=== PATIENT | female | born 1930 | race Hispanic/Latino ===

== ENCOUNTER 2016-11-16 17:04 | Inpatient (IN) | payer MEDICARE, OTHER ==
[2016-11-16] MEDS ORDERED: Vancomycin 1gm in NS 250ml 1 GM/250 ML BAG IVPB STA (17:35)
[2016-11-16] MEDS ORDERED: Piperacillin/Tazobact 3.375 gm 100 ML IVPB STA (17:35)
--- NOTE | 2016-11-16 17:41 | ED PDOC ---
Arrival/HPI - General Historian: Patient - General Chief Complaint: Shortness Of Breath Time Seen by Provider: 11/16/16 17:11 - History of Present Illness Narrative History of Present Illness (Text): 11/16/16 17:38 This is an 86 yo F with PMH of DM and asthma/COPD that presents to the ED with complaint of sob and b/l LE skin infection. She states that about 10 days ago she noticed that her legs were very erythematous and was painful to touch. She went to see podiatry (Macey) who prescribed Kelfex and instructed pt to go to ED if infection does not resolve at resolution of abx regimen. She finished the abx 3 days ago and still is symptomatic. Pt also complains of some sob that began 3 days ago. Denies fevers, chills, chest pain, nausea or vomiting. PMD: Brett (Nakul Alberto) Past Medical History - Provider Review Nursing Documentation Reviewed: Yes - Cardiac Hx Cardiac Disorders: No - Pulmonary Hx Respiratory Disorders: Yes Hx Asthma: Yes Hx Chronic Obstructive Pulmonary Disease (COPD): Yes - Neurological Hx Neurological Disorder: No - HEENT Hx HEENT Disorder: No - Renal Hx Renal Disorder: No - Endocrine/Metabolic Hx Endocrine Disorders: Yes Hx Diabetes Mellitus Type 2: Yes - Hematological/Oncological Hx Blood Disorders: No - Integumentary Hx Dermatological Disorder: No - Musculoskeletal/Rheumatological Hx Musculoskeletal Disorders: No - Gastrointestinal Hx Gastrointestinal Disorders: No - Genitourinary/Gynecological Hx Genitourinary Disorders: No - Psychiatric Hx Psychophysiologic Disorder: No Hx Substance Use: No Family/Social History - Physician Review Nursing Documentation Reviewed: Yes Family/Social History: No Known Family HX Smoking Status: Former Smoker Hx Alcohol Use: No Hx Substance Use: No Allergies/Home Meds Allergies/Adverse Reactions: Allergies No Known Allergies Allergy (Verified 11/17/16 18:15) Home Medications: Home Meds Medication Instructions Recorded Confirmed Fluticasone/Salmeterol [Advair 1 puff PO BID 04/26/15 11/17/16 Diskus 500/50] Omeprazole Magnesium [Prilosec Otc] 1 tab PO DAILY 04/26/15 11/17/16 Meclizine [Meclizine*] 12.5 mg PO Q6 PRN 10/02/15 11/17/16 Metoprolol Succinate [Toprol XL] 25 mg PO BID 10/02/15 11/17/16 Metformin HCl [Glucophage] 1,000 mg PO BID 11/17/16 11/17/16 Review of Systems - Review of Systems Constitutional: Normal Eyes: Normal ENT: Normal Respiratory: SOB, Cough. absent: Sputum, Wheezing Cardiovascular: Normal. absent: Chest Pain, Palpitations Gastrointestinal: Normal. absent: Abdominal Pain, Nausea, Vomiting Genitourinary Female: Normal. absent: Dysuria, Frequency Musculoskeletal: Normal. absent: Arthralgias, Back Pain Skin: Rash, Other (redness over lower extremities) Neurological: Normal. absent: Headache, Dizziness Endocrine: Normal Hemo/Lymphatic: Normal Psychiatric: Normal Physical Exam Appearance: Positive for: Non-Toxic, Comfortable Pain Distress: None Mental Status: Positive for: Alert and Oriented X 3 - Systems Exam Head: Present: Atraumatic, Normocephalic Pupils: Present: PERRL Mouth: Present: Moist Mucous Membranes Respiratory/Chest: Present: Decreased Breath Sounds. No: Respiratory Distress Cardiovascular: Present: Normal S1, S2 Abdomen: Present: Normal Bowel Sounds. No: Tenderness, Distention Upper Extremity: Present: NORMAL PULSES Lower Extremity: Present: NORMAL PULSES, Swelling, Erythema Skin: Present: Warm, Dry, Erythematous (over LE) Psychiatric: Present: Alert, Oriented x 3 Medical Decision Making ED Course and Treatment: 11/16/16 17:43 86 yo F with DM and asthma here with b/l LE cellulitis and sob Plan: - Labs, cultures - EKG, CXR - CTA pending Cr - Zosyn and Vanco - Reassess and disposition 11/16/16 17:45 NSR at 92 with premature SVT complexes, right axis, no ST elevations (Nakul Alberto) EXAM: CT Angiography Chest With Intravenous Contrast FINDINGS: Limitations: Motion artifact - mild to moderate. Suboptimal timing of bolus. Pulmonary arteries: Few apparent filling defects within subsegmental branches. No saddle embolus. Aorta: Mild atherosclerotic disease. No aortic aneurysm. Lungs: Mild centrilobular emphysematous changes. Mild peripheral atelectasis/ scarring. Mild interlobular septal thickening. Pleural space: No significant effusion. No pneumothorax. Heart: Mild cardiomegaly. No significant pericardial effusion. Mediastinum: Probable small hiatal hernia. Bones/joints: No acute fracture. No dislocation. Soft tissues: Unremarkable. Lymph nodes: Several subcentimeter short axis mediastinal lymph nodes. Gallbladder and bile ducts: Calcified gallstones. Kidneys and ureters: Probable LEFT renal cyst. IMPRESSION: 1. Apparent distal pulmonary emboli. 2. Possible early interstitial edema. Clinical correlation is needed. 3. Emphysema. 4. Incidental/non-acute findings are described above. Dictated and Authenticated by: Demarcus Chadwick MD 11/16/2016 9:57 PM Eastern Time ([place] & [place]) 11/20/16 19:36 pt seen tiwt resident. pt with shortness of breadn leg swelling . ct shows pe. heparin starts. labs remarkable for nstemi, nad chf. lasix asa given. acepted by dr mckinney to tele. ([employer]) - Lab Interpretations Microbiology Results: Microbiology Results 11/16/16 19:16 Blood Blood Culture - Preliminary NO GROWTH AFTER 4 DAYS 11/16/16 19:35 Blood Blood Culture - Preliminary NO GROWTH AFTER 3 DAYS Lab Results: 11/16/16 19:16 11/16/16 19:16 Lab Results 11/16/16 19:16: Procalcitonin 0.06 L 11/16/16 19:16: C-React Prot High Sens > 15.00 H 11/16/16 19:16: Sodium 141, Potassium 4.0, Chloride 103, Carbon Dioxide 28, Anion Gap 14, BUN 33 H, Creatinine 1.0, Est GFR ( Amer) > 60, Est GFR ( Non-Af Amer) 52, Random Glucose 100, Calcium 9.8, Total Bilirubin 0.9, AST 32, ALT 30, Alkaline Phosphatase 71, Lactate Dehydrogenase 548, Total Creatine Kinase 61, Troponin I 0.31 H* D, NT-Pro-B Natriuret Pep 6570 H, Total Protein 7.2, Albumin 3.6, Globulin 3.7, Albumin/Globulin Ratio 1.0 L 11/16/16 19:16: WBC 7.9 D, RBC 4.36, Hgb 9.2 L, Hct 32.8 L, MCV 75.2 L, MCH 21.1 L, MCHC 28.0 L, RDW 18.1 H, Plt Count 204, MPV 9.4, Gran % 73.7 H, Lymph % (Auto) 17.2 L, Cooke % (Auto) 7.3 H, Eos % (Auto) 1.5, Baso % (Auto) 0.3, Gran # 5.84, Lymph # 1.4, Cooke # 0.6, Eos # 0.1, Baso # 0.02, ESR 7 - RAD Interpretation Radiology Orders: 11/16/16 17:34 CHEST PORTABLE [RAD] Stat 11/16/16 19:40 ANGIO CHEST PE PROTOCOL [CT] Stat - Medication Orders Current Medication Orders: Arformoterol Tartrate (Brovana) 15 mcg IH [id number] [facility] Last Admin: 11/20/16 08:09 Dose: 15 mcg Aspirin (Ecotrin) 81 mg PO DAILY [facility] Last Admin: 11/20/16 11:09 Dose: 81 mg Atorvastatin Calcium (Lipitor) 40 mg PO DIN [facility] Last Admin: 11/20/16 17:04 Dose: 40 mg Budesonide (Pulmicort Respules) 1 mg IH [id number] [facility] Last Admin: 11/20/16 08:11 Dose: 1 mg Furosemide (Lasix) 40 mg IVP DAILY [facility] Last Admin: 11/20/16 11:10 Dose: 40 mg Heparin Sodium/Sodium Chloride (Heparin 67397 Units/250ml 1/2 Normal Saline) 25 ,000 units in 250 mls @ 14.288 mls/hr IV .[id number] DEQUAN; 18 UNITS/KG/HR PRN Reason: Protocol Last Admin: 11/19/16 20:00 Dose: 9.19 units/kg/hr, 7.295 mls/hr Linezolid (Zyvox 600mg/300ml D5w) 600 mg in 300 mls @ 200 mls/hr IVPB Q12 DEQUAN PRN Reason: Protocol Stop: 11/24/16 10:01 Last Admin: 11/20/16 11:08 Dose: 200 mls/hr Iron Sucrose 200 mg/ Sodium (Chloride) 110 mls @ 110 mls/hr IVPB DAILY [facility] Stop: 11/21/16 10:01 Last Admin: 11/20/16 13:07 Dose: 110 mls/hr Insulin Human Lispro (Humalog) 0 units SC ACHS DEQUAN PRN Reason: Protocol Last Admin: 11/20/16 17:04 Dose: 1 units Meclizine HCl (Antivert) 12.5 mg PO Q6 PRN PRN Reason: Dizziness Metoprolol Tartrate (Lopressor) 25 mg PO BRKDIN [facility] Last Admin: 11/20/16 17:05 Dose: 25 mg Pantoprazole Sodium (Protonix Ec Tab) 40 mg PO ACB [facility] Last Admin: 11/20/16 08:39 Dose: 40 mg Warfarin Sodium (Coumadin) 10 mg PO 1800 [facility] Last Admin: 11/20/16 17:03 Dose: 10 mg Discontinued Medications Albuterol/Ipratropium (Duoneb 3 Mg/0.5 Mg (3 Ml) Ud) 3 ml IH Q15M DEQUAN Stop: 11/16/16 18:16 Last Admin: 11/16/16 20:21 Dose: 3 ml Albuterol/Ipratropium (Duoneb 3 Mg/0.5 Mg (3 Ml) Ud) 3 ml IH Q6H PRN PRN Reason: SOB Stop: 11/17/16 11:01 Arformoterol Tartrate (Brovana) 15 mcg IH [id number] Aspirin (Aspirin) 325 mg PO STAT STA Stop: 11/16/16 19:52 Last Admin: 11/16/16 21:10 Dose: 325 mg Atorvastatin Calcium (Lipitor) 40 mg PO STAT STA Stop: 11/16/16 22:48 Last Admin: 11/16/16 23:03 Dose: 40 mg Barium Sulfate (Readi-Cat 2) Confirm Administered Dose 900 ml PO .STK-MED ONE Stop: 11/18/16 06:41 Furosemide (Lasix) 40 mg IVP STAT STA Stop: 11/16/16 19:52 Last Admin: 11/16/16 21:09 Dose: 40 mg Heparin Sodium (Porcine) (Heparin) 4,000 units IV ONCE ONE PRN Reason: Protocol Stop: 11/16/16 19:52 Last Admin: 11/16/16 21:07 Dose: 4,000 units Vancomycin HCl (Vancomycin 1gm) 1 gm in 250 mls @ 167 mls/hr IVPB STAT STA PRN Reason: Protocol Stop: 11/16/16 19:04 Last Admin: 11/16/16 20:21 Dose: 167 mls/hr Piperacillin Sod/Tazobactam Sod (Zosyn 3.375 In Ns 100ml) 100 mls @ 200 mls/hr IVPB STAT STA PRN Reason: Protocol Stop: 11/16/16 18:04 Last Admin: 11/16/16 19:34 Dose: 200 mls/hr Heparin Sodium/Sodium Chloride (Heparin 43026 Units/250ml 1/2 Normal Saline) 25 ,000 units in 250 mls @ 9.525 mls/hr IV .Q24H DEQUAN; 12 UNITS/KG/HR PRN Reason: Protocol Last Admin: 11/16/16 21:11 Dose: 9.525 mls/hr Piperacillin Sod/Tazobactam Sod (Zosyn 3.375 In Ns 100ml) 100 mls @ 200 mls/hr IVPB Q6 DEQUAN PRN Reason: Protocol Stop: 11/24/16 00:01 Last Admin: 11/18/16 05:03 Dose: 200 mls/hr Magnesium Sulfate 2 gm/ Sodium (Chloride) 104 mls @ 102 mls/hr IVPB ONCE ONE Stop: 11/18/16 10:07 Last Admin: 11/18/16 09:49 Dose: 102 mls/hr Magnesium Sulfate 2 gm/ Sodium (Chloride) 104 mls @ 102 mls/hr IVPB ONCE ONE Stop: 11/18/16 17:28 Last Admin: 11/18/16 18:02 Dose: 102 mls/hr Iodixanol (Visipaque 320 Mg/Ml 100 Ml) Confirm Administered Dose 100 ml IV .STK- MED ONE Stop: 11/16/16 20:27 Methylprednisolone (Solu-Medrol) 125 mg IVP STAT STA Stop: 11/16/16 17:38 Last Admin: 11/16/16 19:33 Dose: 125 mg Metoprolol Succinate (Toprol Xl) 25 mg PO BID [facility] Last Admin: 11/18/16 09:48 Dose: Not Given Non-Admin Reason: BP Parameters Not Met Pneumococcal Polyvalent Vaccine (Pneumovax 23 Vaccine) 0.5 ml IM .ONCE ONE Stop: 11/17/16 22:02 Potassium Chloride (K-Dur 20 Meq Er Tab) 20 meq PO ONCE ONE Stop: 11/20/16 17:22 Warfarin Sodium (Coumadin) 5 mg PO 1800 DEQUAN PRN Reason: Protocol Last Admin: 11/18/16 17:54 Dose: 5 mg Warfarin Sodium (Coumadin) 7.5 mg PO 1800 DEQUAN PRN Reason: Protocol Last Admin: 11/19/16 17:32 Dose: 7.5 mg Warfarin Sodium (Coumadin) 10 mg PO 1800 DEQUAN PRN Reason: Protocol Disposition/Present on Arrival - Present on Arrival Any Indicators Present on Arrival: No History of DVT/PE: No History of Uncontrolled Diabetes: No Urinary Catheter: No History Surgical Site Infection Following: None - Disposition Have Diagnosis and Disposition been Completed?: Yes Disposition Time: 22:05 Patient Plan: Admission - Disposition Diagnosis: Pulmonary embolism, NSTEMI (non-ST elevated myocardial infarction), CHF ( congestive heart failure) Disposition: HOSPITALIZED Patient Problems: Current Active Problems Problem Status Onset CHF (congestive heart failure) Acute NSTEMI (non-ST elevated myocardial infarction) Acute Pulmonary embolism Acute Condition: STABLE
[2016-11-16 19:19] LABS: ADD MANUAL DIFF? NO
[2016-11-16 19:23] LABS: BASO # 0.02 K/mm3 (0.0-2.0); BASO % 0.3 % (0.0-3.0); EOS # 0.1 (0.0-0.7); EOS % 1.5 % (1.5-5.0); GRAN # 5.84 (1.4-6.5); GRAN % 73.7 % (50.0-68.0); HEMATOCRIT 32.8 % (36.0-48.0); LYMPH # 1.4 (1.2-3.4); LYMPH % 17.2 % (22.0-35.0); MEAN CELL VOLUME 75.2 fL (80.0-105.0); MEAN CORPUSCULAR HEMOGLOBIN 21.1 pg (25.0-35.0); MEAN PLATELET VOLUME 9.4 fl (7.0-11.0); MONO # 0.6 (0.1-0.6); MONO % 7.3 % (1.0-6.0); PLATELET COUNT 204 10^3/uL (120.0-450.0); RED CELL DISTRIBUTION WIDTH 18.1 % (11.5-14.5); WHITE BLOOD COUNT 7.9 10^3/ul (4.5-11.0)
[2016-11-16] MEDS: Albuterol-Ipratrop 3 mg / 0.5 (3 ml) UD IH SCH ×3 (19:33→20:21)
[2016-11-16 19:35] LABS: ALKALINE PHOSPHATASE 71 U/L (38-133); ALT/SGPT 30 U/L (7-56); AST/SGOT 32 U/L (15-39); BILIRUBIN,TOTAL 0.9 mg/dL (0.2-1.3); BLOOD UREA NITROGEN 33 mg/dL (7-21); CALCIUM 9.8 mg/dL (8.4-10.5); CARBON DIOXIDE 28 mmol/L (21-33); CHLORIDE 103 mmol/L (98-107); GFR AFRICAN-AMERICAN > 60; GLUCOSE,RANDOM 100 mg/dL (70-110); SODIUM 141 mmol/L (132-148); TOTAL PROTEIN 7.2 g/dL (5.8-8.3)
[2016-11-16 19:49] LABS: TROPONIN I 0.31 ng/mL
[2016-11-16] MEDS ORDERED: Heparin25000 units/250ml 1/2NS 25,000 UNITS/250 ML BAG IV SCH (20:00)
[2016-11-16] MEDS ORDERED: Iodixanol 320 MG/ML 100 ML BOTTLE IV ONE (20:26)
[2016-11-16 20:45] LABS: ERYTHROCYTE SEDIMENTATION RATE 7 mm/hr (0.0-20.0)
--- NOTE | 2016-11-16 21:57 | CT ---
EXAM: CT Angiography Chest With Intravenous Contrast CLINICAL HISTORY: 86 years old, female; Signs and symptoms; Shortness of breath; Additional info: SOB TECHNIQUE: Axial computed tomographic angiography images of the chest with intravenous contrast using pulmonary embolism protocol. This CT exam was performed using one or more of the following dose reduction techniques: automated exposure control, adjustment of the mA and/or kV according to patient size, and/or use of iterative reconstruction technique. MIP reconstructed images were created and reviewed. Coronal and sagittal reformatted images were created and reviewed. CONTRAST: 100 mL of VISI 320 administered intravenously. COMPARISON: CT - CHEST W/O CONTRAST 04/26/2015 7:09:59 PM FINDINGS: Limitations: Motion artifact - mild to moderate. Suboptimal timing of bolus. Pulmonary arteries: Few apparent filling defects within subsegmental branches. No saddle embolus. Aorta: Mild atherosclerotic disease. No aortic aneurysm. Lungs: Mild centrilobular emphysematous changes. Mild peripheral atelectasis/scarring. Mild interlobular septal thickening. Pleural space: No significant effusion. No pneumothorax. Heart: Mild cardiomegaly. No significant pericardial effusion. Mediastinum: Probable small hiatal hernia. Bones/joints: No acute fracture. No dislocation. Soft tissues: Unremarkable. Lymph nodes: Several subcentimeter short axis mediastinal lymph nodes. Gallbladder and bile ducts: Calcified gallstones. Kidneys and ureters: Probable LEFT renal cyst. IMPRESSION: 1. Apparent distal pulmonary emboli. 2. Possible early interstitial edema. Clinical correlation is needed. 3. Emphysema. 4. Incidental/non-acute findings are described above.
[2016-11-16] MEDS: Heparin25000 units/250ml 1/2NS 25,000 UNITS/250 ML BAG IV SCH (22:11)
--- NOTE | 2016-11-16 22:27 | CP.PCM.HP ---
<AleksandrFranklynnakitaMaxime rome - Last Filed: 11/16/16 22:21> History of Present Illness - History of Present Illness History of Present Illness: This patient is an 86yo F w/ a PMHx of COPD, DM, CAD, HTN who is coming to the hospital because she simply felt "off" today. She was being treated for a cellulitis of her LLE by her primary care doctor w/ Juan David, and states that for the past 10 days it has not gotten any better. She is still able to ambulate , but has not felt like being as active as she normally is because she "is too old". She also admits that her memory is starting to go and that she is starting to lose interest in the things that used to bring her candelario in life "missing her youth". She denies any ERWIN, CP, SOB, abdominal pain, N/V/D, dysuria/ freq/urg. She admits to LLE pain/swelling for the past 10 days, which her PMD Dr. West knows about. PMHx: DM, HTN, COPD, Cellulitis of LLE Allergies: None Surgeries: None Social: Lives alone, independent in ADL and IADL normally. Smoked 2 packs a day for 40 years, quit smoking 10 years ago In the ED they performed a CTA which showed distal pulmonary emboli. She had a troponin of .31; other VSS. Stress test in 2016 was normal. She was given Vanc and Zosyn in the ED for the cellulitis. Cardiology (Tila) and ID (Gay) were consulted. Present on Admission - Present on Admission Any Indicators Present on Admission: No History of DVT/PE: No History of Uncontrolled Diabetes: Yes Urinary Catheter: No Decubitus Ulcer Present: No Review of Systems - Review of Systems All systems: reviewed and no additional remarkable complaints except Past Patient History - Past Social History Smoking Status: Former Smoker - CARDIAC Hx Cardiac Disorders: No - PULMONARY Hx Respiratory Disorders: Yes Hx Asthma: Yes Hx Chronic Obstructive Pulmonary Disease (COPD): Yes - NEUROLOGICAL Hx Neurological Disorder: No - HEENT Hx HEENT Problems: No - RENAL Hx Chronic Kidney Disease: No - ENDOCRINE/METABOLIC Hx Endocrine Disorders: Yes Hx Diabetes Mellitus Type 2: Yes - HEMATOLOGICAL/ONCOLOGICAL Hx Blood Disorders: No - INTEGUMENTARY Hx Dermatological Problems: No - MUSCULOSKELETAL/RHEUMATOLOGICAL Hx Musculoskeletal Disorders: No - GASTROINTESTINAL Hx Gastrointestinal Disorders: No - GENITOURINARY/GYNECOLOGICAL Hx Genitourinary Disorders: No - PSYCHIATRIC Hx Psychophysiologic Disorder: No Hx Substance Use: No - SURGICAL HISTORY Hx Surgeries: Yes (rhinoplasty) - ANESTHESIA Hx Anesthesia: No Meds Allergies/Adverse Reactions: Allergies Allergy/AdvReac Type Severity Reaction Status Date / Time No Known Allergies Allergy Verified 05/10/15 15:01 Physical Exam - Constitutional Appears: Non-toxic - Head Exam Head Exam: ATRAUMATIC - Eye Exam Eye Exam: EOMI - ENT Exam ENT Exam: Mucous Membranes Moist - Neck Exam Neck exam: Positive for: Full Rom. Negative for: Lymphadenopathy - Respiratory Exam Respiratory Exam: NORMAL BREATHING PATTERN. absent: Accessory Muscle Use, Clear to Auscultation Bilateral, Respiratory Distress Additional comments: bi basilar crackles present - Cardiovascular Exam Cardiovascular Exam: Tachycardia, REGULAR RHYTHM, +S1, +S2 - GI/Abdominal Exam GI & Abdominal Exam: Normal Bowel Sounds, Soft. absent: Tenderness - Extremities Exam Extremities exam: Positive for: calf tenderness, pedal edema, tenderness. Negative for: normal inspection (LLE swelling and erythema, redness demarcated with pen for day team to assess if antibiotics are working ) - Back Exam Back exam: NORMAL INSPECTION. absent: CVA tenderness (L), CVA tenderness (R) - Neurological Exam Neurological exam: Alert, Oriented x3 - Psychiatric Exam Psychiatric exam: Depressed - Skin Skin Exam: Dry Results - Vital Signs Recent Vital Signs: Last Vital Signs Temp 98.2 F 11/16/16 18:10 Pulse 75 11/16/16 18:10 Resp 18 11/16/16 18:10 BP 124/64 11/16/16 21:09 Pulse Ox 98 11/16/16 19:17 - Labs Result Diagrams: 11/16/16 19:16 11/16/16 19:16 Labs: Laboratory Results - last 24 hr 11/16/16 11/16/16 11/16/16 19:16 19:16 19:16 WBC 7.9 D RBC 4.36 Hgb 9.2 L Hct 32.8 L MCV 75.2 L MCH 21.1 L MCHC 28.0 L RDW 18.1 H Plt Count 204 MPV 9.4 Gran % 73.7 H Lymph % (Auto) 17.2 L Prentiss % (Auto) 7.3 H Eos % (Auto) 1.5 Baso % (Auto) 0.3 Gran # 5.84 Lymph # 1.4 Prentiss # 0.6 Eos # 0.1 Baso # 0.02 ESR 7 Sodium 141 Potassium 4.0 Chloride 103 Carbon Dioxide 28 Anion Gap 14 BUN 33 H Creatinine 1.0 Est GFR ( Amer) > 60 Est GFR (Non-Af Amer) 52 Random Glucose 100 Calcium 9.8 Total Bilirubin 0.9 AST 32 ALT 30 Alkaline Phosphatase 71 Lactate Dehydrogenase 548 Total Creatine Kinase 61 Troponin I 0.31 H* D C-React Prot High Sens > 15.00 H NT-Pro-B Natriuret Pep 6570 H Total Protein 7.2 Albumin 3.6 Globulin 3.7 Albumin/Globulin Ratio 1.0 L Assessment & Plan - Assessment and Plan (Free Text) Assessment: Pt is an 86yo F admitted for NSTEMI and Sub-Segmental Distal PE Sub-Segmental Distal PE; most likely unprovoked -Heparin Drip as per protocol -patients VSS are stable; only tachycardia saturating well -will continue with NS at 2L -Lower extremity ultrasound pending NSTEMI -Cardiology Consult; Adorno -On Heparin Drip; follow protocol -Telemetry monitoring; trend trops -Aspirin, B-Mikki, Statin given; can assess need for ED after echo -echo ordered and pending -BNP 6570; baseline last year 350; most likely new onset CHF; will assess after echo Lower Extrem Swelling/Cellulitis -ID Consult; Dr Rashid -Vanco 1g Q12H, Zosyn 3.75gm Q6H (Diabetes) DM -Insulin Sliding Scale COPD -Nebs PRN -c/w home meds Proph -on Hep Drip -Omeprazole -Heart Healthy Diet -Strict Jhon, Daily Weight Case Discussed and seen with Dr. Betsy Jacobson PGY1 Night Float [phone] Decision To Admit - Pt Status Changed To: Hospital Disposition Of: Inpatient Admission - Admit Certification Admit to Inpatient:: After my assessment, the patient will require hospitalization for at least two midnights. This is because of the severity of symptoms shown, intensity of services needed, and/or the medical risk in this patient being treated as an outpatient. - . Bed Request Type: Telemetry Admitting Physician: Amador Meyer <Amador Meyer - Last Filed: 11/17/16 00:28> Physical Exam - Cardiovascular Exam Additional comments: bibasilar mild crackles Results - Vital Signs Recent Vital Signs: Last Vital Signs Temp 98.2 F 11/16/16 18:10 Pulse 75 11/16/16 18:10 Resp 18 11/16/16 18:10 BP 124/64 11/16/16 21:09 Pulse Ox 98 11/16/16 19:17 - Labs Result Diagrams: 11/16/16 19:16 11/16/16 19:16 Attending/Attestation - Attestation I have personally seen and examined this patient.: Yes I have fully participated in the care of the patient.: Yes I have reviewed all pertinent clinical information: Yes Notes (Text): 11/17/16 00:25 I agree with the above mentioned note by Resident Posadas with the following exceptions: Family history: reviewed and noncontributory Home Meds: Prilosec OTC Toprol 25mg po bid Metformin 1000mg po bid Meclizine prn Advair 500/50 1 puff IH bid 86 y/o female with a PMHx as above presented to the ED with a feeling of general malaise and worsening lower extremity erythema and discomfort which had not improved on po antibiotics. She was found to have a distal PE, mild shortness of breath with an elevated bnp suggestive of acute heart failure as well as elevated troponin levels which are unclear for NSTEMI vs myocardial strain secondary to pulmonary embolism.
[2016-11-16] MEDS ORDERED: Albuterol-Ipratrop 3 mg / 0.5 (3 ml) UD IH PRN (22:50)
[2016-11-16] MEDS ORDERED: Vancomycin 1 g Inj IVPB SCH (23:00)
[2016-11-16] MEDS ORDERED: Piperacillin/Tazobact 3.375 gm Inj IVPB SCH (23:00)
[2016-11-16] MEDS ORDERED: Piperacillin/Tazobact 2.25gm 2.25 GM/100 ML BAG IVPB SCH (23:00)
[2016-11-17] MEDS: Piperacillin/Tazobact 3.375 gm 100 ML IVPB SCH ×5 (00:33→23:05)
[2016-11-17 03:48] LABS: ALKALINE PHOSPHATASE 72 U/L (38-133); ALT/SGPT 35 U/L (7-56); AST/SGOT 31 U/L (15-39); BILIRUBIN,TOTAL 0.7 mg/dL (0.2-1.3); BLOOD UREA NITROGEN 28 mg/dL (7-21); CALCIUM 9.1 mg/dL (8.4-10.5); CARBON DIOXIDE 28 mmol/L (21-33); CHLORIDE 102 mmol/L (95-110); CHOLESTEROL 129 mg/dL (130-200); GFR AFRICAN-AMERICAN > 60; GLUCOSE,RANDOM 181 mg/dL (70-110); POTASSIUM 4.2 mmol/L (3.6-5.0); SODIUM 140 mmol/L (132-148)
[2016-11-17 04:23] LABS: TROPONIN I 0.19 ng/mL
[2016-11-17 04:44] LABS: INR 1.19 (0.93-1.08)
[2016-11-17 04:51] LABS: PARTIAL THROMBOPLASTIN TIME 74.4 Seconds (23.7-30.8)
[2016-11-17] MEDS ORDERED: Vancomycin 1gm in NS 250ml 1 GM/250 ML BAG IVPB SCH (06:00)
[2016-11-17] MEDS ORDERED: Arformoterol 15 mcg/2 ml Inh Sol IH SCH (08:00)
--- NOTE | 2016-11-17 08:52 | RAD ---
HISTORY: sob COMPARISON: 04/26/2015 FINDINGS: LUNGS: No active pulmonary disease. PLEURA: No significant pleural effusion identified, no pneumothorax apparent. CARDIOVASCULAR: Moderate cardiomegaly. Mild vascular congestion OSSEOUS STRUCTURES: No significant abnormalities. VISUALIZED UPPER ABDOMEN: Normal. OTHER FINDINGS: None. IMPRESSION: Moderate cardiomegaly. Mild vascular congestion
[2016-11-17] MEDS: Pantoprazole 40 mg EC Tab PO SCH (09:39)
[2016-11-17] MEDS: Insulin Lispro 1 UNITS/0.01 ML SC SCH ×4 (09:42→22:16)
[2016-11-17] MEDS: Metoprolol Succinate 25 mg XL Tab PO SCH ×2 (09:47→17:21)
--- NOTE | 2016-11-17 09:51 | CARD ---
APPROVED REPORT EKG Measurement Heart [id number] <Conclusion> Sinus rhythm with premature supraventricular complexes Rightward axis Low voltage Nonspecific T wave abnormality, new
--- NOTE | 2016-11-17 10:14 | CARD ---
APPROVED REPORT EKG Measurement Heart [id number] <Conclusion> Sinus rhythm with premature supraventricular complexes RAD PRWP NSSTW changes No change except increased voltage lateral precordial leads
[2016-11-17] MEDS: Linezolid 600 mg in D5W 300 ml 600 MG/300 ML BAG IVPB SCH ×2 (10:32→21:28)
--- NOTE | 2016-11-17 11:01 | CP.PCM.CON ---
History of Present Illness - History of Present Illness History of Present Illness: 86 year old female with PMH of COPD, HTN, CAD, DM, obesity with BMI 33, was brought in to [facility] because the patient was having malaise. She was being treated for lower left leg cellulitis by his PMD with keflex but she feels there is not much improvement. She denies headache or dizziness, no fever or chills, no nausea or vomiting, no chest pain, no SOB, no cough or colds , no abdominal pain, no diarrhea, no dysuria. In the ED, she was started on antibiotics and CT chest was done which showed distal pulmonary emboli. Infectious diseases consult is requested to further evaluate and manage. Review of Systems - Review of Systems All systems: reviewed and no additional remarkable complaints except (as per HPI ) Past Patient History - Past Social History Smoking Status: Former Smoker - CARDIAC Hx Cardiac Disorders: No - PULMONARY Hx Respiratory Disorders: Yes Hx Asthma: Yes Hx Chronic Obstructive Pulmonary Disease (COPD): Yes - NEUROLOGICAL Hx Neurological Disorder: No - HEENT Hx HEENT Problems: No - RENAL Hx Chronic Kidney Disease: No - ENDOCRINE/METABOLIC Hx Endocrine Disorders: Yes Hx Diabetes Mellitus Type 2: Yes - HEMATOLOGICAL/ONCOLOGICAL Hx Blood Disorders: No - INTEGUMENTARY Hx Dermatological Problems: No - MUSCULOSKELETAL/RHEUMATOLOGICAL Hx Musculoskeletal Disorders: No - GASTROINTESTINAL Hx Gastrointestinal Disorders: No - GENITOURINARY/GYNECOLOGICAL Hx Genitourinary Disorders: No - PSYCHIATRIC Hx Psychophysiologic Disorder: No Hx Substance Use: No - SURGICAL HISTORY Hx Surgeries: Yes (rhinoplasty) - ANESTHESIA Hx Anesthesia: No Meds Allergies/Adverse Reactions: Allergies Allergy/AdvReac Type Severity Reaction Status Date / Time No Known Allergies Allergy Verified 05/10/15 15:01 - Medications Medications: Current Medications Albuterol/Ipratropium (Duoneb 3 Mg/0.5 Mg (3 Ml) Ud) 3 ml IH Q6H PRN PRN Reason: SOB Stop: 11/17/16 11:01 Arformoterol Tartrate (Brovana) 15 mcg IH [id number] DEQUAN Aspirin (Ecotrin) 81 mg PO DAILY DEQUAN Atorvastatin Calcium (Lipitor) 40 mg PO DIN DEQUAN Budesonide (Pulmicort Respules) 1 mg IH [id number] DEQUAN Furosemide (Lasix) 40 mg IVP DAILY DEQUAN Heparin Sodium/Sodium Chloride (Heparin 46720 Units/250ml 1/2 Normal Saline) 25 ,000 units in 250 mls @ 14.288 mls/hr IV .[id number] EDQUAN; 18 UNITS/KG/HR PRN Reason: Protocol Last Admin: 11/16/16 22:11 Dose: 14.288 mls/hr Piperacillin Sod/Tazobactam Sod (Zosyn 3.375 In Ns 100ml) 100 mls @ 200 mls/hr IVPB Q6 DEQUAN PRN Reason: Protocol Stop: 11/24/16 00:01 Linezolid (Zyvox 600mg/300ml D5w) 600 mg in 300 mls @ 200 mls/hr IVPB Q12 DEQU[facility] PRN Reason: Protocol Stop: 11/24/16 10:01 Insulin Human Lispro (Humalog) 0 units SC ACHS DEQUAN PRN Reason: Protocol Meclizine HCl (Antivert) 12.5 mg PO Q6 PRN PRN Reason: Dizziness Metoprolol Succinate (Toprol Xl) 25 mg PO BID DEQUAN Pantoprazole Sodium (Protonix Ec Tab) 40 mg PO ACB DEQUAN Physical Exam - Constitutional Appears: Non-toxic, No Acute Distress - Head Exam Head Exam: NORMAL INSPECTION - ENT Exam ENT Exam: Mucous Membranes Moist - Neck Exam Neck exam: Negative for: Lymphadenopathy, Meningismus - Respiratory Exam Respiratory Exam: Decreased Breath Sounds - Cardiovascular Exam Cardiovascular Exam: +S1, +S2 - GI/Abdominal Exam GI & Abdominal Exam: Soft. absent: Tenderness - Extremities Exam Additional comments: left leg with erythema, tenderness and swelling Results - Vital Signs Recent Vital Signs: Last Vital Signs Temp 98.2 F 11/16/16 18:10 Pulse 75 11/16/16 18:10 Resp 18 11/16/16 18:10 BP 124/64 11/16/16 21:09 Pulse Ox 98 11/16/16 19:17 - Labs Result Diagrams: 11/16/16 19:16 11/17/16 03:10 Assessment & Plan - Assessment and Plan (Free Text) Plan: Assessment Consider left lower extremity skin and skin structure infection, R/O acute DVt of the left leg in a patient with acute pulmonary embolism COPD HTN CAD DM obesity with BMI 33 Plan Started the patient on Zosyn and Zyvox pending blood cx; will monitor clinical response; will follow up ultrasound of the legs to rule out DVT Will monitor clinically
--- NOTE | 2016-11-17 12:40 | CP.PCM.PN ---
<Rene Mcgowan - Last Filed: 11/17/16 12:37> Subjective - Date & Time of Evaluation Date of Evaluation: 11/17/16 Time of Evaluation: 09:00 - Subjective Subjective: Hospitalist Progress Note: Pt seen and examined at bedside. No acute events overnight. Pt c/o of pain of her L lower extremity. Denies any chest pain or shortness of breath. Pt denies any avery, dizziness, f/c, abd pain, n/v/d, urinary or bm changes. Objective - Vital Signs/Intake and Output Vital Signs (last 24 hours): Temp Pulse Resp BP Pulse Ox 98.2 F 84 18 128/75 97 11/16/16 18:10 11/17/16 12:32 11/17/16 12:32 11/17/16 12:32 11/17/16 12:32 Intake and Output: 11/17/16 11/17/16 06:59 18:59 Output Total 750 Balance -750 - Medications Medications: Current Medications Arformoterol Tartrate (Brovana) 15 mcg IH [id number] DEQUAN Aspirin (Ecotrin) 81 mg PO DAILY [facility] Last Admin: 11/17/16 09:39 Dose: 81 mg Atorvastatin Calcium (Lipitor) 40 mg PO DIN DEQUAN Budesonide (Pulmicort Respules) 1 mg IH [id number] DEQUAN Furosemide (Lasix) 40 mg IVP DAILY [facility] Last Admin: 11/17/16 09:44 Dose: 40 mg Heparin Sodium/Sodium Chloride (Heparin 16727 Units/250ml 1/2 Normal Saline) 25 ,000 units in 250 mls @ 14.288 mls/hr IV .[id number] DEQUAN; 18 UNITS/KG/HR PRN Reason: Protocol Last Admin: 11/16/16 22:11 Dose: 14.288 mls/hr Piperacillin Sod/Tazobactam Sod (Zosyn 3.375 In Ns 100ml) 100 mls @ 200 mls/hr IVPB Q6 DEQUAN PRN Reason: Protocol Stop: 11/24/16 00:01 Last Admin: 11/17/16 06:08 Dose: 200 mls/hr Linezolid (Zyvox 600mg/300ml D5w) 600 mg in 300 mls @ 200 mls/hr IVPB Q12 DEQUAN PRN Reason: Protocol Stop: 11/24/16 10:01 Last Admin: 11/17/16 10:32 Dose: 200 mls/hr Insulin Human Lispro (Humalog) 0 units SC ACHS [facility] PRN Reason: Protocol Last Admin: 11/17/16 09:42 Dose: 1 units Meclizine HCl (Antivert) 12.5 mg PO Q6 PRN PRN Reason: Dizziness Metoprolol Succinate (Toprol Xl) 25 mg PO BID [facility] Last Admin: 11/17/16 09:47 Dose: 25 mg Pantoprazole Sodium (Protonix Ec Tab) 40 mg PO ACB [facility] Last Admin: 11/17/16 09:39 Dose: 40 mg - Labs Labs: 11/17/16 03:10 PT 12.9 Seconds (9.9-11.8) H 11/17/16 03:10 INR 1.19 (0.93-1.08) H 11/17/16 03:10 APTT 74.4 Seconds (23.7-30.8) H* 11/17/16 03:10 - Head Exam Head Exam: ATRAUMATIC, NORMAL INSPECTION, NORMOCEPHALIC - Eye Exam Eye Exam: EOMI, Normal appearance, PERRL Pupil Exam: NORMAL ACCOMODATION, PERRL - ENT Exam ENT Exam: Mucous Membranes Moist, Normal Exam - Neck Exam Neck Exam: Full ROM, Normal Inspection. absent: Lymphadenopathy - Respiratory Exam Respiratory Exam: Clear to Ausculation Bilateral, NORMAL BREATHING PATTERN. absent: Rales, Wheezes - Cardiovascular Exam Cardiovascular Exam: REGULAR RHYTHM, RRR, +S1, +S2. absent: Murmur - GI/Abdominal Exam GI & Abdominal Exam: Soft, Normal Bowel Sounds. absent: Distended, Tenderness - Extremities Exam Extremities Exam: Tenderness (LLE: area of cellulites on anterior cardona, warm to touch, erythema, non edematous). absent: Calf Tenderness - Back Exam Back Exam: NORMAL INSPECTION - Neurological Exam Neurological Exam: Alert, Awake, CN II-XII Intact, Normal Gait, Oriented x3 - Psychiatric Exam Psychiatric exam: Normal Affect, Normal Mood - Skin Skin Exam: Dry, Intact, Normal Color, Warm Assessment and Plan - Assessment and Plan (Free Text) Assessment: 86yo F with pmh of COPD, DM, presents with lower ext pain found to have Sub- Segmental Distal PE and NSTEMI. 1. Sub-Segmental Distal PE; most likely unprovoked -Hemodynamically stable -Heparin Drip as per protocol -NS at 2L as needed -F/u LLE US 2. NSTEMI -Cardiology Consult - Dr Adorno -On Heparin Drip as protocol -.39 --> .19 -Aspirin, B-Mikki, Statin given; can assess need for ED after echo -F/U echo -BNP 6570; baseline last year 350 f/u echo 3. Lower Extrem Swelling/Cellulitis - ID Consult; Dr Rashid - Linezolid & Zosyn - Cont to monitor 4. DM -ISS ACHS as protocol 5. COPD -Nebs PRN -c/w home meds 6. GI/DVT ppx -On Hep Drip & Omeprazole -Heart Healthy Diet Case and plan was seen, reviewed, and discussed in detail with DR Moore. <Haylie Moore - Last Filed: 11/17/16 15:05> Objective - Vital Signs/Intake and Output Vital Signs (last 24 hours): Temp Pulse Resp BP Pulse Ox 98.2 F 79 18 126/71 97 11/16/16 18:10 11/17/16 14:01 11/17/16 14:01 11/17/16 14:01 11/17/16 14:01 Intake and Output: 11/17/16 11/17/16 06:59 18:59 Output Total 750 Balance -750 - Medications Medications: Current Medications Arformoterol Tartrate (Brovana) 15 mcg IH [id number] [facility] Aspirin (Ecotrin) 81 mg PO DAILY [facility] Last Admin: 11/17/16 09:39 Dose: 81 mg Atorvastatin Calcium (Lipitor) 40 mg PO DIN DEQUAN Budesonide (Pulmicort Respules) 1 mg IH [id number] DEQUAN Furosemide (Lasix) 40 mg IVP DAILY [facility] Last Admin: 11/17/16 09:44 Dose: 40 mg Heparin Sodium/Sodium Chloride (Heparin 02565 Units/250ml 1/2 Normal Saline) 25 ,000 units in 250 mls @ 14.288 mls/hr IV .[id number] DEQUAN; 18 UNITS/KG/HR PRN Reason: Protocol Last Admin: 11/16/16 22:11 Dose: 14.288 mls/hr Piperacillin Sod/Tazobactam Sod (Zosyn 3.375 In Ns 100ml) 100 mls @ 200 mls/hr IVPB Q6 DEQUAN PRN Reason: Protocol Stop: 11/24/16 00:01 Last Admin: 11/17/16 12:37 Dose: 200 mls/hr Linezolid (Zyvox 600mg/300ml D5w) 600 mg in 300 mls @ 200 mls/hr IVPB Q12 DEQUAN PRN Reason: Protocol Stop: 11/24/16 10:01 Last Admin: 11/17/16 10:32 Dose: 200 mls/hr Insulin Human Lispro (Humalog) 0 units SC ACHS DEQUAN PRN Reason: Protocol Last Admin: 11/17/16 12:40 Dose: 5 units Meclizine HCl (Antivert) 12.5 mg PO Q6 PRN PRN Reason: Dizziness Metoprolol Succinate (Toprol Xl) 25 mg PO BID [facility] Last Admin: 11/17/16 09:47 Dose: 25 mg Pantoprazole Sodium (Protonix Ec Tab) 40 mg PO ACB [facility] Last Admin: 11/17/16 09:39 Dose: 40 mg - Labs Labs: 11/17/16 13:00 11/17/16 03:10 PT 12.9 Seconds (9.9-11.8) H 11/17/16 03:10 INR 1.19 (0.93-1.08) H 11/17/16 03:10 APTT 89.1 Seconds (23.7-30.8) H* 11/17/16 13:00 Attending/Attestation - Attestation I have personally seen and examined this patient.: Yes I have fully participated in the care of the patient.: Yes I have reviewed all pertinent clinical information, including history, physical exam and plan: Yes Notes (Text): 11/17/16 14:59 86 year old female with past medical history of COPD and diabetes who presented for evaluation of lower extremity erythema. She was found to have subsmental distal PE and started on heparin drip. Hematology evaluation is requested. She was also found to have mildly elevated troponin possibly due to PE vs NSTEMI. Elevated probnp and congestion noted on cxr consistent with CHF. She is on iv lasix. Cardiology is following and echocardiogram is pending. She is on aspirin, metoprolol and statin. ID evaluation was appreciated for cellulitis. Continue with iv antibiotics. She was also found to have incidental mild acute or subacute T12 compression fracture. She denies any back pain or recent falls. Recommended outpatient DEXA scan. Haylie Moore MD Hospitalist.
[2016-11-17 13:36] LABS: ADD MANUAL DIFF? NO
[2016-11-17 13:41] LABS: GRAN % 82.8 % (50.0-68.0); HEMATOCRIT 33.6 % (36.0-48.0); LYMPH # 0.5 (1.2-3.4); LYMPH % 10.5 % (22.0-35.0); MEAN CELL VOLUME 77.1 fL (80.0-105.0); MEAN CORPUSCULAR HEMOGLOBIN 21.1 pg (25.0-35.0); MEAN CORPUSCULAR HGB CONC 27.4 g/dl (31.0-37.0); MEAN PLATELET VOLUME 10.8 fl (7.0-11.0); MONO # 0.3 (0.1-0.6); MONO % 6.7 % (1.0-6.0); PLATELET COUNT 247 10^3/uL (120.0-450.0); RED CELL DISTRIBUTION WIDTH 17.9 % (11.5-14.5); WHITE BLOOD COUNT 4.5 10^3/ul (4.5-11.0)
--- NOTE | 2016-11-17 14:36 | CON ---
DATE: 11/17/2016 REASON FOR CONSULTATION: Positive troponin, acute PE, admitted with cellulitis. BRIEF CLINICAL HISTORY: This is an 86-year-old female with past medical history of COPD, diabetes. Came in with a complaint of left lower extremity swelling and cellulitis. According to patient, donald ent was seen Dr. Choudhury recently and was told that it is because of shoe ____ the infection is going u p, so patient came to the Emergency Room. There was short of breath, positive troponin, underwent CT angio, showed distal pulmonary emboli. The patient is currently on heparin as well as antibiotic fo r cellulitis of lower extremity. PAST MEDICAL HISTORY: History of hypertension, COPD, cellulitis of lower extremity, diabetes. PAST SURGICAL HISTORY: History of removal of a bunion from the left foot, left big toe. PREVIOUS CARDIAC WORKUP: The patient had a stress test on 10/02/2015, essentially negative, essential ly fixed defect, ejection fraction 76%, normal myocardial perfusion study, no reversible ischemia not ed. EKG today showed normal sinus, right axis deviation, poor R-wave progression, no acute ST-T rosado ges noted. The patient denies any chest pain. REVIEW OF SYSTEMS: A 14-point as per HPI, negative except as per HPI. PHYSICAL EXAMINATION: VITAL SIGNS: Height of the patient 5 feet 1 inch, weight of the patient 175 pounds, body mass index 33.1 kg/meter squared. Temperature afebrile, heart rate 84, blood pressure 128/75. HEENT: PERRLA. Extraocular muscles intact. NECK: Supple. No carotid bruit, no thyromegaly. CHEST: Clear to auscultation. HEART: S1, S2 regular. ABDOMEN: Soft. EXTREMITIES: Clubbing, cyanosis negative. BLOOD WORKUP: WBC 7.9, hemoglobin 9. , hematocrit 32.8, platelet count 204. Chemistry shows sod ium 140, potassium 4.2, chloride 102, carbon dioxide 28, anion gap of 14, BUN 28, creatinine 1.0. Tr oponin 0.31. IMPRESSION: Borderline troponin, secondary to acute pulmonary embolism, diabetes, hypertension , hyperlipidemia, obesity, cellulitis of lower extremity, secondary infection of the toes. RECOMMENDATION: Continue heparin. Start antibiotic. We will do echo to assess left ventricular fun ction. Follow up CPK, troponin, lipid profile, TSH, hemoglobin A1c. We will follow with you. Thank you, Dr. Moore, for providing us the opportunity in taking care of the patient. Alvina Aquino MD cc: [id number] TT: 11/17/2016 14:35:33 Confirmation # [id number] Dictation # [id number] en
[2016-11-17] MEDS: Heparin25000 units/250ml 1/2NS 25,000 UNITS/250 ML BAG IV SCH (15:50)
--- NOTE | 2016-11-17 18:27 | US ---
HISTORY: Leg pain and swelling. Evaluate for DVT PHYSICIAN(S): Farhat Macias MD. TECHNIQUE: Duplex sonography and color-flow Doppler with graded compression were used to evaluate the deep venous systems of both lower extremities. FINDINGS: Occlusive thrombus is noted in the right peroneal vein and the left posterior tibial vein. The popliteal veins are patent and compressible. The femoral veins and common femoral veins are patent and compressible. IMPRESSION: Bilateral tibial DVT, age indeterminate
[2016-11-17 19:17] LABS: ADD MANUAL DIFF? NO
[2016-11-17 19:20] LABS: GRAN # 5.58 (1.4-6.5); GRAN % 78.4 % (50.0-68.0); HEMATOCRIT 30.5 % (36.0-48.0); LYMPH # 0.6 (1.2-3.4); MEAN CELL VOLUME 76.4 fL (80.0-105.0); MEAN CORPUSCULAR HEMOGLOBIN 20.8 pg (25.0-35.0); MEAN CORPUSCULAR HGB CONC 27.2 g/dl (31.0-37.0); MEAN PLATELET VOLUME 9.8 fl (7.0-11.0); MONO # 0.9 (0.1-0.6); MONO % 12.6 % (1.0-6.0); PLATELET COUNT 223 10^3/uL (120.0-450.0); RED CELL DISTRIBUTION WIDTH 17.9 % (11.5-14.5); WHITE BLOOD COUNT 7.1 10^3/ul (4.5-11.0)
[2016-11-17] MEDS: Budesonide 0.5 mg/2 ml Inhal Susp UD IH SCH (20:21)
--- NOTE | 2016-11-17 20:39 | CP.PCM.CON ---
History of Present Illness - History of Present Illness History of Present Illness: Hematology Consult Referred by Dr. Moore for new diagnosis of PE HPI- Ms Berg is 86 y/o F with h/o DM, HTN, CAD, COPD who was admitted with generalized malaise and mild SOB. She was recently found to have LLE cellulitis and was being treated with antibiotics. On admission, CT Chest showed pulmonary emboli in subsegmental branches. She was started on IV heparin. She lives by herself and is independent with her ADL's. Her ambulation is restricted though and she uses cane/ walker. She denies recent hospitalization or being bed bound. She used to smoke 1-2 packs/ day before for around 40 yrs but quit 10 yrs ago. She was otherwise in good health other than recent "leg infection". Her appetite is normal and denies weight loss. She complains of intermittent constipation, denies abdominal pain. Denies leg pain or chest pain now. Family and Social history reviewed. Review of Systems - Review of Systems All systems: reviewed and no additional remarkable complaints except Review of Systems: as in HPI - Constitutional Constitutional: Fatigue. absent: Chills, Fever, Weight Loss - EENT Eyes: absent: Blind Spots, Blurred Vision, Change in Vision Past Patient History - Past Social History Smoking Status: Former Smoker - CARDIAC Hx Cardiac Disorders: No - PULMONARY Hx Respiratory Disorders: Yes Hx Asthma: Yes Hx Chronic Obstructive Pulmonary Disease (COPD): Yes - NEUROLOGICAL Hx Neurological Disorder: No - HEENT Hx HEENT Problems: No - RENAL Hx Chronic Kidney Disease: No - ENDOCRINE/METABOLIC Hx Endocrine Disorders: Yes Hx Diabetes Mellitus Type 2: Yes - HEMATOLOGICAL/ONCOLOGICAL Hx Blood Disorders: No - INTEGUMENTARY Hx Dermatological Problems: No - MUSCULOSKELETAL/RHEUMATOLOGICAL Hx Musculoskeletal Disorders: No - GASTROINTESTINAL Hx Gastrointestinal Disorders: No - GENITOURINARY/GYNECOLOGICAL Hx Genitourinary Disorders: No - PSYCHIATRIC Hx Psychophysiologic Disorder: No Hx Substance Use: No - SURGICAL HISTORY Hx Surgeries: Yes (rhinoplasty) - ANESTHESIA Hx Anesthesia: No Meds Allergies/Adverse Reactions: Allergies Allergy/AdvReac Type Severity Reaction Status Date / Time No Known Allergies Allergy Verified 11/17/16 18:15 - Medications Medications: Current Medications Arformoterol Tartrate (Brovana) 15 mcg IH [id number] [facility] Aspirin (Ecotrin) 81 mg PO DAILY DEQUAN Last Admin: 11/17/16 09:39 Dose: 81 mg Atorvastatin Calcium (Lipitor) 40 mg PO DIN [facility] Last Admin: 11/17/16 17:25 Dose: 40 mg Budesonide (Pulmicort Respules) 1 mg IH [id number] [facility] Last Admin: 11/17/16 20:21 Dose: 1 mg Furosemide (Lasix) 40 mg IVP DAILY [facility] Last Admin: 11/17/16 09:44 Dose: 40 mg Heparin Sodium/Sodium Chloride (Heparin 82910 Units/250ml 1/2 Normal Saline) 25 ,000 units in 250 mls @ 14.288 mls/hr IV .[id number] DEQUAN; 18 UNITS/KG/HR PRN Reason: Protocol Last Admin: 11/17/16 15:50 Dose: 15.49 units/kg/hr, 12.3 mls/hr Piperacillin Sod/Tazobactam Sod (Zosyn 3.375 In Ns 100ml) 100 mls @ 200 mls/hr IVPB Q6 [facility] PRN Reason: Protocol Stop: 11/24/16 00:01 Last Admin: 11/17/16 17:26 Dose: 200 mls/hr Linezolid (Zyvox 600mg/300ml D5w) 600 mg in 300 mls @ 200 mls/hr IVPB Q12 DEQUAN PRN Reason: Protocol Stop: 11/24/16 10:01 Last Admin: 11/17/16 10:32 Dose: 200 mls/hr Insulin Human Lispro (Humalog) 0 units SC ACHS [facility] PRN Reason: Protocol Last Admin: 11/17/16 17:25 Dose: 2 units Meclizine HCl (Antivert) 12.5 mg PO Q6 PRN PRN Reason: Dizziness Metoprolol Succinate (Toprol Xl) 25 mg PO BID [facility] Last Admin: 11/17/16 17:21 Dose: 25 mg Pantoprazole Sodium (Protonix Ec Tab) 40 mg PO ACB [facility] Last Admin: 11/17/16 09:39 Dose: 40 mg Physical Exam - Head Exam Head Exam: ATRAUMATIC, NORMAL INSPECTION - Eye Exam Eye Exam: EOMI, PERRL - ENT Exam ENT Exam: Mucous Membranes Moist - Neck Exam Neck exam: Negative for: Lymphadenopathy - Respiratory Exam Respiratory Exam: Clear to Auscultation Bilateral - Cardiovascular Exam Cardiovascular Exam: REGULAR RHYTHM - GI/Abdominal Exam GI & Abdominal Exam: Normal Bowel Sounds, Soft. absent: Organomegaly, Tenderness - Extremities Exam Extremities exam: Positive for: pedal edema Additional comments: LLE- erythema, non-tender - Neurological Exam Neurological exam: Alert, Oriented x3 Results - Vital Signs Recent Vital Signs: Last Vital Signs Temp 97.9 F 11/17/16 18:55 Pulse 72 11/17/16 18:55 Resp 20 11/17/16 18:55 BP 96/48 L 11/17/16 18:55 Pulse Ox 97 11/17/16 14:01 - Labs Result Diagrams: 11/17/16 19:10 11/17/16 03:10 Labs: Laboratory Results - last 24 hr 11/17/16 11/17/16 11/17/16 03:10 03:10 03:10 WBC RBC Hgb Hct MCV MCH MCHC RDW Plt Count MPV Gran % Lymph % (Auto) [place] % (Auto) Eos % (Auto) Baso % (Auto) Gran # Lymph # [place] # Eos # Baso # PT 12.9 H INR 1.19 H APTT 74.4 H* Sodium 140 Potassium 4.2 Chloride 102 Carbon Dioxide 28 Anion Gap 14 BUN 28 H Creatinine 1.0 Est GFR ( Amer) > 60 Est GFR (Non-Af Amer) 52 POC Glucose (mg/dL) Random Glucose 181 H Calcium 9.1 Total Bilirubin 0.7 AST 31 ALT 35 Alkaline Phosphatase 72 Troponin I 0.19 H* D Total Protein 7.0 Albumin 3.4 Globulin 3.6 Albumin/Globulin Ratio 1.0 L Triglycerides 67 Cholesterol 129 L LDL Cholesterol Direct 82 HDL Cholesterol 33 TSH 3rd Generation 0.7 11/17/16 11/17/16 11/17/16 13:00 13:00 13:00 WBC 4.5 D RBC 4.36 Hgb 9.2 L Hct 33.6 L MCV 77.1 L MCH 21.1 L MCHC 27.4 L RDW 17.9 H Plt Count 247 MPV 10.8 Gran % 82.8 H Lymph % (Auto) 10.5 L [place] % (Auto) 6.7 H Eos % (Auto) 0.0 L Baso % (Auto) 0.0 Gran # 3.70 Lymph # 0.5 L [place] # 0.3 Eos # 0.0 Baso # 0.00 PT INR APTT 89.1 H* Sodium Potassium Chloride Carbon Dioxide Anion Gap BUN Creatinine Est GFR ( Amer) Est GFR (Non-Af Amer) POC Glucose (mg/dL) Random Glucose Calcium Total Bilirubin AST ALT Alkaline Phosphatase Troponin I 0.16 H* Total Protein Albumin Globulin Albumin/Globulin Ratio Triglycerides Cholesterol LDL Cholesterol Direct HDL Cholesterol TSH 3rd Generation 11/17/16 11/17/16 11/17/16 16:04 19:10 19:10 WBC 7.1 D RBC 3.99 Hgb 8.3 L Hct 30.5 L MCV 76.4 L MCH 20.8 L MCHC 27.2 L RDW 17.9 H Plt Count 223 MPV 9.8 Gran % 78.4 H Lymph % (Auto) 9.0 L [place] % (Auto) 12.6 H Eos % (Auto) 0.0 L Baso % (Auto) 0.0 Gran # 5.58 Lymph # 0.6 L [place] # 0.9 H Eos # 0.0 Baso # 0.00 PT INR APTT 72.3 H* Sodium Potassium Chloride Carbon Dioxide Anion Gap BUN Creatinine Est GFR ( Amer) Est GFR (Non-Af Amer) POC Glucose (mg/dL) 202 H Random Glucose Calcium Total Bilirubin AST ALT Alkaline Phosphatase Troponin I Total Protein Albumin Globulin Albumin/Globulin Ratio Triglycerides Cholesterol LDL Cholesterol Direct HDL Cholesterol TSH 3rd Generation Assessment & Plan - Assessment and Plan (Free Text) Assessment: Acute PE, likely unprovoked, though she had not been ambulating much recently. Microcytic anemia Plan On IV heparin for now. Can start coumadin when stable with a target therapeutic INR between 2-3. We discussed the risks of anticoagulation including bleeding and interaction of coumadin with food and other medications. Follow up results of US doppler LE. In future, if her bleeding risk increases, we could consider IVC filter placement. Check iron levels. Start IV Venofer [address] A/P to rule out malignancy (in setting of VTE) Monitor for bleeding. All her questions were answered. Thank you for the consult Gurinder Hughes - Date & Time Date: 11/17/16 Time: 18:39
[2016-11-17 22:01] VITALS: BMI 33.0
[2016-11-17] MEDS ORDERED: Pneumococcal 23-Valent Vaccine IM ONE (22:01)
[2016-11-18] MEDS: Piperacillin/Tazobact 3.375 gm 100 ML IVPB SCH (05:03)
[2016-11-18] MEDS ORDERED: Barium Sulfate Susp 2.1% w/v, 2.0% w/w 450 mL Bottle PO ONE (06:40)
[2016-11-18] MEDS: Insulin Lispro 1 UNITS/0.01 ML SC SCH ×4 (08:15→21:12)
[2016-11-18] MEDS: Arformoterol 15 mcg/2 ml Inh Sol IH SCH ×2 (08:26→20:19)
[2016-11-18] MEDS: Budesonide 0.5 mg/2 ml Inhal Susp UD IH SCH ×2 (08:26→20:20)
[2016-11-18 08:36] LABS: IRON 13 ug/dL (45-180)
[2016-11-18] MEDS: Pantoprazole 40 mg EC Tab PO SCH (08:39)
[2016-11-18 08:47] LABS: CHOLESTEROL 108 mg/dL (130-200); MAGNESIUM 1.1 mg/dL (1.7-2.2); PHOSPHOROUS 3.1 mg/dL (2.5-4.5)
[2016-11-18 08:58] LABS: ADD MANUAL DIFF? NO
[2016-11-18 09:01] LABS: BASO # 0.01 K/mm3 (0.0-2.0); BASO % 0.1 % (0.0-3.0); EOS # 0.1 (0.0-0.7); EOS % 0.5 % (1.5-5.0); GRAN # 7.95 (1.4-6.5); GRAN % 72.7 % (50.0-68.0); HEMATOCRIT 30.6 % (36.0-48.0); LYMPH # 2.1 (1.2-3.4); LYMPH % 19.4 % (22.0-35.0); MEAN CELL VOLUME 75.9 fL (80.0-105.0); MEAN CORPUSCULAR HEMOGLOBIN 20.6 pg (25.0-35.0); MEAN CORPUSCULAR HGB CONC 27.1 g/dl (31.0-37.0); MEAN PLATELET VOLUME 10.4 fl (7.0-11.0); MONO # 0.8 (0.1-0.6); MONO % 7.3 % (1.0-6.0); PLATELET COUNT 228 10^3/uL (120.0-450.0); WHITE BLOOD COUNT 10.9 10^3/ul (4.5-11.0)
[2016-11-18] MEDS ORDERED: Magnesium Sulfate 2 GM in Sodium Chloride 0.9% 100 ML IVPB ONE ×2 (09:06→16:27)
[2016-11-18 09:45] LABS: INR 1.16 (0.93-1.08)
[2016-11-18] MEDS: Metoprolol Succinate 25 mg XL Tab PO SCH (09:48)
[2016-11-18 09:56] LABS: TROPONIN I 0.25 ng/mL
--- NOTE | 2016-11-18 11:16 | CP.PCM.PN ---
Subjective - Date & Time of Evaluation Date of Evaluation: 11/18/16 Time of Evaluation: 09:15 - Subjective Subjective: Feeling better, breathing better, no fevers overnight, no nausea, less pain in the left leg. Objective - Vital Signs/Intake and Output Vital Signs (last 24 hours): Temp Pulse Resp BP Pulse Ox 97.7 F 63 20 101/66 92 L 11/18/16 05:38 11/18/16 05:38 11/18/16 05:38 11/18/16 05:38 11/18/16 05:38 Intake and Output: 11/18/16 11/18/16 06:59 18:59 Intake Total 1240 Output Total 0 Balance 1240 - Medications Medications: Current Medications Arformoterol Tartrate (Brovana) 15 mcg IH [id number] [facility] Last Admin: 11/18/16 08:26 Dose: 15 mcg Aspirin (Ecotrin) 81 mg PO DAILY [facility] Last Admin: 11/17/16 09:39 Dose: 81 mg Atorvastatin Calcium (Lipitor) 40 mg PO DIN [facility] Last Admin: 11/17/16 17:25 Dose: 40 mg Budesonide (Pulmicort Respules) 1 mg IH [id number] [facility] Last Admin: 11/18/16 08:26 Dose: 1 mg Furosemide (Lasix) 40 mg IVP DAILY [facility] Last Admin: 11/17/16 09:44 Dose: 40 mg Heparin Sodium/Sodium Chloride (Heparin 57036 Units/250ml 1/2 Normal Saline) 25 ,000 units in 250 mls @ 14.288 mls/hr IV .[id number] DEQUAN; 18 UNITS/KG/HR PRN Reason: Protocol Last Admin: 11/17/16 15:50 Dose: 15.49 units/kg/hr, 12.3 mls/hr Piperacillin Sod/Tazobactam Sod (Zosyn 3.375 In Ns 100ml) 100 mls @ 200 mls/hr IVPB Q6 DEQUAN PRN Reason: Protocol Stop: 11/24/16 00:01 Last Admin: 11/18/16 05:03 Dose: 200 mls/hr Linezolid (Zyvox 600mg/300ml D5w) 600 mg in 300 mls @ 200 mls/hr IVPB Q12 DEQUAN PRN Reason: Protocol Stop: 11/24/16 10:01 Last Admin: 11/17/16 21:28 Dose: 200 mls/hr Iron Sucrose 200 mg/ Sodium (Chloride) 110 mls @ 110 mls/hr IVPB DAILY [facility] Stop: 11/21/16 10:01 Insulin Human Lispro (Humalog) 0 units SC ACHS [facility] PRN Reason: Protocol Last Admin: 11/18/16 08:15 Dose: Not Given Meclizine HCl (Antivert) 12.5 mg PO Q6 PRN PRN Reason: Dizziness Metoprolol Succinate (Toprol Xl) 25 mg PO BID [facility] Last Admin: 11/17/16 17:21 Dose: 25 mg Pantoprazole Sodium (Protonix Ec Tab) 40 mg PO ACB [facility] Last Admin: 11/18/16 08:39 Dose: 40 mg - Labs Labs: 11/17/16 19:10 11/17/16 03:10 PT 12.9 Seconds (9.9-11.8) H 11/17/16 03:10 INR 1.19 (0.93-1.08) H 11/17/16 03:10 APTT 75.2 Seconds (23.7-30.8) H* 11/18/16 01:50 - Constitutional Appears: Non-toxic, No Acute Distress - Head Exam Head Exam: NORMAL INSPECTION - ENT Exam ENT Exam: Mucous Membranes Moist - Neck Exam Neck Exam: absent: Lymphadenopathy, Meningismus - Respiratory Exam Respiratory Exam: Decreased Breath Sounds - Cardiovascular Exam Cardiovascular Exam: +S1, +S2 - GI/Abdominal Exam GI & Abdominal Exam: Soft. absent: Tenderness Assessment and Plan - Assessment and Plan (Free Text) Plan: Assessment Consider left lower extremity skin and skin structure infection with DVT of the left leg (indeterminate age) in a patient with acute pulmonary embolism COPD HTN CAD DM obesity with BMI 33 Plan continue Zyvox day 2 and d/c Zosyn;blood cx are negative; will continue to monitor clinical response
[2016-11-18 11:33] LABS: ALB/GLOB RATIO 0.9 (1.1-1.8); BILIRUBIN,TOTAL 0.6 mg/dL (0.2-1.3); TOTAL PROTEIN 6.2 g/dL (5.8-8.3)
--- NOTE | 2016-11-18 13:22 | CP.PCM.PN ---
<Ancelmo Martinze - Last Filed: 11/18/16 13:22> Subjective - Date & Time of Evaluation Date of Evaluation: 11/18/16 Time of Evaluation: 13:20 - Subjective Subjective: Medicine progress note. Attending: Dr. Moore. Pt seen and examined at bedside. No acute distress. No events overnight. Pt resting comfortably. will f/u ct abdomen and warfarin tonight. Pt feeling better , no fevers, chills, vomiting, diarrhea. Objective - Vital Signs/Intake and Output Vital Signs (last 24 hours): Temp Pulse Resp BP Pulse Ox 98.1 F 66 18 128/66 92 L 11/18/16 11:52 11/18/16 11:52 11/18/16 11:52 11/18/16 11:52 11/18/16 05:38 Intake and Output: 11/18/16 11/18/16 06:59 18:59 Intake Total 1240 Output Total 0 Balance 1240 - Medications Medications: Current Medications Arformoterol Tartrate (Brovana) 15 mcg IH [id number] [facility] Last Admin: 11/18/16 08:26 Dose: 15 mcg Aspirin (Ecotrin) 81 mg PO DAILY [facility] Last Admin: 11/18/16 09:48 Dose: 81 mg Atorvastatin Calcium (Lipitor) 40 mg PO DIN [facility] Last Admin: 11/17/16 17:25 Dose: 40 mg Budesonide (Pulmicort Respules) 1 mg IH [id number] [facility] Last Admin: 11/18/16 08:26 Dose: 1 mg Furosemide (Lasix) 40 mg IVP DAILY [facility] Last Admin: 11/18/16 09:47 Dose: 40 mg Heparin Sodium/Sodium Chloride (Heparin 24028 Units/250ml 1/2 Normal Saline) 25 ,000 units in 250 mls @ 14.288 mls/hr IV .[id number] DEQUAN; 18 UNITS/KG/HR PRN Reason: Protocol Last Admin: 11/17/16 15:50 Dose: 15.49 units/kg/hr, 12.3 mls/hr Linezolid (Zyvox 600mg/300ml D5w) 600 mg in 300 mls @ 200 mls/hr IVPB Q12 DEQUAN PRN Reason: Protocol Stop: 11/24/16 10:01 Last Admin: 11/17/16 21:28 Dose: 200 mls/hr Iron Sucrose 200 mg/ Sodium (Chloride) 110 mls @ 110 mls/hr IVPB DAILY [facility] Stop: 11/21/16 10:01 Insulin Human Lispro (Humalog) 0 units SC ACHS [facility] PRN Reason: Protocol Last Admin: 11/18/16 08:15 Dose: Not Given Meclizine HCl (Antivert) 12.5 mg PO Q6 PRN PRN Reason: Dizziness Metoprolol Succinate (Toprol Xl) 25 mg PO BID [facility] Last Admin: 11/18/16 09:48 Dose: Not Given Pantoprazole Sodium (Protonix Ec Tab) 40 mg PO ACB [facility] Last Admin: 11/18/16 08:39 Dose: 40 mg Warfarin Sodium (Coumadin) 5 mg PO 1800 [facility] PRN Reason: Protocol - Labs Labs: 11/18/16 07:30 11/18/16 07:00 PT 12.5 Seconds (9.9-11.8) H 11/18/16 09:25 INR 1.16 (0.93-1.08) H 11/18/16 09:25 APTT 75.2 Seconds (23.7-30.8) H* 11/18/16 01:50 - Constitutional Appears: Non-toxic, No Acute Distress - Head Exam Head Exam: ATRAUMATIC, NORMAL INSPECTION, NORMOCEPHALIC - Eye Exam Eye Exam: EOMI - ENT Exam ENT Exam: Mucous Membranes Moist - Neck Exam Neck Exam: Full ROM, Normal Inspection - Respiratory Exam Respiratory Exam: NORMAL BREATHING PATTERN. absent: Respiratory Distress - Cardiovascular Exam Cardiovascular Exam: +S1, +S2 - GI/Abdominal Exam GI & Abdominal Exam: Soft, Normal Bowel Sounds. absent: Tenderness - Extremities Exam Extremities Exam: absent: Full ROM, Normal Inspection Additional comments: Cellulitis left lower ext - Neurological Exam Neurological Exam: Alert, Awake, Oriented x3 - Psychiatric Exam Psychiatric exam: Normal Affect, Normal Mood - Skin Skin Exam: Dry, Intact, Normal Color, Warm Assessment and Plan - Assessment and Plan (Free Text) Assessment: This is an 86 yo female with past medical hx of COPD, DM, presents with lower ext pain found to have Sub-Segmental Distal PE and NSTEMI. 1. Sub-Segmental Distal PE; most likely unprovoked -Hemodynamically stable -Heparin Drip as per protocol -dopplers show b/l tibial dvt -will add warfarin tonight -monitor coags -ct abdomen pending 2. NSTEMI -Cardiology Consult - Dr Adorno -On Heparin Drip as protocol -Aspirin, B-Mikki, Statin given; can assess need for ED after echo -F/U echo -BNP 6570 on admission; baseline last year 350 -f/u echo 3. Lower Extrem Swelling/Cellulitis - ID Consult; Dr Rashid - Linezolid & Zosyn - Cont to monitor 4. DM -ISS ACHS as protocol 5. COPD -Nebs PRN -c/w home meds brovana and pulmicort 6. GI/DVT ppx -On Hep Drip & Omeprazole -Heart Healthy Diet discussed with Dr. Moore <Haylie Moore - Last Filed: 11/19/16 07:53> Objective - Vital Signs/Intake and Output Vital Signs (last 24 hours): Temp Pulse Resp BP Pulse Ox 97.6 F 90 18 134/66 95 11/19/16 05:15 11/19/16 05:15 11/19/16 05:15 11/19/16 05:15 11/19/16 05:15 Intake and Output: 11/19/16 11/19/16 06:59 18:59 Intake Total 1500 Balance 1500 - Medications Medications: Current Medications Arformoterol Tartrate (Brovana) 15 mcg IH [id number] [facility] Last Admin: 11/18/16 20:19 Dose: 15 mcg Aspirin (Ecotrin) 81 mg PO DAILY [facility] Last Admin: 11/18/16 09:48 Dose: 81 mg Atorvastatin Calcium (Lipitor) 40 mg PO DIN [facility] Last Admin: 11/18/16 17:53 Dose: 40 mg Budesonide (Pulmicort Respules) 1 mg IH [id number] [facility] Last Admin: 11/18/16 20:20 Dose: 1 mg Furosemide (Lasix) 40 mg IVP DAILY [facility] Last Admin: 11/18/16 09:47 Dose: 40 mg Heparin Sodium/Sodium Chloride (Heparin 16396 Units/250ml 1/2 Normal Saline) 25 ,000 units in 250 mls @ 14.288 mls/hr IV .[id number] DEQUAN; 18 UNITS/KG/HR PRN Reason: Protocol Last Admin: 11/18/16 15:48 Dose: 15.49 units/kg/hr, 12.296 mls/hr Linezolid (Zyvox 600mg/300ml D5w) 600 mg in 300 mls @ 200 mls/hr IVPB Q12 DEQUAN PRN Reason: Protocol Stop: 11/24/16 10:01 Last Admin: 11/18/16 21:17 Dose: 200 mls/hr Iron Sucrose 200 mg/ Sodium (Chloride) 110 mls @ 110 mls/hr IVPB DAILY [facility] Stop: 11/21/16 10:01 Last Admin: 11/18/16 14:06 Dose: 110 mls/hr Insulin Human Lispro (Humalog) 0 units SC ACHS [facility] PRN Reason: Protocol Last Admin: 11/18/16 21:12 Dose: Not Given Meclizine HCl (Antivert) 12.5 mg PO Q6 PRN PRN Reason: Dizziness Metoprolol Tartrate (Lopressor) 25 mg PO BRKDIN [facility] Last Admin: 11/18/16 17:47 Dose: 25 mg Pantoprazole Sodium (Protonix Ec Tab) 40 mg PO ACB [facility] Last Admin: 11/18/16 08:39 Dose: 40 mg Warfarin Sodium (Coumadin) 5 mg PO 1800 [facility] PRN Reason: Protocol Last Admin: 11/18/16 17:54 Dose: 5 mg - Labs Labs: 11/18/16 07:30 11/18/16 07:00 PT 12.5 Seconds (9.9-11.8) H 11/18/16 09:25 INR 1.16 (0.93-1.08) H 11/18/16 09:25 APTT 75.2 Seconds (23.7-30.8) H* 11/18/16 01:50 Attending/Attestation - Attestation I have personally seen and examined this patient.: Yes I have fully participated in the care of the patient.: Yes I have reviewed all pertinent clinical information, including history, physical exam and plan: Yes Notes (Text): 11/20/16 86 year old female with past medical history of COPD and diabetes who presented for evaluation of lower extremity erythema. She was found to have subsmental distal PE and started on heparin drip. Hematology evaluation was appreciated. Will start on coumadin tonight. She was also started on iv iron for anemia. She was also found to have mildly elevated troponin possibly due to heart strain from PE vs NSTEMI. Elevated probnp and congestion were noted on cxr consistent with CHF. She is on iv lasix along with aspirin, metoprolol and statin. Cardiology is following. Echocardiogram was done this morning and report is pending. She is on iv antibiotics as per ID for LE cellulitis. She was also found to have incidental mild acute or subacute T12 compression fracture. She denies any back pain or recent falls. Recommended outpatient DEXA scan. Today she has mild renal insufficiency with creatinine of 1.5. Nephrology evaluation was requested. Will continue to monitor her kidney function closely and follow up with nephrology recommendations. Haylie Moore MD Hospitalist.
[2016-11-18] MEDS: Linezolid 600 mg in D5W 300 ml 600 MG/300 ML BAG IVPB SCH ×2 (15:05→21:17)
--- NOTE | 2016-11-18 15:15 | CT ---
PROCEDURE: CT Abdomen and Pelvis without intravenous contrast HISTORY: eval for mass COMPARISON: None. TECHNIQUE: Without contrast.. Contrast Dose: Radiation dose: Total exam DLP = 1072 mGy-cm. This CT exam was performed using one or more of the following dose reduction techniques: Automated exposure control, adjustment of the mA and/or kV according to patient size, and/or use of iterative reconstruction technique. FINDINGS: LOWER THORAX: Bibasilar consolidation LIVER: Unremarkable. No gross lesion or ductal dilatation. GALLBLADDER AND BILE DUCTS: There is a large 18 mm gallstone. PANCREAS: Unremarkable. No gross lesion or ductal dilatation. SPLEEN: Unremarkable. ADRENALS: Unremarkable. No mass. KIDNEYS AND URETERS: Unremarkable. No hydronephrosis. No solid mass. VASCULATURE: Unremarkable. No aortic aneurysm. BOWEL: Unremarkable. No obstruction. No gross mural thickening. APPENDIX: Unremarkable. Normal appendix. PERITONEUM: Unremarkable. No free fluid. No free air. LYMPH NODES: Unremarkable. No enlarged lymph nodes. BLADDER: Is increased density of the urine in the bladder most likely due to recent contrast injection REPRODUCTIVE: Unremarkable. BONES: No acute fracture. OTHER FINDINGS: None. IMPRESSION: Large gallstone. No acute intra-abdominal findings
--- NOTE | 2016-11-18 15:37 | PN ---
DATE: 11/18/2016 REASON FOR CONSULTATION: Positive troponin, rule out non-STEMI, possible acute PE. The patient denies any chest pain, shortness of breath, any palpitation. PHYSICAL EXAMINATION: VITAL SIGNS: Temperature afebrile, heart rate 60, blood pressure 128/66. HEENT: PERRLA. Extraocular muscles intact. NECK: Supple. No carotid bruit. No thyromegaly. CHEST: Clear to auscultation. HEART: S1, S2 regular. ABDOMEN: Soft. EXTREMITIES: Clubbing, cyanosis negative. BLOOD WORKUP: As follows: WBC 10.9, hemoglobin ____, hematocrit 30.6, platelet count 228. Chemistr y shows sodium 130, potassium 4, chloride 103, carbon dioxide 28, anion gap of 11, BUN 35, creatinine 1.5. Troponin 0.9, 0.19, 0.16, 0.25. Total CPK 282. MB fraction 1.9. IMPRESSION: Acute pulmonary embolism, doubt was myocardial infarction, the positive troponin is most likely secondary to RV strain pattern, diabetes, hypertension, hyperlipidemia, cellulitis of lower e xtremity, history of chronic obstructive pulmonary disease. RECOMMENDATION: Continue broad spectrum antibiotic. Continue heparin. Follow up echo when it is do ne. CAT scan of the chest was consistent with distal pulmonary embolism, bilateral duplex scan, bila teral tibial DVT age undetermined. The patient has cellulitis and according to patient, has a histor y of ____ and caused cellulitis, possible that might have provoked a DVT and then PE. Recommend to c ontinue heparin. Continue beta clau. Continue aspirin. Follow up CPK, trend of troponin, ____ s tart anticoagulation. Continue statin. We will get a hemoglobin A1c, TSH 0.7. We will get CPK, tro ponin in the morning as well. I doubt it is myocardial infarction because troponin is borderline analy vated and MB fraction was less than 1.4. Most likely it is secondary to RV strain, but will follow t he ____ trend. We will follow with you. Thank you, Dr. Moore, for providing the opportunity in taking care of the patient. Alvina Aquino MD cc: [id number] TT: 11/18/2016 15:37:18 Confirmation # [id number] Dictation # [id number] rn
[2016-11-18] MEDS: Heparin25000 units/250ml 1/2NS 25,000 UNITS/250 ML BAG IV SCH ×2 (15:48)
[2016-11-18 18:06] LABS: FOLATE > 20.0 ng/mL
[2016-11-19] MEDS: Insulin Lispro 1 UNITS/0.01 ML SC SCH ×4 (07:54→21:43)
[2016-11-19] MEDS: Pantoprazole 40 mg EC Tab PO SCH (08:11)
[2016-11-19] MEDS: Arformoterol 15 mcg/2 ml Inh Sol IH SCH ×2 (08:40→19:34)
[2016-11-19] MEDS: Budesonide 0.5 mg/2 ml Inhal Susp UD IH SCH ×2 (08:41→19:35)
[2016-11-19 08:48] LABS: ADD MANUAL DIFF? NO
[2016-11-19 08:52] LABS: BASO # 0.01 K/mm3 (0.0-2.0); BASO % 0.1 % (0.0-3.0); EOS # 0.2 (0.0-0.7); EOS % 2.1 % (1.5-5.0); GRAN # 5.38 (1.4-6.5); GRAN % 71.6 % (50.0-68.0); HEMATOCRIT 31.4 % (36.0-48.0); LYMPH # 1.5 (1.2-3.4); LYMPH % 19.4 % (22.0-35.0); MEAN CORPUSCULAR HEMOGLOBIN 20.3 pg (25.0-35.0); MEAN CORPUSCULAR HGB CONC 26.4 g/dl (31.0-37.0); MEAN PLATELET VOLUME 9.5 fl (7.0-11.0); MONO # 0.5 (0.1-0.6); MONO % 6.8 % (1.0-6.0); PLATELET COUNT 199 10^3/uL (120.0-450.0); RED CELL DISTRIBUTION WIDTH 18.1 % (11.5-14.5); WHITE BLOOD COUNT 7.5 10^3/ul (4.5-11.0)
[2016-11-19 09:21] LABS: BILIRUBIN,TOTAL 0.4 mg/dL (0.2-1.3); CALCIUM 9.2 mg/dL (8.4-10.5); MAGNESIUM 1.8 mg/dL (1.7-2.2); PHOSPHOROUS 3.1 mg/dL (2.5-4.5); POTASSIUM 3.8 mmol/L (3.6-5.0); TOTAL PROTEIN 6.1 g/dL (5.8-8.3)
[2016-11-19 09:25] LABS: INR 1.12 (0.93-1.08)
[2016-11-19 09:37] LABS: PARTIAL THROMBOPLASTIN TIME 87.9 Seconds (23.7-30.8)
[2016-11-19] MEDS: Linezolid 600 mg in D5W 300 ml 600 MG/300 ML BAG IVPB SCH ×2 (09:45→21:47)
[2016-11-19] MEDS: Heparin25000 units/250ml 1/2NS 25,000 UNITS/250 ML BAG IV SCH ×3 (09:55→20:00)
[2016-11-19 10:30] LABS: TROPONIN I 0.12 ng/mL
--- NOTE | 2016-11-19 10:55 | PN ---
DATE: 11/19/2016 SUBJECTIVE: The patient is seen earlier today. No fevers, no chills. PHYSICAL EXAMINATION: VITAL SIGNS: Temperature is 98, blood pressure is 130/60, respiratory rate of . HEENT: Unremarkable. NECK: Supple. LUNGS: Have decreased breath sounds. HEART: Normal S1, S2. ABDOMEN: Soft, nontender. LABORATORY DATA: Reveals the patient's white count is 7.5, hemoglobin of 8, platelets of 199 and BUN of 21, creatinine of 1.1. Procalcitonin 0.06. Microbiology reveals the blood cultures are negative . The patient had a CAT scan of the abdomen and pelvis which revealed the patient to have bilateral bibasilar consolidation on the lower thorax, but large gallstone, no acute intra-abdominal findings. Review of the orders reveals the patient to be on Zyvox. ASSESSMENT AND PLAN: An 86-year-old female with left lower extremity skin and skin structure infecti on with a left deep venous thrombosis in a patient with acute pulmonary emboli, chronic obstructive l montserrat disease, hypertension, coronary artery disease, day #3 of Zyvox. The patient's leg is greatly im proved. Would treat with a short course of Zyvox. May be able to switch to p.o. Zyvox. Would compl ete 5 days. Today is day #3 of 5 days of Zyvox. The patient's leg is greatly improved. Maxime Jimenez MD cc: [phone] TT: 11/19/2016 10:54:50 Confirmation # [id number] Dictation # [id number] urmila
--- NOTE | 2016-11-19 12:19 | CON ---
DATE: 11/19/2016 REASON FOR CONSULTATION: Acute kidney injury, shortness of breath, anemia. HISTORY OF PRESENTING ILLNESS: An 86-year-old lady, previously unknown to me, admitted 11/16 with comp laints of increased swelling of her legs, increased erythema, pain in the lower extremities. She rec eived Keflex as outpatient. She also reported shortness of breath that began 3 days prior to admissi on. Subsequently, she was found to have bilateral DVT. She was also found to have distal pulmonary emboli, T12 compression fracture. She had the study done on 11/16. The patient has been receiving IV heparin since then. Her hemoglobin at the time of admission was 9. 2. Her hemoglobin dropped to 8.3 the next day. Also, her kidney function, her creatinine was 1.0 at the time of admission. Creatinine paul to 1.5 yesterday. Hence, consultation is requested. PAST MEDICAL AND SURGICAL HISTORY: COPD, diabetes, CAD, hypertension, lower extremity cellulitis. FAMILY HISTORY: Noncontributory. SOCIAL HISTORY: No smoking, no alcohol use, no IV drug abuse. She is an ex-smoker. She smoked 2 pa cks per day for 40 years, quit about 10 years ago. ALLERGIES: No known drug allergies. MEDICATIONS: Antivert, Brovana, Coumadin, Ecotrin, heparin, Humalog insulin, iron 200 mg IV piggybac k started on 11/18, Lasix 40 IV daily, Lipitor 40, Lopressor 25 b.i.d., Protonix, Pulmicort, Zyvox, Zos yn 1 dose. REVIEW OF SYSTEMS: All systems are reviewed, pertinent positives as mentioned in the history of pres enting illness. She complains of pain in her lower extremities. She also complains of some shortnes s of breath. She denies any chest tightness. She denies any abdominal pain. She denies any melena or hematemesis. PHYSICAL EXAMINATION: GENERAL: Obese elderly lady lying in bed. VITAL SIGNS: Blood pressure 128/63, heart rate 67, respiratory rate 18, temperature 97.6. HEENT: Normocephalic, atraumatic, positive pallor. NECK: Supple, no JVD. LUNGS: Bilateral rhonchi, bilateral basal rales, equal expansion. CARDIAC: S1, S2, regular rate and rhythm, no murmur, no rub. ABDOMEN: Obese, distended, soft, nontender, bowel sounds present. EXTREMITIES: Erythema of the lower extremities, trace edema. INTAKE AND OUTPUT: 2565/not charted. LABORATORY DATA: WBC 7.5, hemoglobin 8.3, hematocrit 31, MCV 77, platelets 199. Sodium 140, potassi um 3.8, chloride 102, CO2 35, BUN 21, creatinine 1.1, glucose 101, calcium 9.2, phosphorus 3.1, magne sium 1.8, AST 33, ALT 29. Troponin 0.12, albumin 3.0. ASSESSMENT: An 86-year-old lady with history of diabetes, hypertension, coronary artery disease, adm itted with lower extremity swelling, pain, found to have bilateral deep venous thrombosis, found to h ave pulmonary embolism. The patient received contrast for her CT angiogram on 11/16/2016. She was fou nd to have acute kidney injury. Her creatinine paul from 1.0-1.5 on 11/18. Also, her hemoglobin dropp ed from 9.3-8.3. 1. Acute kidney injury superimposed on chronic kidney disease stage II suspect. Etiology of her acu te kidney injury is likely to be contrast acute tubular necrosis, although it could also be secondary to gastrointestinal bleed since patient is on heparin and her hemoglobin dropped from 9.3-8.3. 2. Volume overload at present. 3. Hypertension. 4. Congestive heart failure. 5. Non-insulin dependent diabetes mellitus. PLAN: 1. Check stool occults x 3. 2. Check urinalysis to check her urine specific gravity, high specific gravity is consistent with co ntrast ATN. 3. Continue IV Lasix. 4. Monitor urine output closely. 5. Monitor daily weights. 6. Avoid nephrotoxins. Agree with home iron supplementation. Iron stores are very low. Thank you for the courtesy of this consultation. We will follow this patient closely with you. Sanam Prajapati MD cc: [id number] TT: 11/19/2016 12:18:56 Confirmation # [id number] Dictation # [id number] tn
--- NOTE | 2016-11-19 14:00 | CP.PCM.PN ---
<Rene Mcgowan - Last Filed: 11/19/16 14:06> Subjective - Date & Time of Evaluation Date of Evaluation: 11/19/16 Time of Evaluation: 07:00 - Subjective Subjective: Hospitalist Progress Note: Pt seen and examined at bedside. No acute events overnight. Pt states that the pain and swelling in her L leg is better. Pt denies any avery, dizziness, f/c, sob , cp, abd pain, n/v/d, urinary or bm changes. Objective - Vital Signs/Intake and Output Vital Signs (last 24 hours): Temp Pulse Resp BP Pulse Ox 98.3 F 76 18 130/57 L 95 11/19/16 12:00 11/19/16 12:00 11/19/16 12:00 11/19/16 12:00 11/19/16 05:15 Intake and Output: 11/19/16 11/19/16 06:59 18:59 Intake Total 1500 250 Balance 1500 250 - Medications Medications: Current Medications Arformoterol Tartrate (Brovana) 15 mcg IH [id number] [facility] Last Admin: 11/19/16 08:40 Dose: 15 mcg Aspirin (Ecotrin) 81 mg PO DAILY [facility] Last Admin: 11/19/16 09:46 Dose: 81 mg Atorvastatin Calcium (Lipitor) 40 mg PO DIN [facility] Last Admin: 11/18/16 17:53 Dose: 40 mg Budesonide (Pulmicort Respules) 1 mg IH [id number] [facility] Last Admin: 11/19/16 08:41 Dose: 1 mg Furosemide (Lasix) 40 mg IVP DAILY [facility] Last Admin: 11/19/16 09:45 Dose: 40 mg Heparin Sodium/Sodium Chloride (Heparin 02440 Units/250ml 1/2 Normal Saline) 25 ,000 units in 250 mls @ 14.288 mls/hr IV .[id number] [facility]; 18 UNITS/KG/HR PRN Reason: Protocol Last Admin: 11/19/16 09:55 Dose: 12.84 units/kg/hr, 10.2 mls/hr Linezolid (Zyvox 600mg/300ml D5w) 600 mg in 300 mls @ 200 mls/hr IVPB Q12 [facility] PRN Reason: Protocol Stop: 11/24/16 10:01 Last Admin: 11/19/16 09:45 Dose: 200 mls/hr Iron Sucrose 200 mg/ Sodium (Chloride) 110 mls @ 110 mls/hr IVPB DAILY [facility] Stop: 11/21/16 10:01 Last Admin: 11/19/16 10:42 Dose: 110 mls/hr Insulin Human Lispro (Humalog) 0 units SC ACHS [facility] PRN Reason: Protocol Last Admin: 11/19/16 12:30 Dose: 2 units Meclizine HCl (Antivert) 12.5 mg PO Q6 PRN PRN Reason: Dizziness Metoprolol Tartrate (Lopressor) 25 mg PO BRKDIN [facility] Last Admin: 11/19/16 08:10 Dose: 25 mg Pantoprazole Sodium (Protonix Ec Tab) 40 mg PO ACB [facility] Last Admin: 11/19/16 08:11 Dose: 40 mg Warfarin Sodium (Coumadin) 7.5 mg PO 1800 [facility] PRN Reason: Protocol - Labs Labs: 11/19/16 08:10 11/19/16 08:10 PT 12.1 Seconds (9.9-11.8) H 11/19/16 08:10 INR 1.12 (0.93-1.08) H 11/19/16 08:10 APTT 87.9 Seconds (23.7-30.8) H* 11/19/16 08:10 - Constitutional Appears: No Acute Distress - Head Exam Head Exam: ATRAUMATIC, NORMAL INSPECTION, NORMOCEPHALIC - Eye Exam Eye Exam: EOMI, Normal appearance, PERRL Pupil Exam: NORMAL ACCOMODATION, PERRL - ENT Exam ENT Exam: Mucous Membranes Moist, Normal Exam - Neck Exam Neck Exam: Full ROM, Normal Inspection. absent: Lymphadenopathy - Respiratory Exam Respiratory Exam: Clear to Ausculation Bilateral, Rales (minor rales on b/l base ), NORMAL BREATHING PATTERN. absent: Wheezes - Cardiovascular Exam Cardiovascular Exam: REGULAR RHYTHM, RRR, +S1, +S2. absent: Murmur - GI/Abdominal Exam GI & Abdominal Exam: Soft, Normal Bowel Sounds. absent: Tenderness - Extremities Exam Extremities Exam: Full ROM, Normal Capillary Refill, Normal Inspection, Pedal Edema (1+ ), Tenderness (LLE: area of cellulites and erythema has decreased ). absent: Calf Tenderness - Back Exam Back Exam: NORMAL INSPECTION - Neurological Exam Neurological Exam: Alert, Awake, CN II-XII Intact, Normal Gait, Oriented x3 - Psychiatric Exam Psychiatric exam: Normal Affect, Normal Mood - Skin Skin Exam: Dry, Intact, Normal Color, Warm Assessment and Plan - Assessment and Plan (Free Text) Assessment: This is an 86 yo female with past medical hx of COPD, DM, presents with lower ext pain found to have Sub-Segmental Distal PE and NSTEMI. 1. Sub-Segmental Distal PE; most likely unprovoked -Hemodynamically stable -Heparin Drip as per protocol - Ext US - b/l tibial dvt identified -INR 1.12 - Increase dose warfarin 5mg --> 7.5mg -Ct abdomen - Large gallstone, No acute intraabdominal findings 2. NSTEMI -Cardiology Consult - Dr Adorno -On Heparin Drip as protocol -Aspirin, B-Mikki, Statin given; can assess need for ED after echo -F/U echo read -BNP 6570 on admission; baseline last year 350 3. Lower Extrem Swelling/Cellulitis - Improving - ID Consult - Cont Linezolid day #3 of 5 days. D/sid Zosyn - Cont to monitor 4. DM -ISS ACHS as protocol 5. COPD -Nebs PRN -c/w home meds brovana and pulmicort 6. Anemia - Likely Iron def anemia - Cont Iron sucrose 7. 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 GI/DVT ppx -On Hep Drip & Omeprazole -Heart Healthy Diet Case and plan was seen, reviewed, and discussed in detail with Dr Moore. <Haylie Moore - Last Filed: 11/19/16 14:35> Objective - Vital Signs/Intake and Output Vital Signs (last 24 hours): Temp Pulse Resp BP Pulse Ox 98.3 F 76 18 130/57 L 95 11/19/16 12:00 11/19/16 12:00 11/19/16 12:00 11/19/16 12:00 11/19/16 05:15 Intake and Output: 11/19/16 11/19/16 06:59 18:59 Intake Total 1500 250 Balance 1500 250 - Medications Medications: Current Medications Arformoterol Tartrate (Brovana) 15 mcg IH [id number] [facility] Last Admin: 11/19/16 08:40 Dose: 15 mcg Aspirin (Ecotrin) 81 mg PO DAILY [facility] Last Admin: 11/19/16 09:46 Dose: 81 mg Atorvastatin Calcium (Lipitor) 40 mg PO DIN [facility] Last Admin: 11/18/16 17:53 Dose: 40 mg Budesonide (Pulmicort Respules) 1 mg IH [id number] [facility] Last Admin: 11/19/16 08:41 Dose: 1 mg Furosemide (Lasix) 40 mg IVP DAILY [facility] Last Admin: 11/19/16 09:45 Dose: 40 mg Heparin Sodium/Sodium Chloride (Heparin 49099 Units/250ml 1/2 Normal Saline) 25 ,000 units in 250 mls @ 14.288 mls/hr IV .[id number] [facility]; 18 UNITS/KG/HR PRN Reason: Protocol Last Admin: 11/19/16 09:55 Dose: 12.84 units/kg/hr, 10.2 mls/hr Linezolid (Zyvox 600mg/300ml D5w) 600 mg in 300 mls @ 200 mls/hr IVPB Q12 [facility] PRN Reason: Protocol Stop: 11/24/16 10:01 Last Admin: 11/19/16 09:45 Dose: 200 mls/hr Iron Sucrose 200 mg/ Sodium (Chloride) 110 mls @ 110 mls/hr IVPB DAILY [facility] Stop: 11/21/16 10:01 Last Admin: 11/19/16 10:42 Dose: 110 mls/hr Insulin Human Lispro (Humalog) 0 units SC ACHS [facility] PRN Reason: Protocol Last Admin: 11/19/16 12:30 Dose: 2 units Meclizine HCl (Antivert) 12.5 mg PO Q6 PRN PRN Reason: Dizziness Metoprolol Tartrate (Lopressor) 25 mg PO BRKDIN [facility] Last Admin: 11/19/16 08:10 Dose: 25 mg Pantoprazole Sodium (Protonix Ec Tab) 40 mg PO ACB [facility] Last Admin: 11/19/16 08:11 Dose: 40 mg Warfarin Sodium (Coumadin) 7.5 mg PO 1800 [facility] PRN Reason: Protocol - Labs Labs: 11/19/16 08:10 11/19/16 08:10 PT 12.1 Seconds (9.9-11.8) H 11/19/16 08:10 INR 1.12 (0.93-1.08) H 11/19/16 08:10 APTT 117.5 Seconds (23.7-30.8) H* 11/19/16 13:55 Attending/Attestation - Attestation I have personally seen and examined this patient.: Yes I have fully participated in the care of the patient.: Yes I have reviewed all pertinent clinical information, including history, physical exam and plan: Yes Notes (Text): 11/19/16 14:30 86 year old female with past medical history of COPD and diabetes who presented for evaluation of lower extremity erythema. She was found to have subsmental distal PE and bilateral DVT and started on heparin drip and coumadin. INR is 1.12 today; will increase coumadin to 7.5 mg. She was also found to have mildly elevated troponin possibly due to heart strain from PE vs NSTEMI. Elevated probnp and congestion were noted on cxr consistent with CHF. She is on iv lasix in addition to aspirin, metoprolol and statin. Cardiology is following. Echocardiogram was done yesterday with report still pending. She is on iv antibiotics as per ID for LE cellulitis which is improving. She is on iv iron started by hematology for anemia. She had incidental mild acute or subacute T12 compression fracture noted on initial CT. However, she denies any back pain or recent falls. Recommended outpatient DEXA scan. Haylie Moore MD Hospitalist.
[2016-11-20 03:48] LABS: INR 1.32 (0.93-1.08); PARTIAL THROMBOPLASTIN TIME 54.7 Seconds (23.7-30.8)
[2016-11-20 06:32] LABS: TROPONIN I 0.08 ng/mL
--- NOTE | 2016-11-20 07:48 | PN ---
DATE: 11/19/2016 REASON FOR CONSULTATION AND FOLLOWUP: Positive troponin, rule out non SEMI. Acute PE. The patient denies any chest pain, shortness of breath, any palpitation. PHYSICAL EXAMINATION: As follows: VITAL SIGNS: Temperature afebrile, heart rate 76, blood pressure 130/57. HEENT: PERRLA, intact. NECK: Supple. No carotid bruits. No thyromegaly. CHEST: Clear to auscultation. HEART: S1, S2 regular. ABDOMEN: Soft. EXTREMITIES: Clubbing and cyanosis negative. BLOOD WORKUP: As follows: WBC ____, hemoglobin ____, hematocrit 31.4, platelet count 199. Chemistr y shows sodium 140, potassium ____, chloride 102, carbon dioxide 37, anion gap of 7, BUN 21, creatini ne 1.1. PTT ____. IMPRESSION: An 86-year-old female with history of chronic obstructive pulmonary disease, diabetes, a dmitted with cellulitis of lower extremity after ____ bite. Found to be deep venous thrombosis, pulm onary embolism. Positive troponin most likely secondary to pulmonary embolism. Repeat troponin came back ____ 0.12. Maximum was 0.19, then 0.16 and then maximum was at 0.25 so most likely it is secon lana to ____ trending down and MB fraction also was 1.9, so doubt it s coronary artery disease, doubt it is acute coronary syndrome. ____ secondary to pulmonary embolism. Obesity, diabetes, hypertensi on, hyperlipidemia, arthritis. Recommend ____ follow up the echo. Continue heparin. Continue aspir in. Continue heparin. Continue atorvastatin. Continue metoprolol. Started Coumadin. We will foll ow with you. Thank you, Dr. Moore, for providing the opportunity in taking care of the patient. When INR becomes therapeutic, we will discontinue heparin. No further cardiac workup is planned in terms of invasive workup because most likely this is secondary to pulmonary embolism. The elevated kidney function yes terday was secondary to dye load of the CT contrast-induced nephropathy, now back to normal. We will follow with you. We will discontinue telemetry. Alvina Aquino MD cc: [id number] TT: 11/19/2016 17:03:49 Confirmation # [id number] Dictation # [id number] sn
[2016-11-20] MEDS: Arformoterol 15 mcg/2 ml Inh Sol IH SCH ×2 (08:09→20:24)
[2016-11-20] MEDS: Budesonide 0.5 mg/2 ml Inhal Susp UD IH SCH ×2 (08:11→20:24)
[2016-11-20 08:16] LABS: ADD MANUAL DIFF? NO
[2016-11-20 08:21] LABS: BASO # 0.01 K/mm3 (0.0-2.0); BASO % 0.1 % (0.0-3.0); EOS # 0.2 (0.0-0.7); EOS % 2.9 % (1.5-5.0); GRAN # 4.87 (1.4-6.5); HEMATOCRIT 32.2 % (36.0-48.0); LYMPH # 1.7 (1.2-3.4); LYMPH % 22.7 % (22.0-35.0); MEAN CELL VOLUME 78.5 fL (80.0-105.0); MEAN CORPUSCULAR HEMOGLOBIN 20.5 pg (25.0-35.0); MEAN CORPUSCULAR HGB CONC 26.1 g/dl (31.0-37.0); MEAN PLATELET VOLUME 10.9 fl (7.0-11.0); MONO # 0.7 (0.1-0.6); MONO % 9.3 % (1.0-6.0); PLATELET COUNT 227 10^3/uL (120.0-450.0); RED CELL DISTRIBUTION WIDTH 18.3 % (11.5-14.5); WHITE BLOOD COUNT 7.5 10^3/ul (4.5-11.0)
[2016-11-20 08:24] LABS: ALB/GLOB RATIO 0.9 (1.1-1.8); ALKALINE PHOSPHATASE 55 U/L (38-133); ALT/SGPT 31 U/L (7-56); AST/SGOT 36 U/L (15-39); BILIRUBIN,TOTAL 0.4 mg/dL (0.2-1.3); BLOOD UREA NITROGEN 21 mg/dL (7-21); CALCIUM 9.6 mg/dL (8.4-10.5); CARBON DIOXIDE 35 mmol/L (21-33); CHLORIDE 100 mmol/L (98-107); GFR AFRICAN-AMERICAN > 60; GLUCOSE,RANDOM 106 mg/dL (70-110); POTASSIUM 3.7 mmol/L (3.6-5.0); SODIUM 138 mmol/L (132-148)
[2016-11-20] MEDS: Insulin Lispro 1 UNITS/0.01 ML SC SCH ×4 (08:37→22:00)
[2016-11-20] MEDS: Pantoprazole 40 mg EC Tab PO SCH (08:39)
--- NOTE | 2016-11-20 10:52 | CP.PCM.PN ---
Subjective - Date & Time of Evaluation Date of Evaluation: 11/20/16 Time of Evaluation: 09:20 - Subjective Subjective: Comfortable in bed, less swelling and pain in the left leg, no fevers overnight. Objective - Vital Signs/Intake and Output Vital Signs (last 24 hours): Temp Pulse Resp BP Pulse Ox 98.0 F 68 20 108/76 96 11/20/16 06:00 11/20/16 06:00 11/20/16 06:00 11/20/16 06:00 11/20/16 06:00 Intake and Output: 11/20/16 11/20/16 06:59 18:59 Intake Total 644 Balance 644 - Medications Medications: Current Medications Arformoterol Tartrate (Brovana) 15 mcg IH [id number] [facility] Last Admin: 11/20/16 08:09 Dose: 15 mcg Aspirin (Ecotrin) 81 mg PO DAILY [facility] Last Admin: 11/19/16 09:46 Dose: 81 mg Atorvastatin Calcium (Lipitor) 40 mg PO DIN [facility] Last Admin: 11/19/16 17:32 Dose: 40 mg Budesonide (Pulmicort Respules) 1 mg IH [id number] [facility] Last Admin: 11/20/16 08:11 Dose: 1 mg Furosemide (Lasix) 40 mg IVP DAILY [facility] Last Admin: 11/19/16 09:45 Dose: 40 mg Heparin Sodium/Sodium Chloride (Heparin 10123 Units/250ml 1/2 Normal Saline) 25 ,000 units in 250 mls @ 14.288 mls/hr IV .[id number] [facility]; 18 UNITS/KG/HR PRN Reason: Protocol Last Admin: 11/19/16 20:00 Dose: 9.19 units/kg/hr, 7.295 mls/hr Linezolid (Zyvox 600mg/300ml D5w) 600 mg in 300 mls @ 200 mls/hr IVPB Q12 [facility] PRN Reason: Protocol Stop: 11/24/16 10:01 Last Admin: 11/19/16 21:47 Dose: 200 mls/hr Iron Sucrose 200 mg/ Sodium (Chloride) 110 mls @ 110 mls/hr IVPB DAILY [facility] Stop: 11/21/16 10:01 Last Admin: 11/19/16 10:42 Dose: 110 mls/hr Insulin Human Lispro (Humalog) 0 units SC ACHS [facility] PRN Reason: Protocol Last Admin: 11/19/16 21:43 Dose: Not Given Meclizine HCl (Antivert) 12.5 mg PO Q6 PRN PRN Reason: Dizziness Metoprolol Tartrate (Lopressor) 25 mg PO BRKDIN [facility] Last Admin: 11/19/16 17:32 Dose: 25 mg Pantoprazole Sodium (Protonix Ec Tab) 40 mg PO ACB [facility] Last Admin: 11/19/16 08:11 Dose: 40 mg Warfarin Sodium (Coumadin) 7.5 mg PO 1800 [facility] PRN Reason: Protocol Last Admin: 11/19/16 17:32 Dose: 7.5 mg - Labs Labs: 11/19/16 08:10 11/19/16 08:10 PT 14.3 Seconds (9.9-11.8) H 11/20/16 03:15 INR 1.32 (0.93-1.08) H 11/20/16 03:15 APTT 54.7 Seconds (23.7-30.8) H 11/20/16 03:15 - Constitutional Appears: Non-toxic, No Acute Distress - Head Exam Head Exam: NORMAL INSPECTION - ENT Exam ENT Exam: Mucous Membranes Moist - Neck Exam Neck Exam: absent: Lymphadenopathy, Meningismus - Respiratory Exam Respiratory Exam: Decreased Breath Sounds - Cardiovascular Exam Cardiovascular Exam: +S1, +S2 - GI/Abdominal Exam GI & Abdominal Exam: Soft. absent: Tenderness - Extremities Exam Additional comments: left leg with decreased swelling and erythema Assessment and Plan - Assessment and Plan (Free Text) Plan: Assessment Consider left lower extremity skin and skin structure infection with DVT of the left leg (indeterminate age) in a patient with acute pulmonary embolism, clinically improving COPD HTN CAD DM obesity with BMI 33 Plan continue Zyvox day 4 to complete a 5 day course; blood cx are negative; will continue to monitor clinical response
[2016-11-20] MEDS: Linezolid 600 mg in D5W 300 ml 600 MG/300 ML BAG IVPB SCH ×2 (11:08→21:16)
--- NOTE | 2016-11-20 13:49 | CP.PCM.PN ---
<Rene Mcgowan - Last Filed: 11/20/16 13:52> Subjective - Date & Time of Evaluation Date of Evaluation: 11/20/16 Time of Evaluation: 07:10 - Subjective Subjective: Hospitalist Progress Note: Pt seen and examined at bedside. No acute events overnight. Pt states she is feeling better denies any sob, cp. States that her LLE cellulites has gotten better. Pt denies any avery, dizziness, f/c, sob, cp, abd pain, n/v/d, urinary or bm changes. Objective - Vital Signs/Intake and Output Vital Signs (last 24 hours): Temp Pulse Resp BP Pulse Ox 98.0 F 63 20 132/60 96 11/20/16 06:00 11/20/16 08:39 11/20/16 06:00 11/20/16 11:10 11/20/16 06:00 Intake and Output: 11/20/16 11/20/16 06:59 18:59 Intake Total 644 Balance 644 - Medications Medications: Current Medications Arformoterol Tartrate (Brovana) 15 mcg IH [id number] [facility] Last Admin: 11/20/16 08:09 Dose: 15 mcg Aspirin (Ecotrin) 81 mg PO DAILY [facility] Last Admin: 11/20/16 11:09 Dose: 81 mg Atorvastatin Calcium (Lipitor) 40 mg PO DIN [facility] Last Admin: 11/19/16 17:32 Dose: 40 mg Budesonide (Pulmicort Respules) 1 mg IH [id number] [facility] Last Admin: 11/20/16 08:11 Dose: 1 mg Furosemide (Lasix) 40 mg IVP DAILY [facility] Last Admin: 11/20/16 11:10 Dose: 40 mg Heparin Sodium/Sodium Chloride (Heparin 05889 Units/250ml 1/2 Normal Saline) 25 ,000 units in 250 mls @ 14.288 mls/hr IV .[id number] [facility]; 18 UNITS/KG/HR PRN Reason: Protocol Last Admin: 11/19/16 20:00 Dose: 9.19 units/kg/hr, 7.295 mls/hr Linezolid (Zyvox 600mg/300ml D5w) 600 mg in 300 mls @ 200 mls/hr IVPB Q12 [facility] PRN Reason: Protocol Stop: 11/24/16 10:01 Last Admin: 11/20/16 11:08 Dose: 200 mls/hr Iron Sucrose 200 mg/ Sodium (Chloride) 110 mls @ 110 mls/hr IVPB DAILY [facility] Stop: 11/21/16 10:01 Last Admin: 11/20/16 13:07 Dose: 110 mls/hr Insulin Human Lispro (Humalog) 0 units SC ACHS [facility] PRN Reason: Protocol Last Admin: 11/20/16 13:08 Dose: 2 units Meclizine HCl (Antivert) 12.5 mg PO Q6 PRN PRN Reason: Dizziness Metoprolol Tartrate (Lopressor) 25 mg PO BRKDIN [facility] Last Admin: 11/20/16 08:39 Dose: 25 mg Pantoprazole Sodium (Protonix Ec Tab) 40 mg PO ACB [facility] Last Admin: 11/20/16 08:39 Dose: 40 mg Warfarin Sodium (Coumadin) 10 mg PO 1800 [facility] - Labs Labs: 11/20/16 05:30 11/20/16 05:30 PT 14.3 Seconds (9.9-11.8) H 11/20/16 03:15 INR 1.32 (0.93-1.08) H 11/20/16 03:15 APTT 54.7 Seconds (23.7-30.8) H 11/20/16 03:15 - Constitutional Appears: No Acute Distress - Head Exam Head Exam: ATRAUMATIC, NORMAL INSPECTION, NORMOCEPHALIC - Eye Exam Eye Exam: EOMI, Normal appearance, PERRL Pupil Exam: NORMAL ACCOMODATION, PERRL - ENT Exam ENT Exam: Mucous Membranes Moist, Normal Exam - Neck Exam Neck Exam: Full ROM, Normal Inspection. absent: Lymphadenopathy - Respiratory Exam Respiratory Exam: Clear to Ausculation Bilateral, NORMAL BREATHING PATTERN. absent: Rales, Rhonchi, Wheezes - Cardiovascular Exam Cardiovascular Exam: REGULAR RHYTHM, +S1, +S2. absent: RRR, Murmur - GI/Abdominal Exam GI & Abdominal Exam: Soft, Normal Bowel Sounds. absent: Tenderness - Extremities Exam Extremities Exam: Full ROM, Normal Capillary Refill, Normal Inspection. absent : Joint Swelling, Pedal Edema Additional comments: LLE cellulites resolving - Back Exam Back Exam: NORMAL INSPECTION - Neurological Exam Neurological Exam: Alert, Awake, CN II-XII Intact, Oriented x3 - Psychiatric Exam Psychiatric exam: Normal Affect, Normal Mood - Skin Skin Exam: Dry, Intact, Normal Color, Warm Assessment and Plan - Assessment and Plan (Free Text) Assessment: This is an 86 yo female with past medical hx of COPD, DM, presents with lower ext pain / cellulites found to have Sub-Segmental Distal PE and NSTEMI. 1. Sub-Segmental Distal PE; most likely unprovoked -Hemodynamically stable -Heparin Drip as per protocol - Ext US - b/l tibial dvt identified -INR 1.32 - Increase dose warfarin 7.5mg --> 10mg -Ct abdomen - Large gallstone, No acute intraabdominal findings 2. NSTEMI - trop this am .08 -Cardiology Consult - Dr Adorno -On Heparin Drip as protocol -Aspirin, B-Mikki, Statin given; can assess need for ED after echo -F/U echo read -BNP 6570 on admission; baseline last year 350 3. Lower Extrem Swelling/Cellulitis - Improving - ID Consult - Cont Linezolid day #4 of 5 days. D/sid Zosyn - Cont to monitor 4. DM -ISS ACHS as protocol 5. COPD -Nebs PRN -c/w home meds brovana and pulmicort 6. Anemia - Likely Iron def anemia - stable - Cont Iron sucrose 7. Acute on Chronic KD stage - Nephrology Consulted - rec stool occult and urinalysis ( to check for specific gravity) - stool occult (+) - recommend colonoscopy and endoscopy as outpatient 7. GI/DVT ppx -On Hep Drip & Omeprazole -Heart Healthy Diet Case and plan was seen, reviewed, and discussed in detail with Dr Moore. <Haylie Moore - Last Filed: 11/20/16 15:21> Objective - Vital Signs/Intake and Output Vital Signs (last 24 hours): Temp Pulse Resp BP Pulse Ox 98.0 F 63 20 132/60 96 11/20/16 06:00 11/20/16 08:39 11/20/16 06:00 11/20/16 11:10 11/20/16 06:00 Intake and Output: 11/20/16 11/20/16 06:59 18:59 Intake Total 644 Balance 644 - Medications Medications: Current Medications Arformoterol Tartrate (Brovana) 15 mcg IH [id number] [facility] Last Admin: 11/20/16 08:09 Dose: 15 mcg Aspirin (Ecotrin) 81 mg PO DAILY [facility] Last Admin: 11/20/16 11:09 Dose: 81 mg Atorvastatin Calcium (Lipitor) 40 mg PO DIN [facility] Last Admin: 11/19/16 17:32 Dose: 40 mg Budesonide (Pulmicort Respules) 1 mg IH [id number] [facility] Last Admin: 11/20/16 08:11 Dose: 1 mg Furosemide (Lasix) 40 mg IVP DAILY [facility] Last Admin: 11/20/16 11:10 Dose: 40 mg Heparin Sodium/Sodium Chloride (Heparin 17187 Units/250ml 1/2 Normal Saline) 25 ,000 units in 250 mls @ 14.288 mls/hr IV .[id number] [facility]; 18 UNITS/KG/HR PRN Reason: Protocol Last Admin: 11/19/16 20:00 Dose: 9.19 units/kg/hr, 7.295 mls/hr Linezolid (Zyvox 600mg/300ml D5w) 600 mg in 300 mls @ 200 mls/hr IVPB Q12 [facility] PRN Reason: Protocol Stop: 11/24/16 10:01 Last Admin: 11/20/16 11:08 Dose: 200 mls/hr Iron Sucrose 200 mg/ Sodium (Chloride) 110 mls @ 110 mls/hr IVPB DAILY [facility] Stop: 11/21/16 10:01 Last Admin: 11/20/16 13:07 Dose: 110 mls/hr Insulin Human Lispro (Humalog) 0 units SC ACHS [facility] PRN Reason: Protocol Last Admin: 11/20/16 13:08 Dose: 2 units Meclizine HCl (Antivert) 12.5 mg PO Q6 PRN PRN Reason: Dizziness Metoprolol Tartrate (Lopressor) 25 mg PO BRKDIN [facility] Last Admin: 11/20/16 08:39 Dose: 25 mg Pantoprazole Sodium (Protonix Ec Tab) 40 mg PO ACB [facility] Last Admin: 11/20/16 08:39 Dose: 40 mg Warfarin Sodium (Coumadin) 10 mg PO 1800 [facility] - Labs Labs: 11/20/16 05:30 11/20/16 05:30 PT 14.3 Seconds (9.9-11.8) H 11/20/16 03:15 INR 1.32 (0.93-1.08) H 11/20/16 03:15 APTT 54.7 Seconds (23.7-30.8) H 11/20/16 03:15 Attending/Attestation - Attestation I have personally seen and examined this patient.: Yes I have fully participated in the care of the patient.: Yes I have reviewed all pertinent clinical information, including history, physical exam and plan: Yes Notes (Text): 11/20/16 15:13 86 year old female with past medical history of COPD and diabetes who presented for evaluation of lower extremity erythema. She was found to have subsmental distal PE and bilateral DVT and started on heparin drip and coumadin. INR is 1.32 today; will increase coumadin to 10 mg. She was also found to have mildly elevated troponin possibly due to heart strain from PE vs NSTEMI. Elevated probnp and congestion were noted on cxr consistent with CHF. She is on iv lasix in addition to aspirin, metoprolol and statin. Cardiology is following. Echocardiogram was done but report is still pending to assess EF. She is on iv antibiotics as per ID for LE cellulitis which is improving. She has microcytic iron deficiency anemia. She is on iv iron by hematology. Stool for occult blood was positive. Will request for GI evaluation. She had incidental mild acute or subacute T12 compression fracture noted on initial CT. However, she denies any back pain or recent falls. Recommended outpatient DEXA scan. PT evaluation was requested. Haylie Moore MD Hospitalist.
--- NOTE | 2016-11-20 14:52 | PN ---
DATE: 11/20/2016 SUBJECTIVE: The patient is seen sitting in bed. She is awake. She is alert. She is comfortable. She reports intermittent shortness of breath. She denies any chest pain. She reports her lower extr emities are better. PHYSICAL EXAMINATION: GENERAL: Obese elderly lady sitting in chair. VITAL SIGNS: Blood pressure 132/60, heart rate 63, respiratory rate 20, temperature 98. HEENT: Normocephalic, atraumatic. NECK: Supple, no JVD. LUNGS: Bilateral equal air entry, bilateral rhonchi, occasional wheeze. CARDIAC: S1, S2, regular rate and rhythm, no murmur, no rub. ABDOMEN: Obese, distended, soft, nontender, bowel sounds present. EXTREMITIES: Edema of the left lower extremity, right lower extremity with minimal erythema. INTAKE AND OUTPUT: 1444/not charted. LABORATORY DATA: WBC 7.5, hemoglobin 8.4, hematocrit 32, platelets 227. Sodium 138, potassium 3.7, chloride 100, CO2 35, BUN 21, creatinine 1.0, glucose 105, calcium 9.6. Stool occult positive. Blood culture no growth. CURRENT MEDICATIONS: Antivert, Brovana, Coumadin, Ecotrin, heparin at 9 units per kilogram, insulin, Venofer, Lasix 40 IV daily, Lipitor, Lopressor, Protonix, Zyvox. ASSESSMENT: 1. Bilateral tibial deep venous thrombosis, pulmonary embolism. 2. Acute kidney injury, acute tubular necrosis secondary to contrast exposure plus gastrointestinal bleed. 3. Severe anemia, gastrointestinal bleed. 4. Non-insulin dependent diabetes mellitus. 5. Hypertension. 6. Chronic obstructive pulmonary disease. PLAN: 1. Resolved acute kidney injury, continue to monitor creatinine closely. 2. No choice but to continue heparin in the setting of deep venous thrombosis and pulmonary embolism . 3. Monitor H and H closely. 4. Agree with Venofer infusion. 5. Avoid nephrotoxins. 6. Monitor urine output closely. Sanam Prajapati MD cc: [phone] TT: 11/20/2016 14:51:42 Confirmation # [id number] Dictation # [id number] urmila
[2016-11-20] MEDS ORDERED: Insulin Reg-LOW-Coverage SC SCH (16:30)
[2016-11-20] MEDS ORDERED: Potassium Chloride 20 mEq ER Tab PO ONE (17:21)
--- NOTE | 2016-11-20 18:57 | PN ---
DATE: 11/20/2016 REASON FOR CONSULTATION AND FOLLOWUP: Positive troponin, rule out non-STEMI, acute PE. Denies any ch est pain, shortness of breath, any palpitation. EXAMINATION: VITAL SIGNS: Temperature afebrile, blood pressure 120/63. HEENT: PERRLA. Extraocular muscles intact. NECK: Supple. No carotid bruits. No thyromegaly. CHEST: Clear to auscultation. HEART: S1, S2 regular. ABDOMEN: Soft. EXTREMITIES: Clubbing and cyanosis negative. LABORATORY DATA: Blood workup as follows: WBC 7.5, hemoglobin 8.4, hematocrit 32.2, platelet count 227. Chemistry shows sodium 130, potassium ____, chloride ____, carbon dioxide 35, anion gap of 7, B UN ____, creatinine 1.0. Troponin 0.08. IMPRESSION: Positive troponin secondary to acute pulmonary embolism. No evidence of acute myocardia l infarction. No evidence of chest pain or ischemia. History of deep venous thrombosis. Most likel y this troponin is secondary to pulmonary embolism, right ventricular strain pattern. MB fraction was negative 1.9 that rules out any acute coronary syndrome. Hypertension, hyperlipidemia, obesity. RECOMMENDATION: Continue heparin. Continue metoprolol. Continue Coumadin with INR. Discontinue he jordi when INR is therapeutic. Will follow with you. Thank you, Dr. Moore, for providing the opportunity in taking care of this patient. Will discontinue telemetry. Will supplement potassium. Alvina Aquino MD cc: [phone] TT: 11/20/2016 18:57:20 Confirmation # [id number] Dictation # [id number] urmila
[2016-11-21] MEDS: Heparin25000 units/250ml 1/2NS 25,000 UNITS/250 ML BAG IV SCH (04:19)
[2016-11-21] MEDS: Arformoterol 15 mcg/2 ml Inh Sol IH SCH (07:53)
[2016-11-21] MEDS: Budesonide 0.5 mg/2 ml Inhal Susp UD IH SCH (07:53)
[2016-11-21] MEDS: Insulin Lispro 1 UNITS/0.01 ML SC SCH ×2 (08:01→12:20)
[2016-11-21 08:16] LABS: PARTIAL THROMBOPLASTIN TIME 62.2 Seconds (23.7-30.8)
[2016-11-21 08:27] LABS: TROPONIN I 0.08 ng/mL
[2016-11-21 08:33] LABS: ADD MANUAL DIFF? NO
[2016-11-21 08:35] LABS: BASO # 0.01 K/mm3 (0.0-2.0); BASO % 0.1 % (0.0-3.0); EOS # 0.1 (0.0-0.7); EOS % 1.1 % (1.5-5.0); GRAN # 7.56 (1.4-6.5); GRAN % 81.7 % (50.0-68.0); HEMATOCRIT 31.5 % (36.0-48.0); LYMPH # 1.1 (1.2-3.4); LYMPH % 11.5 % (22.0-35.0); MEAN CELL VOLUME 78.2 fL (80.0-105.0); MEAN CORPUSCULAR HEMOGLOBIN 20.8 pg (25.0-35.0); MEAN CORPUSCULAR HGB CONC 26.7 g/dl (31.0-37.0); MEAN PLATELET VOLUME 10.6 fl (7.0-11.0); MONO # 0.5 (0.1-0.6); MONO % 5.6 % (1.0-6.0); PLATELET COUNT 206 10^3/uL (120.0-450.0); RED CELL DISTRIBUTION WIDTH 18.3 % (11.5-14.5); WHITE BLOOD COUNT 9.3 10^3/ul (4.5-11.0)
[2016-11-21 08:47] LABS: ALB/GLOB RATIO 0.9 (1.1-1.8); ALKALINE PHOSPHATASE 48 U/L (38-133); ALT/SGPT 28 U/L (7-56); AST/SGOT 34 U/L (15-39); BILIRUBIN,TOTAL 0.5 mg/dL (0.2-1.3); BLOOD UREA NITROGEN 20 mg/dL (7-21); CALCIUM 9.4 mg/dL (8.4-10.5); CARBON DIOXIDE 37 mmol/L (21-33); CHLORIDE 97 mmol/L (98-107); GFR AFRICAN-AMERICAN > 60; GLUCOSE,RANDOM 116 mg/dL (70-110); MAGNESIUM 1.3 mg/dL (1.7-2.2); PHOSPHOROUS 2.4 mg/dL (2.5-4.5); POTASSIUM 3.7 mmol/L (3.6-5.0); SODIUM 136 mmol/L (132-148)
[2016-11-21] MEDS: Pantoprazole 40 mg EC Tab PO SCH (08:52)
[2016-11-21 08:54] VITALS: BP 139/73; PULSE 84
[2016-11-21 09:12] VITALS: RESP 18; TEMP 97.9; O2SAT 86
[2016-11-21] MEDS ORDERED: Magnesium Sulfate 2 GM in Sodium Chloride 0.9% 100 ML IV ONE (09:13)
[2016-11-21] MEDS: Linezolid 600 mg in D5W 300 ml 600 MG/300 ML BAG IVPB SCH (09:44)
--- NOTE | 2016-11-21 09:51 | PN ---
DATE: 11/21/2016 SUBJECTIVE: The patient is currently seen sitting up in bed, eating breakfast. She remains on IV he jordi. She appears to be in no acute distress. She is receiving IV iron infusions. She is noted to have a low magnesium and a low phosphorus level. Her BUN and creatinine have returned to normal. MEDICATIONS: Medication list reviewed. The patient is currently on Antivert, Brovana, Coumadin, Eco beatriz, heparin, insulin, IV iron, IV Lasix, Lipitor, Lopressor, Protonix, Pulmicort, and Zyvox. OBJECTIVE: INTAKE AND OUTPUT: Intake 490, output 200. VITAL SIGNS: Blood pressure 139/73, pulse 84, temperature 98.3, respiratory rate 20, pulse ox is 93% . The patient is on nasal cannula oxygen 2 L per minute. HEENT: Normocephalic, atraumatic. Conjunctivae are pale. Sclerae are nonicteric. NECK: Supple, no neck vein distention. CHEST: Clear to auscultation and percussion. No rales, no rhonchi, no wheezing. CARDIOVASCULAR: S1, S2 normal. No audible murmurs, rubs, or gallops. ABDOMEN: Soft. Mild obesity. Bowel sounds normal. Nontender. EXTREMITIES: Show minimal edema of her left lower extremity and right lower extremity has minimal er ythema. LABORATORY DATA AND IMAGING: Labs today, CBC: White blood cell count 9.3, hemoglobin 9.4 with a mindi telet count of 206,000. Coags show a PT of 32 with an INR of 3.0 and a PTT of 62.2. Chemistries: N ormal electrolytes with an elevated CO2 of 37, BUN is down to 20, creatinine of 1.0. This is improve d from 35 and 1.5. She is back to baseline levels. Glucose is 116. Calcium 9.4, phosphorus 2.4 wit h a magnesium of 1.3. Albumin is 2.9. ASSESSMENT: 1. Acute renal failure, resolved. This is possibly secondary to exposure to IV contrast and perhaps secondary to stools being positive for blood, perhaps an occult gastrointestinal bleed. 2. 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 The patient is transitionin g over from heparin to Coumadin. 3. Significant anemia with iron deficiency. Iron saturations were 3%. Agree with IV Venofer. Foll ow CBC closely. Transfuse on a p.r.n. basis. Monitor for any further gastrointestinal bleeding now that the patient is being anticoagulated. 4. History of non-insulin dependent diabetes mellitus. Continue sliding scale insulin. 5. Possible cellulitis of her lower extremity. The patient will complete a course of antibiotic the rapy. 6. History of hypertension. Blood pressure control is acceptable. 7. History of chronic obstructive pulmonary disease, stable. PLAN: 1. Continue to monitor patient's CBC and lab work closely. 2. In light of her mild hypophosphatemia and hypomagnesemia, the patient will receive supplements to day. 3. Transition over from Coumadin and heparin. 4. GI evaluation for guaiac positive stools. 5. Followup echocardiogram report is pending. Albert Shahid MD cc: [phone] TT: 11/21/2016 09:51:04 Confirmation # [id number] Dictation # [id number] tn
[2016-11-21] MEDS ORDERED: Potassium & Sodium Phosphate PO SCH (10:00)
--- NOTE | 2016-11-21 15:27 | CP.PCM.DIS ---
Provider - Provider Date of Admission: 11/16/16 22:05 Attending physician: Haylie Moore MD Primary care physician: Anibal West MD Time Spent in preparation of Discharge (in minutes): 25 Hospital Course - Lab Results Lab Results: Most Recent Lab Values WBC 9.3 10^3/ul (4.5-11.0) D 11/21/16 07:45 RBC 4.03 10^6/uL (3.5-6.1) 11/21/16 07:45 Hgb 8.4 gm/dL (12.0-16.0) L 11/21/16 07:45 Hct 31.5 % (36.0-48.0) L 11/21/16 07:45 MCV 78.2 fL (80.0-105.0) L 11/21/16 07:45 MCH 20.8 pg (25.0-35.0) L 11/21/16 07:45 MCHC 26.7 g/dl (31.0-37.0) L 11/21/16 07:45 RDW 18.3 % (11.5-14.5) H 11/21/16 07:45 Plt Count 206 10^3/uL (120.0-450.0) 11/21/16 07:45 MPV 10.6 fl (7.0-11.0) 11/21/16 07:45 Gran % 81.7 % (50.0-68.0) H 11/21/16 07:45 Lymph % (Auto) 11.5 % (22.0-35.0) L 11/21/16 07:45 [place] % (Auto) 5.6 % (1.0-6.0) 11/21/16 07:45 Eos % (Auto) 1.1 % (1.5-5.0) L 11/21/16 07:45 Baso % (Auto) 0.1 % (0.0-3.0) 11/21/16 07:45 Gran # 7.56 (1.4-6.5) H 11/21/16 07:45 Lymph # 1.1 (1.2-3.4) L 11/21/16 07:45 [place] # 0.5 (0.1-0.6) 11/21/16 07:45 Eos # 0.1 (0.0-0.7) 11/21/16 07:45 Baso # 0.01 K/mm3 (0.0-2.0) 11/21/16 07:45 ESR 7 mm/hr (0.0-20.0) 11/16/16 19:16 PT 32.4 Seconds (9.9-11.8) H* 11/21/16 07:45 INR 3.00 (0.93-1.08) H 11/21/16 07:45 APTT 62.2 Seconds (23.7-30.8) H 11/21/16 07:45 Sodium 136 mmol/L (132-148) 11/21/16 07:45 Potassium 3.7 mmol/L (3.6-5.0) 11/21/16 07:45 Chloride 97 mmol/L (98-107) L 11/21/16 07:45 Carbon Dioxide 37 mmol/L (21-33) H 11/21/16 07:45 Anion Gap 6 (10-20) L 11/21/16 07:45 BUN 20 mg/dL (7-21) 11/21/16 07:45 Creatinine 1.0 mg/dL (0.5-1.4) 11/21/16 07:45 Est GFR ( Amer) > 60 11/21/16 07:45 Est GFR (Non-Af Amer) 52 11/21/16 07:45 POC Glucose (mg/dL) 220 mg/dL (65-110) H 11/20/16 12:02 Random Glucose 116 mg/dL (70-110) H 11/21/16 07:45 Hemoglobin A1c 7.1 % (4.2-6.5) H 11/19/16 08:10 Calcium 9.4 mg/dL (8.4-10.5) 11/21/16 07:45 Phosphorus 2.4 mg/dL (2.5-4.5) L 11/21/16 07:45 Magnesium 1.3 mg/dL (1.7-2.2) L 11/21/16 07:45 Iron 13 ug/dL (45-180) L 11/18/16 08:00 TIBC 413 ug/dL (265-497) 11/18/16 08:00 % Saturation 3 % (20-55) L 11/18/16 08:00 Ferritin 8.2 ng/mL 11/18/16 06:00 Total Bilirubin 0.5 mg/dL (0.2-1.3) 11/21/16 07:45 AST 34 U/L (15-39) 11/21/16 07:45 ALT 28 U/L (7-56) 11/21/16 07:45 Alkaline Phosphatase 48 U/L (38-133) 11/21/16 07:45 Lactate Dehydrogenase 512 U/L (333-699) 11/21/16 07:45 Total Creatine Kinase 21 U/L (35-230) L 11/21/16 07:45 CK-MB (CK-2) 5.3 ng/mL (0.0-3.6) H 11/18/16 06:00 CK-MB (CK-2) % 1.9 % (2.5-3.0) L 11/18/16 06:00 Troponin I 0.08 ng/mL 11/21/16 07:45 C-React Prot High Sens > 15.00 mg/L (1.00-3.00) H 11/16/16 19:16 NT-Pro-B Natriuret Pep 6570 pg/mL (0-450) H 11/16/16 19:16 Total Protein 6.0 g/dL (5.8-8.3) 11/21/16 07:45 Albumin 2.9 g/dL (3.0-4.8) L 11/21/16 07:45 Globulin 3.1 gm/dL 11/21/16 07:45 Albumin/Globulin Ratio 0.9 (1.1-1.8) L 11/21/16 07:45 Triglycerides 81 mg/dL (35-160) 11/18/16 06:00 Cholesterol 108 mg/dL (130-200) L 11/18/16 06:00 LDL Cholesterol Direct 59 mg/dL (0-129) 11/18/16 06:00 HDL Cholesterol 36 mg/dL (29-60) 11/18/16 06:00 Vitamin B12 968 pg/mL (239-931) H 11/18/16 06:00 Folate > 20.0 ng/mL 11/18/16 06:00 Procalcitonin 0.06 NG/ML (0.19-0.49) L 11/16/16 19:16 TSH 3rd Generation 1.37 mIU/mL (0.46-4.68) 11/18/16 07:00 Stool Occult Blood Positive (NEGATIVE) H 11/19/16 15:15 - Hospital Course Hospital Course: patient is an 86yo F w/ a PMHx of COPD, DM, CAD, HTN who came to the hospital because she simply felt "off" today. She was being treated for a cellulitis of her LLE by her primary care doctor w/ Cephalexin, and stated that for the past 10 days it had not gotten any better. She was able to ambulate, but had not felt like being as active as she normally is because she "is too old". She also admitted that her memory is starting to go and that she was losing interest in the things that used to bring her candelario in life "missing her youth". She denied any other systemic complaints except LLE pain/swelling for the past 10 days. On further diagnostics, she was noted to have DVT/PE and she was started on heparing drip with bridging on coumadin and her INR has been therapeutic now and drip discontinued.Mild troponemia was noted which was considered to be secondary to RV strain with her PE, cardiology was consulted and Echo was obtained as well. Mild Heart failure was noted on CXR and iron deficiency anemia was noted for which IV venofer was transfused. FOBT was +ve and GI service was consulted as well. Patient was transferred to for further rehabilitation therapy. Discharge Exam - Head Exam Head Exam: ATRAUMATIC, NORMAL INSPECTION, NORMOCEPHALIC - Eye Exam Eye Exam: EOMI, Normal appearance, PERRL - ENT Exam ENT Exam: Mucous Membranes Moist, Normal Exam - Neck Exam Neck exam: Full Rom, Normal Inspection - Respiratory Exam Respiratory Exam: Clear to PA & Lateral, NORMAL BREATHING PATTERN - Cardiovascular Exam Cardiovascular Exam: RRR, +S1, +S2 - GI/Abdominal Exam GI & Abdominal Exam: Normal Bowel Sounds, Soft - Rectal Exam Rectal Exam: Deferred - Extremities Exam Extremities exam: full ROM, normal capillary refill, pedal pulses present - Back Exam Back exam: FULL ROM, NORMAL INSPECTION - Neurological Exam Neurological exam: Alert, Oriented x3 - Psychiatric Exam Psychiatric exam: Normal Affect, Normal Mood - Skin Skin Exam: Warm Additional comments: left leg cellulitis noted Discharge Plan - Follow Up Plan Condition: STABLE Disposition: HOME/ ROUTINE Instructions: Warfarin (By mouth), Myocardial Infarction (DC), Myocardial Infarction (GEN), Pulmonary Embolism (DC), Pulmonary Embolism (GEN), Safe Use of Anticoagulants (DC), Blood Thinners (DC) Additional Instructions: 1. Cellulitis: Continue PO Antibiotics per ID recommendations. 2. DVT/PE: continue Warfarin, monitor INR. Hold today 3. Renal: Monitor electrolytes, renal follow up appreciated 4. FOBT+: Continue PPI, GI consult 5.Supportive: IV Venofer therapy completed DVT and GI ppx. If you experience any worsening of pain, fever, chills, nausea/vomiting contact your doctor or go to the nearest emergency room.
--- NOTE | 2016-11-21 18:17 | PN ---
DATE: 11/21/2016 The patient is in bed in no acute distress, nontoxic. PHYSICAL EXAMINATION: VITAL SIGNS: Temperature is 98, blood pressure is 139/70, respiratory rate of 18. HEENT: Unremarkable. NECK: Supple. LUNGS: Have decreased breath sounds. HEART: Normal S1, S2. ABDOMEN: Soft, nontender. LABORATORY DATA: Reveals a white count of 9.3, hemoglobin of 8 and platelets of 206. BUN 20, creati nine of 1.0. Procalcitonin 0.06. Blood cultures are no growth. ASSESSMENT AND PLAN: This is an 86-year-old female with left lower extremity skin and skin structure infection and left leg is much improved now, may discontinue the Zyvox. Maxime Jimenez MD cc: [phone] TT: 11/21/2016 18:16:58 Confirmation # [id number] Dictation # [id number]
--- NOTE | 2016-11-23 08:49 | CON ---
DATE: 11/21/2016 HISTORY OF PRESENT ILLNESS: This patient was seen and evaluated earlier. This is an 86-year-old pat ient with a past medical history of chronic obstructive pulmonary disease, diabetes mellitus, coronar y artery disease, hypertension, was admitted to the hospital for not feeling well and has bilateral l ower extremity erythema and swelling, suspect cellulitis. The patient did finish the antibiotics, bu t still complains of some discomfort. She also complains of some shortness of breath. The patient w as also found to have subsegmental PE and non-ST segment myocardial infarction. The patient has been on anticoagulation now. Was found to be anemic with a hemoglobin of 8.4. The patient's stool for o ccult blood was positive. GI consult was requested to evaluate this. The patient denies any abdomin al pain. No bleeding per rectum. No vomiting. The patient denies having had any endoscopy or colon oscopy in the past. OTHER PAST MEDICAL HISTORY: As above. SOCIAL HISTORY: Smoker, about 2 packs per day for about 40 years, quit about 10 years ago. Denies a ny surgical history. REVIEW OF SYSTEMS: Positive as above. PHYSICAL EXAMINATION: GENERAL: The patient is lying on the bed, not in acute distress. VITAL SIGNS: Temperature 97.9, blood pressure 139/73, pulse 84, respirations 18. HEENT: Atraumatic, anicteric. NECK: Supple. HEART: S1, S2 heard. LUNGS: Bilateral air entry present, slightly reduced in the base. ABDOMEN: Soft. There is no tenderness. EXTREMITIES: Mild edema present. Left extremity has mild edema and erythema present. LABORATORY DATA: Hemoglobin is 8.4, hematocrit 31.5, WBC is 9.3, platelets 206. Chemistries: BUN 2 0, creatinine 1.0, magnesium 1.3, being supplemented. The patient is being followed by renal. CAT scan of the abdomen and pelvis done showed large gallsto nitish. IMPRESSION: This is an 86-year-old patient with a past medical history of diabetes mellitus, chronic obstructive pulmonary disease, admitted with cellulitis. The patient was found to be also having rajput bsegmental pulmonary embolism. The patient is on anticoagulation on heparin. INR was 3.0, with a PT T of 62.2. Heparin has been discontinued. The patient was found to be anemic with hemoglobin of 8.4 . Stool for occult blood positive. Request for a gastrointestinal evaluation. No obvious bleeding. The differential diagnosis should include peptic ulcer disease, angiodysplasia, diverticulosis, and neoplasia has to be considered. Would recommend close followup of the hemoglobin and hematocrit since the patient needs to be on anti coagulation in view of the PE. Will continue to follow up the hemoglobin and hematocrit. We will em pirically place the patient on Protonix. If the hemoglobin shows a downward trend or active bleeding , we need to stop heparin and do an endoscopy and colonoscopy to further evaluate. back on Coumadin. We will continue to closely follow up her care and suggest further care. Her other com orbidities include diabetes mellitus and dyslipidemia. Thank you very much for allowing us to participate in the care of the patient. Devendra Membreno MD cc: [id number] TT: 11/21/2016 19:35:03 Confirmation # [id number] Dictation # [id number] urmila
--- NOTE | 2016-11-24 11:23 | CARD ---
APPROVED REPORT EXAM: Two-dimensional and M-mode echocardiogram with Doppler and color Doppler. INDICATION Congestive Heart Failure ACUTE PE 2D DIMENSIONS Left Atrium (2D)3.6 (1.6-4.0cm)IVSd1.0 (0.7-1.1cm) LVDd3.7 (3.9-5.9cm)PWd1.1 (0.7-1.1cm) LVDs2.5 (2.5-4.0cm)FS (%) 33.6 % LVEF (%)63.2 (>50%) M-Mode DIMENSIONS Aortic Root2.90 (2.2-3.7cm)Aortic Cusp Exc.1.30 (1.5-2.0cm) Aortic Valve AoV Peak Hrzyzbgn566.0cm/Marci Peak GR.10mmHg Mitral Valve MV E Mwwgvbvt706.0cm/sMV A Pyicxdns480.0cm/sE/A ratio1.1 TDI E/Lateral E'0.0E/Medial E'0.0 Tricuspid Valve TR Peak [id number]/sRAP [id number] Peak Gr.43mmHg [id number] LEFT VENTRICLE The left ventricle is normal size. There is normal left ventricular wall thickness. The left ventricular function is normal.EF-65% There is normal LV segmental wall motion. Transmitral Doppler flow pattern is Grade III-reversible restrictive diastolic dysfunction. No left ventricle thrombus noted on this study. There is no ventricular septal defect visualized. There is no left ventricular aneurysm. There is no mass noted in the left ventricle. RIGHT VENTRICLE The right ventricle is moderately dilated. There is normal right ventricular wall thickness. Systolic function is mildly to moderately reduced. ATRIA The left atrium size is normal. The right atrium size is normal. The interatrial septum is intact with no evidence for an atrial septal defect. AORTIC VALVE The aortic valve is calcified but opens well. There is trace aortic regurgitation. Aotic Sclerosis Vs Mild As There is no aortic valvular vegetation. MITRAL VALVE The mitral valve is thickened but opens well. Mitral regurgitation is trace. There is no mitral valve stenosis. There is no evidence of mitral valve prolapse. TRICUSPID VALVE The tricuspid valve leaflets are thickened , but open well. There is mild to moderate tricuspid regurgitation.RVSP-53 mmof Hg. There is no tricuspid valve stenosis. There is no tricuspid valve prolapse or vegetation. PULMONIC VALVE The pulmonary valve is normal in structure. There is trace to mild pulmonic valvular regurgitation. There is no pulmonic valvular stenosis. GREAT VESSELS The aortic root is normal in size. The ascending aorta is normal in size. The pulmonary artery is normal. The IVC is dilated. PERICARDIAL EFFUSION There is no pleural effusion. There is no pericardial effusion. <Conclusion> The left ventricle is normal size. There is normal left ventricular wall thickness. The left ventricular function is normal.EF-65% There is trace aortic regurgitation. Mitral regurgitation is trace. There is mild to moderate tricuspid regurgitation.RVSP-53 mmof Hg. There is no pericardial effusion. Hx of recent Pulmonary Embolism.
== END 2016-11-21 16:55 | DRG 175 ==
LOC: ED 17:04 → ERH 22:05 → 2RSO 11-17 12:13 → ERH 11-17 12:14 → 2RSO 11-17 14:43 → 3RNO 11-20 12:46
PROVIDERS: ADMIT Hospitalist; ATTEND Internal Medicine
PROC: 3E033GC Introduction of Other Therapeutic Substance into Peripheral Vein, Percutaneous Approach (ICD-10-PCS; principal; 2016-11-16)
DX: I26.99 Other pulmonary embolism without acute cor pulmonale (principal); N17.0 Acute kidney failure with tubular necrosis; N14.1 Nephropathy induced by other drugs, medicaments and biological substances; T50.8X5A Adverse effect of diagnostic agents, initial encounter; I82.443 Acute embolism and thrombosis of tibial vein, bilateral; L03.116 Cellulitis of left lower limb; I13.0 Hypertensive heart and chronic kidney disease with heart failure and stage 1 through stage 4 chronic kidney disease, or unspecified chronic kidney disease; K92.2 Gastrointestinal hemorrhage, unspecified; M48.54XA Collapsed vertebra, not elsewhere classified, thoracic region, initial encounter for fracture; E11.22 Type 2 diabetes mellitus with diabetic chronic kidney disease; I50.9 Heart failure, unspecified; J44.9 Chronic obstructive pulmonary disease, unspecified; N18.2 Chronic kidney disease, stage 2 (mild); D50.9 Iron deficiency anemia, unspecified; I25.10 Atherosclerotic heart disease of native coronary artery without angina pectoris; K80.20 Calculus of gallbladder without cholecystitis without obstruction; M19.90 Unspecified osteoarthritis, unspecified site; E78.5 Hyperlipidemia, unspecified; E66.9 Obesity, unspecified; E83.42 Hypomagnesemia; E83.39 Other disorders of phosphorus metabolism; Z87.891 Personal history of nicotine dependence; Z79.84 Long term (current) use of oral hypoglycemic drugs; Z68.33 Body mass index [BMI] 33.0-33.9, adult

== ENCOUNTER 2016-11-21 16:52 | Inpatient (IN) | payer MEDICARE ==
[2016-11-21 17:21] VITALS: BMI 34.4
[2016-11-21] MEDS: Budesonide 0.5 mg/2 ml Inhal Susp UD IH SCH (21:00)
[2016-11-21] MEDS: Arformoterol 15 mcg/2 ml Inh Sol IH SCH (21:00)
[2016-11-21] MEDS ORDERED: Insulin Lispro 1 UNITS/0.01 ML SC SCH (22:00)
[2016-11-21] MEDS ORDERED: Pneumococcal 23-Valent Vaccine IM ONE (22:12)
[2016-11-21] MEDS: Insulin Lispro (humaLOG) LOW Coverage SC SCH (22:36)
[2016-11-22] MEDS: Pantoprazole 40 mg EC Tab PO SCH (05:26)
[2016-11-22] MEDS: Arformoterol 15 mcg/2 ml Inh Sol IH SCH ×2 (07:15→22:10)
[2016-11-22] MEDS: Budesonide 0.5 mg/2 ml Inhal Susp UD IH SCH ×2 (07:15→22:10)
[2016-11-22] MEDS: Insulin Lispro (humaLOG) LOW Coverage SC SCH ×4 (07:32→22:46)
[2016-11-22 07:47] LABS: ADD MANUAL DIFF? NO
[2016-11-22 07:51] LABS: BASO # 0.01 K/mm3 (0.0-2.0); BASO % 0.1 % (0.0-3.0); EOS # 0.2 (0.0-0.7); EOS % 2.1 % (1.5-5.0); GRAN % 78.3 % (50.0-68.0); LYMPH # 1.4 (1.2-3.4); LYMPH % 13.2 % (22.0-35.0); MEAN CELL VOLUME 78.1 fL (80.0-105.0); MEAN CORPUSCULAR HEMOGLOBIN 21.2 pg (25.0-35.0); MEAN CORPUSCULAR HGB CONC 27.1 g/dl (31.0-37.0); MEAN PLATELET VOLUME 10.5 fl (7.0-11.0); MONO # 0.7 (0.1-0.6); MONO % 6.3 % (1.0-6.0); PLATELET COUNT 198 10^3/uL (120.0-450.0); RED CELL DISTRIBUTION WIDTH 18.7 % (11.5-14.5); WHITE BLOOD COUNT 10.6 10^3/ul (4.5-11.0)
[2016-11-22 08:07] LABS: PARTIAL THROMBOPLASTIN TIME 40.6 Seconds (23.7-30.8)
[2016-11-22 08:18] LABS: CALCIUM 9.5 mg/dL (8.4-10.5); INR 4.8 (0.93-1.08); MAGNESIUM 1.5 mg/dL (1.7-2.2); PHOSPHOROUS 2.7 mg/dL (2.5-4.5); POTASSIUM 3.5 mmol/L (3.6-5.0)
[2016-11-22] MEDS: Potassium & Sodium Phosphate PO SCH (09:31)
--- NOTE | 2016-11-22 09:31 | PN ---
DATE: 11/22/2016 SUBJECTIVE: The patient has been transferred over to the TCU. She appears to be in no acute distres s. Her BUN and creatinine have returned to normal. MEDICATIONS: List reviewed. The patient is on Antivert, Brovana, Coumadin, Ecotrin, insulin, p.o. L asix, Lipitor, Lopressor, Neutra-Phos, Protonix, Pulmicort, and Zyvox. OBJECTIVE: VITAL SIGNS: Blood pressure 106/59, temperature 98.2, respiratory rate is 20 with a pulse of 87. HEENT: Normocephalic, atraumatic. Conjunctivae are pale. Sclerae are nonicteric. NECK: Supple, no neck vein distention. CHEST: Clear to auscultation and percussion. No rales, no rhonchi, no wheezing. CARDIOVASCULAR: S1, S2 were normal. No audible murmurs, rubs, or gallops. ABDOMEN: Soft. Mild obesity. Bowel sounds normal. Nontender. EXTREMITIES: Show no significant lower extremity edema. No cyanosis, no clubbing. LABORATORY DATA AND IMAGING: CBC today, white blood cell count 10.6, hemoglobin 8.4 with a platelet count of 198,000. Chemistries from today are pending. ASSESSMENT: 1. Acute renal failure, resolved. Elevated BUN and creatinine on admission were likely secondary to possible exposure to IV contrast and perhaps secondary to gastrointestinal bleeding. Perhaps elvis burks has an occult gastrointestinal bleed. Stools are positive for blood and iron saturations were low. 2. History of deep venous thrombosis with pulmonary embolism. The patient is transitioned over from heparin to Coumadin. 3. History of significant anemia, secondary to iron deficiency. Iron saturations were 3%. The donald casillas is continuing on IV Venofer. We need to follow her CBC closely. Transfuse p.r.n. The patient n eeds further GI evaluation with her low hemoglobin on anticoagulation. 4. History of uco-xygrsph-iswslpjci diabetes mellitus. Continue sliding scale insulin. 5. Resolving cellulitis of her lower extremity. The patient will complete a course of Zyvox p.o. 6. History of hypertension. Blood pressure control is acceptable. 7. History of chronic obstructive pulmonary disease. PLAN: 1. Continue to monitor patient in the TCU. From a renal standpoint, the patient is stable. BUN and creatinine have returned to normal. 2. Low phosphorus level from yesterday's labs at 2.4. The patient will continue Neutra-Phos. 3. Mild hypomagnesemia. Magnesium level was 1.3. The patient has received a mag rider yesterday. Today's chemistry profile is pending. 4. Suggest GI evaluation in light of her iron deficiency anemia and guaiac positive stools. Albert Shahid MD cc: [phone] TT: 11/22/2016 09:30:30 Confirmation # [id number] Dictation # [id number]
--- NOTE | 2016-11-22 11:25 | CP.PCM.HP ---
<Ancelmo Martinez - Last Filed: 11/22/16 11:33> History of Present Illness - History of Present Illness History of Present Illness: This is an 86 yo female with past medical hx of DM, HTN, COPD, cellulitis presenting initially to ER with cc of "not feeling right." Pt before coming into hospital had been treated for cellulitis of left lower ext with cephalexin , but it not gotten any better, so she came in. She was found to have PE on on CTA as well as acute DVT and rise in cardiac enzymes. She has been treated with zyvox and heparin drip and warfarin. Her cellulitis is improving and she was transferred to TCU for further rehab. PMH: DM, HTN, COPD, cellulitis PSH: None Allergies: NKDA Social hx: Former smoker. Lives alone. FH: Non contributory. Present on Admission - Present on Admission Any Indicators Present on Admission: No History of DVT/PE: No History of Uncontrolled Diabetes: No Urinary Catheter: No Decubitus Ulcer Present: No Review of Systems - Review of Systems All systems: reviewed and no additional remarkable complaints except Review of Systems: Negative except as stated in HPI. Past Patient History - Tetanus Immunizations Tetanus Immunization: Unknown - Past Medical History & Family History Past Medical History?: Yes Past Family History: Reviewed and not pertinent - Past Social History Smoking Status: Former Smoker Chewing Tobacco Use: No Cigar Use: No Alcohol: None Drugs: Denies Home Situation {Lives}: Alone Domestic Violence: Negative - CARDIAC Hx Cardiac Disorders: No - PULMONARY Hx Respiratory Disorders: Yes Hx Asthma: Yes Hx Chronic Obstructive Pulmonary Disease (COPD): Yes - NEUROLOGICAL Hx Neurological Disorder: No - HEENT Hx HEENT Problems: No - RENAL Hx Chronic Kidney Disease: No - ENDOCRINE/METABOLIC Hx Endocrine Disorders: Yes Hx Diabetes Mellitus Type 2: Yes - HEMATOLOGICAL/ONCOLOGICAL Hx Blood Disorders: No - INTEGUMENTARY Hx Dermatological Problems: No - MUSCULOSKELETAL/RHEUMATOLOGICAL Hx Falls: Yes - GASTROINTESTINAL Hx Gastrointestinal Disorders: No - GENITOURINARY/GYNECOLOGICAL Hx Genitourinary Disorders: No Hx Reproductive Disorders: No - PSYCHIATRIC Hx Psychophysiologic Disorder: No Hx Substance Use: No - SURGICAL HISTORY Hx Surgeries: Yes (rhinoplasty,BUNIONECTOMY BILATERAL TOES.) - ANESTHESIA Hx Anesthesia: No Meds Allergies/Adverse Reactions: Allergies Allergy/AdvReac Type Severity Reaction Status Date / Time No Known Allergies Allergy Verified 11/21/16 19:34 Physical Exam - Constitutional Appears: Non-toxic, No Acute Distress - Head Exam Head Exam: ATRAUMATIC, NORMAL INSPECTION, NORMOCEPHALIC - Eye Exam Eye Exam: EOMI - ENT Exam ENT Exam: Mucous Membranes Moist - Neck Exam Neck exam: Positive for: Full Rom, Normal Inspection - Respiratory Exam Respiratory Exam: NORMAL BREATHING PATTERN. absent: Respiratory Distress - Cardiovascular Exam Cardiovascular Exam: +S1, +S2 - GI/Abdominal Exam GI & Abdominal Exam: Normal Bowel Sounds, Soft. absent: Tenderness - Extremities Exam Additional comments: left lower ext cellulitis improving, minimal erythema, no drainage, non tender - Back Exam Back exam: NORMAL INSPECTION - Neurological Exam Neurological exam: Alert, CN II-XII Intact, Oriented x3 - Psychiatric Exam Psychiatric exam: Normal Affect, Normal Mood - Skin Skin Exam: Dry, Intact, Normal Color, Warm Results - Vital Signs Recent Vital Signs: Last Vital Signs Temp 98.4 F 11/22/16 10:00 Pulse 78 11/22/16 10:00 Resp 20 11/22/16 10:00 BP 100/56 L 11/22/16 10:00 Pulse Ox 92 L 11/22/16 10:00 - Labs Result Diagrams: 11/22/16 06:25 11/22/16 06:25 Labs: Laboratory Results - last 24 hr 11/22/16 11/22/16 11/22/16 06:25 06:25 06:25 WBC 10.6 RBC 3.97 Hgb 8.4 L Hct 31.0 L MCV 78.1 L MCH 21.2 L MCHC 27.1 L RDW 18.7 H Plt Count 198 MPV 10.5 Gran % 78.3 H Lymph % (Auto) 13.2 L [place] % (Auto) 6.3 H Eos % (Auto) 2.1 Baso % (Auto) 0.1 Gran # 8.30 H Lymph # 1.4 [place] # 0.7 H Eos # 0.2 Baso # 0.01 PT 51.8 H* INR 4.80 H* APTT 40.6 H Sodium 136 Potassium 3.5 L Chloride 96 Carbon Dioxide 36 H Anion Gap 8 L BUN 20 Creatinine 1.1 Est GFR ( Amer) 57 Est GFR (Non-Af Amer) 47 Random Glucose 104 Calcium 9.5 Phosphorus 2.7 Magnesium 1.5 L Assessment & Plan - Assessment and Plan (Free Text) Assessment: This is an 86 yo female with past medical hx of COPD, DM, presents with lower ext pain / cellulites found to have Sub-Segmental Distal PE and NSTEMI. 1. Sub-Segmental Distal PE; most likely unprovoked -Hemodynamically stable -Heparin Drip discontinued - Ext US - b/l tibial dvt identified -INR supratherapeutic today, will hold warfarin -Ct abdomen - Large gallstone, No acute intraabdominal findings 2. NSTEMI -Cardiology Consult - Dr Adorno. recs appreciated. -Aspirin, B-Mikki, Statin given; can assess need for ED after echo -F/U echo read -BNP 6570 on admission; baseline last year 350 3. Lower Extrem Swelling/Cellulitis - Improving - ID Consult. Dr. Jimenez. recs appreciated. -will dc abx. - Cont to monitor 4. DM -ISS ACHS as protocol 5. COPD -Nebs PRN -c/w home meds brovana and pulmicort 6. Anemia - Likely Iron def anemia - stable - Cont Iron sucrose 7. Acute on Chronic KD stage - Nephrology Consulted - stool occult (+) - recommend colonoscopy and endoscopy as outpatient 7. GI/DVT ppx -On protonix daily -SCDs -Heart Healthy Diet discussed with Dr. Waters <Jerod Waters - Last Filed: 11/22/16 13:45> Results - Vital Signs Recent Vital Signs: Last Vital Signs Temp 98.4 F 11/22/16 10:00 Pulse 78 11/22/16 10:00 Resp 20 11/22/16 10:00 BP 100/56 L 11/22/16 10:00 Pulse Ox 92 L 11/22/16 10:00 - Labs Result Diagrams: 11/22/16 06:25 11/22/16 06:25 Labs: Laboratory Results - last 24 hr 11/22/16 11/22/16 11/22/16 06:25 06:25 06:25 WBC 10.6 RBC 3.97 Hgb 8.4 L Hct 31.0 L MCV 78.1 L MCH 21.2 L MCHC 27.1 L RDW 18.7 H Plt Count 198 MPV 10.5 Gran % 78.3 H Lymph % (Auto) 13.2 L [place] % (Auto) 6.3 H Eos % (Auto) 2.1 Baso % (Auto) 0.1 Gran # 8.30 H Lymph # 1.4 [place] # 0.7 H Eos # 0.2 Baso # 0.01 PT 51.8 H* INR 4.80 H* APTT 40.6 H Sodium 136 Potassium 3.5 L Chloride 96 Carbon Dioxide 36 H Anion Gap 8 L BUN 20 Creatinine 1.1 Est GFR ( Amer) 57 Est GFR (Non-Af Amer) 47 Random Glucose 104 Calcium 9.5 Phosphorus 2.7 Magnesium 1.5 L Attending/Attestation - Attestation I have personally seen and examined this patient.: Yes I have fully participated in the care of the patient.: Yes I have reviewed all pertinent clinical information: Yes Notes (Text): 11/22/16 13:42 Patient seen and examined at bedside. Sitting in bed and verbal, alert/awake. denies any new complaints. Vitals noted. Labs consistent with elevated INR and stable H/H. Renal and ID consult reviewed. GI consult for FOBT+ with AC. Plan to give low dose vitamin K today. Agree with the remainder of plan outlined by the resident
[2016-11-22] MEDS ORDERED: Potassium Chloride 20 mEq ER Tab PO ONE (11:36)
--- NOTE | 2016-11-22 12:49 | CON ---
DATE: 11/22/2016 The patient seen in room 314. ALLERGIES: The patient has no known allergies. The patient was just transferred from acute care. CHIEF COMPLAINT: Weakness times several days. HISTORY OF PRESENT ILLNESS: This is an 86-year-old female with past medical history significant for chronic obstructive lung disease, hypertension, diabetes mellitus, coronary artery disease, obesity w ith a BMI of 33 was admitted with having left lower leg cellulitis and was given antibiotics in the [facility]. It has resolved. The patient is complaining generalized weakness. No fevers, no chills, no nausea, no vomiting. PAST MEDICAL HISTORY: Significant for hypertension, diabetes, chronic obstructive lung disease, nguyễn nary artery disease. PAST SURGICAL HISTORY: Significant for rhinoplasty and bunionectomy and surgery on her toes also. ALLERGIES: The patient has no known allergies. MEDICATIONS: Include omeprazole and metformin and meclizine on outpatient. PHYSICAL EXAMINATION: VITAL SIGNS: Temperature is 98, blood pressure is 106/50, respiratory rate of 18, heart rate of 72. HEENT: Unremarkable. NECK: Supple. LUNGS: Have decreased breath sounds. HEART: Normal S1, S2. ABDOMEN: Soft, nontender, no organomegaly, no rebound, no guarding. EXTREMITIES: Examination of leg shows erythema is all completely resolved. No evidence of celluliti s. LABORATORY EXAMINATION: Reveals a white count of 10,000, platelets of 198, hemoglobin of 8, BUN of 8 , creatinine of 1.1. Procalcitonin is noted at 0.06. The urinalysis is noted. The patient had a po sitive stool occult blood. Microbiology reveals all the blood cultures, urine cultures from acute ca re are negative. ASSESSMENT AND PLAN: An 86-year-old female with left lower extremity skin and skin soft tissue struc ture infection with a left deep venous thrombosis in a patient with acute pulmonary emboli, chronic o bstructive lung disease, hypertension, coronary artery disease. We will discontinue the Zyvox. No f urther antibiotics necessary from infectious disease point of view. Maxime Jimenez MD cc: [id number] TT: 11/22/2016 12:48:06 Confirmation # [id number] Dictation # [id number] august
[2016-11-22] MEDS ORDERED: Magnesium Sulfate 2 GM in Sodium Chloride 0.9% 100 ML IVPB ONE (13:40)
[2016-11-22] MEDS ORDERED: Phytonadione 10 mg/ml Inj (Adult) SC ONE (13:42)
--- NOTE | 2016-11-22 17:06 | PN ---
DATE: 11/22/2016 This is an addendum. SUBJECTIVE: This patient was seen and evaluated earlier today. The patient's family was at bedside. PHYSICAL EXAMINATION: VITAL SIGNS: Temperature is 98.4, pulse is 78, blood pressure, 100/56. HEENT: Atraumatic, anicteric. NECK: Supple. HEART: S1, S2 heard. LUNGS: Bilateral air entry present, slightly reduced at the base. ABDOMEN: Soft. There is no mass palpable. No tenderness. EXTREMITIES: Mild erythema present, erythema improved. LABORATORY DATA: Hemoglobin 8.4, hematocrit 31, WBC is 10.6, platelets 198. Chemistry showed BUN 20 , creatinine 1.1. IMPRESSION: This is a 86-year-old patient admitted with cellulitis, swelling of the legs and erythem a, found to have also non-ST segment myocardial infarction with subsegmental distal pulmonary embolus . The patient was started on anticoagulation and the hemoglobin has dropped with a hemoglobin of 8.4 . Stool for occult blood positive. I did discuss with the patient yesterday at length regarding end oscopy and a colonoscopy, he was refusing at that time. The patient never had an EGD and a colonosco py done before. The patient's INR is supratherapeutic. Today the patient's INR is 4.80. PLAN: The patient is still reluctant. needs to follow up the hemoglobin closely. Any signifi cant drop in blood count or obvious bleeding, the patient would definitely benefit from endoscopy and a colonoscopy. The concern is since the patient has a PE, would prefer not to therapy of anti coagulation. It is reasonable to do a diagnostic evaluation to assess the underlying problem of this occult bleeding source. Then we can tailor the duration of the treatment and intervention based on t he findings. I have discussed with Dr. Waters also regarding this. Will continue to closely follow u p her care. Devendra Membreno MD cc: [id number] TT: 11/22/2016 17:05:59 Confirmation # [id number] Dictation # [id number] dn
[2016-11-23] MEDS: Pantoprazole 40 mg EC Tab PO SCH (06:02)
[2016-11-23 06:46] LABS: ADD MANUAL DIFF? NO
[2016-11-23 07:03] LABS: BASO # 0.01 K/mm3 (0.0-2.0); BASO % 0.1 % (0.0-3.0); EOS # 0.3 (0.0-0.7); EOS % 2.2 % (1.5-5.0); GRAN # 9.54 (1.4-6.5); GRAN % 82.4 % (50.0-68.0); HEMATOCRIT 31.9 % (36.0-48.0); LYMPH % 8.7 % (22.0-35.0); MEAN CELL VOLUME 78.8 fL (80.0-105.0); MEAN CORPUSCULAR HEMOGLOBIN 21.5 pg (25.0-35.0); MEAN CORPUSCULAR HGB CONC 27.3 g/dl (31.0-37.0); MEAN PLATELET VOLUME 9.6 fl (7.0-11.0); MONO # 0.8 (0.1-0.6); MONO % 6.6 % (1.0-6.0); PLATELET COUNT 176 10^3/uL (120.0-450.0); RED CELL DISTRIBUTION WIDTH 19.5 % (11.5-14.5); WHITE BLOOD COUNT 11.6 10^3/ul (4.5-11.0)
[2016-11-23 07:05] LABS: INR 2.08 (0.93-1.08); PARTIAL THROMBOPLASTIN TIME 38.2 Seconds (23.7-30.8)
[2016-11-23] MEDS: Arformoterol 15 mcg/2 ml Inh Sol IH SCH ×2 (07:26→21:06)
[2016-11-23] MEDS: Budesonide 0.5 mg/2 ml Inhal Susp UD IH SCH ×2 (07:26→21:06)
[2016-11-23 07:28] LABS: ALKALINE PHOSPHATASE 53 U/L (38-133); ALT/SGPT 35 U/L (7-56); AST/SGOT 39 U/L (15-39); BILIRUBIN,TOTAL 0.8 mg/dL (0.2-1.3); BLOOD UREA NITROGEN 23 mg/dL (7-21); CALCIUM 9.7 mg/dL (8.4-10.5); CARBON DIOXIDE 35 mmol/L (21-33); CHLORIDE 97 mmol/L (98-107); GFR AFRICAN-AMERICAN > 60; GLUCOSE,RANDOM 119 mg/dL (70-110); MAGNESIUM 1.8 mg/dL (1.7-2.2); PHOSPHOROUS 2.6 mg/dL (2.5-4.5); POTASSIUM 4.1 mmol/L (3.6-5.0); SODIUM 136 mmol/L (132-148); TOTAL PROTEIN 6.2 g/dL (5.8-8.3)
[2016-11-23] MEDS: Insulin Lispro (humaLOG) LOW Coverage SC SCH ×4 (08:33→22:18)
[2016-11-23] MEDS: Potassium & Sodium Phosphate PO SCH (09:08)
--- NOTE | 2016-11-23 14:03 | PN ---
DATE: 11/23/2016 SUBJECTIVE: The patient is seen lying in bed. She is awake, she is alert. She is complaining of so me cough. She is also complaining of some shortness of breath, which is improved though. PHYSICAL EXAMINATION: GENERAL: Obese, elderly lady, sitting in bed. VITAL SIGNS: Blood pressure 110/52, heart rate 67, respiratory rate 18, temperature 99.3. HEENT: Normocephalic, atraumatic. NECK: Supple, no JVD. LUNGS: Bilateral rhonchi, equal expansion. CARDIAC: S1, S2, regular rate and rhythm, no murmur, no rub. ABDOMEN: Obese, distended, soft, nontender, bowel sounds present. EXTREMITIES: Trace lower extremity edema. LABORATORY DATA: WBC 11.6, hemoglobin 8.7, hematocrit 32, platelets 176. Sodium 136, potassium 4.1, chloride 97, CO2 35, BUN 23, creatinine 1.0, glucose 119, calcium 9.7, leida sphorus 2.6, magnesium 1.8, albumin 3.2. CURRENT MEDICATIONS: Antivert, Brovana, Coumadin, Ecotrin, Lasix 40 p.o. daily, Lipitor, Lopressor 25 b.i.d., Neutra-Phos 1 packet daily, Protonix. ASSESSMENT: 1. Resolved acute kidney injury. 2. Deep venous thrombosis and pulmonary embolism. 3. Severe anemia. 4. Non-insulin dependent diabetes mellitus. 5. Hypertension. 6. Chronic obstructive pulmonary disease. PLAN: 1. Continue IV Venofer. 2. Continue to monitor hemoglobin and hematocrit closely. 3. Avoid nephrotoxins. 4. Follow the PT/INR closely. Sanam Prajapati MD cc: [id number] TT: 11/23/2016 14:02:50 Confirmation # [id number] Dictation # [id number] en
--- NOTE | 2016-11-23 14:46 | PN ---
DATE: 11/23/2016 GI FOLLOWUP NOTE Seen and examined at the bedside this morning. The patient was out of bed in chair with no acute ove rnight events reported. The patient denies any nausea, vomiting, or abdominal pain. No reports of a ny overt GI bleed. VITAL SIGNS: Temperature is 99.3, blood pressure 110/52, pulse 67, respirations 18, 97 nasal cannula . LABORATORY DATA: WBC is 11.6. H and H are 8.7 and 31.9. Platelets are 176. PT is 22.5. INR is 2. 08. PTT is 38.2. Sodium 136, K 4.1. BUN 23. Creatinine is 1.0. LFTs are within normal limits. PHYSICAL EXAMINATION: HEENT: Sclerae are anicteric. NECK: Supple. CARDIAC: S1, S2. LUNGS: Clear. ABDOMEN: With bowel sounds, soft, nontender on palpation. No rebound or guarding. EXTREMITIES: The patient with mild lower extremity erythema. ASSESSMENT: This is an 86-year-old female who came in with swelling of the legs and erythema. The p atient has cellulitis. She was also found to have non-ST segment myocardial infarction and distal pu lmonary embolism. The patient was on anticoagulants and been noticing a dropping hemoglobin. The pa tient did have stool for guaiac, which was positive. The patient's INR is supratherapeutic. It is a little bit better today at 2.0. PLAN: Discuss with the patient today. Yesterday, she was reluctant about having EGD and colon. Thi s morning, we talked to her again, and she agrees to have EGD and colonoscopy tomorrow in view of dec reasing blood count. The patient now agrees for endoscopy and colonoscopy. This will be done diagno stically to assess if any underlying problem of occult bleeding source. The patient will start on cl ear liquid diet at lunch, and will be given GoLYTELY prep this afternoon and n.p.o. after midnight. We will have repeat labs in the a.m., and CMP and CBC. The patient was seen and case discussed with Dr. Membreno. Also the patient will have PT and PTT. Anna BREWSTER cc: [id number] TT: 11/23/2016 14:45:54 Confirmation # [id number] Dictation # [id number] jn
[2016-11-23] MEDS ORDERED: Peg-Electrolyte Oral Soln 4L (Golytely) PO ONE (15:00)
[2016-11-23 17:05] VITALS: RESP 20
[2016-11-23] MEDS ORDERED: guaiFENesin DM 100 mg-10 mg/5 ml UD PO PRN (20:43)
--- NOTE | 2016-11-23 21:53 | CON ---
DATE: 11/23/2016 CHIEF COMPLAINT: The patient presented initially to the hospital with a pulmonary embolus and DVT. HISTORY OF PRESENT ILLNESS: The patient is an 86-year-old obese female with a history of COPD, hyper tension, diabetes, coronary artery disease, obesity and cellulitis that came to the hospital for shor tness of breath and noted to have a myocardial infarction as well as a left DVT and a pulmonary embol us. The patient has no complaints of severe chest pain. She does have occasional cough and phlegm a nd some episodes of shortness of breath. No active wheezing or rhonchi at this time, does have a cou gh with occasional phlegm. No fever, chills. No nausea, no vomiting, no diarrhea. PAST MEDICAL HISTORY: As above. ALLERGIES: She has no known allergies. CURRENT MEDICATIONS: Can be evaluated as per the nurse's intake form. SOCIAL HISTORY: No EtOH abuse. No drug abuse, former smoker. FAMILY HISTORY: Noncontributory. PHYSICAL EXAMINATION: VITAL SIGNS: Her temperature is 99.5, her pulse is 82, respirations are 20 and BP is 109/61. SKIN: Warm and dry. HEAD: Atraumatic, normocephalic. EYES: Reactive to light. EARS, NOSE AND THROAT: Seem to be within normal limits. NECK: Supple. No JVD, no thyroid enlargement, no lymph nodes. HEART: Has a regular rate and rhythm. Normal S1, S2. LUNGS: Reveal mild decreased breath sounds at the bases. ABDOMEN: Soft, nontender, normal bowel sounds. GENITALIA AND RECTAL: Deferred. MUSCULOSKELETAL: No joint deformities. EXTREMITIES: Reveal lower extremity edema and cellulitis. NEUROLOGIC: She seemed to be grossly intact. LABORATORY DATA: As far her laboratories are concerned, her white count is 11.6, hemoglobin is 8.7, hematocrit 31.9 with platelets of 176,000. Sodium is 136, potassium 4.1, chloride 97, CO2 of 35 with a BUN of 23, creatinine 1.0 and glucose is 119. Her PT is 22.5, INR is 2.08, and her PTT is 38.2. Her sodium is 136, potassium 4.1, chloride 97, CO2 of 35. IMPRESSION: This patient has acute pulmonary embolus with a left lower extremity deep venous thrombo sis. She has a history of cellulitis in the lower extremities and has also had a myocardial infarcti on. As far as other diagnoses, she has hypertension, chronic obstructive pulmonary disease, diabetes , coronary artery disease, obesity, anemia and cellulitis. PLAN: This patient has Brovana for appropriate bronchodilation. She is on Coumadin and aspirin and the patient is getting Lasix for appropriate diuresis. She is getting Lopressor as well as Lipitor a nd Pulmicort. She is getting aggressive pulmonary toilet, O2 via nasal cannula and I will start coug h meds and we will continue with aggressive pulmonary therapy. The patient is scheduled for an EGD t omorrow. We will follow closely. Amador Dc MD cc: [id number] TT: 11/23/2016 21:52:21 Confirmation # [id number] Dictation # [id number] mn
--- NOTE | 2016-11-23 22:27 | CP.PCM.CON ---
History of Present Illness - History of Present Illness History of Present Illness: She was seen earlier today Hematology Consultation Referred by Dr. Storm for h/o DVT/PE HPI- Ms Berg is 86 y/o F with h/o DM, HTN, CAD, COPD who was admitted with generalized malaise and mild SOB. She was recently treated for LLE cellulits. In hospital, she was found to have PE and bilateral tibial DVT. She was started on heparin drip and later transitioned to coumadin. She was also found to have microcytic anemia and started on IV Venofer. Her stool ocult came back positive and she was recommended EGD/Colonoscopy to assess risk of bleeding. CT A/P reviewed. Family and Social history reviewed. Review of Systems - Constitutional Constitutional: Fatigue. absent: Anorexia, Chills, Fever - EENT Eyes: absent: Blind Spots, Blurred Vision, Change in Vision Ears: Decreased Hearing. absent: Ear Discharge, Ear Pain Nose/Mouth/Throat: absent: Epistaxis, Nasal Congestion, Bleeding Gums - Cardiovascular Cardiovascular: Dyspnea, Edema. absent: Chest Pain, Palpitations - Respiratory Respiratory: absent: Cough, Hemoptysis - Gastrointestinal Gastrointestinal: absent: Abdominal Pain, Bloating, Change in Stool Character, Coffee Ground Emesis - Genitourinary Genitourinary: absent: Change in Urinary Stream, Difficulty Urinating, Freq UTI Past Patient History - Tetanus Immunizations Tetanus Immunization: Unknown - Past Medical History & Family History Past Medical History?: Yes Past Family History: Reviewed and not pertinent - Past Social History Smoking Status: Former Smoker Chewing Tobacco Use: No Cigar Use: No Alcohol: None Drugs: Denies Home Situation {Lives}: Alone Domestic Violence: Negative - CARDIAC Hx Cardiac Disorders: No - PULMONARY Hx Chronic Obstructive Pulmonary Disease (COPD): Yes - NEUROLOGICAL Hx Neurological Disorder: No - HEENT Hx HEENT Problems: No - RENAL Hx Chronic Kidney Disease: No - ENDOCRINE/METABOLIC Hx Diabetes Mellitus Type 1: Yes - HEMATOLOGICAL/ONCOLOGICAL Hx Blood Disorders: No - INTEGUMENTARY Hx Dermatological Problems: No - MUSCULOSKELETAL/RHEUMATOLOGICAL Hx Falls: Yes - GASTROINTESTINAL Hx Gastrointestinal Disorders: No - GENITOURINARY/GYNECOLOGICAL Hx Genitourinary Disorders: No Hx Reproductive Disorders: No - PSYCHIATRIC Hx Psychophysiologic Disorder: No Hx Substance Use: No - SURGICAL HISTORY Hx Surgeries: Yes (rhinoplasty,BUNIONECTOMY BILATERAL TOES.) - ANESTHESIA Hx Anesthesia: No Meds Allergies/Adverse Reactions: Allergies Allergy/AdvReac Type Severity Reaction Status Date / Time No Known Allergies Allergy Verified 11/21/16 19:34 - Medications Medications: Current Medications Arformoterol Tartrate (Brovana) 15 mcg IH [id number] DEQUAN PRN Reason: Protocol Last Admin: 11/23/16 21:06 Dose: 15 mcg Aspirin (Ecotrin) 81 mg PO 0800 DEQUAN PRN Reason: Protocol Last Admin: 11/23/16 08:32 Dose: 81 mg Atorvastatin Calcium (Lipitor) 40 mg PO DIN DEQUAN PRN Reason: Protocol Last Admin: 11/23/16 17:26 Dose: 40 mg Budesonide (Pulmicort Respules) 1 mg IH [id number] DEQUAN PRN Reason: Protocol Last Admin: 11/23/16 21:06 Dose: 1 mg Furosemide (Lasix) 40 mg PO DAILY DEQUAN PRN Reason: Protocol Last Admin: 11/23/16 09:08 Dose: 40 mg Guaifenesin/Dextromethorphan (Robitussin Dm) 5 ml PO Q6H PRN PRN Reason: Cough Last Admin: 11/23/16 21:35 Dose: 5 ml Iron Sucrose 200 mg/ Sodium (Chloride) 110 mls @ 110 mls/hr IVPB DAILY DEQUAN Stop: 11/25/16 10:59 Last Admin: 11/23/16 14:42 Dose: 110 mls/hr Insulin Human Lispro (Humalog Low) 0 units SC ACHS DEQUAN PRN Reason: Protocol Last Admin: 11/23/16 17:26 Dose: Not Given Meclizine HCl (Antivert) 12.5 mg PO Q6 PRN; Protocol PRN Reason: DIZZINESS Metoprolol Tartrate (Lopressor) 25 mg PO 0800,1800 DEQUAN PRN Reason: Protocol Last Admin: 11/23/16 17:27 Dose: 25 mg Pantoprazole Sodium (Protonix Ec Tab) 40 mg PO 0600 DEQUAN PRN Reason: Protocol Last Admin: 11/23/16 06:02 Dose: 40 mg Potassium Phos/Sodium Phos (Neutra-Phos) 1 pkt PO DAILY DEQUAN PRN Reason: Protocol Last Admin: 11/23/16 09:08 Dose: 1 pkt Warfarin Sodium (Coumadin) 5 mg PO 1800 DEQUAN PRN Reason: Protocol Last Admin: 11/21/16 18:59 Dose: 5 mg Warfarin Sodium (Coumadin) 3 mg PO 1800 DEQUAN PRN Reason: Protocol Physical Exam - Head Exam Head Exam: ATRAUMATIC, NORMAL INSPECTION - Eye Exam Eye Exam: EOMI, PERRL - ENT Exam ENT Exam: Mucous Membranes Moist - Neck Exam Neck exam: Negative for: Lymphadenopathy - Respiratory Exam Respiratory Exam: Clear to Auscultation Bilateral - Cardiovascular Exam Cardiovascular Exam: REGULAR RHYTHM - GI/Abdominal Exam GI & Abdominal Exam: Normal Bowel Sounds, Soft. absent: Distended, Organomegaly , Tenderness - Extremities Exam Extremities exam: Positive for: pedal edema - Neurological Exam Neurological exam: Alert, Oriented x3 - Psychiatric Exam Psychiatric exam: Normal Affect Results - Vital Signs Recent Vital Signs: Last Vital Signs Temp 99.5 F 11/23/16 16:00 Pulse 82 11/23/16 16:00 Resp 20 11/23/16 16:00 BP 109/61 11/23/16 16:00 Pulse Ox 97 11/23/16 10:00 - Labs Result Diagrams: 11/23/16 06:30 11/23/16 06:30 Labs: Laboratory Results - last 24 hr 11/23/16 11/23/16 11/23/16 06:30 06:30 06:30 WBC 11.6 H RBC 4.05 Hgb 8.7 L Hct 31.9 L MCV 78.8 L MCH 21.5 L MCHC 27.3 L RDW 19.5 H Plt Count 176 MPV 9.6 Gran % 82.4 H Lymph % (Auto) 8.7 L Comal % (Auto) 6.6 H Eos % (Auto) 2.2 Baso % (Auto) 0.1 Gran # 9.54 H Lymph # 1.0 L Comal # 0.8 H Eos # 0.3 Baso # 0.01 PT 22.5 H INR 2.08 H APTT 38.2 H Sodium 136 Potassium 4.1 Chloride 97 L Carbon Dioxide 35 H Anion Gap 8 L BUN 23 H Creatinine 1.0 Est GFR ( Amer) > 60 Est GFR (Non-Af Amer) 52 Random Glucose 119 H Calcium 9.7 Phosphorus 2.6 Magnesium 1.8 Total Bilirubin 0.8 AST 39 ALT 35 Alkaline Phosphatase 53 Total Protein 6.2 Albumin 3.2 Globulin 3.1 Albumin/Globulin Ratio 1.0 L Assessment & Plan - Assessment and Plan (Free Text) Assessment: Recent DVT/PE- in the setting of decreased ambulation Started on warfarin with heparin bridge. Warfarin has been held after INR became supra-therapeutic. Will hold off on coumadin for now as she is planned for endoscopic procedure tomorrow. Can restart coumadin if her bleeding risk is considered low. Will restart at 3 mg daily with continued INR monitoring. If her bleeding risk is found to be elevated, consider IVC filter placement. Continue IV venofer for now. Monitor Hb and monitor for bleeding. Thank you for the consult Gurinder Hughes - Date & Time Date: 11/23/16 Time: 16:27
[2016-11-24] MEDS: Pantoprazole 40 mg EC Tab PO SCH (05:44)
[2016-11-24] MEDS: Insulin Lispro (humaLOG) LOW Coverage SC SCH ×4 (06:32→22:14)
[2016-11-24 06:57] LABS: ADD MANUAL DIFF? NO
[2016-11-24 07:02] LABS: BASO # 0.01 K/mm3 (0.0-2.0); BASO % 0.1 % (0.0-3.0); EOS # 0.2 (0.0-0.7); EOS % 2.4 % (1.5-5.0); GRAN % 73.7 % (50.0-68.0); HEMATOCRIT 32.7 % (36.0-48.0); LYMPH # 1.5 (1.2-3.4); LYMPH % 16.6 % (22.0-35.0); MEAN CORPUSCULAR HEMOGLOBIN 21.3 pg (25.0-35.0); MEAN CORPUSCULAR HGB CONC 26.9 g/dl (31.0-37.0); MEAN PLATELET VOLUME 9.6 fl (7.0-11.0); MONO # 0.7 (0.1-0.6); MONO % 7.2 % (1.0-6.0); PLATELET COUNT 178 10^3/uL (120.0-450.0); RED CELL DISTRIBUTION WIDTH 20.1 % (11.5-14.5); WHITE BLOOD COUNT 9.1 10^3/ul (4.5-11.0)
[2016-11-24] MEDS: Arformoterol 15 mcg/2 ml Inh Sol IH SCH ×2 (07:11→20:22)
[2016-11-24] MEDS: Budesonide 0.5 mg/2 ml Inhal Susp UD IH SCH ×2 (07:11→20:24)
[2016-11-24 07:14] LABS: INR 1.92 (0.93-1.08); PARTIAL THROMBOPLASTIN TIME 38.3 Seconds (23.7-30.8)
[2016-11-24 07:29] LABS: BILIRUBIN,TOTAL 0.9 mg/dL (0.2-1.3); CALCIUM 9.7 mg/dL (8.4-10.5); MAGNESIUM 1.7 mg/dL (1.7-2.2); PHOSPHOROUS 3.1 mg/dL (2.5-4.5); POTASSIUM 3.7 mmol/L (3.6-5.0); TOTAL PROTEIN 6.3 g/dL (5.8-8.3)
--- NOTE | 2016-11-24 08:13 | CON ---
DATE: 11/23/2016 REASON FOR CONSULTATION: Continuity of care in the transitional care unit where the patient was init calin admitted with acute deep venous thrombosis, positive troponin secondary to deep venous thrombos is. BRIEF CLINICAL HISTORY: This is an 86-year-old female with chronic obstructive pulmonary disea se and diabetes, who came in with complaint of lower extremity swelling . According to the donald ent she went to Dr. Choudhury because she was getting tight and was thought to be ____. The patient's wo rkup shows troponin positive, CT angio was positive for pulmonary embolism, possibly this troponin is secondary to acute PE. The patient denies any chest pain, shortness of breath or any palpitation. PAST MEDICAL HISTORY: Is significant for acute recently, cellulitis of lower extremity, hypert ension, COPD. PAST SURGICAL HISTORY: Is significant for bunion removal of the left foot. PREVIOUS CARDIAC WORKUP FOLLOWS: The patient had a stress test on 10/02/2015, essentially negativ e, fixed defect, ejection fraction of 76%. The patient had an echocardiography done recently, preser camilla LV function. REVIEW OF SYSTEMS: As per HPI. PHYSICAL EXAMINATION: VITAL SIGNS: Temperature afebrile, heart rate 82, blood pressure . HEENT: PERRLA. Extraocular muscles intact. NECK: Supple. No carotid bruit. No thyromegaly. CHEST: Clear to auscultation. HEART: S1, S2 regular. ABDOMEN: Soft. EXTREMITIES: Clubbing and cyanosis negative. LABORATORY DATA: Blood workup as follows: WBC , hemoglobin , hematocrit 31.9, platelet co unt was 176. Chemistry shows sodium , potassium 4.0, chloride 97, carbon dioxide 35, anion gap of 8, BUN 20, creatinine 1.0. The INR was 2.08. IMPRESSION: pulmonary embolus, with a supratherapeutic INR, now is therapeutic, obesity, diabe araceli, hypertension, hyperlipidemia, negative stress test, positive troponin and admitted secondary to pulmonary embolus. RECOMMENDATION: Continue aspirin, continue Lasix, , continue beta clau. Will start a low do se of Coumadin today, 3 mg. Thank you, Dr. López, for providing me the opportunity in taking care of the patient. Alvina Aquino MD cc: [id number] TT: 11/23/2016 21:24:06 Confirmation # [id number] Dictation # [id number]
[2016-11-24] MEDS: Potassium & Sodium Phosphate PO SCH (10:28)
--- NOTE | 2016-11-24 11:28 | CP.PCM.PN ---
<Rene Mcgowan - Last Filed: 11/24/16 11:25> Subjective - Date & Time of Evaluation Date of Evaluation: 11/24/16 Time of Evaluation: 07:50 - Subjective Subjective: Hospitalist progress note: Pt seen and examined at bedside. No acute events overnight. Pt is NPO for endoscopy today. States she is very tired since she did not sleep wel last night. Pt denies any avery, dizziness, f/c, sob, cp, a Objective - Vital Signs/Intake and Output Vital Signs (last 24 hours): Temp Pulse Resp BP Pulse Ox 99.5 F 82 20 109/61 97 11/23/16 16:00 11/23/16 16:00 11/23/16 16:00 11/23/16 16:00 11/23/16 10:00 - Medications Medications: Current Medications Arformoterol Tartrate (Brovana) 15 mcg IH [id number] DEQUAN PRN Reason: Protocol Last Admin: 11/24/16 07:11 Dose: 15 mcg Aspirin (Ecotrin) 81 mg PO 0800 DEQUAN PRN Reason: Protocol Last Admin: 11/24/16 08:32 Dose: Not Given Atorvastatin Calcium (Lipitor) 40 mg PO DIN DEQUAN PRN Reason: Protocol Last Admin: 11/23/16 17:26 Dose: 40 mg Budesonide (Pulmicort Respules) 1 mg IH [id number] DEQUAN PRN Reason: Protocol Last Admin: 11/24/16 07:11 Dose: 1 mg Furosemide (Lasix) 40 mg PO DAILY DEQUAN PRN Reason: Protocol Last Admin: 11/24/16 10:28 Dose: Not Given Guaifenesin/Dextromethorphan (Robitussin Dm) 5 ml PO Q6H PRN PRN Reason: Cough Last Admin: 11/23/16 21:35 Dose: 5 ml Iron Sucrose 200 mg/ Sodium (Chloride) 110 mls @ 110 mls/hr IVPB DAILY DEQUAN Stop: 11/25/16 10:59 Last Admin: 11/24/16 10:28 Dose: 110 mls/hr Insulin Human Lispro (Humalog Low) 0 units SC ACHS DEQUNA PRN Reason: Protocol Last Admin: 11/24/16 06:32 Dose: Not Given Meclizine HCl (Antivert) 12.5 mg PO Q6 PRN; Protocol PRN Reason: DIZZINESS Metoprolol Tartrate (Lopressor) 25 mg PO 0800,1800 DEQUAN PRN Reason: Protocol Last Admin: 11/24/16 08:33 Dose: 25 mg Pantoprazole Sodium (Protonix Ec Tab) 40 mg PO 0600 DEQUAN PRN Reason: Protocol Last Admin: 11/24/16 05:44 Dose: 40 mg Potassium Phos/Sodium Phos (Neutra-Phos) 1 pkt PO DAILY DEQUAN PRN Reason: Protocol Last Admin: 11/24/16 10:28 Dose: Not Given Warfarin Sodium (Coumadin) 5 mg PO 1800 DEQUAN PRN Reason: Protocol Last Admin: 11/21/16 18:59 Dose: 5 mg Warfarin Sodium (Coumadin) 3 mg PO 1800 DEQUAN PRN Reason: Protocol - Labs Labs: 11/24/16 06:30 11/24/16 06:30 PT 20.7 Seconds (9.9-11.8) H 11/24/16 06:30 INR 1.92 (0.93-1.08) H 11/24/16 06:30 APTT 38.3 Seconds (23.7-30.8) H 11/24/16 06:30 - Constitutional Appears: No Acute Distress - Head Exam Head Exam: ATRAUMATIC, NORMAL INSPECTION, NORMOCEPHALIC - Eye Exam Eye Exam: EOMI, Normal appearance, PERRL Pupil Exam: NORMAL ACCOMODATION, PERRL - ENT Exam ENT Exam: Mucous Membranes Moist - Neck Exam Neck Exam: Full ROM, Normal Inspection. absent: Lymphadenopathy - Respiratory Exam Respiratory Exam: Clear to Ausculation Bilateral, NORMAL BREATHING PATTERN. absent: Rales, Wheezes - Cardiovascular Exam Cardiovascular Exam: REGULAR RHYTHM, RRR, +S1, +S2. absent: Murmur - GI/Abdominal Exam GI & Abdominal Exam: Soft, Normal Bowel Sounds. absent: Distended, Tenderness - Extremities Exam Extremities Exam: Full ROM, Normal Capillary Refill, Normal Inspection ( resolving cellulites on L lower ext ), Pedal Edema. absent: Calf Tenderness, Joint Swelling Additional comments: 2+ - Back Exam Back Exam: NORMAL INSPECTION - Neurological Exam Neurological Exam: Alert, Awake, Oriented x3 - Psychiatric Exam Psychiatric exam: Normal Affect, Normal Mood - Skin Skin Exam: Dry, Intact, Normal Color, Warm Assessment and Plan - Assessment and Plan (Free Text) Assessment: This is an 86 yo female with past medical hx of COPD, DM, presents with lower ext pain / cellulites found to have Sub-Segmental Distal PE and NSTEMI. 1. Sub-Segmental Distal PE; most likely unprovoked - Coumadin on hold for endoscopy today - Hemodynamically stable - Ext US - b/l tibial dvt identified - Heme consult - hold coumadin for endoscopy restart with 3mg. Cont IV Venofer - Ct abdomen - Large gallstone, No acute intraabdominal findings 2. NSTEMI - Cardiology Consult - Dr Adorno. recs appreciated. - Aspirin, B-Mikki, Statin given; can assess need for ED after echo - F/U echo read - BNP 6570 on admission; baseline last year 350 3. Lower Extrem Swelling/Cellulitis - Improving - ID Consult. Dr. Jimenez. will d/c abx folowing 5 days of zyvox - Cont to monitor 4. DM - ISS ACHS as protocol 5. COPD - Pulm consult - Dr Dc - cont current meds started cough meds - Nebs PRN - c/w home meds brovana and pulmicort 6. Anemia - As Per GI - Dr Membreno plan for endoscopy this am - Hold Coumadin - Likely Iron def anemia - stable - Cont Iron sucrose 7. Acute on Chronic KD stage - Nephrology Consulted - resolved CHITO - cont IV Venofer - stool occult (+) 8. GI/DVT ppx -On protonix daily & coumadin -Heart Healthy Diet Case and plan was seen reviewed and discussed in detail with Dr López. <Lina Lóepz - Last Filed: 11/24/16 15:04> Objective - Vital Signs/Intake and Output Vital Signs (last 24 hours): Temp Pulse Resp BP Pulse Ox 99.5 F 82 20 109/61 97 11/23/16 16:00 11/23/16 16:00 11/23/16 16:00 11/23/16 16:00 11/23/16 10:00 - Medications Medications: Current Medications Arformoterol Tartrate (Brovana) 15 mcg IH [id number] DEQUAN PRN Reason: Protocol Last Admin: 11/24/16 07:11 Dose: 15 mcg Aspirin (Ecotrin) 81 mg PO 0800 DEQUAN PRN Reason: Protocol Last Admin: 11/24/16 08:32 Dose: Not Given Atorvastatin Calcium (Lipitor) 40 mg PO DIN DEQUAN PRN Reason: Protocol Last Admin: 11/23/16 17:26 Dose: 40 mg Budesonide (Pulmicort Respules) 1 mg IH [id number] DEQUAN PRN Reason: Protocol Last Admin: 11/24/16 07:11 Dose: 1 mg Furosemide (Lasix) 40 mg PO DAILY DEQUAN PRN Reason: Protocol Last Admin: 11/24/16 10:28 Dose: Not Given Guaifenesin/Dextromethorphan (Robitussin Dm) 5 ml PO Q6H PRN PRN Reason: Cough Last Admin: 11/23/16 21:35 Dose: 5 ml Iron Sucrose 200 mg/ Sodium (Chloride) 110 mls @ 110 mls/hr IVPB DAILY DEQUAN Stop: 11/25/16 10:59 Last Admin: 11/24/16 10:28 Dose: 110 mls/hr Insulin Human Lispro (Humalog Low) 0 units SC ACHS DEQUAN PRN Reason: Protocol Last Admin: 11/24/16 12:29 Dose: Not Given Meclizine HCl (Antivert) 12.5 mg PO Q6 PRN; Protocol PRN Reason: DIZZINESS Metoprolol Tartrate (Lopressor) 25 mg PO 0800,1800 DEQUAN PRN Reason: Protocol Last Admin: 11/24/16 08:33 Dose: 25 mg Pantoprazole Sodium (Protonix Ec Tab) 40 mg PO 0600 DEQUAN PRN Reason: Protocol Last Admin: 11/24/16 05:44 Dose: 40 mg Potassium Phos/Sodium Phos (Neutra-Phos) 1 pkt PO DAILY DEQUAN PRN Reason: Protocol Last Admin: 11/24/16 10:28 Dose: Not Given Warfarin Sodium (Coumadin) 5 mg PO 1800 DEQUAN PRN Reason: Protocol Last Admin: 11/21/16 18:59 Dose: 5 mg Warfarin Sodium (Coumadin) 3 mg PO 1800 DEQUAN PRN Reason: Protocol - Labs Labs: 11/24/16 06:30 11/24/16 06:30 PT 20.7 Seconds (9.9-11.8) H 11/24/16 06:30 INR 1.92 (0.93-1.08) H 11/24/16 06:30 APTT 38.3 Seconds (23.7-30.8) H 11/24/16 06:30 Attending/Attestation - Attestation I have personally seen and examined this patient.: Yes I have fully participated in the care of the patient.: Yes I have reviewed all pertinent clinical information, including history, physical exam and plan: Yes Notes (Text): 11/24/16 15:00 Attending note; Patient seen and examined with resident in TCU. Patient is sleepy. But alert and awake and oriented to place. Patient is a 86 year old female with past medical history of COPD and diabetes who presented for evaluation of lower extremity erythema. She was found to have subsmental distal PE and bilateral DVT and started on heparin drip and coumadin. Currently Coumadin on hold. INR is 1.92. Patient is nothing by mouth for EGD and colonoscopy by Dr. Proctor. GI prophylaxis with Protonix. Restart Coumadin. Cardiology evaluation with Dr. Aquino appreciated. Continue aspirin, metoprolol and statin. Cellulitis LLE; Off antibiotics. Left lower extremity redness is improving. She has microcytic iron deficiency anemia. She is on iv iron. Continue physical therapy in TCU. Upon discharge the patient will follow-up with .
--- NOTE | 2016-11-24 12:29 | PN ---
DATE: 11/24/2016 SUBJECTIVE: The patient is currently seen in the TCU. She is being prepped for colonoscopy and endo scopy which will take place later today. MEDICATIONS: Medication list reviewed. The patient is currently on Antivert, Brovana, Coumadin is o n hold, Ecotrin, insulin, IV iron, Lasix, Lipitor, Lopressor, Neutra-Phos, Protonix, Pulmicort Respul es, and Robitussin p.r.n. OBJECTIVE: VITAL SIGNS: Blood pressure 109/61, temperature 99.5, respiratory rate is 20 with a pulse of 82. Th e patient is afebrile. HEENT: Normocephalic, atraumatic. Conjunctivae are pale. Sclerae are nonicteric. NECK: Supple, no neck vein distention. CHEST: Clear to auscultation and percussion. No rales, no rhonchi, no wheezing. CARDIOVASCULAR: S1, S2 are normal. No audible murmurs, rubs, or gallops. ABDOMEN: Soft. Bowel sounds normal. No rebound, no guarding, no masses. EXTREMITIES: No lower extremity edema, cyanosis or clubbing. LABORATORY DATA AND IMAGING: CBC today: White blood cell count 9.1, hemoglobin 8.8, platelet count is 178,000. Chemistries: Sodium 138, potassium 3.7, chloride 95 with a CO2 of 37. BUN is 25 with a creatinine of 1.1. Glucose is 101. Albumin is 3.1. BUN has dropped from a high of 35 to 25, withi n baseline range. Creatinine has dropped from 1.5 to 1.1, within baseline range. ASSESSMENT: 1. Acute renal failure, resolved. Elevated BUN and creatinine on admission to the hospital likely s econdary to possible exposure to IV contrast and perhaps secondary to gastrointestinal bleeding. The patient appears to have an occult gastrointestinal blood loss. Stools are positive for blood and ir on saturations were low at 3%. 2. History of deep venous thrombosis with pulmonary embolism. The patient transitional over from he jordi to Coumadin which is on hold for today's endoscopy and colonoscopy. 3. History of significant anemia secondary to iron deficiency. Iron saturations are low at 3%. The patient is continuing on IV Venofer. We will need to monitor her CBC closely. It appears to be sta ble. She may be transfused on a p.r.n. basis. Endoscopy and colonoscopy today to try and identify a source of her gastrointestinal blood loss. 4. History of non-insulin dependent diabetes mellitus. The patient is on sliding scale insulin. 5. Status post cellulitis of her lower extremity. The patient has completed a course of antibiotic therapy. 6. History of hypertension. Blood pressure control is acceptable. 7. History of chronic obstructive pulmonary disease, stable on inhalation therapy. PLAN: 1. Continue protocol in TCU. 2. Endoscopy, colonoscopy today. 3. Continue Neutra-Phos. Her phosphorus level today is improved at 3.1. 4. Status post mild hypomagnesemia. Today's magnesium level is 1.7. She had received [employer] ov er the weekend. Albert Shahid MD cc: [id number] TT: 11/24/2016 12:29:41 Confirmation # [id number] Dictation # [id number] tn
[2016-11-24] MEDS ORDERED: Enoxaparin 80 mg Syringe SC SCH (15:30)
--- NOTE | 2016-11-24 17:07 | CP.PCM.PN ---
Subjective - Date & Time of Evaluation Date of Evaluation: 11/24/16 Time of Evaluation: 17:01 - Subjective Subjective: 86 y/o F with multiple medical problems presenting for EGD/Colonoscopy. Upon arrival to endoscopy suite, patient appeared mildly tachypneic and sp02 84-88% on 4L NC. Lungs were clear but diminished. No SOB. After discussion with Dr. Membreno, primary MD was notified and decision was made to delay procedure till patient's pulmonary status can be optimized. Objective - Vital Signs/Intake and Output Vital Signs (last 24 hours): Temp Pulse Resp BP Pulse Ox 99.5 F 82 20 109/61 97 11/23/16 16:00 11/23/16 16:00 11/23/16 16:00 11/23/16 16:00 11/23/16 10:00 - Medications Medications: Current Medications Arformoterol Tartrate (Brovana) 15 mcg IH [id number] DEQUAN PRN Reason: Protocol Last Admin: 11/24/16 07:11 Dose: 15 mcg Aspirin (Ecotrin) 81 mg PO 0800 DEQUAN PRN Reason: Protocol Last Admin: 11/24/16 08:32 Dose: Not Given Atorvastatin Calcium (Lipitor) 40 mg PO DIN DEQUNA PRN Reason: Protocol Last Admin: 11/23/16 17:26 Dose: 40 mg Budesonide (Pulmicort Respules) 1 mg IH [id number] DEQUAN PRN Reason: Protocol Last Admin: 11/24/16 07:11 Dose: 1 mg Enoxaparin Sodium (Lovenox) 80 mg SC Q24H DEQUAN PRN Reason: Protocol Furosemide (Lasix) 40 mg PO DAILY DEQUAN PRN Reason: Protocol Last Admin: 11/24/16 10:28 Dose: Not Given Guaifenesin/Dextromethorphan (Robitussin Dm) 5 ml PO Q6H PRN PRN Reason: Cough Last Admin: 11/23/16 21:35 Dose: 5 ml Iron Sucrose 200 mg/ Sodium (Chloride) 110 mls @ 110 mls/hr IVPB DAILY DEQUAN Stop: 11/25/16 10:59 Last Admin: 11/24/16 10:28 Dose: 110 mls/hr Insulin Human Lispro (Humalog Low) 0 units SC ACHS DEQUAN PRN Reason: Protocol Last Admin: 11/24/16 12:29 Dose: Not Given Meclizine HCl (Antivert) 12.5 mg PO Q6 PRN; Protocol PRN Reason: DIZZINESS Metoprolol Tartrate (Lopressor) 25 mg PO 0800,1800 DEQUAN PRN Reason: Protocol Last Admin: 11/24/16 08:33 Dose: 25 mg Pantoprazole Sodium (Protonix Ec Tab) 40 mg PO 0600 [facility] PRN Reason: Protocol Last Admin: 11/24/16 05:44 Dose: 40 mg Potassium Phos/Sodium Phos (Neutra-Phos) 1 pkt PO DAILY [facility] PRN Reason: Protocol Last Admin: 11/24/16 10:28 Dose: Not Given - Labs Labs: 11/24/16 06:30 11/24/16 06:30 PT 20.7 Seconds (9.9-11.8) H 11/24/16 06:30 INR 1.92 (0.93-1.08) H 11/24/16 06:30 APTT 38.3 Seconds (23.7-30.8) H 11/24/16 06:30
--- NOTE | 2016-11-24 19:23 | PN ---
DATE: 11/24/2016 SUBJECTIVE: This patient was seen and evaluated earlier in the endoscopy unit. She came for upper G I endoscopy and a colonoscopy. She was scheduled for upper GI endoscopy and colonoscopy today. HISTORY OF PRESENT ILLNESS: This 86-year-old patient initially presented with cellulitis. Also, has shortness of breath. Found to be having a pulmonary embolism. The patient was found to be anemic, guaiac positive. The patient was on anticoagulation. The patient was evaluated. The concern is carolin g-term anticoagulation at least for 6 months in view of the PE in the setting of upper GI bleeding. It was felt reasonable to do the diagnostic endoscopy, then decide about the risk stratification, to evaluate for the risk stratification and plan about the anticoagulation in a long-term basis. OBJECTIVE: VITAL SIGNS: The patient in the endoscopy unit was found to have O2 saturation of 84-86 on 4 L of na estephania cannula. There was concern about it, also, on blood pressure of 109/61. Heart rate was 92. HEENT: Anicteric. NECK: Supple. HEART: S1, S2 heard. Tachycardic. LUNGS: Bilateral air entry present, slightly reduced in the base. ABDOMEN: Soft. There is no tenderness. EXTREMITIES: No cyanosis, no clubbing. LABORATORY DATA: Hemoglobin is 8.8, hematocrit 32.7, WBC is 9.1, platelets 178. BUN is 25, creatini ne 1.1. IMPRESSION AND PLAN: This 86-year-old patient admitted with a pulmonary embolism. The patient with a pulmonary embolism, guaiac positive stools, upper gastrointestinal bleeding, anemia, scheduled for an esophagogastroduodenoscopy and a colonoscopy for diagnostic workup. INR was 1.9. The patient was found to be having, she was very hypoxic, with O2 saturation was 84-86 on 4 L of nasal cannula. Ana Rosa luated by the anesthesiologist. Slater higher risk for the procedure. I did speak with Dr. López. The procedure was canceled. Will reschedule the patient after optimization of the pulmonary status . The patient was . Will leave the patient on a liquid diet and if patient is optimal will eliezer edule for an endoscopy. At the present time, will leave the patient on liquid diet and anticoagulati on can be resumed if possible on Lovenox or IV heparin with close monitoring of the hemoglobin and he matocrit. Thank you very much for allowing us to participate in the care of the patient. Devendra Membreno MD cc: [id number] TT: 11/24/2016 19:22:28 Confirmation # [id number] Dictation # [id number] dn
[2016-11-25] MEDS: Pantoprazole 40 mg EC Tab PO SCH (05:38)
[2016-11-25] MEDS: Insulin Lispro (humaLOG) LOW Coverage SC SCH ×4 (06:36→22:04)
[2016-11-25] MEDS: Arformoterol 15 mcg/2 ml Inh Sol IH SCH ×2 (07:10→20:16)
[2016-11-25] MEDS: Budesonide 0.5 mg/2 ml Inhal Susp UD IH SCH ×2 (07:10→20:17)
[2016-11-25 07:19] LABS: HEMATOCRIT 30.8 % (36.0-48.0); MEAN CORPUSCULAR HEMOGLOBIN 21.5 pg (25.0-35.0); MEAN CORPUSCULAR HGB CONC 27.3 g/dl (31.0-37.0); MEAN PLATELET VOLUME 9.4 fl (7.0-11.0); RED CELL DISTRIBUTION WIDTH 20.2 % (11.5-14.5); WHITE BLOOD COUNT 8.2 10^3/ul (4.5-11.0)
[2016-11-25 07:21] LABS: INR 2.17 (0.93-1.08)
[2016-11-25 07:24] LABS: ALKALINE PHOSPHATASE 53 U/L (38-133); ALT/SGPT 35 U/L (7-56); AST/SGOT 30 U/L (15-39); BILIRUBIN,TOTAL 0.9 mg/dL (0.2-1.3); BLOOD UREA NITROGEN 21 mg/dL (7-21); CALCIUM 9.6 mg/dL (8.4-10.5); CARBON DIOXIDE 35 mmol/L (21-33); CHLORIDE 96 mmol/L (95-110); GFR AFRICAN-AMERICAN > 60; GLUCOSE,RANDOM 98 mg/dL (70-110); MAGNESIUM 1.6 mg/dL (1.7-2.2); PHOSPHOROUS 2.7 mg/dL (2.5-4.5); SODIUM 137 mmol/L (132-148)
[2016-11-25 07:41] LABS: ARTERIAL BLOOD GAS HCO3 36.8 mmol/L (21-28); ARTERIAL BLOOD GAS O2 CONTENT 10.3 ML/dl (15-23); ARTERIAL BLOOD GAS PH 7.41 (7.35-7.45); ARTERIAL BLOOD HGB O2 SAT 90.2 % (95.0-98.0); CARBOXYHEMOGLOBIN 2.7 % (0.5-1.5); HHB 6.4 % (0-5); METHEMOGLOBIN 0.8 % (0.0-3.0)
[2016-11-25] MEDS ORDERED: Magnesium Sulfate 2 GM in Sodium Chloride 0.9% 100 ML IVPB ONE (08:04)
--- NOTE | 2016-11-25 10:03 | CP.PCM.PN ---
<Rene Mcgowan - Last Filed: 11/25/16 13:32> Subjective - Date & Time of Evaluation Date of Evaluation: 11/25/16 Time of Evaluation: 07:50 - Subjective Subjective: Hospitalist progress note: Pt seen and examined at bedside. No acute events overnight. Endoscopy yesterday was cancelled due to pt being tachypnic and dropping sats. NPO this am for possible endoscopy. Pt denies any avery, f/c, dizziness, sob, cp, abd pain, n/v/ d. Objective - Vital Signs/Intake and Output Vital Signs (last 24 hours): Temp Pulse Resp BP Pulse Ox 99.5 F 82 20 109/61 97 11/23/16 16:00 11/23/16 16:00 11/23/16 16:00 11/23/16 16:00 11/23/16 10:00 - Medications Medications: Current Medications Arformoterol Tartrate (Brovana) 15 mcg IH [id number] DEQUAN PRN Reason: Protocol Last Admin: 11/25/16 07:10 Dose: 15 mcg Aspirin (Ecotrin) 81 mg PO 0800 DEQUAN PRN Reason: Protocol Last Admin: 11/25/16 08:45 Dose: 81 mg Atorvastatin Calcium (Lipitor) 40 mg PO DIN DEQUAN PRN Reason: Protocol Last Admin: 11/24/16 18:06 Dose: 40 mg Budesonide (Pulmicort Respules) 1 mg IH [id number] DEQUAN PRN Reason: Protocol Last Admin: 11/25/16 07:10 Dose: 1 mg Enoxaparin Sodium (Lovenox) 80 mg SC Q24H DEQUAN PRN Reason: Protocol Last Admin: 11/24/16 18:07 Dose: 80 mg Furosemide (Lasix) 40 mg PO DAILY DEQUAN PRN Reason: Protocol Last Admin: 11/24/16 10:28 Dose: Not Given Guaifenesin/Dextromethorphan (Robitussin Dm) 5 ml PO Q6H PRN PRN Reason: Cough Last Admin: 11/23/16 21:35 Dose: 5 ml Insulin Human Lispro (Humalog Low) 0 units SC ACHS DEQUAN PRN Reason: Protocol Last Admin: 11/25/16 06:36 Dose: Not Given Meclizine HCl (Antivert) 12.5 mg PO Q6 PRN; Protocol PRN Reason: DIZZINESS Metoprolol Tartrate (Lopressor) 25 mg PO 0800,1800 DEQUAN PRN Reason: Protocol Last Admin: 11/25/16 08:45 Dose: 25 mg Pantoprazole Sodium (Protonix Ec Tab) 40 mg PO 0600 DEQUAN PRN Reason: Protocol Last Admin: 11/25/16 05:38 Dose: 40 mg Potassium Phos/Sodium Phos (Neutra-Phos) 1 pkt PO DAILY DEQUAN PRN Reason: Protocol Last Admin: 11/24/16 10:28 Dose: Not Given - Labs Labs: 11/25/16 05:30 11/25/16 05:30 PT 23.4 Seconds (9.9-11.8) H 11/25/16 05:30 INR 2.17 (0.93-1.08) H 11/25/16 05:30 APTT 38.3 Seconds (23.7-30.8) H 11/24/16 06:30 - Constitutional Appears: No Acute Distress - Head Exam Head Exam: ATRAUMATIC, NORMAL INSPECTION, NORMOCEPHALIC - Eye Exam Eye Exam: EOMI, Normal appearance, PERRL - ENT Exam ENT Exam: Mucous Membranes Moist, Normal Exam - Neck Exam Neck Exam: Full ROM, Normal Inspection. absent: Lymphadenopathy - Respiratory Exam Respiratory Exam: Clear to Ausculation Bilateral, NORMAL BREATHING PATTERN. absent: Wheezes - Cardiovascular Exam Cardiovascular Exam: REGULAR RHYTHM, RRR, +S1, +S2. absent: Murmur - Extremities Exam Extremities Exam: Full ROM, Normal Capillary Refill, Normal Inspection. absent : Joint Swelling, Pedal Edema - Back Exam Back Exam: NORMAL INSPECTION - Neurological Exam Neurological Exam: Alert, Awake, CN II-XII Intact, Normal Gait, Oriented x3 - Psychiatric Exam Psychiatric exam: Normal Affect, Normal Mood - Skin Skin Exam: Dry, Intact, Normal Color, Warm Assessment and Plan - Assessment and Plan (Free Text) Assessment: This is an 86 yo female with past medical hx of COPD, DM, presents with lower ext pain / cellulites found to have Sub-Segmental Distal PE and NSTEMI. 1. Sub-Segmental Distal PE; most likely unprovoked - Therapeutic Lovenox started - Hemodynamically stable - Ext US - b/l tibial dvt identified - Heme consult - Dr Hughes for recs - Ct abdomen - Large gallstone, No acute intraabdominal findings 2. NSTEMI - Cardiology Consult - Dr Adorno. recs appreciated. - Aspirin, B-Mikki, Statin given; can assess need for ED after echo - BNP 6570 on admission; baseline last year 350 3. Lower Extrm Swelling/Cellulitis - Improved - ID Consult. Dr. Jimenez. will d/c abx folowing 5 days of zyvox - Cont to monitor 4. DM - ISS ACHS as protocol 5. COPD - Pulm consult - Dr Dc - cont current meds started cough meds - Nebs PRN - c/w home meds brovana and pulmicort 6. Anemia - NPO - positive stool occult - endoscopy cancelled yesterday due to pt being tachypnic and hypoxic - As Per GI - Dr Membreno - possible endoscopy today - Cont Iron sucrose 7. Acute on Chronic KD stage - Nephrology Consulted - resolved CHITO - cont IV Venofer - stool occult (+) 8. GI/DVT ppx -On protonix daily & Lovenox -Heart Healthy Diet Case and plan was seen reviewed and discussed in detail with Dr López. <Lina López - Last Filed: 11/25/16 16:44> Objective - Vital Signs/Intake and Output Vital Signs (last 24 hours): Temp Pulse Resp BP Pulse Ox 98.7 F 62 20 153/65 H 94 L 11/25/16 10:00 11/25/16 10:00 11/25/16 10:00 11/25/16 10:21 11/25/16 10:00 - Medications Medications: Current Medications Arformoterol Tartrate (Brovana) 15 mcg IH [id number] DEQUAN PRN Reason: Protocol Last Admin: 11/25/16 07:10 Dose: 15 mcg Aspirin (Ecotrin) 81 mg PO 0800 DEQUAN PRN Reason: Protocol Last Admin: 11/25/16 08:45 Dose: 81 mg Atorvastatin Calcium (Lipitor) 40 mg PO DIN DEQUAN PRN Reason: Protocol Last Admin: 11/24/16 18:06 Dose: 40 mg Budesonide (Pulmicort Respules) 1 mg IH [id number] DEQUAN PRN Reason: Protocol Last Admin: 11/25/16 07:10 Dose: 1 mg Furosemide (Lasix) 40 mg PO DAILY DEQUAN PRN Reason: Protocol Last Admin: 11/25/16 10:21 Dose: 40 mg Guaifenesin/Dextromethorphan (Robitussin Dm) 5 ml PO Q6H PRN PRN Reason: Cough Last Admin: 11/23/16 21:35 Dose: 5 ml Insulin Human Lispro (Humalog Low) 0 units SC ACHS DEQUAN PRN Reason: Protocol Last Admin: 11/25/16 11:12 Dose: Not Given Meclizine HCl (Antivert) 12.5 mg PO Q6 PRN; Protocol PRN Reason: DIZZINESS Metoprolol Tartrate (Lopressor) 25 mg PO 0800,1800 DEQUAN PRN Reason: Protocol Last Admin: 11/25/16 08:45 Dose: 25 mg Pantoprazole Sodium (Protonix Ec Tab) 40 mg PO 0600 DEQUAN PRN Reason: Protocol Last Admin: 11/25/16 05:38 Dose: 40 mg Potassium Phos/Sodium Phos (Neutra-Phos) 1 pkt PO DAILY DEQUAN PRN Reason: Protocol Last Admin: 11/25/16 10:22 Dose: 1 pkt Warfarin Sodium (Coumadin) 1 mg PO 1800 DEQUAN PRN Reason: Protocol - Labs Labs: 11/25/16 05:30 11/25/16 05:30 PT 23.4 Seconds (9.9-11.8) H 11/25/16 05:30 INR 2.17 (0.93-1.08) H 11/25/16 05:30 APTT 38.3 Seconds (23.7-30.8) H 11/24/16 06:30 Attending/Attestation - Attestation I have personally seen and examined this patient.: Yes I have fully participated in the care of the patient.: Yes I have reviewed all pertinent clinical information, including history, physical exam and plan: Yes Notes (Text): 11/25/16 16:38 Attending note; Patient seen and examined with resident in TCU. Patient is alert, awake and oriented. Sumi paramonte nurse by bedside. EGD/colonoscopy was cancelled yestreday due to hypoxia. samienlty npo for EGD. Patient is a 86 year old female with past medical history of COPD and diabetes who presented for evaluation of lower extremity erythema. She was found to have subsmental distal PE and bilateral DVT. Currently Coumadin on hold. INR is 2.1. GI prophylaxis with Protonix. Restart Coumadin. Cardiology evaluation with Dr. Aquino appreciated. Continue aspirin, metoprolol and statin. Cellulitis LLE; Off antibiotics. Left lower extremity redness is improving. She has microcytic iron deficiency anemia. She is on iv iron. Continue physical therapy in TCU. Addendum; EGD and colonoscopy was postponed due to hypoxia. Case discussed with Dr. Farhat Macias in detail. Plan for IVC filter tomorrow. Patient is full code. Next of kin is nephew fatou. Upon discharge the patient will follow-up with . 11/25/16 16:43
[2016-11-25] MEDS: Potassium & Sodium Phosphate PO SCH (10:22)
--- NOTE | 2016-11-25 12:20 | CP.PCM.CON ---
History of Present Illness - History of Present Illness History of Present Illness: Palliative consult requested by Dr Abby López Reason: Advance care planning 86 year old female who presented to hospital with malaise, shortness of breath, left lower extremity cellulitis. She was found to have CO, bilateral tibial DVT' s and PE. She was anticoagulated with Heparin and then switched to Coumadin.She has since been transferred to TCU where she was also found to be anemic, stool is guaiac positive. Anticoagulation therapy on hold. Awaiting colonoscopy/EGD. PMHx: COPD, DM,HTN, CAD. Social History: Former smoker,no alcohol or drug use.Lives independently. Family History: Non contributory Advance Care Planning: The patient does not have an Advance Directive. She has designated her nephew, Jovanni Villeda as her health care proxy. Review of Systems: Dyspnea, fatigue, occasional cough,LLE swelling, all other systems reviewed and are negative. Past Patient History - Tetanus Immunizations Tetanus Immunization: Unknown - Past Medical History & Family History Past Medical History?: Yes Past Family History: Reviewed and not pertinent - Past Social History Smoking Status: Former Smoker Chewing Tobacco Use: No Cigar Use: No Alcohol: None Drugs: Denies Home Situation {Lives}: Alone Domestic Violence: Negative - CARDIAC Hx Cardiac Disorders: No - PULMONARY Hx Chronic Obstructive Pulmonary Disease (COPD): Yes - NEUROLOGICAL Hx Neurological Disorder: No - HEENT Hx HEENT Problems: No - RENAL Hx Chronic Kidney Disease: No - ENDOCRINE/METABOLIC Hx Diabetes Mellitus Type 1: Yes - HEMATOLOGICAL/ONCOLOGICAL Hx Blood Disorders: No - INTEGUMENTARY Hx Dermatological Problems: No - MUSCULOSKELETAL/RHEUMATOLOGICAL Hx Falls: Yes - GASTROINTESTINAL Hx Gastrointestinal Disorders: No - GENITOURINARY/GYNECOLOGICAL Hx Genitourinary Disorders: No Hx Reproductive Disorders: No - PSYCHIATRIC Hx Psychophysiologic Disorder: No Hx Substance Use: No - SURGICAL HISTORY Hx Surgeries: Yes (rhinoplasty,BUNIONECTOMY BILATERAL TOES.) - ANESTHESIA Hx Anesthesia: No Meds Allergies/Adverse Reactions: Allergies Allergy/AdvReac Type Severity Reaction Status Date / Time No Known Allergies Allergy Verified 11/21/16 19:34 - Medications Medications: Current Medications Arformoterol Tartrate (Brovana) 15 mcg IH [id number] DEQUAN PRN Reason: Protocol Last Admin: 11/25/16 07:10 Dose: 15 mcg Aspirin (Ecotrin) 81 mg PO 0800 DEQUAN PRN Reason: Protocol Last Admin: 11/25/16 08:45 Dose: 81 mg Atorvastatin Calcium (Lipitor) 40 mg PO DIN DEQUAN PRN Reason: Protocol Last Admin: 11/24/16 18:06 Dose: 40 mg Budesonide (Pulmicort Respules) 1 mg IH [id number] DEQUAN PRN Reason: Protocol Last Admin: 11/25/16 07:10 Dose: 1 mg Enoxaparin Sodium (Lovenox) 80 mg SC Q24H DEQUAN PRN Reason: Protocol Last Admin: 11/24/16 18:07 Dose: 80 mg Furosemide (Lasix) 40 mg PO DAILY DEQUAN PRN Reason: Protocol Last Admin: 11/25/16 10:21 Dose: 40 mg Guaifenesin/Dextromethorphan (Robitussin Dm) 5 ml PO Q6H PRN PRN Reason: Cough Last Admin: 11/23/16 21:35 Dose: 5 ml Insulin Human Lispro (Humalog Low) 0 units SC ACHS DEQUAN PRN Reason: Protocol Last Admin: 11/25/16 11:12 Dose: Not Given Meclizine HCl (Antivert) 12.5 mg PO Q6 PRN; Protocol PRN Reason: DIZZINESS Metoprolol Tartrate (Lopressor) 25 mg PO 0800,1800 DEQUAN PRN Reason: Protocol Last Admin: 11/25/16 08:45 Dose: 25 mg Pantoprazole Sodium (Protonix Ec Tab) 40 mg PO 0600 DEQUAN PRN Reason: Protocol Last Admin: 11/25/16 05:38 Dose: 40 mg Potassium Phos/Sodium Phos (Neutra-Phos) 1 pkt PO DAILY DEQUAN PRN Reason: Protocol Last Admin: 11/25/16 10:22 Dose: 1 pkt Physical Exam - Constitutional Appears: No Acute Distress - Head Exam Head Exam: NORMOCEPHALIC - Eye Exam Eye Exam: Normal appearance, PERRL - ENT Exam ENT Exam: Mucous Membranes Moist, Normal Oropharynx - Neck Exam Neck exam: Positive for: Normal Inspection - Respiratory Exam Respiratory Exam: Decreased Breath Sounds, NORMAL BREATHING PATTERN - Cardiovascular Exam Cardiovascular Exam: REGULAR RHYTHM, +S1, +S2 - GI/Abdominal Exam GI & Abdominal Exam: Normal Bowel Sounds, Soft Additional comments: no tenderness - Extremities Exam Extremities exam: Positive for: pedal edema, pedal pulses present - Back Exam Back exam: NORMAL INSPECTION - Neurological Exam Neurological exam: Alert, Oriented x3 - Skin Skin Exam: Dry, Pallor - Additional Findings Additional findings: Palliative performance scale raring 50 % Results - Vital Signs Recent Vital Signs: Last Vital Signs Temp 98.7 F 11/25/16 10:00 Pulse 62 11/25/16 10:00 Resp 20 11/25/16 10:00 BP 153/65 H 11/25/16 10:21 Pulse Ox 94 L 11/25/16 10:00 - Labs Result Diagrams: 11/25/16 05:30 11/25/16 05:30 Labs: Laboratory Results - last 24 hr 11/23/16 11/23/16 11/23/16 05:05 11:20 16:44 WBC RBC Hgb Hct MCV MCH MCHC RDW Plt Count MPV PT INR pCO2 pO2 HCO3 ABG pH ABG Total CO2 ABG O2 Saturation ABG O2 Content ABG Base Excess ABG Hemoglobin ABG Carboxyhemoglobin POC ABG HHb (Measured) ABG Methemoglobin ABG O2 Capacity Hgb O2 Saturation FiO2 Sodium Potassium Chloride Carbon Dioxide Anion Gap BUN Creatinine Est GFR ( Amer) Est GFR (Non-Af Amer) POC Glucose (mg/dL) 120 H 189 H 140 H Random Glucose Calcium Phosphorus Magnesium Total Bilirubin AST ALT Alkaline Phosphatase Total Protein Albumin Globulin Albumin/Globulin Ratio 11/24/16 11/24/16 11/24/16 05:44 11:35 17:09 WBC RBC Hgb Hct MCV MCH MCHC RDW Plt Count MPV PT INR pCO2 pO2 HCO3 ABG pH ABG Total CO2 ABG O2 Saturation ABG O2 Content ABG Base Excess ABG Hemoglobin ABG Carboxyhemoglobin POC ABG HHb (Measured) ABG Methemoglobin ABG O2 Capacity Hgb O2 Saturation FiO2 Sodium Potassium Chloride Carbon Dioxide Anion Gap BUN Creatinine Est GFR ( Amer) Est GFR (Non-Af Amer) POC Glucose (mg/dL) 115 H 123 H 167 H Random Glucose Calcium Phosphorus Magnesium Total Bilirubin AST ALT Alkaline Phosphatase Total Protein Albumin Globulin Albumin/Globulin Ratio 11/24/16 11/25/16 11/25/16 21:38 05:30 05:30 WBC 8.2 RBC 3.90 Hgb 8.4 L Hct 30.8 L MCV 79.0 L MCH 21.5 L MCHC 27.3 L RDW 20.2 H Plt Count 162 MPV 9.4 PT INR pCO2 pO2 HCO3 ABG pH ABG Total CO2 ABG O2 Saturation ABG O2 Content ABG Base Excess ABG Hemoglobin ABG Carboxyhemoglobin POC ABG HHb (Measured) ABG Methemoglobin ABG O2 Capacity Hgb O2 Saturation FiO2 Sodium 137 Potassium 4.0 Chloride 96 Carbon Dioxide 35 H Anion Gap 10 BUN 21 Creatinine 0.9 Est GFR ( Amer) > 60 Est GFR (Non-Af Amer) 59 POC Glucose (mg/dL) 134 H Random Glucose 98 Calcium 9.6 Phosphorus 2.7 Magnesium 1.6 L Total Bilirubin 0.9 AST 30 ALT 35 Alkaline Phosphatase 53 Total Protein 6.0 Albumin 3.0 Globulin 3.0 Albumin/Globulin Ratio 1.0 L 11/25/16 11/25/16 11/25/16 05:30 06:04 07:36 WBC RBC Hgb Hct MCV MCH MCHC RDW Plt Count MPV PT 23.4 H INR 2.17 H pCO2 58 H pO2 57.0 L HCO3 36.8 H ABG pH 7.41 ABG Total CO2 38.6 H ABG O2 Saturation 93.4 L ABG O2 Content 10.3 L ABG Base Excess 10.8 H ABG Hemoglobin 8.1 L ABG Carboxyhemoglobin 2.7 H POC ABG HHb (Measured) 6.4 H ABG Methemoglobin 0.8 ABG O2 Capacity 11.0 L Hgb O2 Saturation 90.2 L FiO2 32.0 Sodium Potassium Chloride Carbon Dioxide Anion Gap BUN Creatinine Est GFR ( Amer) Est GFR (Non-Af Amer) POC Glucose (mg/dL) 97 Random Glucose Calcium Phosphorus Magnesium Total Bilirubin AST ALT Alkaline Phosphatase Total Protein Albumin Globulin Albumin/Globulin Ratio Assessment & Plan - Assessment and Plan (Free Text) Assessment: 86 year old female admitted with anemia, GI bleed, PE,DVT's, CO, LLE cellulitis. The patient is alert, oriented and of pleasant demeanor. She is complaining of hunger as she has been fasting in preparation for EGD/colonoscopy. She was originally scheduled for this test yesterday but O2 levels desaturated prior to procedure and it was canceled. The patient does not have advance directive. She has not thought about resuscitation wishes. She is not sure as to what she would want to do if her medical condition worsened. Benefits and burdens of resuscitation explained. She states that she wants to talk to her nephew about this plan. She states he is her next of kin and that she would designate him as her health care proxy. I encouraged her to speak with nephew and I offered to meet with him as well. The patient has also been visited by Dr. López and resident team. EGD/ Colonoscopy risks explained She is agreeable to going for testing today. Psychosocial support given. Time spent in advance care planning discussion,30 minutes. Plan: All reports reviewed, continue current medical regimen. Will assist with establishing future goals of care and advance care palnning
--- NOTE | 2016-11-25 14:39 | PN ---
DATE: 11/25/2016 SUBJECTIVE: The patient is seen sitting in chair. She is awake. She is alert. She is comfortable. She denies any pain. She does have shortness of breath. PHYSICAL EXAMINATION: GENERAL: Obese elderly lady sitting in chair. VITAL SIGNS: Blood pressure 153/65, heart rate 62, respiratory rate 20, temperature 98.7. HEENT: Normocephalic, atraumatic, positive pallor. NECK: Supple, no JVD. LUNGS: Bilateral equal air entry, bilateral rhonchi. CARDIAC: S1, S2, regular rate and rhythm, no murmur, no rub. ABDOMEN: Obese, distended, soft, nontender, bowel sounds present. EXTREMITIES: Chronic stasis changes, trace erythema. INTAKE AND OUTPUT: Not charted. LABORATORY DATA: WBC 8.2, hemoglobin 8.4, hematocrit 30.8, platelets 162. Sodium 137, potassium 4.0 , chloride 96, CO2 35, BUN 21, creatinine 0.9, glucose 98, calcium 9.6, phosphorus 2.7, magnesium 1.6 , albumin 3.0. CURRENT MEDICATIONS: Antivert, Brovana, Ecotrin, Lasix 40 p.o. daily, Lipitor, Lopressor, Lovenox, Neutra-Phos, Protonix, Pulmicort, Robitussin. ASSESSMENT: 1. Bilateral deep venous thrombosis, pulmonary embolism, continue anticoagulation. 2. Acute kidney injury, resolved. 3. Anemia, gastrointestinal bleed, low iron stores. 4. Non-insulin dependent diabetes mellitus. 5. Cellulitis of the lower extremities. 6. Hypertension. 7. Chronic obstructive pulmonary disease. PLAN: 1. Continue anticoagulation. 2. Continue IV iron. 3. Monitor H and H. 4. Endoscopy, colonoscopy canceled yesterday. Sanam Prajapati MD cc: [phone] TT: 11/25/2016 14:39:20 Confirmation # [id number] Dictation # [id number] tn
--- NOTE | 2016-11-25 15:12 | RAD ---
HISTORY: r/o chf COMPARISON: CT chest 11/16/2016 angio chest PE protocol. Please note that report FINDINGS: LUNGS: Pulmonary vascular bilateral vascular congestion suggested. Cardiomegaly suggested. Left lung base pleural effusion and/or consolidation purposes infiltrate and/or atelectasis (are considerations. The obscuration of left hemidiaphragm is an interval change since a 11/16/2016 CT study PLEURA: Left pleural effusion probable. Possible small right pleural effusion. Interval obscuration left hemidiaphragm consistent with left pleural effusion with or without consolidation is in interval change as noted above CARDIOVASCULAR: Cardiomegaly as before OSSEOUS STRUCTURES: Scoliosis and thoracic spondylosis VISUALIZED UPPER ABDOMEN: Normal. OTHER FINDINGS: None. IMPRESSION: Findings consistent with mild CHF. Interval obscuration of left hemidiaphragm consistent with left pleural effusion and/or contiguous left hemidiaphragmatic infiltrate and/or atelectasis here. Follow-up recommended
--- NOTE | 2016-11-25 19:43 | PN ---
DATE: 11/25/2016 ADDENDUM This is an addendum to the GI progress report dictated by Anna Bird APN. I did discuss with Dr. Latrell jaquez earlier. The patient has also been evaluated by pulmonary. PLAN: The patient is scheduled for IVC filter. The plan is to continue the anticoagulation and with close followup of the hemoglobin and hematocrit, continue the empiric therapy with PPI. If the hemo globin is stable will continue the anticoagulation even as an outpatient. If there is any significan t drop in blood count and if the patient's condition is optimized, will consider re-evaluating for th e endoscopy. Thank you very much for allowing us to participate in the care of the patient. Devendra Membreno MD cc: [phone] TT: 11/25/2016 19:42:23 Confirmation # [id number] Dictation # [id number] mn
--- NOTE | 2016-11-25 21:25 | CP.PCM.PN ---
Subjective - Date & Time of Evaluation Date of Evaluation: 11/25/16 Time of Evaluation: 11:10 - Subjective Subjective: Comfortable, not in distress, afebrile. Was supposed to have EGD yesterday but it was canceled because the patient had oxygen desaturation during sedation initiation. Objective - Vital Signs/Intake and Output Vital Signs (last 24 hours): Temp Pulse Resp BP Pulse Ox 98.4 F 69 20 107/69 91 L 11/22/16 16:00 11/22/16 17:30 11/22/16 16:00 11/22/16 17:30 11/22/16 16:00 - Medications Medications: Current Medications Arformoterol Tartrate (Brovana) 15 mcg IH [id number] DEQUAN PRN Reason: Protocol Last Admin: 11/23/16 07:26 Dose: 15 mcg Aspirin (Ecotrin) 81 mg PO 0800 DEQUAN PRN Reason: Protocol Last Admin: 11/23/16 08:32 Dose: 81 mg Atorvastatin Calcium (Lipitor) 40 mg PO DIN DEQUAN PRN Reason: Protocol Last Admin: 11/22/16 17:29 Dose: 40 mg Budesonide (Pulmicort Respules) 1 mg IH [id number] DEQUAN PRN Reason: Protocol Last Admin: 11/23/16 07:26 Dose: 1 mg Furosemide (Lasix) 40 mg PO DAILY DEQUAN PRN Reason: Protocol Last Admin: 11/22/16 09:31 Dose: 40 mg Insulin Human Lispro (Humalog Low) 0 units SC ACHS DEQUAN PRN Reason: Protocol Last Admin: 11/23/16 08:33 Dose: Not Given Meclizine HCl (Antivert) 12.5 mg PO Q6 PRN; Protocol PRN Reason: DIZZINESS Metoprolol Tartrate (Lopressor) 25 mg PO 0800,1800 DEQUAN PRN Reason: Protocol Last Admin: 11/23/16 08:32 Dose: 25 mg Pantoprazole Sodium (Protonix Ec Tab) 40 mg PO 0600 DEQUAN PRN Reason: Protocol Last Admin: 11/23/16 06:02 Dose: 40 mg Potassium Phos/Sodium Phos (Neutra-Phos) 1 pkt PO DAILY DEQUAN PRN Reason: Protocol Last Admin: 11/22/16 09:31 Dose: 1 pkt Warfarin Sodium (Coumadin) 5 mg PO 1800 DEQUAN PRN Reason: Protocol Last Admin: 11/21/16 18:59 Dose: 5 mg - Labs Labs: 11/23/16 06:30 11/23/16 06:30 PT 22.5 Seconds (9.9-11.8) H 11/23/16 06:30 INR 2.08 (0.93-1.08) H 11/23/16 06:30 APTT 38.2 Seconds (23.7-30.8) H 11/23/16 06:30 - Constitutional Appears: Non-toxic, No Acute Distress - Head Exam Head Exam: NORMAL INSPECTION - Respiratory Exam Respiratory Exam: Decreased Breath Sounds - Cardiovascular Exam Cardiovascular Exam: +S1, +S2 - GI/Abdominal Exam GI & Abdominal Exam: Soft. absent: Tenderness Assessment and Plan - Assessment and Plan (Free Text) Plan: Assessment S/P left lower extremity skin and skin structure infection win a patient with DVT of the left leg (indeterminate age) in a patient with acute pulmonary embolism, clinically improved and S/P treatment COPD HTN CAD DM obesity with BMI 33 Plan continue to monitor off antibiotics since she is at risk for nosocomial infections
--- NOTE | 2016-11-25 21:52 | CP.PCM.PN ---
Subjective - Date & Time of Evaluation Date of Evaluation: 11/25/16 Time of Evaluation: 12:00 - Subjective Subjective: Seen and examined earlier today. Patient EGD/colon cancelled yesterday, pt was found to tachypenic and not optimal for anesthesia. This am pt in no distress, denies SOB, CP, N/V, abdominal pain. Had 2 BM noted spot of blood. NPO for possible endo for today. Objective - Vital Signs/Intake and Output Vital Signs (last 24 hours): Temp Pulse Resp BP Pulse Ox 99.4 F 70 20 134/75 99 11/25/16 16:00 11/25/16 16:00 11/25/16 16:00 11/25/16 16:00 11/25/16 16:00 - Medications Medications: Current Medications Arformoterol Tartrate (Brovana) 15 mcg IH [id number] DEQUAN PRN Reason: Protocol Last Admin: 11/25/16 20:16 Dose: 15 mcg Aspirin (Ecotrin) 81 mg PO 0800 DEQUAN PRN Reason: Protocol Last Admin: 11/25/16 08:45 Dose: 81 mg Atorvastatin Calcium (Lipitor) 40 mg PO DIN DEQUAN PRN Reason: Protocol Last Admin: 11/25/16 17:43 Dose: 40 mg Budesonide (Pulmicort Respules) 1 mg IH [id number] DEUQAN PRN Reason: Protocol Last Admin: 11/25/16 20:17 Dose: 1 mg Furosemide (Lasix) 40 mg PO DAILY DEQUAN PRN Reason: Protocol Last Admin: 11/25/16 10:21 Dose: 40 mg Guaifenesin/Dextromethorphan (Robitussin Dm) 5 ml PO Q6H PRN PRN Reason: Cough Last Admin: 11/23/16 21:35 Dose: 5 ml Insulin Human Lispro (Humalog Low) 0 units SC ACHS DEQUAN PRN Reason: Protocol Last Admin: 11/25/16 17:43 Dose: Not Given Meclizine HCl (Antivert) 12.5 mg PO Q6 PRN; Protocol PRN Reason: DIZZINESS Metoprolol Tartrate (Lopressor) 25 mg PO 0800,1800 DEQUAN PRN Reason: Protocol Last Admin: 11/25/16 17:44 Dose: 25 mg Pantoprazole Sodium (Protonix Ec Tab) 40 mg PO 0600 DEQUAN PRN Reason: Protocol Last Admin: 11/25/16 05:38 Dose: 40 mg Potassium Phos/Sodium Phos (Neutra-Phos) 1 pkt PO DAILY DEQUAN PRN Reason: Protocol Last Admin: 11/25/16 10:22 Dose: 1 pkt Warfarin Sodium (Coumadin) 1 mg PO 1800 DEQUAN PRN Reason: Protocol Last Admin: 11/25/16 17:43 Dose: 1 mg - Labs Labs: 11/25/16 05:30 11/25/16 05:30 PT 23.4 Seconds (9.9-11.8) H 11/25/16 05:30 INR 2.17 (0.93-1.08) H 11/25/16 05:30 APTT 38.3 Seconds (23.7-30.8) H 11/24/16 06:30 - Constitutional Appears: No Acute Distress - Head Exam Head Exam: NORMAL INSPECTION - Eye Exam Eye Exam: Normal appearance - ENT Exam ENT Exam: Mucous Membranes Moist - Neck Exam Neck Exam: Normal Inspection - Respiratory Exam Respiratory Exam: NORMAL BREATHING PATTERN Additional comments: no respiratory distress, lung sounds decreased with some rhonci, no wheezing - Cardiovascular Exam Cardiovascular Exam: +S1, +S2 - GI/Abdominal Exam GI & Abdominal Exam: Soft, Normal Bowel Sounds Additional comments: nondistend, nontender, no rebound or tenderness - Extremities Exam Extremities Exam: Normal Capillary Refill - Neurological Exam Neurological Exam: Alert, Awake, Oriented x3 - Skin Skin Exam: Dry, Warm Assessment and Plan - Assessment and Plan (Free Text) Assessment: ASSESSMENT: Anemia, decreasing H/H, positive guiac PE, was on Coumadin NSTEMI COPD PLAN: Request anesthesia evaluation. Patient seen by Dr. Donis who spoke to Dr. Dc, form coverer, patient high riskl for procedure, risk vs benefit, would monitor patient H/H, overt GI bleed, unless active bleed or significant drop would reevaluate the patient for endoscopy. Considering IVC filter May resume Coumadin Conitnue PPI monitor H/H closely and for overt GI bleed continue medical regimine Resume diet Discuss above with Dr. López. Discussed with Dr. Membreno who is covering rounds.and case discussed with Dr. Membreno.
[2016-11-26] MEDS: Pantoprazole 40 mg EC Tab PO SCH (06:20)
[2016-11-26] MEDS: Insulin Lispro (humaLOG) LOW Coverage SC SCH ×4 (06:50→22:00)
[2016-11-26 07:15] LABS: HEMATOCRIT 31.3 % (36.0-48.0); MEAN CELL VOLUME 79.6 fL (80.0-105.0); MEAN CORPUSCULAR HEMOGLOBIN 21.1 pg (25.0-35.0); MEAN CORPUSCULAR HGB CONC 26.5 g/dl (31.0-37.0); MEAN PLATELET VOLUME 9.7 fl (7.0-11.0); RED CELL DISTRIBUTION WIDTH 20.1 % (11.5-14.5); WHITE BLOOD COUNT 8.7 10^3/ul (4.5-11.0)
[2016-11-26 07:22] LABS: INR 2.3 (0.93-1.08)
[2016-11-26] MEDS: Arformoterol 15 mcg/2 ml Inh Sol IH SCH ×2 (07:35→20:07)
[2016-11-26] MEDS: Budesonide 0.5 mg/2 ml Inhal Susp UD IH SCH ×2 (07:35→20:07)
--- NOTE | 2016-11-26 09:21 | CP.PCM.PN ---
<Rene Mcgowan - Last Filed: 11/26/16 14:54> Subjective - Date & Time of Evaluation Date of Evaluation: 11/26/16 Time of Evaluation: 07:30 - Subjective Subjective: Hospitalist Progress note: Pt seen and examined at bedside. No acute events overnight. Pt is NPO for IVC filter today. Endoscopy was cancelled due to pt being tachypnic and at high risk. No complaints at this time. Denies any avery, dizziness, sob, cp, abd pain, n /v/d. Objective - Vital Signs/Intake and Output Vital Signs (last 24 hours): Temp Pulse Resp BP Pulse Ox 99.4 F 64 20 110/51 L 99 11/25/16 16:00 11/26/16 08:28 11/25/16 16:00 11/26/16 08:28 11/25/16 16:00 - Medications Medications: Current Medications Arformoterol Tartrate (Brovana) 15 mcg IH [id number] DEQUAN PRN Reason: Protocol Last Admin: 11/26/16 07:35 Dose: 15 mcg Aspirin (Ecotrin) 81 mg PO 0800 DEQUAN PRN Reason: Protocol Last Admin: 11/26/16 08:25 Dose: Not Given Atorvastatin Calcium (Lipitor) 40 mg PO DIN DEQUAN PRN Reason: Protocol Last Admin: 11/25/16 17:43 Dose: 40 mg Budesonide (Pulmicort Respules) 1 mg IH [id number] DEQUAN PRN Reason: Protocol Last Admin: 11/26/16 07:35 Dose: 1 mg Furosemide (Lasix) 40 mg PO DAILY DEQUAN PRN Reason: Protocol Last Admin: 11/25/16 10:21 Dose: 40 mg Guaifenesin/Dextromethorphan (Robitussin Dm) 5 ml PO Q6H PRN PRN Reason: Cough Last Admin: 11/23/16 21:35 Dose: 5 ml Insulin Human Lispro (Humalog Low) 0 units SC ACHS DEQUAN PRN Reason: Protocol Last Admin: 11/26/16 06:50 Dose: Not Given Meclizine HCl (Antivert) 12.5 mg PO Q6 PRN; Protocol PRN Reason: DIZZINESS Metoprolol Tartrate (Lopressor) 25 mg PO 0800,1800 DEQUAN PRN Reason: Protocol Last Admin: 11/26/16 08:28 Dose: Not Given Pantoprazole Sodium (Protonix Ec Tab) 40 mg PO 0600 DEQUAN PRN Reason: Protocol Last Admin: 11/26/16 06:20 Dose: Not Given Potassium Phos/Sodium Phos (Neutra-Phos) 1 pkt PO DAILY DEQUAN PRN Reason: Protocol Last Admin: 11/25/16 10:22 Dose: 1 pkt Warfarin Sodium (Coumadin) 1 mg PO 1800 DEQUAN PRN Reason: Protocol Last Admin: 11/25/16 17:43 Dose: 1 mg - Labs Labs: 11/26/16 06:15 11/25/16 05:30 PT 24.8 Seconds (9.9-11.8) H 11/26/16 06:15 INR 2.30 (0.93-1.08) H 11/26/16 06:15 APTT 38.3 Seconds (23.7-30.8) H 11/24/16 06:30 - Constitutional Appears: No Acute Distress - Head Exam Head Exam: ATRAUMATIC, NORMAL INSPECTION, NORMOCEPHALIC - Eye Exam Eye Exam: EOMI, Normal appearance, PERRL Pupil Exam: NORMAL ACCOMODATION, PERRL - ENT Exam ENT Exam: Mucous Membranes Moist, Normal Exam - Neck Exam Neck Exam: Full ROM, Normal Inspection. absent: Lymphadenopathy - Respiratory Exam Respiratory Exam: Clear to Ausculation Bilateral, NORMAL BREATHING PATTERN. absent: Wheezes - Cardiovascular Exam Cardiovascular Exam: REGULAR RHYTHM, RRR, +S1, +S2. absent: Murmur - GI/Abdominal Exam GI & Abdominal Exam: Soft, Normal Bowel Sounds. absent: Distended, Tenderness - Extremities Exam Extremities Exam: Full ROM, Normal Capillary Refill, Normal Inspection. absent : Joint Swelling, Pedal Edema - Back Exam Back Exam: NORMAL INSPECTION - Neurological Exam Neurological Exam: Alert, Awake, CN II-XII Intact, Normal Gait, Oriented x3 - Psychiatric Exam Psychiatric exam: Normal Affect, Normal Mood - Skin Skin Exam: Dry, Intact, Normal Color, Warm Assessment and Plan - Assessment and Plan (Free Text) Assessment: This is an 86 yo female with past medical hx of COPD, DM, presents with lower ext pain / cellulites found to have Sub-Segmental Distal PE and NSTEMI. 1. Sub-Segmental Distal PE; most likely unprovoked - NPO - Scheduled for IVC filter this am - Coumadin 1mg started - INR this am 2.3 therapeutic - Ext US - b/l tibial dvt identified - Heme consult - Dr Hughes for recs - Ct abdomen - Large gallstone, No acute intraabdominal findings 2. NSTEMI - Cardiology Consult - Dr Adorno. recs appreciated. - Aspirin, B-Mikki, Statin given - BNP 6570 on admission; baseline last year 350 3. Lower Extrm Swelling/Cellulitis - Improved - ID Consult. Dr. Jimenez. will d/c abx folowing 5 days of zyvox - monitor off abx 4. DM - ISS ACHS as protocol 5. COPD - Pulm consult - Dr Dc - cont current meds started cough meds - Nebs PRN - c/w home meds brovana and pulmicort 6. Anemia - Endoscopy was again canceled due to pt being tachypnic and at high risk. - positive stool occult - As Per GI - Dr Membreno - no plan for endoscopy a this time due pt being at high risk for procedure, pt not actively bleeing will cont to monitor H/H - Iron sucrose administered 7. Acute on Chronic KD stage - Nephrology Consulted - resolved CHITO - - Cont Neutraphos 8. GI/DVT ppx -On protonix daily & Coumadin -Heart Healthy Diet Case and plan was seen reviewed and discussed in detail with Dr López. <Lina López - Last Filed: 11/26/16 17:37> Objective - Vital Signs/Intake and Output Vital Signs (last 24 hours): Temp Pulse Resp BP Pulse Ox 98.1 F 82 20 100/62 95 11/26/16 16:00 11/26/16 16:00 11/26/16 16:00 11/26/16 16:00 11/26/16 16:00 - Medications Medications: Current Medications Arformoterol Tartrate (Brovana) 15 mcg IH [id number] DEQUAN PRN Reason: Protocol Last Admin: 11/26/16 07:35 Dose: 15 mcg Aspirin (Ecotrin) 81 mg PO 0800 DEQUAN PRN Reason: Protocol Last Admin: 11/26/16 08:25 Dose: Not Given Atorvastatin Calcium (Lipitor) 40 mg PO DIN DEQUAN PRN Reason: Protocol Last Admin: 11/25/16 17:43 Dose: 40 mg Budesonide (Pulmicort Respules) 1 mg IH [id number] DEQUAN PRN Reason: Protocol Last Admin: 11/26/16 07:35 Dose: 1 mg Furosemide (Lasix) 40 mg PO BID DEQUAN PRN Reason: Protocol Guaifenesin/Dextromethorphan (Robitussin Dm) 5 ml PO Q6H PRN PRN Reason: Cough Last Admin: 11/23/16 21:35 Dose: 5 ml Insulin Human Lispro (Humalog Low) 0 units SC ACHS EDQUAN PRN Reason: Protocol Last Admin: 11/26/16 11:23 Dose: Not Given Meclizine HCl (Antivert) 12.5 mg PO Q6 PRN; Protocol PRN Reason: DIZZINESS Metoprolol Tartrate (Lopressor) 25 mg PO 0800,1800 DEQUAN PRN Reason: Protocol Last Admin: 11/26/16 08:28 Dose: Not Given Nystatin (Nystop Topical Powder) 1 gm TOP DAILY DEQUAN Pantoprazole Sodium (Protonix Ec Tab) 40 mg PO 0600 DEQUAN PRN Reason: Protocol Last Admin: 11/26/16 06:20 Dose: Not Given Potassium Phos/Sodium Phos (Neutra-Phos) 1 pkt PO DAILY DEQUAN PRN Reason: Protocol Last Admin: 11/26/16 11:23 Dose: Not Given Warfarin Sodium (Coumadin) 1 mg PO 1800 DEQUAN PRN Reason: Protocol Last Admin: 11/25/16 17:43 Dose: 1 mg - Labs Labs: 11/26/16 06:15 11/25/16 05:30 PT 24.8 Seconds (9.9-11.8) H 11/26/16 06:15 INR 2.30 (0.93-1.08) H 11/26/16 06:15 APTT 38.3 Seconds (23.7-30.8) H 11/24/16 06:30 Attending/Attestation - Attestation I have personally seen and examined this patient.: Yes I have fully participated in the care of the patient.: Yes I have reviewed all pertinent clinical information, including history, physical exam and plan: Yes Notes (Text): 11/26/16 17:34 Attending note; Patient seen and examined in TCU. Patient is alert, awake and oriented. s/p IVC filter. Patient is a 86 year old female with past medical history of COPD and diabetes who presented for evaluation of lower extremity erythema. She was found to have subsmental distal PE and bilateral DVT. on low dose Coumadin. INR is 2.3. Monitor CBC closely. GI prophylaxis with Protonix. Cardiology evaluation with Dr. Aquino appreciated. Continue aspirin, metoprolol and statin. Cellulitis LLE; Off antibiotics. Left lower extremity redness is improving. iron deficiency anemia. Got IV iron. Continue physical therapy in TCU. PT is recommending [facility] vs home with services. Upon discharge the patient will follow-up with . 11/26/16 17:36
--- NOTE | 2016-11-26 09:24 | PN ---
DATE: 11/26/2016 The patient is in bed in no acute distress, nontoxic. PHYSICAL EXAMINATION: VITAL SIGNS: Temperature is 99. Blood pressure is 130/70, respiratory rate of 20, heart rate of 62. HEENT: Unremarkable. NECK: Supple. LUNGS: Have decreased breath sounds. HEART: Normal S1, S2. ABDOMEN: Soft, nontender. LABORATORY EXAMINATION: Reveals a white count of 8.7, hemoglobin of 8, platelets of 175. Chemistrie s are noted. Microbiology is noted. ASSESSMENT AND PLAN: This is an 86-year-old female with status post left lower extremity skin and sk in structure infection with a history of deep venous thrombosis in left leg and acute pulmonary embol i, and chronic obstructive lung disease, hypertension, coronary artery disease, diabetes, obesity - B OR of 33. Currently, the patient is off of antibiotics. We will follow closely with you. This donald ent is at risk for developing nosocomial infections. Maxime Jimenez MD cc: [phone] TT: 11/26/2016 09:23:35 Confirmation # [id number] Dictation # [id number] jn
--- NOTE | 2016-11-26 10:52 | PN ---
DATE: 11/26/2016 Seen and examined at the bedside earlier this morning. No acute overnight events are reported. The patient denies any nausea, vomiting, abdominal pain or any overt GI bleed. She is n.p.o. for IVC enrico ter today. No reports of any BM last night or this morning. VITAL SIGNS: Blood pressure is 110/51, pulse 64. LABORATORY DATA: Today, WBCs 8.7, H and H is 8.3 and 31.3, platelets are 175. PT is 24.8, INR is 2. 30. PHYSICAL EXAMINATION: HEENT: Sclerae are anicteric. NECK: Supple. CARDIAC: S1, S2. LUNGS: With decreased breath sounds, but good aeration. No wheezing. ABDOMEN: With bowel sounds, soft, nontender. No rebound or guarding. ASSESSMENT: An 86-year-old female with a history of chronic obstructive pulmonary disease. The donald ent with anemia and decreasing hemoglobin, found to be guaiac positive, on Coumadin for pulmonary emb olism and also the patient had non-ST myocardial infarction. The patient currently not optimal to un dergo endoscopy. PLAN: For her to have an IVC filter placed. We will continue close followup of her H and H and cont inue empiric therapy of PPI. If patient's hemoglobin is stable, we will continue with anticoagulants even as outpatient, but if any significant drop in blood count and patient's condition is more optim al, we will consider reevaluating for endoscopy. The patient is on Coumadin 1 mg. The patient was s een and case discussed with Dr. Membreno. Anna BREWSTER cc: [phone] TT: 11/26/2016 10:51:31 Confirmation # [id number] Dictation # [id number] tn
[2016-11-26] MEDS: Potassium & Sodium Phosphate PO SCH (11:23)
--- NOTE | 2016-11-26 12:21 | PN ---
DATE: 11/26/2016 SUBJECTIVE: The patient is in the transitional care unit. She is scheduled for endoscopy today. PHYSICAL EXAMINATION: GENERAL: Elderly obese lady sitting in chair. VITAL SIGNS: Blood pressure 110/51, heart rate 64, respiratory rate 18-20, temperature 99.4. HEENT: Normocephalic, atraumatic. LUNGS: Bilateral rhonchi, prolonged expiration. CARDIAC: S1, S2, regular rate and rhythm, no murmur, no rub. ABDOMEN: Obese, distended, soft, nontender, bowel sounds present. EXTREMITIES: No lower extremity edema. LABORATORY DATA: No new labs except for hemoglobin of 8.3, hematocrit 31, platelets 175, WBC 8.7. MEDICATIONS: List reviewed. ASSESSMENT: 1. Resolved acute kidney injury, largely prerenal azotemia and contrast acute tubular necrosis. 2. Pulmonary embolism, bilateral deep venous thrombosis. 3. History of chronic obstructive pulmonary disease. 4. Congestive heart failure. 5. Cellulitis. 6. Severe anemia, gastrointestinal bleed. PLAN: 1. Continue anticoagulation. 2. Follow up endoscopy report. 3. Continue respiratory treatment/nebulizers. 4. Continue antibiotics. Sanam Prajapati MD cc: [phone] TT: 11/26/2016 12:21:17 Confirmation # [id number] Dictation # [id number] jn
--- NOTE | 2016-11-26 14:51 | PN ---
DATE: 11/26/2016 SUBJECTIVE: The patient is resting post-procedure for which she had an IVC filter placed. The patie nt is awake and alert, talking freely. O2 via nasal cannula. The patient has no complaints of short ness of breath. She does have an occasional cough. No chest pain, no abdominal pain, no nausea, vom iting, no diarrhea, no fever or chills at this time. PHYSICAL EXAMINATION: VITAL SIGNS: Note that her temperature is 99.4, her pulse is 64, respirations are 20, and BP is 110/ 51, O2 saturation is 99% on nasal cannula O2 support. HEENT: Head is atraumatic, normocephalic. Eyes reactive to light. Ears, nose and throat seem to be within normal limits. NECK: Supple. No JVD, no thyroid enlargement, no lymph nodes. CARDIOVASCULAR: Heart has a regular rate and rhythm. Normal S1, S2. LUNGS: Reveal rare rhonchi at the bases. ABDOMEN: Soft, nontender. Decreased bowel sounds. GENITALIA AND RECTAL: Deferred. MUSCULOSKELETAL: No joint deformities. EXTREMITIES: Reveal trace lower extremity edema. NEUROLOGIC: She seemed to be grossly intact. LABORATORY DATA: Her white count is 8.7, hemoglobin is 8.3, hematocrit 31.3 with platelets of 175,00 0. Her PT is 24.8, INR is 2.30. The patient's sodium is 137, potassium 4.0, chloride 96, CO2 of 35 with a BUN of 21, creatinine of 0.9, and a glucose of 98. IMPRESSION: This patient has pulmonary embolus with left lower extremity deep venous thrombosis. Trev reece has a history of cellulitis of the lower extremities, also a myocardial infarction. The patient's other diagnoses are hypertension, chronic obstructive pulmonary disease, diabetes, nguyễn nary artery disease, obesity, anemia and cellulitis. PLAN: The patient is post IVC filter placement. She is on Brovana as a bronchodilator. She will co ntinue with low-dose anticoagulation and Lasix for diuresis. The patient is on Lopressor, Lipitor, P ulmicort, O2 via nasal cannula, cough meds and we will continue with aggressive pulmonary therapy as well as pulmonary toilet. I will continue to treat aggressively along with the other consultants and the primary care doctor. Amador Dc MD cc: [id number] TT: 11/26/2016 14:50:32 Confirmation # [id number] Dictation # [id number] tn
[2016-11-26] MEDS: Nystatin 100,000 Units/gm Topical Pow(15 gm) TOP SCH (18:11)
[2016-11-27] MEDS: Pantoprazole 40 mg EC Tab PO SCH (05:29)
[2016-11-27] MEDS: Insulin Lispro (humaLOG) LOW Coverage SC SCH ×4 (06:54→21:50)
[2016-11-27 07:10] LABS: ADD MANUAL DIFF? NO; BASO # 0.03 K/mm3 (0.0-2.0); BASO % 0.4 % (0.0-3.0); EOS # 0.3 (0.0-0.7); GRAN # 6.19 (1.4-6.5); GRAN % 72.3 % (50.0-68.0); HEMATOCRIT 32.3 % (36.0-48.0); LYMPH # 1.2 (1.2-3.4); LYMPH % 13.9 % (22.0-35.0); MEAN CELL VOLUME 80.5 fL (80.0-105.0); MEAN CORPUSCULAR HEMOGLOBIN 21.7 pg (25.0-35.0); MEAN CORPUSCULAR HGB CONC 26.9 g/dl (31.0-37.0); MEAN PLATELET VOLUME 9.9 fl (7.0-11.0); MONO # 0.9 (0.1-0.6); MONO % 10.4 % (1.0-6.0); PLATELET COUNT 179 10^3/uL (120.0-450.0); RED CELL DISTRIBUTION WIDTH 20.4 % (11.5-14.5); WHITE BLOOD COUNT 8.6 10^3/ul (4.5-11.0)
[2016-11-27] MEDS: Arformoterol 15 mcg/2 ml Inh Sol IH SCH ×2 (07:11→20:03)
[2016-11-27] MEDS: Budesonide 0.5 mg/2 ml Inhal Susp UD IH SCH ×2 (07:11→20:03)
[2016-11-27 07:15] LABS: INR 2.11 (0.93-1.08)
[2016-11-27] MEDS: Potassium & Sodium Phosphate PO SCH (10:49)
[2016-11-27] MEDS: Nystatin 100,000 Units/gm Topical Pow(15 gm) TOP SCH (10:49)
--- NOTE | 2016-11-27 11:32 | CP.PCM.PN ---
Subjective - Date & Time of Evaluation Date of Evaluation: 11/27/16 Time of Evaluation: 11:00 - Subjective Subjective: Complains of fatigue, otherwise alert with no other concerns Objective - Vital Signs/Intake and Output Vital Signs (last 24 hours): Temp Pulse Resp BP Pulse Ox 98.8 F 74 20 115/61 95 11/27/16 10:00 11/27/16 10:00 11/27/16 10:00 11/27/16 10:00 11/27/16 10:00 - Medications Medications: Current Medications Arformoterol Tartrate (Brovana) 15 mcg IH [id number] DEQUAN PRN Reason: Protocol Last Admin: 11/27/16 07:11 Dose: 15 mcg Aspirin (Ecotrin) 81 mg PO 0800 DEQUAN PRN Reason: Protocol Last Admin: 11/27/16 08:08 Dose: 81 mg Atorvastatin Calcium (Lipitor) 40 mg PO DIN DEQUAN PRN Reason: Protocol Last Admin: 11/26/16 18:00 Dose: 40 mg Budesonide (Pulmicort Respules) 1 mg IH [id number] DEQUAN PRN Reason: Protocol Last Admin: 11/27/16 07:11 Dose: 1 mg Furosemide (Lasix) 40 mg PO BID DEQUAN PRN Reason: Protocol Last Admin: 11/27/16 10:49 Dose: Not Given Guaifenesin/Dextromethorphan (Robitussin Dm) 5 ml PO Q6H PRN PRN Reason: Cough Last Admin: 11/23/16 21:35 Dose: 5 ml Insulin Human Lispro (Humalog Low) 0 units SC ACHS DEQUAN PRN Reason: Protocol Last Admin: 11/27/16 06:54 Dose: Not Given Meclizine HCl (Antivert) 12.5 mg PO Q6 PRN; Protocol PRN Reason: DIZZINESS Metoprolol Tartrate (Lopressor) 25 mg PO 0800,1800 DEQUAN PRN Reason: Protocol Last Admin: 11/27/16 08:09 Dose: 25 mg Nystatin (Nystop Topical Powder) 1 gm TOP DAILY [facility] Last Admin: 11/27/16 10:49 Dose: 1 applic Pantoprazole Sodium (Protonix Ec Tab) 40 mg PO 0600 DEQUAN PRN Reason: Protocol Last Admin: 11/27/16 05:29 Dose: 40 mg Potassium Phos/Sodium Phos (Neutra-Phos) 1 pkt PO DAILY DEQUAN PRN Reason: Protocol Last Admin: 11/27/16 10:49 Dose: 1 pkt Warfarin Sodium (Coumadin) 1 mg PO 1800 DEQUAN PRN Reason: Protocol Last Admin: 11/26/16 18:00 Dose: 1 mg - Labs Labs: 11/27/16 05:00 11/25/16 05:30 PT 22.8 Seconds (9.9-11.8) H 11/27/16 07:00 INR 2.11 (0.93-1.08) H 11/27/16 07:00 APTT 38.3 Seconds (23.7-30.8) H 11/24/16 06:30 - Constitutional Appears: No Acute Distress, Chronically Ill - Eye Exam Eye Exam: Normal appearance Pupil Exam: NORMAL ACCOMODATION - ENT Exam ENT Exam: Mucous Membranes Moist, Normal Oropharynx - Respiratory Exam Respiratory Exam: Decreased Breath Sounds, NORMAL BREATHING PATTERN - Cardiovascular Exam Cardiovascular Exam: Irregular Rhythm, +S1, +S2 - GI/Abdominal Exam GI & Abdominal Exam: Soft, Normal Bowel Sounds - Extremities Exam Extremities Exam: Full ROM Additional comments: edematous - Neurological Exam Neurological Exam: Alert, Oriented x3 - Skin Skin Exam: Dry, Pallor Assessment and Plan - Assessment and Plan (Free Text) Assessment: 86 year old female admitted to TCU for deconditioning. Patient has history of atrial fibrillation, unable to receive anticoagulation therapy due to high risk for GI bleeding. IVC filter placed yesterday. Patient and I had been in discussion about advance care planning. We previously spoke about the benefits and burdens of aggressive resuscitation measures. Patient was going to speak to her nephew before making any decision. Today she states that she just wants to "leave well enough alone." I reinforced ramifications of intubation/CPR. She states she understands but just not ready to commit to a decision at this time. Psychosocial support given. Patient given my contact information in case she wants to initiate an advance directive before discharge Time spent in discussion with patient regarding advance care planning,20 minutes Plan: Will assist with establishing future goals of care
--- NOTE | 2016-11-27 11:50 | PN ---
DATE: 11/27/2016 SUBJECTIVE: The patient is seen sitting in chair. She is awake. She is alert. She is comfortable. PHYSICAL EXAMINATION: GENERAL: Obese elderly lady sitting in chair. VITAL SIGNS: Blood pressure 115/61, heart rate 74, respiratory rate 20, temperature 98.8. HEENT: Normocephalic, atraumatic. NECK: Supple, no JVD. LUNGS: Bilateral equal air entry, no rales. CARDIAC: S1, S2, regular rate and rhythm, no murmur, no rub. ABDOMEN: Obese, distended, soft, nontender, bowel sounds present. EXTREMITIES: 1+ pitting edema of the lower extremities, mild erythema. INTAKE AND OUTPUT: Not charted. LABORATORY DATA: WBC 8.4, hemoglobin 8.7, hematocrit 32, platelets 179. No chemistry. CURRENT MEDICATIONS: Antivert, Brovana, Coumadin, Ecotrin, Lasix 40 b.i.d., Lipitor, Lopressor, Neut ra-Phos, Protonix, Pulmicort, Robitussin. ASSESSMENT: 1. Acute kidney injury, acute tubular necrosis secondary to contrast exposure, resolved. 2. Chronic obstructive pulmonary disease. 3. Bilateral deep venous thromboses/pulmonary embolism. 4. Gastrointestinal bleed. 5. Congestive heart failure. 6. Cellulitis. PLAN: 1. Acute kidney injury has resolved, avoid nephrotoxins. 2. Hemoglobin is stable, endoscopy was canceled because of respiratory distress, hypoxia. 3. Continue respiratory treatments. 4. Continue anticoagulation. 5. We will discontinue followup at this time. Sanam Prajapati MD cc: [phone] TT: 11/27/2016 11:49:25 Confirmation # [id number] Dictation # [id number]
--- NOTE | 2016-11-27 14:11 | CP.PCM.PN ---
<Ancelmo Martinez - Last Filed: 11/27/16 14:12> Subjective - Date & Time of Evaluation Date of Evaluation: 11/27/16 Time of Evaluation: 14:10 - Subjective Subjective: Medicine progress note. Attending: Dr. López Pt seen/examined at bedside. No acute distress. No events overnight. Pt s/p IVC filter. Pt endoscopy cancelled due to hypoxia. Pt stable now. Plan for dc wednesday. Objective - Vital Signs/Intake and Output Vital Signs (last 24 hours): Temp Pulse Resp BP Pulse Ox 98.8 F 74 20 115/61 95 11/27/16 10:00 11/27/16 10:00 11/27/16 10:00 11/27/16 10:00 11/27/16 10:00 - Medications Medications: Current Medications Arformoterol Tartrate (Brovana) 15 mcg IH [id number] DEQUAN PRN Reason: Protocol Last Admin: 11/27/16 07:11 Dose: 15 mcg Aspirin (Ecotrin) 81 mg PO 0800 DEQUAN PRN Reason: Protocol Last Admin: 11/27/16 08:08 Dose: 81 mg Atorvastatin Calcium (Lipitor) 40 mg PO DIN DEQUAN PRN Reason: Protocol Last Admin: 11/26/16 18:00 Dose: 40 mg Budesonide (Pulmicort Respules) 1 mg IH [id number] DEQUAN PRN Reason: Protocol Last Admin: 11/27/16 07:11 Dose: 1 mg Furosemide (Lasix) 40 mg PO BID DEQUAN PRN Reason: Protocol Last Admin: 11/27/16 10:49 Dose: Not Given Guaifenesin/Dextromethorphan (Robitussin Dm) 5 ml PO Q6H PRN PRN Reason: Cough Last Admin: 11/23/16 21:35 Dose: 5 ml Insulin Human Lispro (Humalog Low) 0 units SC ACHS DEQUAN PRN Reason: Protocol Last Admin: 11/27/16 12:43 Dose: 1 units Meclizine HCl (Antivert) 12.5 mg PO Q6 PRN; Protocol PRN Reason: DIZZINESS Metoprolol Tartrate (Lopressor) 25 mg PO 0800,1800 DEQUAN PRN Reason: Protocol Last Admin: 11/27/16 08:09 Dose: 25 mg Nystatin (Nystop Topical Powder) 1 gm TOP DAILY DEQUAN Last Admin: 11/27/16 10:49 Dose: 1 applic Pantoprazole Sodium (Protonix Ec Tab) 40 mg PO 0600 DEQUAN PRN Reason: Protocol Last Admin: 11/27/16 05:29 Dose: 40 mg Potassium Phos/Sodium Phos (Neutra-Phos) 1 pkt PO DAILY DEQUAN PRN Reason: Protocol Last Admin: 11/27/16 10:49 Dose: 1 pkt Warfarin Sodium (Coumadin) 1 mg PO 1800 DEQUAN PRN Reason: Protocol Last Admin: 11/26/16 18:00 Dose: 1 mg - Labs Labs: 11/27/16 05:00 11/25/16 05:30 PT 22.8 Seconds (9.9-11.8) H 11/27/16 07:00 INR 2.11 (0.93-1.08) H 11/27/16 07:00 APTT 38.3 Seconds (23.7-30.8) H 11/24/16 06:30 - Constitutional Appears: Non-toxic, No Acute Distress - Head Exam Head Exam: ATRAUMATIC, NORMAL INSPECTION, NORMOCEPHALIC - Eye Exam Eye Exam: EOMI - ENT Exam ENT Exam: Mucous Membranes Moist - Neck Exam Neck Exam: Full ROM, Normal Inspection - Respiratory Exam Respiratory Exam: NORMAL BREATHING PATTERN. absent: Respiratory Distress - Cardiovascular Exam Cardiovascular Exam: +S1, +S2 - GI/Abdominal Exam GI & Abdominal Exam: Soft, Normal Bowel Sounds. absent: Tenderness - Extremities Exam Extremities Exam: Full ROM, Normal Inspection - Neurological Exam Neurological Exam: Alert, Awake, CN II-XII Intact, Oriented x3 - Psychiatric Exam Psychiatric exam: Normal Affect, Normal Mood - Skin Skin Exam: Dry, Intact, Normal Color, Warm Assessment and Plan - Assessment and Plan (Free Text) Assessment: This is an 86 yo female with past medical hx of COPD, DM, presents with lower extremity pain and cellulitis found to have Sub-Segmental Distal PE and NSTEMI. 1. Sub-Segmental Distal PE; most likely unprovoked -s/p IVC filter -INR 2.11 today -will resume warfarin 1 mg po tonight - Ext US - b/l tibial dvt identified - Heme consult - Dr Hughes for recs - Ct abdomen - Large gallstone, No acute intraabdominal findings 2. NSTEMI - Cardiology Consult - Dr Adorno. recs appreciated. - Aspirin, B-Mikki, Statin - BNP 6570 on admission; baseline last year 350 3. Lower Extrm Swelling/Cellulitis - Improved - ID Consult. Dr. Jimenez. will d/c abx folowing 5 days of zyvox - monitor off abx 4. DM - ISS ACHS as protocol 5. COPD - Pulm consult - Dr Dc - cont current meds started cough meds - Nebs PRN - c/w home meds brovana and pulmicort 6. Anemia - Endoscopy was again canceled due to pt being tachypneic and at high risk. - positive stool occult - As Per GI - Dr Membreno - no plan for endoscopy a this time due pt being at high risk for procedure, pt not actively bleeing will cont to monitor H/H - Iron sucrose administered 7. 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 GI/DVT ppx -On protonix daily & warfarin -Heart Healthy Diet Dispo: Plan for discharge on wednesday. Rx given for home care and home oxygen. Case and plan was seen reviewed and discussed in detail with Dr López. <Lina López - Last Filed: 11/27/16 15:47> Objective - Vital Signs/Intake and Output Vital Signs (last 24 hours): Temp Pulse Resp BP Pulse Ox 98.8 F 74 20 115/61 95 11/27/16 10:00 11/27/16 10:00 11/27/16 10:00 11/27/16 10:00 11/27/16 10:00 - Medications Medications: Current Medications Arformoterol Tartrate (Brovana) 15 mcg IH [id number] DEQUAN PRN Reason: Protocol Last Admin: 11/27/16 07:11 Dose: 15 mcg Aspirin (Ecotrin) 81 mg PO 0800 DEQUAN PRN Reason: Protocol Last Admin: 11/27/16 08:08 Dose: 81 mg Atorvastatin Calcium (Lipitor) 40 mg PO DIN DEQUAN PRN Reason: Protocol Last Admin: 11/26/16 18:00 Dose: 40 mg Budesonide (Pulmicort Respules) 1 mg IH [id number] DEQUAN PRN Reason: Protocol Last Admin: 11/27/16 07:11 Dose: 1 mg Furosemide (Lasix) 40 mg PO BID DEQUAN PRN Reason: Protocol Last Admin: 11/27/16 10:49 Dose: Not Given Guaifenesin/Dextromethorphan (Robitussin Dm) 5 ml PO Q6H PRN PRN Reason: Cough Last Admin: 11/23/16 21:35 Dose: 5 ml Insulin Human Lispro (Humalog Low) 0 units SC ACHS DEQUAN PRN Reason: Protocol Last Admin: 11/27/16 12:43 Dose: 1 units Meclizine HCl (Antivert) 12.5 mg PO Q6 PRN; Protocol PRN Reason: DIZZINESS Metoprolol Tartrate (Lopressor) 25 mg PO 0800,1800 DEQUAN PRN Reason: Protocol Last Admin: 11/27/16 08:09 Dose: 25 mg Nystatin (Nystop Topical Powder) 1 gm TOP DAILY DEQUAN Last Admin: 11/27/16 10:49 Dose: 1 applic Pantoprazole Sodium (Protonix Ec Tab) 40 mg PO 0600 DEQUAN PRN Reason: Protocol Last Admin: 11/27/16 05:29 Dose: 40 mg Potassium Phos/Sodium Phos (Neutra-Phos) 1 pkt PO DAILY DEQUAN PRN Reason: Protocol Last Admin: 11/27/16 10:49 Dose: 1 pkt Warfarin Sodium (Coumadin) 1 mg PO 1800 DEQUAN PRN Reason: Protocol Last Admin: 11/26/16 18:00 Dose: 1 mg - Labs Labs: 11/27/16 05:00 11/25/16 05:30 PT 22.8 Seconds (9.9-11.8) H 11/27/16 07:00 INR 2.11 (0.93-1.08) H 11/27/16 07:00 APTT 38.3 Seconds (23.7-30.8) H 11/24/16 06:30 Attending/Attestation - Attestation I have personally seen and examined this patient.: Yes I have fully participated in the care of the patient.: Yes I have reviewed all pertinent clinical information, including history, physical exam and plan: Yes Notes (Text): 11/27/16 15:44 Attending note; Patient seen and examined in TCU. Patient is alert, awake and oriented. s/p IVC filter. getting PT. Patient is a 86 year old female with past medical history of COPD and diabetes who presented for evaluation of lower extremity erythema. She was found to have subsmental distal PE and bilateral DVT. on low dose Coumadin. INR is 2.1. Hb is stable. GI prophylaxis with Protonix. Cardiology evaluation with Dr. Aquino appreciated. Continue aspirin, metoprolol and statin. Cellulitis LLE; Off antibiotics. Left lower extremity redness is improving. iron deficiency anemia. Got IV iron. Continue physical therapy in TCU. PT is recommending [facility] vs home with services. Patient is willing to go home. Prescription for oxygen/Home services given. [employer] will discuss with family regarding discharge on Wednesday. Upon discharge the patient will follow-up with .
[2016-11-27 16:35] VITALS: TEMP 97.9; O2SAT 98
--- NOTE | 2016-11-27 18:47 | PN ---
DATE: 11/27/2016 REASON FOR CONSULTATION AND FOLLOWUP: Continued care in the transitional care unit, admitted with a deep venous thrombosis, positive troponin secondary to deep venous thrombosis and pulmonary embolus. BRIEF CLINICAL HISTORY: This is an 86-year-old female with a history of COPD and diabetes, admitted with a DVT, PE, a positive borderline troponin secondary to PE. Denies any chest pain, shortness of breath or any palpitation. PHYSICAL EXAMINATION: VITAL SIGNS: Temperature afebrile, heart rate 70, blood pressure 115/66. HEENT: PERRLA. Extraocular muscles intact. NECK: Supple. No carotid bruits. No thyromegaly. CHEST: Clear to auscultation. HEART: S1, S2 regular. ABDOMEN: Soft. EXTREMITIES: Clubbing and cyanosis negative. LABORATORY DATA: Blood workup as follows: WBC 8.6, hemoglobin , hematocrit 32.3, platelet coun t 179. Chemistry shows sodium 130, potassium 4, chloride 95, carbon dioxide 37, anion gap of 10, BUN 21, creatinine 0.9. IMPRESSION: Acute deep venous thrombosis, acute pulmonary embolus, obesity, hypertension, hyperlipid emia, negative stress test, positive troponin secondary to pulmonary embolus. INR is 2.11, therapeut ic. RECOMMENDATION: Continue anticoagulation, Coumadin 1 mg, followup PT/INR, continue gentle diuretics, continue beta clau. Possible discharge planning. The goal is to keep INR around 2-2.1 Coumadin level was going down. May change to 1-2 mg alternate; will see depending upon tomorrow's INR. Will follow with you. Thank you, Dr. López, for providing me the opportunity in taking care of the patient. Alvina Aquino MD cc: [id number] TT: 11/27/2016 18:47:36 Confirmation # [id number] Dictation # [id number] dn
[2016-11-28] MEDS: DiphenhydrAMINE 1% 1 EA TUBE TOP SCH ×2 (03:13→04:20)
[2016-11-28] MEDS: Pantoprazole 40 mg EC Tab PO SCH (05:28)
[2016-11-28] MEDS ORDERED: DiphenhydrAMINE 1% 1 EA TUBE TOP PRN (05:44)
[2016-11-28] MEDS: Arformoterol 15 mcg/2 ml Inh Sol IH SCH ×2 (07:18→19:35)
[2016-11-28] MEDS: Budesonide 0.5 mg/2 ml Inhal Susp UD IH SCH ×2 (07:18→19:37)
[2016-11-28] MEDS: Insulin Lispro (humaLOG) LOW Coverage SC SCH ×4 (08:37→22:03)
[2016-11-28 08:40] LABS: ADD MANUAL DIFF? NO
[2016-11-28 08:50] LABS: BASO # 0.02 K/mm3 (0.0-2.0); BASO % 0.2 % (0.0-3.0); EOS # 0.3 (0.0-0.7); EOS % 3.5 % (1.5-5.0); GRAN # 7.06 (1.4-6.5); HEMATOCRIT 33.9 % (36.0-48.0); LYMPH # 1.2 (1.2-3.4); LYMPH % 13.1 % (22.0-35.0); MEAN CELL VOLUME 79.8 fL (80.0-105.0); MEAN CORPUSCULAR HEMOGLOBIN 21.6 pg (25.0-35.0); MEAN CORPUSCULAR HGB CONC 27.1 g/dl (31.0-37.0); MEAN PLATELET VOLUME 9.6 fl (7.0-11.0); MONO # 0.6 (0.1-0.6); MONO % 6.2 % (1.0-6.0); PLATELET COUNT 163 10^3/uL (120.0-450.0); RED CELL DISTRIBUTION WIDTH 21.1 % (11.5-14.5); WHITE BLOOD COUNT 9.2 10^3/ul (4.5-11.0)
[2016-11-28 08:53] LABS: ALB/GLOB RATIO 0.9 (1.1-1.8); ALKALINE PHOSPHATASE 61 U/L (38-133); ALT/SGPT 31 U/L (7-56); AST/SGOT 22 U/L (15-39); BILIRUBIN,TOTAL 0.7 mg/dL (0.2-1.3); BLOOD UREA NITROGEN 14 mg/dL (7-21); CALCIUM 9.6 mg/dL (8.4-10.5); CARBON DIOXIDE 32 mmol/L (21-33); CHLORIDE 98 mmol/L (98-107); GFR AFRICAN-AMERICAN > 60; GLUCOSE,RANDOM 162 mg/dL (70-110); MAGNESIUM 1.3 mg/dL (1.7-2.2); PHOSPHOROUS 1.7 mg/dL (2.5-4.5); POTASSIUM 3.9 mmol/L (3.6-5.0); SODIUM 134 mmol/L (132-148); TOTAL PROTEIN 6.2 g/dL (5.8-8.3)
[2016-11-28 08:56] LABS: INR 1.81 (0.93-1.08)
[2016-11-28] MEDS: Nystatin 100,000 Units/gm Topical Pow(15 gm) TOP SCH ×2 (10:32→10:35)
[2016-11-28] MEDS: Potassium & Sodium Phosphate PO SCH ×2 (10:32→17:33)
[2016-11-28] MEDS ORDERED: Magnesium Sulfate 2 GM in Sodium Chloride 0.9% 100 ML IVPB ONE (11:14)
--- NOTE | 2016-11-28 23:56 | PN ---
DATE: 11/28/2016 SUBJECTIVE: This patient is on Coumadin now. The patient is tolerating the diet. No bleeding. No abdominal pain. PHYSICAL EXAMINATION: VITAL SIGNS: Temperature is afebrile, blood pressure 117/76, pulse 76, respirations 18. HEENT: Atraumatic, anicteric. NECK: Supple. HEART: S1, S2 heard. LUNGS: Bilateral air entry present, slightly reduced at the base. ABDOMEN: Soft. There is no mass. No tenderness. LABORATORY DATA: Hemoglobin 9.2, hematocrit 33.9, WBC 9.2, platelets are 163. Hemoglobin remains st able. The chemistries: Total bilirubin 0.7, transaminases unremarkable. IMPRESSION: This is an 86-year-old patient status post pulmonary embolus, status post filter placemen t and on Coumadin. The patient has a history of anemia, positive. The patient was not optimiz ed and as per the anesthesiologist the procedure was canceled . This patient is a high risk pat ient for the procedure. At the moment in view of his age and multiple comorbidities, presently on Co umadin, will continue to follow up the hemoglobin and hematocrit. If there is any active ongoing ble eding, then will consider endoscopic evaluation. The patient is planned to be discharged. The patient's hemoglobin has to be closely followed. Thank you very much for allowing us to participate in the care of the patient. Devendra Membreno MD cc: [phone] TT: 11/28/2016 23:55:58 Confirmation # [id number] Dictation # [id number] dn
[2016-11-29] MEDS: Pantoprazole 40 mg EC Tab PO SCH (05:19)
[2016-11-29] MEDS: Insulin Lispro (humaLOG) LOW Coverage SC SCH (06:39)
[2016-11-29] MEDS: Arformoterol 15 mcg/2 ml Inh Sol IH SCH (07:40)
[2016-11-29] MEDS: Budesonide 0.5 mg/2 ml Inhal Susp UD IH SCH (07:41)
[2016-11-29 08:28] VITALS: PULSE 84
[2016-11-29] MEDS: Nystatin 100,000 Units/gm Topical Pow(15 gm) TOP SCH (11:03)
[2016-11-29] MEDS: Potassium & Sodium Phosphate PO SCH (11:03)
[2016-11-29 11:07] VITALS: BP 97/55
--- NOTE | 2016-11-29 15:04 | CP.PCM.DIS ---
<Ancelmo Martinez - Last Filed: 11/29/16 15:10> Provider - Provider Date of Admission: 11/21/16 16:52 Attending physician: Haylie Moore MD Primary care physician: Anibal West MD Consults: Consults Temi Rashid/Tony Buckleyontchevy Time Spent in preparation of Discharge (in minutes): 45 Hospital Course - Lab Results Lab Results: Most Recent Lab Values WBC 9.2 10^3/ul (4.5-11.0) 11/28/16 08:39 RBC 4.25 10^6/uL (3.5-6.1) 11/28/16 08:39 Hgb 9.2 gm/dL (12.0-16.0) L 11/28/16 08:39 Hct 33.9 % (36.0-48.0) L 11/28/16 08:39 MCV 79.8 fL (80.0-105.0) L 11/28/16 08:39 MCH 21.6 pg (25.0-35.0) L 11/28/16 08:39 MCHC 27.1 g/dl (31.0-37.0) L 11/28/16 08:39 RDW 21.1 % (11.5-14.5) H 11/28/16 08:39 Plt Count 163 10^3/uL (120.0-450.0) 11/28/16 08:39 MPV 9.6 fl (7.0-11.0) 11/28/16 08:39 Gran % 77.0 % (50.0-68.0) H 11/28/16 08:39 Lymph % (Auto) 13.1 % (22.0-35.0) L 11/28/16 08:39 Roosevelt % (Auto) 6.2 % (1.0-6.0) H 11/28/16 08:39 Eos % (Auto) 3.5 % (1.5-5.0) 11/28/16 08:39 Baso % (Auto) 0.2 % (0.0-3.0) 11/28/16 08:39 Gran # 7.06 (1.4-6.5) H 11/28/16 08:39 Lymph # 1.2 (1.2-3.4) 11/28/16 08:39 Roosevelt # 0.6 (0.1-0.6) 11/28/16 08:39 Eos # 0.3 (0.0-0.7) 11/28/16 08:39 Baso # 0.02 K/mm3 (0.0-2.0) 11/28/16 08:39 PT 19.5 Seconds (9.9-11.8) H 11/28/16 08:39 INR 1.81 (0.93-1.08) H 11/28/16 08:39 APTT 38.3 Seconds (23.7-30.8) H 11/24/16 06:30 pCO2 58 mm/Hg (35-45) H 11/25/16 07:36 pO2 57.0 mm/Hg (80-100) L 11/25/16 07:36 HCO3 36.8 mmol/L (21-28) H 11/25/16 07:36 ABG pH 7.41 (7.35-7.45) 11/25/16 07:36 ABG Total CO2 38.6 mmol.L (22-28) H 11/25/16 07:36 ABG O2 Saturation 93.4 % (95-98) L 11/25/16 07:36 ABG O2 Content 10.3 ML/dl (15-23) L 11/25/16 07:36 ABG Base Excess 10.8 mmol/L (-2.0-3.0) H 11/25/16 07:36 ABG Hemoglobin 8.1 g/dL (11.7-17.4) L 11/25/16 07:36 ABG Carboxyhemoglobin 2.7 % (0.5-1.5) H 11/25/16 07:36 POC ABG HHb (Measured) 6.4 % (0-5) H 11/25/16 07:36 ABG Methemoglobin 0.8 % (0.0-3.0) 11/25/16 07:36 ABG O2 Capacity 11.0 mL/dl (16-24) L 11/25/16 07:36 Hgb O2 Saturation 90.2 % (95.0-98.0) L 11/25/16 07:36 FiO2 32.0 % 11/25/16 07:36 Sodium 134 mmol/L (132-148) 11/28/16 08:39 Potassium 3.9 mmol/L (3.6-5.0) 11/28/16 08:39 Chloride 98 mmol/L (98-107) 11/28/16 08:39 Carbon Dioxide 32 mmol/L (21-33) 11/28/16 08:39 Anion Gap 8 (10-20) L 11/28/16 08:39 BUN 14 mg/dL (7-21) 11/28/16 08:39 Creatinine 1.0 mg/dL (0.5-1.4) 11/28/16 08:39 Est GFR ( Amer) > 60 11/28/16 08:39 Est GFR (Non-Af Amer) 52 11/28/16 08:39 POC Glucose (mg/dL) 118 mg/dL (65-110) H 11/29/16 05:46 Random Glucose 162 mg/dL (70-110) H 11/28/16 08:39 Calcium 9.6 mg/dL (8.4-10.5) 11/28/16 08:39 Phosphorus 1.7 mg/dL (2.5-4.5) L 11/28/16 08:39 Magnesium 1.3 mg/dL (1.7-2.2) L 11/28/16 08:39 Total Bilirubin 0.7 mg/dL (0.2-1.3) 11/28/16 08:39 AST 22 U/L (15-39) 11/28/16 08:39 ALT 31 U/L (7-56) 11/28/16 08:39 Alkaline Phosphatase 61 U/L (38-133) 11/28/16 08:39 Total Protein 6.2 g/dL (5.8-8.3) 11/28/16 08:39 Albumin 3.0 g/dL (3.0-4.8) 11/28/16 08:39 Globulin 3.2 gm/dL 11/28/16 08:39 Albumin/Globulin Ratio 0.9 (1.1-1.8) L 11/28/16 08:39 - Hospital Course Hospital Course: Admit date- 11/22 DC date- 11/29 Attending: Dr. Teresa Radford for dc Procedures- IVC filter No complications Consults Farhat Rashid/Tony Membreno Discharge dx. 1. DVT/PE 2. NSTEMI 3. COPD 4. DM 5. CHITO 6. Anemia HPI: see h/p Labs: see lab data Hospital course: This is an 86 yo female with past medical hx of DM, HTN, COPD, cellulitis presenting initially to ER with cc of "not feeling right." Pt before coming into hospital had been treated for cellulitis of left lower ext with cephalexin , but it not gotten any better, so she came in. She was found to have PE on on CTA as well as acute DVT and rise in cardiac enzymes. She has been treated with zyvox and heparin drip and warfarin. Her cellulitis is improving and she was transferred to TCU for further rehab. 1. Sub-Segmental Distal PE; most likely unprovoked -s/p IVC filter -f/u inr -warfarin based on inr - Ext US - b/l tibial dvt identified - Heme consult - Dr Hughes for recs - Ct abdomen - Large gallstone, No acute intraabdominal findings 2. NSTEMI - Cardiology Consult - Dr Adorno. recs appreciated. - Aspirin, B-Mikki, Statin - BNP 6570 on admission; baseline last year 350 3. Lower Extrm Swelling/Cellulitis - Improved - ID Consult. Dr. Jimenez. will d/c abx folowing 5 days of zyvox - monitor off abx 4. DM - ISS ACHS as protocol 5. COPD - Pulm consult - Dr Dc - cont current meds started cough meds - Nebs PRN - c/w home meds brovana and pulmicort 6. Anemia - Endoscopy was scheduled and canceled due to pt being tachypneic and at high risk. - positive stool occult - As Per GI - Dr Membreno - no plan for endoscopy a this time due pt being at high risk for procedure, pt not actively bleeing will cont to monitor H/H - Iron sucrose administered 7. 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 GI/DVT ppx -On protonix daily & warfarin DC instructions Please return if condition worsens. Please f/u with PMD within 3 days. Please take warfarin 2 mg tonight then 1 mg tomorrow and alternate btw 2 mg and 1 mg. DC meds 1. warfarin 2 mg po 2. warfarin 1 mg po 3. advair 4. asa 81 mg po daily 5. lipitor daily 6. lasix 7. meclizine 8. metformin 9. lopressor 10. prilosec - Date & Time of H&P Date of H&P: 11/22/16 Time of H&P: 11:25 Discharge Exam - Head Exam Head Exam: ATRAUMATIC, NORMAL INSPECTION, NORMOCEPHALIC - Eye Exam Eye Exam: EOMI - ENT Exam ENT Exam: Mucous Membranes Moist - Neck Exam Neck exam: Full Rom, Normal Inspection - Respiratory Exam Respiratory Exam: NORMAL BREATHING PATTERN, UNREMARKABLE - Cardiovascular Exam Cardiovascular Exam: +S1, +S2 - GI/Abdominal Exam GI & Abdominal Exam: Normal Bowel Sounds - Extremities Exam Extremities exam: full ROM, normal inspection - Neurological Exam Neurological exam: Alert, Oriented x3 - Psychiatric Exam Psychiatric exam: Normal Affect, Normal Mood - Skin Skin Exam: Dry, Intact, Normal Color, Warm Discharge Plan - Discharge Medications Prescriptions: Meclizine [Antivert] 12.5 mg PO Q6 PRN #120 tab PRN Reason: DIZZINESS Warfarin [Coumadin] 1 mg PO 1800 #10 tab Warfarin [Coumadin] 2 mg PO 1800 #10 tab - Follow Up Plan Condition: STABLE Disposition: HOME/ ROUTINE Instructions: Pulmonary Embolism (DC), COPD (Chronic Obstructive Pulmonary Disease) (DC), Inferior Vena Cava Filter Placement (DC), Fall Prevention (DC) Additional Instructions: Pt needs f/u with PMD within 3 days. Pt to take warfarin 2 mg po tonight, followed by warfarin 1 mg po tomorrow in alternating days. Referrals: Anibal West MD [Primary Care Provider] - <Haylie Moore - Last Filed: 11/30/16 08:20> Provider - Provider Date of Admission: 11/21/16 16:52 Attending physician: Haylie Moore MD Primary care physician: Anibal West MD Hospital Course - Lab Results Lab Results: Most Recent Lab Values WBC 9.2 10^3/ul (4.5-11.0) 11/28/16 08:39 RBC 4.25 10^6/uL (3.5-6.1) 11/28/16 08:39 Hgb 9.2 gm/dL (12.0-16.0) L 11/28/16 08:39 Hct 33.9 % (36.0-48.0) L 11/28/16 08:39 MCV 79.8 fL (80.0-105.0) L 11/28/16 08:39 MCH 21.6 pg (25.0-35.0) L 11/28/16 08:39 MCHC 27.1 g/dl (31.0-37.0) L 11/28/16 08:39 RDW 21.1 % (11.5-14.5) H 11/28/16 08:39 Plt Count 163 10^3/uL (120.0-450.0) 11/28/16 08:39 MPV 9.6 fl (7.0-11.0) 11/28/16 08:39 Gran % 77.0 % (50.0-68.0) H 11/28/16 08:39 Lymph % (Auto) 13.1 % (22.0-35.0) L 11/28/16 08:39 Roosevelt % (Auto) 6.2 % (1.0-6.0) H 11/28/16 08:39 Eos % (Auto) 3.5 % (1.5-5.0) 11/28/16 08:39 Baso % (Auto) 0.2 % (0.0-3.0) 11/28/16 08:39 Gran # 7.06 (1.4-6.5) H 11/28/16 08:39 Lymph # 1.2 (1.2-3.4) 11/28/16 08:39 Roosevelt # 0.6 (0.1-0.6) 11/28/16 08:39 Eos # 0.3 (0.0-0.7) 11/28/16 08:39 Baso # 0.02 K/mm3 (0.0-2.0) 11/28/16 08:39 PT 19.5 Seconds (9.9-11.8) H 11/28/16 08:39 INR 1.81 (0.93-1.08) H 11/28/16 08:39 APTT 38.3 Seconds (23.7-30.8) H 11/24/16 06:30 pCO2 58 mm/Hg (35-45) H 11/25/16 07:36 pO2 57.0 mm/Hg (80-100) L 11/25/16 07:36 HCO3 36.8 mmol/L (21-28) H 11/25/16 07:36 ABG pH 7.41 (7.35-7.45) 11/25/16 07:36 ABG Total CO2 38.6 mmol.L (22-28) H 11/25/16 07:36 ABG O2 Saturation 93.4 % (95-98) L 11/25/16 07:36 ABG O2 Content 10.3 ML/dl (15-23) L 11/25/16 07:36 ABG Base Excess 10.8 mmol/L (-2.0-3.0) H 11/25/16 07:36 ABG Hemoglobin 8.1 g/dL (11.7-17.4) L 11/25/16 07:36 ABG Carboxyhemoglobin 2.7 % (0.5-1.5) H 11/25/16 07:36 POC ABG HHb (Measured) 6.4 % (0-5) H 11/25/16 07:36 ABG Methemoglobin 0.8 % (0.0-3.0) 11/25/16 07:36 ABG O2 Capacity 11.0 mL/dl (16-24) L 11/25/16 07:36 Hgb O2 Saturation 90.2 % (95.0-98.0) L 11/25/16 07:36 FiO2 32.0 % 11/25/16 07:36 Sodium 134 mmol/L (132-148) 11/28/16 08:39 Potassium 3.9 mmol/L (3.6-5.0) 11/28/16 08:39 Chloride 98 mmol/L (98-107) 11/28/16 08:39 Carbon Dioxide 32 mmol/L (21-33) 11/28/16 08:39 Anion Gap 8 (10-20) L 11/28/16 08:39 BUN 14 mg/dL (7-21) 11/28/16 08:39 Creatinine 1.0 mg/dL (0.5-1.4) 11/28/16 08:39 Est GFR ( Amer) > 60 11/28/16 08:39 Est GFR (Non-Af Amer) 52 11/28/16 08:39 POC Glucose (mg/dL) 118 mg/dL (65-110) H 11/29/16 05:46 Random Glucose 162 mg/dL (70-110) H 11/28/16 08:39 Calcium 9.6 mg/dL (8.4-10.5) 11/28/16 08:39 Phosphorus 1.7 mg/dL (2.5-4.5) L 11/28/16 08:39 Magnesium 1.3 mg/dL (1.7-2.2) L 11/28/16 08:39 Total Bilirubin 0.7 mg/dL (0.2-1.3) 11/28/16 08:39 AST 22 U/L (15-39) 11/28/16 08:39 ALT 31 U/L (7-56) 11/28/16 08:39 Alkaline Phosphatase 61 U/L (38-133) 11/28/16 08:39 Total Protein 6.2 g/dL (5.8-8.3) 11/28/16 08:39 Albumin 3.0 g/dL (3.0-4.8) 11/28/16 08:39 Globulin 3.2 gm/dL 11/28/16 08:39 Albumin/Globulin Ratio 0.9 (1.1-1.8) L 11/28/16 08:39 Attending/Attestation - Attestation I have personally seen and examined this patient.: Yes I have fully participated in the care of the patient.: Yes I have reviewed all pertinent clinical information, including history, physical exam and plan: Yes Notes (Text): 11/29/16 86 year old female with past medical history of COPD and diabetes who presented with LLE cellulitis. This improved with antibiotics. She was also found to have bilateral DVT and subsegmental PE for which she is on coumadin. She is s/p IVC filter placement. She had elevated cardiac enzymes possibly due to PE. She was on aspirin, metoprolol and statin. She was followed by cardiology. She was seen by GI and hematology for iron deficiency anemia. She received iv iron. She was scheduled for EGD which was cancelled due to high risk. Overall her symptoms improved while in TCU. She is discharged home with home services to follow up with her pmd to monitor labs and INR checks. Follow up with GI, hematology and cardiology. Haylie Moore MD Hospitalist.
== END 2016-11-29 12:24 | disposition home or self-care (01) | DRG 175 ==
LOC: TRCU 16:52
PROVIDERS: ADMIT Internal Medicine; ATTEND Internal Medicine
PROC: 3E0F7GC Introduction of Other Therapeutic Substance into Respiratory Tract, Via Natural or Artificial Opening (ICD-10-PCS; 2016-11-21)
PROC: F07Z9FZ Gait Training/Functional Ambulation Treatment using Assistive, Adaptive, Supportive or Protective Equipment (ICD-10-PCS; principal; 2016-11-22)
PROC: F08Z4FZ Home Management Treatment using Assistive, Adaptive, Supportive or Protective Equipment (ICD-10-PCS; 2016-11-22)
DX: I26.99 Other pulmonary embolism without acute cor pulmonale (principal); I82.443 Acute embolism and thrombosis of tibial vein, bilateral; I21.4 Non-ST elevation (NSTEMI) myocardial infarction; L03.115 Cellulitis of right lower limb; I50.9 Heart failure, unspecified; I11.0 Hypertensive heart disease with heart failure; L03.116 Cellulitis of left lower limb; I48.91 Unspecified atrial fibrillation; D50.9 Iron deficiency anemia, unspecified; E11.9 Type 2 diabetes mellitus without complications; N17.0 Acute kidney failure with tubular necrosis; T50.8X5D Adverse effect of diagnostic agents, subsequent encounter; J44.9 Chronic obstructive pulmonary disease, unspecified; I25.10 Atherosclerotic heart disease of native coronary artery without angina pectoris; E66.9 Obesity, unspecified; E78.5 Hyperlipidemia, unspecified; R09.02 Hypoxemia; Z68.33 Body mass index [BMI] 33.0-33.9, adult; Z79.84 Long term (current) use of oral hypoglycemic drugs; Z87.891 Personal history of nicotine dependence

== ENCOUNTER 2016-11-26 10:05 | Day surgery (SDC) | payer MEDICARE ==
[2016-11-26] MEDS ORDERED: Midazolam 2 MG/2 ML VIAL ONE (10:28)
[2016-11-26 12:55] VITALS: RESP 20; TEMP 98.6
[2016-11-26 13:18] VITALS: BP 153/63; PULSE 82; O2SAT 96
[2016-11-26] MEDS ORDERED: Sodium Chloride 0.45% 1,000 ML IV SCH (14:15)
--- NOTE | 2016-11-26 17:34 | VASCULAR ---
PROCEDURE: IVC Filter placement HISTORY: Bilateral lower extremity DVT. Guaiac positive and gastro intestinal hemorrhage. Needs IVC filter. PHYSICIAN(S): Farhat Macias MD. TECHNIQUE: The relative risks and indications of the procedure were explained to the patient and consent obtained. The patient was placed supine on the arteriogram table the right groin prepped and draped usual sterile fashion. Conscious sedation and monitoring were provided throughout the procedure by a nurse. Via a right common femoral vein approach, a 5 Singaporean sheath was placed. The guidewire and flush catheter were advanced over the IVC bifurcation and placed in the left iliac venous system. A PA DSA IVC gram was performed with emphasis on the renal veins. Exchange was made for a support wire placed in the right atrium. The 6.5 Singaporean sheath was advanced to the level of the renal veins. Next a argon retrievable filter was deployed in the infrarenal IVC at the level of L2-3. A post deployment cavagram was performed through the introducer sheath. The sheath was removed and hemostasis obtained. Patient tolerated the procedure well. FINDINGS: The visualized iliac veins and IVC are normal. No evidence of IVC thrombus or anomaly is seen. The renal veins are easily identified. The argon retrievable filter was deployed and is in good position at the level of L2-3. IMPRESSION: 1. No evidence of IVC anomaly or thrombus. 2. Successful deployment of a argon retrievable filter in the infrarenal IVC at the level of L2-3.
== END 2016-11-26 14:20 ==
LOC: SDSVAS 10:05
PROVIDERS: ATTEND Radiology Vascular & Interventional Radiology
DX: I82.4Z3 Acute embolism and thrombosis of unspecified deep veins of distal lower extremity, bilateral (principal)
CPT/HCPCS: 37191; 99152; C1769; C1887; C1894; J2250; J2405; J3010; J7030

== ENCOUNTER 2017-10-22 10:02 | Inpatient (IN) | payer MEDICARE, OTHER ==
--- NOTE | 2017-10-22 10:26 | ED PDOC ---
Arrival/HPI - General Time Seen by Provider: 10/22/17 10:06 - History of Present Illness Narrative History of Present Illness (Text): 10/22/17 10:25 Patient is an 87 year old female with a past medical history of COPD, asthma, diabetes, hyperlipidemia, who presents to the Emergency department after a phone call from her PMD (Dr. West) this morning for "low blood count". Patient says she was at the office yesterday for routine bloodwork and did not realize anything was wrong, however, she has been feeling more fatigued than usual. Patient admits to some shortness of breath but says this is not new for her and is on home O2. Patient denies fever, chills, headache, changes in vision /hearing, chest pain, cough, abdominal pain, N&V, diarrhea, dysuria, and lower extremity pain/swelling. PMH: COPD, asthma, diabetes, hyperlipidemia, CHF (denies PE and IL although in chart) Meds: unspecified blood thinner, lopressor, metformin, lasix, lipitor, ASA, Prilosec Allergies: NKDA FH: denies SH: former smoker (2 PPD x50 years, quit 20 years ago); rare alcohol use; denies drug use Past Medical History - Infectious Disease Hx of Infectious Diseases: None - Tetanus Immunization Tetanus Immunization: Unknown - Cardiac Hx Pacemaker: No - Pulmonary Hx Asthma: Yes Hx Chronic Obstructive Pulmonary Disease (COPD): Yes - Neurological Hx Neurological Disorder: No - HEENT Hx HEENT Disorder: No - Renal Hx Renal Disorder: No - Endocrine/Metabolic Hx Diabetes Mellitus Type 2: Yes - Integumentary Hx Dermatological Disorder: No - Musculoskeletal/Rheumatological Hx Musculoskeletal Disorders: No - Gastrointestinal Hx Gastrointestinal Disorders: No - Genitourinary/Gynecological Hx Genitourinary Disorders: No - Psychiatric Hx Psychophysiologic Disorder: No Hx Substance Use: No - Anesthesia Hx Anesthesia Reactions: No Hx Malignant Hyperthermia: No Family/Social History Family/Social History: Unknown Family HX Smoking Status: Former Smoker Hx Alcohol Use: No Hx Substance Use: No Allergies/Home Meds Allergies/Adverse Reactions: Allergies No Known Allergies Allergy (Verified 10/22/17 10:15) Home Medications: Home Meds Medication Instructions Recorded Confirmed Metformin HCl [Glucophage] 1,000 mg PO BID 11/17/16 10/22/17 Apixaban [Eliquis] 2.5 mg PO BID 10/23/17 10/23/17 Review of Systems - Physician Review All systems were reviewed & negative as marked: Yes - Review of Systems Constitutional: Fatigue Eyes: Normal ENT: Normal Respiratory: SOB. absent: Cough, Wheezing Cardiovascular: GARCIAS. absent: Chest Pain, Palpitations, Calf Pain Gastrointestinal: Normal Genitourinary Female: Normal Musculoskeletal: Normal Skin: Normal Neurological: Normal Endocrine: Normal Hemo/Lymphatic: Normal Psychiatric: Normal Physical Exam Vital Signs Temp Pulse Resp BP Pulse Ox 10/22/17 16:38 98.1 F 74 22 127/78 100 10/22/17 16:09 97.5 F L 94 H 17 144/64 99 10/22/17 15:00 79 16 126/52 L 97 10/22/17 12:39 131/84 10/22/17 12:37 82 17 120/70 97 10/22/17 10:32 98.3 F 88 16 115/51 L 97 - Systems Exam Head: Present: Atraumatic, Normocephalic Pupils: Present: PERRL Extroacular Muscles: Present: EOMI Conjunctiva: Present: Normal Mouth: Present: Moist Mucous Membranes Neck: Present: Normal Range of Motion. No: JVD Respiratory/Chest: Present: Clear to Auscultation, Good Air Exchange. No: Respiratory Distress, Accessory Muscle Use, Wheezes, Rales, Rhonchi Cardiovascular: Present: Murmurs (DREAD heard best at the left 2nd intercostal space), Normal S1, S2. No: Tachycardic, Bradycardic Abdomen: Present: Normal Bowel Sounds. No: Tenderness, Distention, Peritoneal Signs Back: Present: Normal Inspection Upper Extremity: Present: Normal Inspection Lower Extremity: Present: Edema (mild 1+ pitting) Neurological: Present: GCS=15, Speech Normal Skin: Present: Warm, Dry, Normal Color. No: Rashes Psychiatric: Present: Alert, Oriented x 3, Normal Insight, Normal Concentration Medical Decision Making ED Course and Treatment: 10/22/17 11:43 Hemoglobin dropped to 4.[address] West's office yesterday. Ordered 2 units pRBCs and will admit to telemetry. - Lab Interpretations Lab Results: 10/22/17 10:52 10/22/17 10:52 Lab Results 10/22/17 10:52: Sodium 145, Potassium 4.6, Chloride 107, Carbon Dioxide 28, Anion Gap 15, BUN 31 H, Creatinine 1.3 H, Est GFR ( Amer) 47, Est GFR ( Non-Af Amer) 39, Random Glucose 137 H, Calcium 9.7, Total Bilirubin 0.3, AST 25 , ALT 23, Alkaline Phosphatase 73, Total Protein 6.8, Albumin 3.6, Globulin 3.2 , Albumin/Globulin Ratio 1.1 10/22/17 10:52: PT 13.0 H, INR 1.13 H, APTT 28.1 10/22/17 10:52: WBC 5.8 D, RBC 2.52 L, Hgb 4.9 L*, Hct 17.7 L*, MCV 70.2 L, MCH 19.4 L, MCHC 27.7 L, RDW 18.6 H, Plt Count 214, MPV 9.3, Gran % 62.7, Lymph % (Auto) 24.7, [place] % (Auto) 9.0 H, Eos % (Auto) 3.3, Baso % (Auto) 0.3, Gran # 3.64, Lymph # (Auto) 1.4, [place] # (Auto) 0.5, Eos # (Auto) 0.2, Baso # (Auto) 0.02 10/22/17 10:52: Blood Type AB POSITIVE, Antibody Screen Negative, Crossmatch See Detail, BBK History Checked No verified bt - RAD Interpretation Radiology Orders: 10/22/17 10:23 CHEST PORTABLE [RAD] Stat - Medication Orders Current Medication Orders: Albuterol Sulfate (Albuterol 0.083% Inhal Mela (2.5 Mg/3 Ml) Ud) 2.5 mg IH [id number] PRN PRN Reason: Shortness of Breath Arformoterol Tartrate (Brovana) 15 mcg IH [id number] [facility] Last Admin: 10/23/17 21:10 Dose: 15 mcg Atorvastatin Calcium (Lipitor) 40 mg PO DIN [facility] Last Admin: 10/23/17 17:21 Dose: 40 mg Budesonide (Pulmicort Respules) 1 mg IH [id number] [facility] Last Admin: 10/23/17 21:10 Dose: 1 mg Furosemide (Lasix) 40 mg IV DAILY [facility] Last Admin: 10/23/17 09:22 Dose: 40 mg eMAR Start Stop Document 10/23/17 09:22 (Rec: 10/23/17 09:22 [id number] Intravenous Solution Start Date 10/23/17 Start Time 09:22 End Date 10/23/17 End time 09:24 Total Infusion Time 2 MAR Blood Pressure Document 10/23/17 09:22 (Rec: 10/23/17 09:22 [id number]) Blood Pressure Blood Pressure (100/60-150/90) 128/66 Insulin Human Lispro (Humalog Low) 0 units SC ACHS DQEUAN PRN Reason: Protocol Last Admin: 10/23/17 21:54 Dose: Not Given Non-Admin Reason: Blood Sugar Parameter MAR Blood Glucose Document 10/23/17 21:54 AP (Rec: 10/23/17 21:59 [id number] Blood Glucose Finger Stick Blood Glucose (70-120) 78 Meclizine HCl (Antivert) 12.5 mg PO DAILY PRN PRN Reason: Dizziness Pantoprazole Sodium (Protonix Inj) 40 mg IVP DAILY [facility] Polyethylene Glycol (Miralax) 17 gm PO BID [facility] Last Admin: 10/23/17 17:22 Dose: 17 gm Potassium Chloride (Klor-Con 10) 10 meq PO BRK [facility] Last Admin: 10/23/17 08:18 Dose: 10 meq Discontinued Medications Albuterol (Ventolin Hfa 90 Mcg/Actuation (8 G)) 1 puff IH [id number] PRN PRN Reason: Wheezing Albuterol Sulfate (Albuterol 0.083% Inhal Mela (2.5 Mg/3 Ml) Ud) 2.5 mg IH [id number] [facility] Furosemide (Lasix) 20 mg IVP STAT STA Stop: 10/22/17 12:07 Last Admin: 10/22/17 12:39 Dose: 20 mg MAR Blood Pressure Document 10/22/17 12:39 LM (Rec: 10/22/17 12:42 [facility] [id number]) Blood Pressure Blood Pressure (100/60-150/90) 131/84 IVP Administration Document 10/22/17 12:39 LM (Rec: 10/22/17 12:42 [facility] [id number]) Charges for Administration # of IVP Administrations 1 Furosemide (Lasix) 40 mg IVP ONCE ONE Stop: 10/22/17 21:01 Last Admin: 10/22/17 20:07 Dose: 40 mg MAR Blood Pressure Document 10/22/17 20:07 SBO (Rec: 10/22/17 20:07 SB [id number]) Blood Pressure Blood Pressure (100/60-150/90) 137/70 IVP Administration Document 10/22/17 20:07 SBO (Rec: 10/22/17 20:07 [id number]) Charges for Administration # of IVP Administrations 1 Pantoprazole Sodium (Protonix Inj) 40 mg IVP DAILY [facility] Last Admin: 10/23/17 09:21 Dose: 40 mg IVP Administration Document 10/23/17 09:21 (Rec: 10/23/17 09:22 DH [id number]) Charges for Administration # of IVP Administrations 1 Pneumococcal Polyvalent Vaccine (Pneumovax 23 Vaccine) 0.5 ml IM .ONCE ONE Stop: 10/22/17 18:11 Last Admin: 10/22/17 18:32 Dose: Immunization Registry Document 10/22/17 18:32 JZA (Rec: 10/22/17 18:32 JZA [id number]) Immunization Registry Consent Date 10/22/17 Fluticasone/Salmeterol (Advair Diskus 500/50) 1 puff INH Q12 [facility] - PA / [employer] / Resident Statement MD/DO has reviewed & agrees with the documentation as recorded. MD/DO has examined the patient and agrees with the treatment plan. Disposition/Present on Arrival - Present on Arrival Any Indicators Present on Arrival: Yes History of DVT/PE: Yes History of Uncontrolled Diabetes: No Urinary Catheter: No History of Decub. Ulcer: No History Surgical Site Infection Following: None - Disposition Have Diagnosis and Disposition been Completed?: Yes Diagnosis: Anemia Disposition: HOSPITALIZED Disposition Time: 07:22 Patient Problems: Current Active Problems Problem Status Onset Anemia Acute Condition: FAIR
--- NOTE | 2017-10-22 10:54 | RAD ---
HISTORY: Anemia COMPARISON: 11/24/2016 FINDINGS: LUNGS: No active pulmonary disease. PLEURA: No significant pleural effusion identified, no pneumothorax apparent. CARDIOVASCULAR: Mild cardiomegaly. Moderate vascular congestion OSSEOUS STRUCTURES: No significant abnormalities. VISUALIZED UPPER ABDOMEN: Normal. OTHER FINDINGS: None. IMPRESSION: Moderate vascular congestion
[2017-10-22 10:57] LABS: BASO # 0.02 K/mm3 (0.0-2.0); BASO % 0.3 % (0.0-3.0); EOS # 0.2 (0.0-0.7); EOS % 3.3 % (1.5-5.0); GRAN # 3.64 (1.4-6.5); GRAN % 62.7 % (50.0-68.0); LYMPH # 1.4 (1.2-3.4); LYMPH % 24.7 % (22.0-35.0); MEAN CELL VOLUME 70.2 fl (80.0-105.0); MEAN CORPUSCULAR HEMOGLOBIN 19.4 pg (25.0-35.0); MEAN CORPUSCULAR HGB CONC 27.7 g/dl (31.0-37.0); MEAN PLATELET VOLUME 9.3 fl (7.0-11.0); MONO # 0.5 (0.1-0.6); RBC 2.52 10^6/uL (3.5-6.1); RED CELL DISTRIBUTION WIDTH 18.6 % (11.5-14.5); WHITE BLOOD COUNT 5.8 10^3/ul (4.5-11.0)
[2017-10-22 11:02] LABS: HEMOGLOBIN 4.9 g/dL (12.0-16.0)
[2017-10-22 11:06] LABS: ALB/GLOB RATIO 1.1 (1.1-1.8); ALBUMIN 3.6 g/dL (3.0-4.8); CALCIUM 9.7 mg/dL (8.4-10.5)
[2017-10-22 11:07] LABS: INR 1.13 (0.93-1.08)
[2017-10-22 11:08] LABS: PARTIAL THROMBOPLASTIN TIME 28.1 Seconds (25.1-36.5)
[2017-10-22] MEDS ORDERED: Iohexol 350 MG/100 ML VIAL ONE (12:15)
[2017-10-22 12:21] LABS: IRON 15 ug/dL (45-180)
[2017-10-22 12:31] LABS: % IRON SATURATION 3 % (20-55); TOTAL IRON BINDING CAPACITY 487 ug/dL (265-497)
[2017-10-22 13:07] LABS: B-TYPE NATRIURETIC PEPTIDE 1650 pg/mL (0-450); TROPONIN I < 0.01 ng/mL
[2017-10-22] MEDS ORDERED: Iohexol 240 (50 ml) ONE (13:17)
--- NOTE | 2017-10-22 13:20 | CP.PCM.HP ---
<Cyndi Ford - Last Filed: 10/22/17 14:31> History of Present Illness - History of Present Illness History of Present Illness: IM H & P for Dr. Najma Ford, PGY-1 Pt S & E at bedside. 87F w/PMH sig COPD, hx DM, HLD, hx DVT/PE (2017), CAD, CHF, NSTEMI, Chronic anemia, CKD for admitted for severe anemia (Hgb 4.9). Pt seen/evaluted by PMD yesterday with blood work taken. On day of admission, pt was called and instructed to report to ED for severe anemia. Pt admits to changes in vision when she turns too quickly, SOB, pruritis around EKG leads Denies syncope, near syncope, weakness, dizziness, hematuria, hematochezia, hematemesis, using more than 1 pillow to sleep at night, abdominal pain, headache, vision changes, changes in bowel or bladder habits. PMH: COPD on Proair and Advair & Home O2 (2L), hx DM, last A1c 6, not currently on Metformin, HLD, hx DVT/PE on Eliquis, Hx NSTEMI on Eliquis, vertigo on meclizine, chronic anemia (hgb 10 average), hypovitaminosis D (on Vitamin D, Magnesium), reflux on Omeprazole, CHITO on CKD PSH: Denies All: NKDA SH: Admits to tobacco use hx (quit in 20 yrs ago, 2ppd x 50 yrs), rare ETOH use , denies illicit drug use PMD: [place] Present on Admission - Present on Admission Any Indicators Present on Admission: No History of DVT/PE: No History of Uncontrolled Diabetes: No Urinary Catheter: No Decubitus Ulcer Present: No Review of Systems - Review of Systems All systems: reviewed and no additional remarkable complaints except - Constitutional Constitutional: absent: Chills, Fever, Headache, Weakness - EENT Eyes: absent: Change in Vision, Spots in Vision Ears: Disequilibrium (chronic). absent: Dizziness - Cardiovascular Cardiovascular: absent: Chest Pain, Leg Edema, Palpitations - Respiratory Respiratory: absent: Cough - Gastrointestinal Gastrointestinal: Constipation (chronic). absent: Abdominal Pain, Change in Bowel Habits, Change in Stool Character, Coffee Ground Emesis, Hematemesis, Hematochezia, Melena, Nausea, Vomiting - Genitourinary Genitourinary: absent: Dysuria, Hematuria - Menstruation Menstruation: absent: Abnormal Vaginal Bleeding - Neurological Neurological: absent: Syncope - Endocrine Endocrine: absent: Fatigue, Palpitations Past Patient History - Infectious Disease Hx of Infectious Diseases: None - Tetanus Immunizations Tetanus Immunization: Unknown - Past Medical History & Family History Past Medical History?: Yes - Past Social History Smoking Status: Former Smoker - CARDIAC Hx Pacemaker: No - PULMONARY Hx Asthma: Yes Hx Chronic Obstructive Pulmonary Disease (COPD): Yes - NEUROLOGICAL Hx Neurological Disorder: No - HEENT Hx HEENT Problems: No - RENAL Hx Chronic Kidney Disease: No - ENDOCRINE/METABOLIC Hx Diabetes Mellitus Type 2: Yes - INTEGUMENTARY Hx Dermatological Problems: No - MUSCULOSKELETAL/RHEUMATOLOGICAL Hx Musculoskeletal Disorders: No - GASTROINTESTINAL Hx Gastrointestinal Disorders: No - GENITOURINARY/GYNECOLOGICAL Hx Genitourinary Disorders: No - PSYCHIATRIC Hx Psychophysiologic Disorder: No Hx Substance Use: No - SURGICAL HISTORY Hx Surgeries: Yes (rhinoplasty,BUNIONECTOMY BILATERAL TOES.) - ANESTHESIA Hx Anesthesia Reactions: No Hx Malignant Hyperthermia: No Meds Allergies/Adverse Reactions: Allergies Allergy/AdvReac Type Severity Reaction Status Date / Time No Known Allergies Allergy Verified 10/22/17 10:15 Physical Exam - Constitutional Appears: Non-toxic, No Acute Distress - Head Exam Head Exam: ATRAUMATIC, NORMAL INSPECTION, NORMOCEPHALIC - Eye Exam Eye Exam: EOMI, Normal appearance - ENT Exam ENT Exam: Mucous Membranes Moist, Normal Exam - Neck Exam Neck exam: Positive for: Full Rom, Normal Inspection - Respiratory Exam Respiratory Exam: Rhonchi (at bases, mild), NORMAL BREATHING PATTERN. absent: Accessory Muscle Use, Wheezes, Respiratory Distress - Cardiovascular Exam Cardiovascular Exam: REGULAR RHYTHM, +S1, +S2. absent: Tachycardia - GI/Abdominal Exam GI & Abdominal Exam: Normal Bowel Sounds, Soft. absent: Distended, Firm, Guarding, Tenderness - Extremities Exam Extremities exam: Positive for: normal inspection. Negative for: pedal edema, tenderness - Back Exam Back exam: NORMAL INSPECTION - Neurological Exam Neurological exam: Alert, CN II-XII Intact, Oriented x3 - Psychiatric Exam Psychiatric exam: Normal Affect, Normal Mood - Skin Skin Exam: Dry, Intact, Pallor, Warm Results - Vital Signs Recent Vital Signs: Last Vital Signs Temp 98.3 F 10/22/17 10:32 Pulse 82 10/22/17 12:37 Resp 17 10/22/17 12:37 BP 131/84 10/22/17 12:39 Pulse Ox 97 10/22/17 12:37 - Labs Result Diagrams: 10/22/17 10:52 10/22/17 10:52 Labs: Laboratory Results - last 24 hr 10/22/17 10/22/17 10/22/17 11:44 12:14 12:14 Retic Count Iron 15 L TIBC 487 % Saturation 3 L Troponin I < 0.01 D NT-Pro-B Natriuret Pep 1650 H Blood Type Confirm AB POSITIVE 10/22/17 12:14 Retic Count 1.25 Iron TIBC % Saturation Troponin I NT-Pro-B Natriuret Pep Blood Type Confirm Assessment & Plan - Assessment and Plan (Free Text) Assessment: 87F w/PMH sig for COPD, Asthma, hx DM, HLD, hx DVT admitted for severe anemia Plan: Severe anemia Hgb 4.9 H/H Q6H Transfused 1 unit pRBCs FU ferritin FU folate FU Fe FU B12 FU FOB GI consulted COPD on home O2 Monitor O2 PRN Target SaO2> 94% proair Advair HLD/CAD Cont home med: lipitor FU BNP FU troponin Cardio consulted Hx DM Acchuchecks Will institute sliding scale if needed Vertigo Fall risk protocol Meclizine PRN GI/DVT ppx SCDs Contraindications to VTE pptx 2/2 severe anemia Protonix Dispo: Admit to tele VS Q6H Fall risk protocol NPO except meds Medical hx and medications verified with PMD DW attending Liliana, PGY-1 - Date & Time Date: 10/22/17 Time: 13:16 Decision To Admit - Pt Status Changed To: Hospital Disposition Of: Inpatient Admission - Admit Certification Admit to Inpatient:: After my assessment, the patient will require hospitalization for at least two midnights. This is because of the severity of symptoms shown, intensity of services needed, and/or the medical risk in this patient being treated as an outpatient. - . Bed Request Type: Telemetry Admitting Physician: Haylie Moore <Haylie Moore Last Filed: 10/22/17 17:58> Results - Vital Signs Recent Vital Signs: Last Vital Signs Temp 98.1 F 10/22/17 16:38 Pulse 74 10/22/17 16:38 Resp 22 10/22/17 16:38 BP 127/78 10/22/17 16:38 Pulse Ox 100 10/22/17 16:38 - Labs Result Diagrams: 10/22/17 10:52 10/22/17 10:52 Labs: Laboratory Results - last 24 hr 10/22/17 10/22/17 10/22/17 11:44 12:14 12:14 Retic Count Iron 15 L TIBC 487 % Saturation 3 L Ferritin 5.4 Troponin I < 0.01 D NT-Pro-B Natriuret Pep 1650 H Vitamin B12 387 Folate > 20.0 Blood Type Confirm AB POSITIVE 10/22/17 12:14 Retic Count 1.25 Iron TIBC % Saturation Ferritin Troponin I NT-Pro-B Natriuret Pep Vitamin B12 Folate Blood Type Confirm Attending/Attestation - Attestation I have personally seen and examined this patient.: Yes I have fully participated in the care of the patient.: Yes I have reviewed all pertinent clinical information: Yes Notes (Text): 10/22/17 17:50 87 year old female with past medical history of COPD, diastolic CHF, DVT, and diabetes who presents with severe anemia, hemoglobin 4.9. CT abd/pelvis ordered. GI evaluation is requested. Will transfuse prbc transfusions and recheck. Continue with iv protonix. FOBT. CXR shows moderate congestion and she was given iv lasix. Will give additional iv lasix in between 2 units. Cardiology evaluation is requested. She also has mild CHITO which we will monitor. Avoid nephrotoxic agents. Haylie Moore MD Hospitalist.
[2017-10-22] MEDS ORDERED: Albuterol HFA 90 mcg/actuation (8 g) IH PRN (14:01)
[2017-10-22] MEDS ORDERED: Albuterol 0.083% Inhal Sol (2.5 mg/3 mL) UD IH PRN (14:11)
--- NOTE | 2017-10-22 14:36 | CARD ---
APPROVED REPORT EKG Measurement Heart [id number] [id number] <Conclusion> Normal sinus rhythm Rightward axis
[2017-10-22 17:04] LABS: FERRITIN 5.4 ng/mL
[2017-10-22 17:34] LABS: FOLATE > 20.0 ng/mL
[2017-10-22 18:10] VITALS: BMI 31.2
[2017-10-22] MEDS ORDERED: Pneumococcal 23-Valent Vaccine IM ONE (18:10)
[2017-10-22] MEDS: Arformoterol 15 mcg/2 ml Inh Sol IH SCH (19:34)
[2017-10-22] MEDS: Budesonide 0.5 mg/2 ml Inhal Susp UD IH SCH (19:35)
[2017-10-22] MEDS ORDERED: Albuterol 0.083% Inhal Sol (2.5 mg/3 mL) UD IH SCH (20:00)
[2017-10-22] MEDS ORDERED: Fluticasone-Salmeterol 500-50mcg Diskus INH SCH (22:00)
[2017-10-23 00:54] LABS: HEMOGLOBIN 7.3 g/dL (12.0-16.0)
[2017-10-23 07:01] LABS: BASO # 0.02 K/mm3 (0.0-2.0); BASO % 0.3 % (0.0-3.0); EOS # 0.2 (0.0-0.7); EOS % 3.2 % (1.5-5.0); GRAN # 3.72 (1.4-6.5); LYMPH # 1.6 (1.2-3.4); LYMPH % 25.8 % (22.0-35.0); MEAN CELL VOLUME 72.9 fl (80.0-105.0); MEAN CORPUSCULAR HEMOGLOBIN 21.3 pg (25.0-35.0); MEAN CORPUSCULAR HGB CONC 29.2 g/dl (31.0-37.0); MEAN PLATELET VOLUME 10.2 fl (7.0-11.0); MONO # 0.5 (0.1-0.6); MONO % 8.7 % (1.0-6.0); RBC 3.29 10^6/uL (3.5-6.1); RED CELL DISTRIBUTION WIDTH 18.7 % (11.5-14.5)
[2017-10-23 07:17] LABS: ALB/GLOB RATIO 1.1 (1.1-1.8); ALBUMIN 3.5 g/dL (3.0-4.8); CALCIUM 9.8 mg/dL (8.4-10.5)
[2017-10-23] MEDS: Budesonide 0.5 mg/2 ml Inhal Susp UD IH SCH ×2 (07:28→21:10)
[2017-10-23] MEDS: Arformoterol 15 mcg/2 ml Inh Sol IH SCH ×2 (07:28→21:10)
[2017-10-23] MEDS: Potassium Chloride 10 mEq ER Tab PO SCH (08:18)
[2017-10-23 09:57] LABS: URINE BILIRUBIN NEGATIVE (NEGATIVE); URINE BLOOD NEGATIVE (NEGATIVE); URINE GLUCOSE (UA) NEGATIVE (NEGATIVE); URINE LEUKOCYTE ESTERASE TRACE Leu/uL (NEGATIVE); URINE PROTEIN NEGATIVE mg/dL (<30 mg/dL); URINE UROBILINOGEN 0.2 E.U./dL (<1 E.U./dL)
[2017-10-23 10:07] LABS: URINE APPEARANCE SLIGHT-CLOUDY (CLEAR); URINE COLOR LIGHT YELLOW (YELLOW)
--- NOTE | 2017-10-23 10:24 | CP.PCM.PN ---
<ClaudetteJeanette - Last Filed: 10/23/17 13:04> Subjective - Date & Time of Evaluation Date of Evaluation: 10/23/17 Time of Evaluation: 10:24 - Subjective Subjective: Patient seen and examined at bedside. No acute events overnight. Denies overt bleeding, hematochezia, emesis, nausea, abdominal pain, melena, leg swelling. Objective - Vital Signs/Intake and Output Vital Signs (last 24 hours): Temp Pulse Resp BP Pulse Ox 97.9 F 67 18 128/66 97 10/23/17 05:35 10/23/17 05:35 10/23/17 05:35 10/23/17 09:22 10/23/17 05:35 Intake and Output: 10/23/17 10/23/17 06:59 18:59 Intake Total 1075 Output Total 2950 Balance -1875 - Medications Medications: Current Medications Albuterol Sulfate (Albuterol 0.083% Inhal Mela (2.5 Mg/3 Ml) Ud) 2.5 mg IH [id number] PRN PRN Reason: Shortness of Breath Arformoterol Tartrate (Brovana) 15 mcg IH [id number] [facility] Last Admin: 10/23/17 07:28 Dose: 15 mcg Atorvastatin Calcium (Lipitor) 40 mg PO DIN [facility] Last Admin: 10/22/17 18:08 Dose: 40 mg Budesonide (Pulmicort Respules) 1 mg IH [id number] [facility] Last Admin: 10/23/17 07:28 Dose: 1 mg Furosemide (Lasix) 40 mg IV DAILY [facility] Last Admin: 10/23/17 09:22 Dose: 40 mg Meclizine HCl (Antivert) 12.5 mg PO DAILY PRN PRN Reason: Dizziness Pantoprazole Sodium (Protonix Inj) 40 mg IVP DAILY [facility] Last Admin: 10/23/17 09:21 Dose: 40 mg Potassium Chloride (Klor-Con 10) 10 meq PO BRK [facility] Last Admin: 10/23/17 08:18 Dose: 10 meq - Labs Labs: 10/23/17 06:30 10/23/17 06:30 PT 13.0 SECONDS (9.4-12.5) H 10/22/17 10:52 INR 1.13 (0.93-1.08) H 10/22/17 10:52 APTT 28.1 Seconds (25.1-36.5) 10/22/17 10:52 - Constitutional Appears: Non-toxic, No Acute Distress - Head Exam Head Exam: ATRAUMATIC, NORMOCEPHALIC - Eye Exam Eye Exam: EOMI, PERRL. absent: Conjunctival injection, Nystagmus, Scleral icterus Pupil Exam: NORMAL ACCOMODATION, PERRL. absent: Fixed, Irregular, Miosis, Mydriatic, Unequal Additional comments: + conjunctival pallor - ENT Exam ENT Exam: Mucous Membranes Moist - Neck Exam Neck Exam: Full ROM - Respiratory Exam Respiratory Exam: Clear to Ausculation Bilateral, NORMAL BREATHING PATTERN. absent: Accessory Muscle Use, Chest Wall Tenderness, Rales, Rhonchi, Wheezes, Respiratory Distress - Cardiovascular Exam Cardiovascular Exam: RRR, +S1, +S2. absent: Murmur - GI/Abdominal Exam GI & Abdominal Exam: Soft, Normal Bowel Sounds. absent: Distended, Guarding, Rigid, Tenderness, Mass, Organomegaly, Rebound - Back Exam Back Exam: NORMAL INSPECTION - Neurological Exam Neurological Exam: Alert, Awake, Oriented x3 - Psychiatric Exam Psychiatric exam: Normal Affect, Normal Mood - Skin Skin Exam: Dry, Pallor, Warm Assessment and Plan - Assessment and Plan (Free Text) Assessment: 87F w/PMH significant for COPD, Asthma, DM, HLD, DVT/PE (on home Eliquis 2.5 BID ), CHF, admitted for severe anemia: Severe anemia: 2/2 rectal mass? - CT abd pelvis shows asymmetrical rectal wall thickening, adherent stool vs invasive lesion? recommends colonoscopy. diverticulosis. - Hgb 7.0 this AM. transfuse 1 unit prbc - cardiac history - Hgb at 6 PM - daily cbc - echo 11/2016 shows normal EF. Grade III diastolic dysfunction - CHF - Lasix 1V 40 daily. and prn after transfusion. - GI on board. Follow up recs - Iron studies show iron deficiency anemia. will replete with IV iron after transfusion. then start on PO Feosol with colace. - Liquid diet - Monitor Hx of DVT/PE: - F/u with Gi whether can resume home eliquis 2.5 mg PO BID. Hx of COPD: - on home O2 - Maintain O2 sat>92% - Proair, Advair Hx of HLD/CAD: - lipitor - BNP elevated, previous visit - even more elevate in 6000s - Lasix IV daily - Cardio on board. F.u recs Hx DM: - Acchuchecks - a1c - iss LOW - BG 90s -100s Vertigo: - Fall risk protocol - Meclizine PRN GI/DVT ppx SCDs Contraindications to VTE ppx 2/2 severe anemia Protonix Diet: liquid diet Case seen and discussed with attending Dr Moore. Jeanette Wilkins, PGY1 <Haylie Moore - Last Filed: 10/23/17 14:23> Objective - Vital Signs/Intake and Output Vital Signs (last 24 hours): Temp Pulse Resp BP Pulse Ox 98.6 F 76 18 109/58 L 97 10/23/17 13:59 10/23/17 14:00 10/23/17 13:59 10/23/17 13:59 10/23/17 05:35 Intake and Output: 10/23/17 10/23/17 06:59 18:59 Intake Total 1075 0 Output Total 2950 Balance -1875 0 - Medications Medications: Current Medications Albuterol Sulfate (Albuterol 0.083% Inhal Mela (2.5 Mg/3 Ml) Ud) 2.5 mg IH [id number] PRN PRN Reason: Shortness of Breath Arformoterol Tartrate (Brovana) 15 mcg IH [id number] [facility] Last Admin: 10/23/17 07:28 Dose: 15 mcg Atorvastatin Calcium (Lipitor) 40 mg PO DIN [facility] Last Admin: 10/22/17 18:08 Dose: 40 mg Budesonide (Pulmicort Respules) 1 mg IH [id number] [facility] Last Admin: 10/23/17 07:28 Dose: 1 mg Furosemide (Lasix) 40 mg IV DAILY [facility] Last Admin: 10/23/17 09:22 Dose: 40 mg Insulin Human Lispro (Humalog Low) 0 units SC ACHS [facility] PRN Reason: Protocol Meclizine HCl (Antivert) 12.5 mg PO DAILY PRN PRN Reason: Dizziness Pantoprazole Sodium (Protonix Inj) 40 mg IVP DAILY [facility] Last Admin: 10/23/17 09:21 Dose: 40 mg Polyethylene Glycol (Miralax) 17 gm PO BID [facility] Potassium Chloride (Klor-Con 10) 10 meq PO BRK [facility] Last Admin: 10/23/17 08:18 Dose: 10 meq - Labs Labs: 10/23/17 06:30 10/23/17 06:30 PT 13.0 SECONDS (9.4-12.5) H 10/22/17 10:52 INR 1.13 (0.93-1.08) H 10/22/17 10:52 APTT 28.1 Seconds (25.1-36.5) 10/22/17 10:52 Attending/Attestation - Attestation I have personally seen and examined this patient.: Yes I have fully participated in the care of the patient.: Yes I have reviewed all pertinent clinical information, including history, physical exam and plan: Yes Notes (Text): 10/23/17 14:20 87 year old female with past medical history of COPD, diastolic CHF, DVT, and diabetes who presents with severe anemia, hemoglobin 4.9. She received two units prbc which hemoglobin of 7.0 this morning. Will transfuse one more unit and monitor. CT abd/pelvis reviewed which showed stool, rectal wall thickening and diverticulosis. Will discuss with GI regarding possible colonoscopy. She was on eliquis at home for history of DVT which is on hold secondary to above. CXR showed moderate congestion and she is on iv lasix. Cardiology evaluation was requested. She also has mild CHITO which we will monitor. Avoid nephrotoxic agents. Haylie Moore MD Hospitalist.
[2017-10-23 11:38] LABS: URINE RBC NEGATIVE /hpf (0-2)
[2017-10-23 11:39] LABS: URINE BACTERIA FEW (NEG); URINE EPITHELIAL CELLS 0 - 2 /hpf (0-5)
--- NOTE | 2017-10-23 12:12 | CT ---
PROCEDURE: CT Abdomen and Pelvis with Oral contrast. HISTORY: Anemia; r/o mass COMPARISON: None. TECHNIQUE: Contiguous axial images of the abdomen and pelvis. Oral contrast was administered. No IV contrast given. Coronal and Sagittal reformats generated. Radiation dose: Total exam DLP = mGy-cm. This CT exam was performed using one or more of the following dose reduction techniques: Automated exposure control, adjustment of the mA and/or kV according to patient size, and/or use of iterative reconstruction technique. FINDINGS: LOWER THORAX: Small left-sided effusion with mild subsegmental atelectasis and scarring. Mild scarring changes also noted right lung base. No evidence of basilar pneumothorax. Cardiomegaly. LIVER: The liver exhibits normal size measuring approximately 14.73 cm CC dimension. No gross masses or collections seen on this noncontrast study. Olegario in. GALLBLADDER AND BILE DUCTS: Multiple intraluminal gallbladder calculi. PANCREAS: Pancreas appears slightly atrophic and fatty replaced. No obvious pancreatic masses or collections. Spleen Spleen exhibits normal size and attenuation pattern without masses collections or calcifications. ADRENALS: Unremarkable. KIDNEYS AND URETERS: Kidneys demonstrate relatively symmetric size. . There are multiple tiny nonobstructing calcifications seen throughout left kidney. Small cyst lateral cortex upper pole left kidney again noted the BLADDER: Urinary bladder is physiologically distended. No evidence of intraluminal urinary bladder calculi. REPRODUCTIVE: Few small calcifications within the posterior uterine body may represent small calcified fibroids. APPENDIX: Unremarkable. BOWEL: Evaluation of the bowel is limited due to incomplete opacification. Stomach is incompletely distended which in part accounts for thick-walled appearance. Rule out gastritis. Visualized loops of small bowel exhibit normal contour and caliber. No evidence of acute mechanical small bowel obstruction with oral contrast material seen extending into the colon to the level of the distal descending colon. Moderate amount of stool seen within the distal descending mid sigmoid colon is well as rectum suggesting mild fecal retention. There are multiple colonic diverticula seen along the sigmoid colon and to a lesser degree descending colon. No radiographic evidence of acute diverticulitis. Mild rectal wall thickening which may in part be due to unopacified adherent stool however intrinsic/invasive wall lesion not excluded. . Follow-up colonoscopy recommended. PERITONEUM: Unremarkable. No fluid collection. No free air. LYMPH NODES: Unremarkable. No enlarged lymph nodes. VASCULATURE: In situ IVC filter. No evidence of abdominal aortic or iliac artery aneurysms BONES: Re- demonstrated is multilevel degenerative spondylosis of the thoracic and lumbar spine. Also again seen are mild chronic anterior wedge compression deformities of the T12 and L1 segments and slight anterior subluxation L4 over L5. OTHER FINDINGS: None. IMPRESSION: Small left-sided effusion with mild subsegmental atelectasis Multiple intraluminal gallbladder calculi. . Diverticulosis without radiographic evidence of acute diverticulitis. I asymmetric rectal wall thickening which may in part be due to the unopacified adherent stool however intrinsic/invasive wall lesion not excluded. Recommend follow-up colonoscopy. Multiple nonobstructing bilateral renal calculi. Small left renal cyst. Note this report was placed in PA review folder for followup.
--- NOTE | 2017-10-23 14:43 | PN ---
DATE: 10/23/[address] Adorno. SUBJECTIVE: I was asked by Dr. Adorno to follow Mrs. Tia Berg. Mrs. Berg has received 2 units of packed RBC transfusion. She denies any shortness of breath or chest pain. PHYSICAL EXAMINATION: VITAL SIGNS: Blood pressure 125/69, heart rate 74, temperature 97.4, respirations 18. HEENT: Pale conjunctivae. CHEST: Diminished breath sounds over the bases. HEART: S1 and S2 regular. EXTREMITIES: No edema. LABORATORY DATA: Today's hemoglobin and hematocrit are 7 and 24 compared to yesterday's 4.9 and 17.7 respectively. White count and platelet count are within normal limits. Today's SMA-7: Sodium 142, potassium 4, chloride 101, CO2 of 33, glucose 95, BUN 25, creatinine 1. EKG revealed normal sinus rhythm at rate [address] scan of the abdomen and pelvis with p.o. contrast only revealed small left-sided effusion with mild subsegmental atelectasis. Multiple gallstones. Diverticulosis without evidence of acute diverticulitis. Asymmetric rectal wall thickening. Multiple nonobstructive bilateral renal calculi. ASSESSMENT: 1. Severe anemia requiring packed RBC transfusion. 2. History of bilateral leg deep venous thrombosis last year and history of pulmonary embolism in the past. 3. Diverticulosis without radiographic evidence of diverticulitis. 4. History of chronic obstructive pulmonary disease and congestive heart failure. RECOMMENDATIONS: Continue current Lasix 40 mg intravenously daily, Lipitor 40 mg once day, Protonix at 40 mg intravenously once a day. The most recent echo was in 11/2016, which revealed normal left ventricular systolic function and grade III reversible restrictive diastolic dysfunction. Solomon Karimi MD
[2017-10-23] MEDS: Insulin Lispro (humaLOG) LOW Coverage SC SCH ×2 (17:12→21:54)
[2017-10-23] MEDS: POLYETHYLENE GLYCOL 3350 17 GM/Dose PACKET PO SCH (17:22)
[2017-10-23 18:23] LABS: HEMOGLOBIN 8.9 g/dL (12.0-16.0)
[2017-10-24 07:17] LABS: BASO # 0.02 K/mm3 (0.0-2.0); BASO % 0.3 % (0.0-3.0); EOS # 0.2 (0.0-0.7); EOS % 3.3 % (1.5-5.0); GRAN # 4.4 (1.4-6.5); GRAN % 60.7 % (50.0-68.0); LYMPH % 27.3 % (22.0-35.0); MEAN CELL VOLUME 74.6 fl (80.0-105.0); MEAN CORPUSCULAR HEMOGLOBIN 22.2 pg (25.0-35.0); MEAN CORPUSCULAR HGB CONC 29.8 g/dl (31.0-37.0); MEAN PLATELET VOLUME 10.4 fl (7.0-11.0); MONO # 0.6 (0.1-0.6); MONO % 8.4 % (1.0-6.0); RBC 4.05 10^6/uL (3.5-6.1); RED CELL DISTRIBUTION WIDTH 19.7 % (11.5-14.5); WHITE BLOOD COUNT 7.3 10^3/ul (4.5-11.0)
[2017-10-24] MEDS: Arformoterol 15 mcg/2 ml Inh Sol IH SCH ×2 (07:24→20:44)
[2017-10-24] MEDS: Budesonide 0.5 mg/2 ml Inhal Susp UD IH SCH ×2 (07:25→20:44)
[2017-10-24 07:46] LABS: ALB/GLOB RATIO 1.1 (1.1-1.8); ALBUMIN 3.7 g/dL (3.0-4.8); CALCIUM 10.1 mg/dL (8.4-10.5)
[2017-10-24] MEDS: Insulin Lispro (humaLOG) LOW Coverage SC SCH ×4 (08:28→21:59)
[2017-10-24] MEDS: Potassium Chloride 10 mEq ER Tab PO SCH (08:39)
[2017-10-24] MEDS: POLYETHYLENE GLYCOL 3350 17 GM/Dose PACKET PO SCH ×2 (10:20→18:13)
--- NOTE | 2017-10-24 12:26 | CP.PCM.PN ---
<Jeanette Wilkins - Last Filed: 10/24/17 12:19> Subjective - Date & Time of Evaluation Date of Evaluation: 10/24/17 Time of Evaluation: 12:19 - Subjective Subjective: Jeanette Wilkins, PGY1, Progress Note for Dr Moore: Patient seen and examined at bedside. No acute events overnight. Pt reports one BM last overnight, denies bright red blood or melena. Denies overt bleeding, hematemesis, nausea, abdominal pain, leg swelling. Objective - Vital Signs/Intake and Output Vital Signs (last 24 hours): Temp Pulse Resp BP Pulse Ox 98.1 F 77 20 112/53 L 96 10/24/17 06:00 10/24/17 06:00 10/24/17 06:00 10/24/17 10:20 10/24/17 06:00 Intake and Output: 10/24/17 10/24/17 06:59 18:59 Intake Total 0 Output Total 0 Balance 0 - Medications Medications: Current Medications Albuterol Sulfate (Albuterol 0.083% Inhal Mela (2.5 Mg/3 Ml) Ud) 2.5 mg IH [id number] PRN PRN Reason: Shortness of Breath Arformoterol Tartrate (Brovana) 15 mcg [facility]H [id number] Last Admin: 10/24/17 07:24 Dose: 15 mcg Atorvastatin Calcium (Lipitor) 40 mg PO DIN [facility] Last Admin: 10/23/17 17:21 Dose: 40 mg Budesonide (Pulmicort Respules) 1 mg IH [id number] [facility] Last Admin: 10/24/17 07:25 Dose: 1 mg Furosemide (Lasix) 40 mg IV DAILY [facility] Last Admin: 10/24/17 10:20 Dose: 40 mg Insulin Human Lispro (Humalog Low) 0 units SC ACHS [facility] PRN Reason: Protocol Last Admin: 10/24/17 11:33 Dose: Not Given Meclizine HCl (Antivert) 12.5 mg PO DAILY PRN PRN Reason: Dizziness Pantoprazole Sodium (Protonix Inj) 40 mg IVP DAILY [facility] Last Admin: 10/24/17 10:20 Dose: 40 mg Polyethylene Glycol (Miralax) 17 gm PO BID [facility] Last Admin: 10/24/17 10:20 Dose: 17 gm Potassium Chloride (Klor-Con 10) 10 meq PO BRK [facility] Last Admin: 10/24/17 08:39 Dose: 10 meq - Labs Labs: 10/24/17 06:00 10/24/17 06:00 PT 13.0 SECONDS (9.4-12.5) H 10/22/17 10:52 INR 1.13 (0.93-1.08) H 10/22/17 10:52 APTT 28.1 Seconds (25.1-36.5) 10/22/17 10:52 - Additional Findings Additional findings: - Constitutional Appears: Non-toxic, No Acute Distress - Head Exam Head Exam: ATRAUMATIC, NORMOCEPHALIC - Eye Exam Eye Exam: EOMI, PERRL. absent: Conjunctival injection, Nystagmus, Scleral icterus Pupil Exam: NORMAL ACCOMODATION, PERRL. absent: Fixed, Irregular, Miosis, Mydriatic, Unequal - ENT Exam ENT Exam: Mucous Membranes Moist - Neck Exam Neck Exam: Full ROM - Respiratory Exam Respiratory Exam: Clear to Ausculation Bilateral, NORMAL BREATHING PATTERN. absent: Accessory Muscle Use, Chest Wall Tenderness, Rales, Rhonchi, Wheezes, Respiratory Distress - Cardiovascular Exam Cardiovascular Exam: RRR, +S1, +S2. absent: Murmur - GI/Abdominal Exam GI & Abdominal Exam: Soft, Normal Bowel Sounds. absent: Distended, Guarding, Rigid, Tenderness, Mass, Organomegaly, Rebound - Back Exam Back Exam: NORMAL INSPECTION - Neurological Exam Neurological Exam: Alert, Awake, Oriented x3 - Psychiatric Exam Psychiatric exam: Normal Affect, Normal Mood - Skin Skin Exam: Dry, Pallor, Warm Assessment and Plan - Assessment and Plan (Free Text) Assessment: 87F w/PMH significant for COPD, Asthma, DM, HLD, DVT/PE (on home Eliquis 2.5 BID ), CHF, admitted for severe anemia. Plan is for EGD and colonoscopy on Wednesday, will start prepping on Wednesday: Severe anemia: 2/2 rectal mass? - CT abd pelvis shows asymmetrical rectal wall thickening, adherent stool vs invasive lesion? recommends colonoscopy. diverticulosis. - Hgb 9 this am, stable. - daily cbc - echo 11/2016 shows normal EF. Grade III diastolic dysfunction - CHF - Lasix 40 IV daily. - GI on board. appreciate recs. - Iron studies show iron deficiency anemia. will replete with IV iron after endoscopy. then start on PO Feosol with colace. - Liquid diet - Monitor Hx of DVT/PE: - Pt to remain off AC for 48 hours prior to EGD/Cscopy. Will discuss with Gi and Cardio after procedure for resuming home eliquis 2.5 mg PO BID. Hx of COPD: - on home O2 - Maintain O2 sat>92% - Proair, Advair Hx of HLD/CAD: - lipitor - BNP elevated, previous visit - even more elevate in 6000s - Lasix IV daily - Cardio on board. F.u recs Hx DM: - Acchuchecks - a1c 6.8 - iss LOW - BG 90s -100s Vertigo: - Fall risk protocol - Meclizine PRN GI/DVT ppx SCDs Contraindications to VTE ppx 2/2 severe anemia/scheduled egd/cscopy Protonix Diet: liquid diet Case seen and discussed with attending Dr Moore. Jeanette Wilkins, PGY1 <Haylie Moore A - Last Filed: 10/24/17 14:28> Objective - Vital Signs/Intake and Output Vital Signs (last 24 hours): Temp Pulse Resp BP Pulse Ox 98.3 F 68 20 131/66 96 10/24/17 12:00 10/24/17 12:00 10/24/17 12:00 10/24/17 12:00 10/24/17 06:00 Intake and Output: 10/24/17 10/24/17 06:59 18:59 Intake Total 0 Output Total 0 Balance 0 - Medications Medications: Current Medications Albuterol Sulfate (Albuterol 0.083% Inhal Mela (2.5 Mg/3 Ml) Ud) 2.5 mg IH [id number] PRN PRN Reason: Shortness of Breath Arformoterol Tartrate (Brovana) 15 mcg [facility] [id number] Last Admin: 10/24/17 07:24 Dose: 15 mcg Atorvastatin Calcium (Lipitor) 40 mg PO DIN [facility] Last Admin: 10/23/17 17:21 Dose: 40 mg Budesonide (Pulmicort Respules) 1 mg IH [id number] [facility] Last Admin: 10/24/17 07:25 Dose: 1 mg Furosemide (Lasix) 40 mg IV DAILY [facility] Last Admin: 10/24/17 10:20 Dose: 40 mg Insulin Human Lispro (Humalog Low) 0 units SC ACHS [facility] PRN Reason: Protocol Last Admin: 10/24/17 11:33 Dose: Not Given Meclizine HCl (Antivert) 12.5 mg PO DAILY PRN PRN Reason: Dizziness Pantoprazole Sodium (Protonix Inj) 40 mg IVP DAILY [facility] Last Admin: 10/24/17 10:20 Dose: 40 mg Polyethylene Glycol (Miralax) 17 gm PO BID [facility] Last Admin: 10/24/17 10:20 Dose: 17 gm Potassium Chloride (Klor-Con 10) 10 meq PO BRK [facility] Last Admin: 10/24/17 08:39 Dose: 10 meq - Labs Labs: 10/24/17 12:00 10/24/17 06:00 PT 13.0 SECONDS (9.4-12.5) H 10/22/17 10:52 INR 1.13 (0.93-1.08) H 10/22/17 10:52 APTT 28.1 Seconds (25.1-36.5) 10/22/17 10:52 Attending/Attestation - Attestation I have personally seen and examined this patient.: Yes I have fully participated in the care of the patient.: Yes I have reviewed all pertinent clinical information, including history, physical exam and plan: Yes Notes (Text): 10/24/17 14:25 87 year old female with past medical history of COPD, diastolic CHF, DVT, and diabetes who presented with severe anemia, hemoglobin 4.9. Her hemoglobin has improved now after 3 units of prbc transfusion. Hemoglobin is 9.[address] abd/pelvis showed stool, rectal wall thickening and diverticulosis. GI is following for possible EGD/colonoscopy. She was on eliquis at home for history of DVT which is on hold secondary to above. Anticoagulation will be discussed with GI and pmd after above procedures. Patient is on iv lasix for which cardiology is following. Patient has CKD which is stable. Haylie Moore MD Hospitalist.
--- NOTE | 2017-10-24 14:56 | PN ---
DATE: 10/24/2017 SUBJECTIVE: Patient received three units of packed RBC transfusion. She denies any melena. She denies any dizziness. PHYSICAL EXAMINATION: VITAL SIGNS: Blood pressure 131/66, heart rate 68, temperature 98.3, respirations 20. HEENT: Normocephalic. CHEST: Clear. HEART: S1 and S2, regular. EXTREMITIES: Trace leg edema. LABORATORY DATA: Today's hemoglobin and hematocrit 9 and 30.2. White count and platelet count are within normal limits. SMA-7 is within normal limits except for BUN of 22 and creatinine of 1.3. ASSESSMENT: 1. Severe anemia on admission, requiring 3 units of packed red blood cells transfusion. 2. Rule out lower gastrointestinal bleeding. 3. History of deep venous thrombosis last year and history of pulmonary embolism prior to that. 4. Diverticulosis without radiographic evidence of diverticulitis. 5. Chronic obstructive lung disease. RECOMMENDATIONS: Continue current albuterol inhaler, continue Klor-Con 10 mEq once a day, Lasix 40 mg intravenously once a day, Lipitor 40 mg once a day, Protonix 40 mg intravenously once a day. The patient will be scheduled for colonoscopy next week. Solomon Karimi MD
[2017-10-25] MEDS ORDERED: Ammonium Lactate 12% Lotion (225 g) EXT PRN (00:04)
--- NOTE | 2017-10-25 04:48 | PN ---
DATE: 10/24/2017 SUBJECTIVE: This patient was seen and evaluated earlier today. Patient is comfortable. No bleeding. No abdominal pain. PHYSICAL EXAMINATION: VITAL SIGNS: Temperature is 98.4, pulse 63, blood pressure is 146/91, respirations 20. HEENT: Atraumatic, anicteric. NECK: Supple. HEART: S1 and S2 heard. LUNGS: Bilateral air entry present. ABDOMEN: Soft. There is no mass palpable. EXTREMITIES: No cyanosis, no clubbing. LABORATORY DATA: Hemoglobin 9, hematocrit 30.2, WBC 7.3, platelets 235. Chemistry, BUN 22, creatinine 1.3. IMPRESSION: This is a 87-year-old patient with past medical history of deep vein thrombosis, pulmonary embolism chronic obstructive pulmonary disease and severe anemia, admitted with hemoglobin of 4.9, transfused 3 units of packed red blood cells, hemoglobin now remained stable at 9.8. Patient was on Eliquis and also aspirin on admission, which has been discontinued. was on 10/23/2017 patient was on aspirin just before the admission. Other comorbidities include diabetes mellitus, coronary artery disease, dyslipidemia, chronic obstructive pulmonary disease. Patient had PET scan done, which showed some irregularity of the rectal wall. The rectal examination revealed a polyp palpable. We will discuss with the patient's family, will be scheduled for an esophagogastroduodenoscopy and a coloscopy to further evaluate. Thank you very much for allowing us to participate in the care of the patient. Devendra Membreno MD
[2017-10-25] MEDS: Arformoterol 15 mcg/2 ml Inh Sol IH SCH ×2 (07:38→21:15)
[2017-10-25] MEDS: Budesonide 0.5 mg/2 ml Inhal Susp UD IH SCH ×2 (07:39→21:15)
[2017-10-25] MEDS: Insulin Lispro (humaLOG) LOW Coverage SC SCH ×4 (07:58→22:00)
[2017-10-25] MEDS: Potassium Chloride 10 mEq ER Tab PO SCH (08:11)
--- NOTE | 2017-10-25 08:17 | CON ---
DATE: 10/22/2017 LOCATION: The patient in emergency room, going to . REASON FOR CONSULTATION: Shortness of breath, severe anemia. HISTORY OF PRESENT ILLNESS: An 87-year-old female states that she is a known case of COPD, diabetes mellitus, hypertension and she is having shortness of breath since last one week on minimal exertion. Denies any chest pain. Denies any shortness of breath or chest pain at rest or lying down. Patient denies any PND. Patient found to have hemoglobin of 4.9 and of 17.7. Patient also had pulmonary embolism in 11/2016. PAST MEDICAL HISTORY: Significant for cellulitis of lower extremities, hypertension, COPD, diabetes mellitus. She also had pulmonary embolism in the past. PAST SURGICAL HISTORY: Positive for bunion removal from the foot and nose surgery. PERSONAL HISTORY: She used to smoke 2 to 3 packs a day till 20 years ago since then she stopped. She drinks only socially. ALLERGIES: PATIENT DENIES ANY ALLERGIES. MEDICATION: Patient's list of medication at home, metoprolol 25 b.i.d., metformin 1000 mg b.i.d., Lasix 40 daily, Lipitor 40 daily, aspirin 81 mg daily. REVIEW OF SYSTEMS: All the systems reviewed, positive mentioned in the history, otherwise negative. PHYSICAL EXAMINATION; VITAL SIGNS: Blood pressure 127/78, respirations 22, pulse 74, temperature 98.1. HEENT: Head is normocephalic. Eyes: Pupil normal. Conjunctivae mildly pale. NECK: JVP low. Carotids equal. THORAX: AP diameter normal. LUNGS: Bilateral rales. CARDIOVASCULAR: S1, S2. ABDOMEN: Soft, no tenderness. No organomegaly. EXTREMITIES: No clubbing. No cyanosis. LABORATORY DATA: Shows WBC 5.8, hemoglobin 4.9, hematocrit 17.7, platelet 214. Sodium 145, potassium 4.6, BUN 31, creatinine 1.3. Random glucose 137. AST, ALT normal. Troponin less than 0.01. DIAGNOSTIC DATA: EKG showed normal sinus rhythm, right axis. Chest x-ray showed moderate vascular congestion. Patient's previous cardiac workup: Patient had stress test in 10/02/2015, which showed normal with normal ejection fraction of 76%. Echo was done in 11/18/2016, LV size was normal, LV thickness was normal, LV systolic function was normal with normal EF of 65%, trace aortic regurgitation, mitral regurgitation, which are not significant. DIAGNOSES: Severe anemia, gastrointestinal bleeding, left ventricular failure due to severe anemia, diabetes mellitus, hypertension, chronic obstructive pulmonary disease. PLAN: Patient was already given Lasix. Patient need blood transfusions and she will need Lasix 40 mg IV daily till the lungs are clear. Patient is also put on Antivert 12.5 daily, atorvastatin 40 daily. We will follow hemoglobin, hematocrit, electrolytes, BUN and patient needs GI workup for GI bleeding. Clinically, patient's cardiac status is stable and if any GI procedure needed, patient can go from cardiac point of view as moderate risk and we will follow with you. Alvina Adorno MD
[2017-10-25] MEDS: POLYETHYLENE GLYCOL 3350 17 GM/Dose PACKET PO SCH ×2 (09:27→18:11)
[2017-10-25] MEDS ORDERED: Peg-Electrolyte Oral Soln 4L (Golytely) PO ONE (14:00)
--- NOTE | 2017-10-25 15:21 | CP.PCM.PN ---
<Cassidy Walters - Last Filed: 10/26/17 08:42> Subjective - Date & Time of Evaluation Date of Evaluation: 10/25/17 Time of Evaluation: 14:00 - Subjective Subjective: PGY-[address] Membreno's service Patient seen and examined at bedside. No acute distress. Patient denies any and , n/v, diarrhea or constipation. No overt bleeding reported. She is tolerating diet. Patient is anxious about endoscopy, questions were answered. Objective - Vital Signs/Intake and Output Vital Signs (last 24 hours): Temp Pulse Resp BP Pulse Ox 98.9 F 42 L 20 110/44 L 95 10/25/17 15:18 10/25/17 15:18 10/25/17 15:18 10/25/17 15:18 10/25/17 15:18 Intake and Output: 10/25/17 10/25/17 06:59 18:59 Intake Total 180 480 Balance 180 480 - Medications Medications: Current Medications Albuterol Sulfate (Albuterol 0.083% Inhal Mela (2.5 Mg/3 Ml) Ud) 2.5 mg IH [id number] PRN PRN Reason: Shortness of Breath Last Admin: 10/25/17 07:38 Dose: 2.5 mg Arformoterol Tartrate (Brovana) 15 mcg IH [id number] [facility] Last Admin: 10/25/17 07:38 Dose: 15 mcg Atorvastatin Calcium (Lipitor) 40 mg PO DIN [facility] Last Admin: 10/24/17 18:13 Dose: 40 mg Budesonide (Pulmicort Respules) 1 mg IH [id number] [facility] Last Admin: 10/25/17 07:39 Dose: 1 mg Furosemide (Lasix) 40 mg IV DAILY [facility] Stop: 10/25/17 23:59 Last Admin: 10/25/17 09:26 Dose: 40 mg Furosemide (Lasix) 40 mg PO DAILY [facility] Insulin Human Lispro (Humalog Low) 0 units SC ACHS [facility] PRN Reason: Protocol Last Admin: 10/25/17 11:38 Dose: Not Given Lactic Acid (Lac-Hydrin 12% Lotion (225 G)) 1 gm EXT BID PRN PRN Reason: Dry skin Last Admin: 10/25/17 00:18 Dose: 1 gm Meclizine HCl (Antivert) 12.5 mg PO DAILY PRN PRN Reason: Dizziness Pantoprazole Sodium (Protonix Inj) 40 mg IVP DAILY [facility] Last Admin: 10/25/17 09:28 Dose: 40 mg Polyethylene Glycol (Miralax) 17 gm PO BID [facility] Last Admin: 10/25/17 09:27 Dose: 17 gm Potassium Chloride (Klor-Con 10) 10 meq PO BRK [facility] Last Admin: 10/25/17 08:11 Dose: 10 meq Sodium Chloride ([place] Nasal [place]) 0 ml NS DAILY PRN PRN Reason: Nasal congestion Last Admin: 10/25/17 09:27 Dose: 1 spr - Labs Labs: 10/24/17 12:00 10/24/17 06:00 PT 13.0 SECONDS (9.4-12.5) H 10/22/17 10:52 INR 1.13 (0.93-1.08) H 10/22/17 10:52 APTT 28.1 Seconds (25.1-36.5) 10/22/17 10:52 - Constitutional Appears: Well, No Acute Distress - Head Exam Head Exam: ATRAUMATIC, NORMOCEPHALIC - Eye Exam Eye Exam: EOMI, Normal appearance - ENT Exam ENT Exam: Mucous Membranes Moist - Respiratory Exam Respiratory Exam: Clear to Ausculation Bilateral, NORMAL BREATHING PATTERN. absent: Decreased Breath Sounds, Rales, Rhonchi, Wheezes, Respiratory Distress - Cardiovascular Exam Cardiovascular Exam: REGULAR RHYTHM, +S1, +S2. absent: Bradycardia, Tachycardia , Diastolic murmur, Gallop - GI/Abdominal Exam GI & Abdominal Exam: Soft, Normal Bowel Sounds. absent: Distended, Firm, Guarding, Tenderness, Hernia - Extremities Exam Extremities Exam: Normal Inspection. absent: Pedal Edema, Tenderness - Neurological Exam Neurological Exam: Alert, Awake, Oriented x3 - Psychiatric Exam Psychiatric exam: Normal Affect, Normal Mood - Skin Skin Exam: Dry, Intact, Normal Color, Warm Assessment and Plan - Assessment and Plan (Free Text) Assessment: 87 yo female with PMH of DVT, PE, COPD, DM, CAD, dyslipedemia presented with severe anemia, hgb of 4.9, s/p pRBC transfusion Plan: - patient was on asa and eliquis upon admission, currently discontinued - s/p transfusion - PET scan showed irregularity of the rectal wall - EGD and colonscopy tomorrow case reviewed and discussed with Dr. Membreno <Lina López - Last Filed: 10/26/17 16:06> Objective - Vital Signs/Intake and Output Vital Signs (last 24 hours): Temp Pulse Resp BP Pulse Ox 98 F 75 24 125/60 98 10/26/17 15:02 10/26/17 15:02 10/26/17 15:02 10/26/17 15:02 10/26/17 15:36 Intake and Output: 10/26/17 10/26/17 06:59 18:59 Intake Total 660 Balance 660 - Medications Medications: Current Medications Albuterol Sulfate (Albuterol 0.083% Inhal Mela (2.5 Mg/3 Ml) Ud) 2.5 mg IH [id number] PRN PRN Reason: Shortness of Breath Last Admin: 10/25/17 07:38 Dose: 2.5 mg Arformoterol Tartrate (Brovana) 15 mcg IH [id number] [facility] Last Admin: 10/26/17 07:40 Dose: 15 mcg Atorvastatin Calcium (Lipitor) 40 mg PO DIN [facility] Last Admin: 10/25/17 18:08 Dose: 40 mg Budesonide (Pulmicort Respules) 1 mg IH [id number] [facility] Last Admin: 10/26/17 07:40 Dose: 1 mg Furosemide (Lasix) 40 mg PO DAILY [facility] Last Admin: 10/26/17 10:01 Dose: 40 mg Insulin Human Lispro (Humalog Low) 0 units SC ACHS [facility] PRN Reason: Protocol Last Admin: 10/26/17 12:26 Dose: Not Given Lactic Acid (Lac-Hydrin 12% Lotion (225 G)) 1 gm EXT BID PRN PRN Reason: Dry skin Last Admin: 10/25/17 00:18 Dose: 1 gm Meclizine HCl (Antivert) 12.5 mg PO DAILY PRN PRN Reason: Dizziness Pantoprazole Sodium (Protonix Inj) 40 mg IVP DAILY [facility] Last Admin: 10/26/17 10:01 Dose: 40 mg Polyethylene Glycol (Miralax) 17 gm PO BID [facility] Last Admin: 10/26/17 10:01 Dose: Not Given Potassium Chloride (Klor-Con 10) 10 meq PO BRK [facility] Last Admin: 10/26/17 10:01 Dose: 10 meq Sodium Chloride ([place] Nasal [place]) 0 ml NS DAILY PRN PRN Reason: Nasal congestion Last Admin: 10/25/17 09:27 Dose: 1 spr - Labs Labs: 10/26/17 06:45 10/26/17 06:45 PT 13.0 SECONDS (9.4-12.5) H 10/22/17 10:52 INR 1.13 (0.93-1.08) H 10/22/17 10:52 APTT 28.1 Seconds (25.1-36.5) 10/22/17 10:52 Attending/Attestation - Attestation I have personally seen and examined this patient.: Yes I have fully participated in the care of the patient.: Yes I have reviewed all pertinent clinical information, including history, physical exam and plan: Yes Notes (Text): 10/26/17 16:03 Attending note: Patient seen and examined with resident. Patient is a 87 year old female with past medical history of COPD, diastolic CHF , DVT, and diabetes who presented with severe anemia, hemoglobin 4.9. Her hemoglobin has improved now after 3 units of prbc transfusion. repeat Hemoglobin is 9.8. CT abd/pelvis showed stool, rectal wall thickening and diverticulosis. GI evaluation appreciated. possible EGD/colonoscopy tomorrow. She was on eliquis at home for history of DVT which is on hold secondary to above. Anticoagulation will be discussed with GI and pmd after above procedure. Patient has CKD which is stable. cr is 1.3. cardiology evaluation appreciated. Patient is clinically stable. upon discharge the patient will follow-up with PMD dr. West.
--- NOTE | 2017-10-25 15:58 | CP.PCM.PN ---
<Ancelmo Kern - Last Filed: 10/25/17 19:27> Subjective - Date & Time of Evaluation Date of Evaluation: 10/25/17 Time of Evaluation: 07:45 - Subjective Subjective: PGY1 Medicine Note for Dr. López Patient seen and examined at bedside this morning. No acute events overnight. She is currently tolerating her diet without nausea/vomiting. Patient had one BM overnight, denies any bleeding. Patient denies any complaints at this time. Denies fevers, chills, nausea, vomiting, chest pain, shortness of breath, palpitations, headaches, numbness or tingling. Objective - Vital Signs/Intake and Output Vital Signs (last 24 hours): Temp Pulse Resp BP Pulse Ox 98.9 F 42 L 20 110/44 L 95 10/25/17 15:18 10/25/17 15:18 10/25/17 15:18 10/25/17 15:18 10/25/17 15:18 Intake and Output: 10/25/17 10/25/17 06:59 18:59 Intake Total 180 480 Balance 180 480 - Medications Medications: Current Medications Albuterol Sulfate (Albuterol 0.083% Inhal Mela (2.5 Mg/3 Ml) Ud) 2.5 mg IH [id number] PRN PRN Reason: Shortness of Breath Last Admin: 10/25/17 07:38 Dose: 2.5 mg Arformoterol Tartrate (Brovana) 15 mcg IH [id number] [facility] Last Admin: 10/25/17 07:38 Dose: 15 mcg Atorvastatin Calcium (Lipitor) 40 mg PO DIN [facility] Last Admin: 10/24/17 18:13 Dose: 40 mg Budesonide (Pulmicort Respules) 1 mg IH [id number] [facility] Last Admin: 10/25/17 07:39 Dose: 1 mg Furosemide (Lasix) 40 mg IV DAILY [facility] Stop: 10/25/17 23:59 Last Admin: 10/25/17 09:26 Dose: 40 mg Furosemide (Lasix) 40 mg PO DAILY [facility] Insulin Human Lispro (Humalog Low) 0 units SC ACHS [facility] PRN Reason: Protocol Last Admin: 10/25/17 11:38 Dose: Not Given Lactic Acid (Lac-Hydrin 12% Lotion (225 G)) 1 gm EXT BID PRN PRN Reason: Dry skin Last Admin: 10/25/17 00:18 Dose: 1 gm Meclizine HCl (Antivert) 12.5 mg PO DAILY PRN PRN Reason: Dizziness Pantoprazole Sodium (Protonix Inj) 40 mg IVP DAILY [facility] Last Admin: 10/25/17 09:28 Dose: 40 mg Polyethylene Glycol (Miralax) 17 gm PO BID [facility] Last Admin: 10/25/17 09:27 Dose: 17 gm Potassium Chloride (Klor-Con 10) 10 meq PO BRK [facility] Last Admin: 10/25/17 08:11 Dose: 10 meq Sodium Chloride ([place] Nasal [place]) 0 ml NS DAILY PRN PRN Reason: Nasal congestion Last Admin: 10/25/17 09:27 Dose: 1 spr - Labs Labs: 10/24/17 12:00 10/24/17 06:00 PT 13.0 SECONDS (9.4-12.5) H 10/22/17 10:52 INR 1.13 (0.93-1.08) H 10/22/17 10:52 APTT 28.1 Seconds (25.1-36.5) 10/22/17 10:52 - Constitutional Appears: Well, Non-toxic, No Acute Distress - Head Exam Head Exam: ATRAUMATIC, NORMOCEPHALIC - Eye Exam Eye Exam: EOMI, Normal appearance. absent: Scleral icterus - ENT Exam ENT Exam: Mucous Membranes Moist - Neck Exam Neck Exam: absent: Lymphadenopathy - Respiratory Exam Respiratory Exam: Clear to Ausculation Bilateral, NORMAL BREATHING PATTERN. absent: Accessory Muscle Use, Rales, Rhonchi, Wheezes, Respiratory Distress - Cardiovascular Exam Cardiovascular Exam: REGULAR RHYTHM, +S1, +S2 - GI/Abdominal Exam GI & Abdominal Exam: Soft, Normal Bowel Sounds. absent: Firm, Guarding, Rigid - Extremities Exam Extremities Exam: absent: Calf Tenderness - Neurological Exam Neurological Exam: Alert, Awake, Oriented x3 - Psychiatric Exam Psychiatric exam: Normal Affect, Normal Mood - Skin Skin Exam: Dry, Warm Assessment and Plan - Assessment and Plan (Free Text) Assessment: 87F w/PMH significant for COPD, Asthma, DM, HLD, DVT/PE (on home Eliquis 2.5 BID ), CHF, admitted for severe anemia. Plan is for EGD and colonoscopy on Wednesday. Plan: Severe anemia: 2/2 rectal mass? GI consulted, Dr. Membreno consulted - help appreciated - Scheduled for EGD and Colonoscopy tomorrow. - Patient to do colon prep today. - CT abd pelvis shows asymmetrical rectal wall thickening, adherent stool vs invasive lesion? recommends colonoscopy. diverticulosis. - Stool Occult positive - daily cbc - echo 11/2016 shows normal EF. Grade III diastolic dysfunction - CHF - Lasix 40 IV daily. - Iron studies show iron deficiency anemia. will replete with IV iron after endoscopy. then start on PO Feosol with colace. - Liquid diet - Monitor Hx of DVT/PE: - Pt to remain off AC for 48 hours prior to EGD/Cscopy. Will discuss with Gi and Cardio after procedure for resuming home eliquis 2.5 mg PO BID. Hx of COPD: - on home O2 - Maintain O2 sat>92% - Proair, Advair Hx of HLD/CAD: - Cardio consulted, Dr. Adorno - help appreciated - lipitor - BNP elevated at 1650 - previous visit - elevated in 6000s - Lasix IV daily Hx DM: - Acchuchecks - a1c 6.8 - iss LOW - BG 90s -100s Vertigo: - Fall risk protocol - Meclizine PRN GI/DVT ppx SCDs Contraindications to VTE ppx 2/2 severe anemia/scheduled egd/cscopy Protonix Diet: liquid diet Case discussed with Dr. Rene Ag Concha PGY1 <Lina López - Last Filed: 10/26/17 16:08> Objective - Vital Signs/Intake and Output Vital Signs (last 24 hours): Temp Pulse Resp BP Pulse Ox 98 F 75 24 125/60 98 10/26/17 15:02 10/26/17 15:02 10/26/17 15:02 10/26/17 15:02 10/26/17 15:36 Intake and Output: 10/26/17 10/26/17 06:59 18:59 Intake Total 660 Balance 660 - Medications Medications: Current Medications Albuterol Sulfate (Albuterol 0.083% Inhal Mela (2.5 Mg/3 Ml) Ud) 2.5 mg IH [id number] PRN PRN Reason: Shortness of Breath Last Admin: 10/25/17 07:38 Dose: 2.5 mg Arformoterol Tartrate (Brovana) 15 mcg IH [id number] [facility] Last Admin: 10/26/17 07:40 Dose: 15 mcg Atorvastatin Calcium (Lipitor) 40 mg PO DIN [facility] Last Admin: 10/25/17 18:08 Dose: 40 mg Budesonide (Pulmicort Respules) 1 mg IH [id number] [facility] Last Admin: 10/26/17 07:40 Dose: 1 mg Furosemide (Lasix) 40 mg PO DAILY [facility] Last Admin: 10/26/17 10:01 Dose: 40 mg Insulin Human Lispro (Humalog Low) 0 units SC ACHS [facility] PRN Reason: Protocol Last Admin: 10/26/17 12:26 Dose: Not Given Lactic Acid (Lac-Hydrin 12% Lotion (225 G)) 1 gm EXT BID PRN PRN Reason: Dry skin Last Admin: 10/25/17 00:18 Dose: 1 gm Meclizine HCl (Antivert) 12.5 mg PO DAILY PRN PRN Reason: Dizziness Pantoprazole Sodium (Protonix Inj) 40 mg IVP DAILY [facility] Last Admin: 10/26/17 10:01 Dose: 40 mg Polyethylene Glycol (Miralax) 17 gm PO BID [facility] Last Admin: 10/26/17 10:01 Dose: Not Given Potassium Chloride (Klor-Con 10) 10 meq PO BRK [facility] Last Admin: 10/26/17 10:01 Dose: 10 meq Sodium Chloride ([place] Nasal [place]) 0 ml NS DAILY PRN PRN Reason: Nasal congestion Last Admin: 10/25/17 09:27 Dose: 1 spr - Labs Labs: 10/26/17 06:45 10/26/17 06:45 PT 13.0 SECONDS (9.4-12.5) H 10/22/17 10:52 INR 1.13 (0.93-1.08) H 10/22/17 10:52 APTT 28.1 Seconds (25.1-36.5) 10/22/17 10:52 Attending/Attestation - Attestation I have personally seen and examined this patient.: Yes I have fully participated in the care of the patient.: Yes I have reviewed all pertinent clinical information, including history, physical exam and plan: Yes Notes (Text): 10/26/17 16:07 Attending note: Patient seen and examined with resident. Patient is a 87 year old female with past medical history of COPD, diastolic CHF , DVT, and diabetes who presented with severe anemia, hemoglobin 4.9. Her hemoglobin has improved now after 3 units of prbc transfusion. repeat Hemoglobin is 9.8. CT abd/pelvis showed stool, rectal wall thickening and diverticulosis. GI evaluation appreciated. possible EGD/colonoscopy tomorrow. She was on eliquis at home for history of DVT which is on hold secondary to above. Anticoagulation will be discussed with GI and pmd after above procedure. Patient has CKD which is stable. cr is 1.3. cardiology evaluation appreciated. Patient is clinically stable. upon discharge the patient will follow-up with PMD dr. West.
--- NOTE | 2017-10-25 16:02 | PN ---
DATE: 10/25/2017 REASON FOR CONSULTATION AND FOLLOWUP: Anemia, dizziness, cardiac evaluation, chronic diverticular disease, COPD. SUBJECTIVE: The patient denies any chest pain, shortness of breath or any palpitation, lying flat in the bed. Denies any melena or vomiting any blood. OBJECTIVE: GENERAL: Not in apparent distress, lying flat in the bed. VITAL SIGNS: Temperature afebrile, heart rate 65, blood pressure 120/60. HEENT: PERRLA. Extraocular muscles intact. NECK: Supple. No carotid bruit or thyromegaly. CHEST: Clear to auscultation. HEART: S1 and S2 regular. ABDOMEN: Soft. EXTREMITIES: Clubbing and cyanosis negative. LABORATORY DATA: Blood workup as follows, WBC 7.3, hemoglobin 9, hematocrit 30.2, platelet count 245. Chemistry shows sodium 140, potassium 4, chloride 90, carbon dioxide 33, anion gap of 15, BUN 22, creatinine 1.3. Troponin remains 0.01 negative. IMPRESSION: Severe anemia on admission, requiring 3 units of packed RBC. Admitting hemoglobin 4.9. No evidence of myocardial infraction. The patient had a previous cardiac workup as stress test on 10/02/2015, which showed normal ejection fraction of 76%. An echo was done on 11/18/2016, showed normal ejection fraction of 65%, trace aortic regurgitation, trace mitral regurgitation. Severe anemia, rule out gastrointestinal bleed, left ventricular failure secondary to acute decompensation, congestive heart failure secondary to severe anemia, high output failure, diabetes, hypertension, hyperlipidemia, chronic obstructive pulmonary disease. RECOMMENDATIONS: Monitor H and H closely. Keep hemoglobin around 10 or above. If it is goes below 9, consider transfusion. Continue GI workup. Continue meclizine for dizziness. Continue gentle diuretics. Continue atorvastatin. We will change Lasix to p.o. We will discontinue Telemetry. Recently, cardiac workup was negative. We will follow with you. Consider GI workup and followup. We will change Lasix to p.o. from tomorrow. We will repeat the blood workup in the morning. Thank you Dr. Moore for providing us the opportunity in taking care of the patient, De[place]. Alvina Aquino MD cc: Dr. Moore
[2017-10-26 07:08] LABS: BASO # 0.01 K/mm3 (0.0-2.0); BASO % 0.2 % (0.0-3.0); EOS # 0.2 (0.0-0.7); EOS % 3.1 % (1.5-5.0); GRAN # 3.68 (1.4-6.5); LYMPH # 1.7 (1.2-3.4); LYMPH % 27.7 % (22.0-35.0); MEAN CELL VOLUME 74.6 fl (80.0-105.0); MEAN CORPUSCULAR HEMOGLOBIN 22.2 pg (25.0-35.0); MEAN CORPUSCULAR HGB CONC 29.7 g/dl (31.0-37.0); MEAN PLATELET VOLUME 9.3 fl (7.0-11.0); MONO # 0.6 (0.1-0.6); RBC 4.06 10^6/uL (3.5-6.1); RED CELL DISTRIBUTION WIDTH 21.3 % (11.5-14.5); WHITE BLOOD COUNT 6.2 10^3/ul (4.5-11.0)
[2017-10-26] MEDS: Budesonide 0.5 mg/2 ml Inhal Susp UD IH SCH ×2 (07:40→20:21)
[2017-10-26] MEDS: Arformoterol 15 mcg/2 ml Inh Sol IH SCH ×2 (07:40→20:21)
--- NOTE | 2017-10-26 07:46 | CP.PCM.PN ---
Subjective - Date & Time of Evaluation Date of Evaluation: 10/26/17 Time of Evaluation: 06:45 - Subjective Subjective: Lying in bed, awake, no distress, denies chest pain or shortness of breath Reason for consultation and follow up: cardiac evaluation,coronary artery disease, CHF, NSTEMI, chronic anemia, hyperlipidemia, PE/DVT, COPD Seen and examined by me and Dr. Aquino Objective - Vital Signs/Intake and Output Vital Signs (last 24 hours): Temp Pulse Resp BP Pulse Ox 98.1 F 89 18 123/59 L 95 10/25/17 22:22 10/25/17 22:22 10/25/17 22:22 10/25/17 22:22 10/25/17 22:22 Intake and Output: 10/26/17 10/26/17 06:59 18:59 Intake Total 660 Balance 660 - Medications Medications: Current Medications Albuterol Sulfate (Albuterol 0.083% Inhal Mela (2.5 Mg/3 Ml) Ud) 2.5 mg IH [id number] PRN PRN Reason: Shortness of Breath Last Admin: 10/25/17 07:38 Dose: 2.5 mg Arformoterol Tartrate (Brovana) 15 mcg IH [id number] [facility] Last Admin: 10/25/17 21:15 Dose: 15 mcg Atorvastatin Calcium (Lipitor) 40 mg PO DIN [facility] Last Admin: 10/25/17 18:08 Dose: 40 mg Budesonide (Pulmicort Respules) 1 mg IH [id number] [facility] Last Admin: 10/25/17 21:15 Dose: 1 mg Furosemide (Lasix) 40 mg PO DAILY [facility] Insulin Human Lispro (Humalog Low) 0 units SC ACHS [facility] PRN Reason: Protocol Last Admin: 10/25/17 22:00 Dose: Not Given Lactic Acid (Lac-Hydrin 12% Lotion (225 G)) 1 gm EXT BID PRN PRN Reason: Dry skin Last Admin: 10/25/17 00:18 Dose: 1 gm Meclizine HCl (Antivert) 12.5 mg PO DAILY PRN PRN Reason: Dizziness Pantoprazole Sodium (Protonix Inj) 40 mg IVP DAILY [facility] Last Admin: 10/25/17 09:28 Dose: 40 mg Polyethylene Glycol (Miralax) 17 gm PO BID [facility] Last Admin: 10/25/17 18:11 Dose: Not Given Potassium Chloride (Klor-Con 10) 10 meq PO BRK [facility] Last Admin: 10/25/17 08:11 Dose: 10 meq Sodium Chloride ([place] Nasal [place]) 0 ml NS DAILY PRN PRN Reason: Nasal congestion Last Admin: 10/25/17 09:27 Dose: 1 spr - Labs Labs: 10/26/17 06:45 10/24/17 06:00 PT 13.0 SECONDS (9.4-12.5) H 10/22/17 10:52 INR 1.13 (0.93-1.08) H 10/22/17 10:52 APTT 28.1 Seconds (25.1-36.5) 10/22/17 10:52 - Constitutional Appears: No Acute Distress - Eye Exam Eye Exam: Normal appearance - ENT Exam ENT Exam: Mucous Membranes Moist - Respiratory Exam Respiratory Exam: Decreased Breath Sounds, NORMAL BREATHING PATTERN - Cardiovascular Exam Cardiovascular Exam: +S1, +S2 - GI/Abdominal Exam GI & Abdominal Exam: Soft, Normal Bowel Sounds - Extremities Exam Extremities Exam: Normal Capillary Refill - Neurological Exam Neurological Exam: Alert, Awake, Oriented x3 - Psychiatric Exam Psychiatric exam: Normal Affect, Normal Mood - Skin Skin Exam: Intact, Normal Color, Warm Assessment and Plan - Assessment and Plan (Free Text) Assessment: A 87 year old female who came in to the ER due to low hemoglobin (4.9) from PMD' s office. History of COPD, DM, hyperlipidemia, DVT/PE (2017), Coronary artery disease, congestive heart failure, NSTEMI, Chronic anemia, CKD. Plan: Stable hemoglobin post transfusion Hemoglobin-9 /hematocrit-30 No evidence of myocardial infarction GI consult and follow up Continue current treatment continue current medications Will follow up Plan and treatment discussed with Dr. Aquino
[2017-10-26 07:47] LABS: ALB/GLOB RATIO 1.1 (1.1-1.8); ALBUMIN 3.6 g/dL (3.0-4.8); CALCIUM 9.5 mg/dL (8.4-10.5)
[2017-10-26] MEDS: Insulin Lispro (humaLOG) LOW Coverage SC SCH ×4 (08:11→21:54)
--- NOTE | 2017-10-26 09:33 | CP.PCM.PN ---
Addendum entered and electronically signed by Cyndi Ford DO 10/26/17 12:49: ignore eladio of breast- accidently entered on wrong patient. Original Note: <Cyndi Ford - Last Filed: 10/26/17 12:34> Subjective - Date & Time of Evaluation Date of Evaluation: 10/26/17 Time of Evaluation: 09:31 - Subjective Subjective: IM progress note for Dr. López-Cyndi Ford, PGY-1 Pt S & E at bedside at 0705 Pt reports nausea overnight due to bowel prep, reports BMs are now liquid. Did not finish the bowel prep, knows she is for colonoscopy & EGD today. Reports recent changes in color of BMs (darker), constipation. Denies ab pain, CP, SOB , emesis, F & C, dizziness, palpitations, other complaints. Objective - Vital Signs/Intake and Output Vital Signs (last 24 hours): Temp Pulse Resp BP Pulse Ox 98.1 F 81 18 111/89 96 10/26/17 08:10 10/26/17 08:10 10/26/17 08:10 10/26/17 08:10 10/26/17 08:10 Intake and Output: 10/26/17 10/26/17 06:59 18:59 Intake Total 660 Balance 660 - Medications Medications: Current Medications Albuterol Sulfate (Albuterol 0.083% Inhal Mela (2.5 Mg/3 Ml) Ud) 2.5 mg IH [id number] PRN PRN Reason: Shortness of Breath Last Admin: 10/25/17 07:38 Dose: 2.5 mg Arformoterol Tartrate (Brovana) 15 mcg IH [id number] [facility] Last Admin: 10/26/17 07:40 Dose: 15 mcg Atorvastatin Calcium (Lipitor) 40 mg PO DIN [facility] Last Admin: 10/25/17 18:08 Dose: 40 mg Budesonide (Pulmicort Respules) 1 mg IH [id number] [facility] Last Admin: 10/26/17 07:40 Dose: 1 mg Furosemide (Lasix) 40 mg PO DAILY [facility] Insulin Human Lispro (Humalog Low) 0 units SC ACHS [facility] PRN Reason: Protocol Last Admin: 10/26/17 08:11 Dose: Not Given Lactic Acid (Lac-Hydrin 12% Lotion (225 G)) 1 gm EXT BID PRN PRN Reason: Dry skin Last Admin: 10/25/17 00:18 Dose: 1 gm Meclizine HCl (Antivert) 12.5 mg PO DAILY PRN PRN Reason: Dizziness Pantoprazole Sodium (Protonix Inj) 40 mg IVP DAILY [facility] Last Admin: 10/25/17 09:28 Dose: 40 mg Polyethylene Glycol (Miralax) 17 gm PO BID [facility] Last Admin: 10/25/17 18:11 Dose: Not Given Potassium Chloride (Klor-Con 10) 10 meq PO BRK [facility] Last Admin: 10/25/17 08:11 Dose: 10 meq Sodium Chloride ([place] Nasal [place]) 0 ml NS DAILY PRN PRN Reason: Nasal congestion Last Admin: 10/25/17 09:27 Dose: 1 spr - Labs Labs: 10/26/17 06:45 10/26/17 06:45 PT 13.0 SECONDS (9.4-12.5) H 10/22/17 10:52 INR 1.13 (0.93-1.08) H 10/22/17 10:52 APTT 28.1 Seconds (25.1-36.5) 10/22/17 10:52 - Constitutional Appears: Non-toxic, No Acute Distress - Head Exam Head Exam: ATRAUMATIC, NORMAL INSPECTION, NORMOCEPHALIC - Eye Exam Eye Exam: EOMI, Normal appearance - ENT Exam ENT Exam: Mucous Membranes Moist, Normal Exam - Neck Exam Neck Exam: Full ROM, Normal Inspection - Respiratory Exam Respiratory Exam: Clear to Ausculation Bilateral, NORMAL BREATHING PATTERN. absent: Rales, Rhonchi, Wheezes - Cardiovascular Exam Cardiovascular Exam: REGULAR RHYTHM, +S1, +S2 - GI/Abdominal Exam GI & Abdominal Exam: Soft, Normal Bowel Sounds. 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 Plan is for EGD and colonoscopy today. Plan: Severe anemia Hgb 9.0 from 9.[address] abd pelvis w/asymmetrical rectal wall thickening, adherent stool vs invasive lesion? Recommendation for colonoscopy. diverticulosis. Echo 11/2016 shows normal EF. Grade III diastolic dysfunction - CHF Lasix 40 IV daily. Iron studies -iron deficiency anemia. will replete with IV iron after endoscopy. Plan to start on PO Feosol with colace. Liquid diet Monitor GI following - for EGD, C-scope today Hx of DVT/PE: Pt to remain off AC for 48 hours prior to EGD/Cscopy. Will discuss with Gi and Cardio after procedure for resuming home eliquis 2.5 mg PO BID. Hx of COPD: on home O2 Maintain O2 sat>92% Proair Advair Hx of HLD/CAD: Lipitor BNP elevated at 1650 previous visit - elevated in 6000s Lasix IV daily Cards following- Monitor H/H, no evidence of ID, GI c/s & FU, cont current meds & tx Hx DM: Acchuchecks A1c 6.8 ISS LOW BG 90s -100s Vertigo: Fall risk protocol Meclizine PRN Eladio under breast Nystatin topical Monitor GI/DVT ppx SCDs Contraindications to VTE ppx 2/2 severe anemia/scheduled egd/cscopy Protonix Diet: liquid diet Will DW attending Liliana, PGY-1 <Lina López - Last Filed: 10/26/17 16:12> Objective - Vital Signs/Intake and Output Vital Signs (last 24 hours): Temp Pulse Resp BP Pulse Ox 98 F 75 24 125/60 98 10/26/17 15:02 10/26/17 15:02 10/26/17 15:02 10/26/17 15:02 10/26/17 15:36 Intake and Output: 10/26/17 10/26/17 06:59 18:59 Intake Total 660 Balance 660 - Medications Medications: Current Medications Albuterol Sulfate (Albuterol 0.083% Inhal Mela (2.5 Mg/3 Ml) Ud) 2.5 mg IH [id number] PRN PRN Reason: Shortness of Breath Last Admin: 10/25/17 07:38 Dose: 2.5 mg Arformoterol Tartrate (Brovana) 15 mcg IH [id number] [facility] Last Admin: 10/26/17 07:40 Dose: 15 mcg Atorvastatin Calcium (Lipitor) 40 mg PO DIN [facility] Last Admin: 10/25/17 18:08 Dose: 40 mg Budesonide (Pulmicort Respules) 1 mg IH [id number] [facility] Last Admin: 10/26/17 07:40 Dose: 1 mg Furosemide (Lasix) 40 mg PO DAILY [facility] Last Admin: 10/26/17 10:01 Dose: 40 mg Insulin Human Lispro (Humalog Low) 0 units SC ACHS [facility] PRN Reason: Protocol Last Admin: 10/26/17 12:26 Dose: Not Given Lactic Acid (Lac-Hydrin 12% Lotion (225 G)) 1 gm EXT BID PRN PRN Reason: Dry skin Last Admin: 10/25/17 00:18 Dose: 1 gm Meclizine HCl (Antivert) 12.5 mg PO DAILY PRN PRN Reason: Dizziness Pantoprazole Sodium (Protonix Inj) 40 mg IVP DAILY [facility] Last Admin: 10/26/17 10:01 Dose: 40 mg Polyethylene Glycol (Miralax) 17 gm PO BID [facility] Last Admin: 10/26/17 10:01 Dose: Not Given Potassium Chloride (Klor-Con 10) 10 meq PO BRK [facility] Last Admin: 10/26/17 10:01 Dose: 10 meq Sodium Chloride ([place] Nasal [place]) 0 ml NS DAILY PRN PRN Reason: Nasal congestion Last Admin: 10/25/17 09:27 Dose: 1 spr - Labs Labs: 10/26/17 06:45 10/26/17 06:45 PT 13.0 SECONDS (9.4-12.5) H 10/22/17 10:52 INR 1.13 (0.93-1.08) H 10/22/17 10:52 APTT 28.1 Seconds (25.1-36.5) 10/22/17 10:52 Attending/Attestation - Attestation I have personally seen and examined this patient.: Yes I have fully participated in the care of the patient.: Yes I have reviewed all pertinent clinical information, including history, physical exam and plan: Yes Notes (Text): 10/26/17 16:11 Attending note: Patient seen and examined with resident. Patient is a 87 year old female with past medical history of COPD, diastolic CHF , DVT, and diabetes who presented with severe anemia, hemoglobin 4.9. Her hemoglobin has improved now after 3 units of prbc transfusion. repeat Hemoglobin is 9.0. no active bleeding. CT abd/pelvis showed stool, rectal wall thickening and diverticulosis. GI evaluation appreciated. s/p bowel prep with Golytely. waiting for EGD/colonoscopy. She was on eliquis at home for history of DVT which is on hold secondary to above. Anticoagulation will be discussed with GI and pmd after above procedures. Patient has CKD which is stable. cr is 1.4. cardiology evaluation appreciated. Patient is clinically stable. upon discharge the patient will follow-up with PMD dr. West.
[2017-10-26] MEDS: Potassium Chloride 10 mEq ER Tab PO SCH (10:01)
[2017-10-26] MEDS: POLYETHYLENE GLYCOL 3350 17 GM/Dose PACKET PO SCH (10:01)
[2017-10-26] MEDS ORDERED: Lidocaine 1% Inj (20ml) ONE (15:37)
[2017-10-26] MEDS ORDERED: Etomidate 20 mg/10ml Inj IV ONE (15:37)
[2017-10-26] MEDS ORDERED: Propofol 10 mg/ml Inj (20 ML) ONE (15:37)
[2017-10-26] MEDS ORDERED: ePHEDrine 50 mg/ml Inj ONE (16:09)
[2017-10-26] MEDS ORDERED: Sodium Chloride 0.9% 1,000 ML IV SCH (16:45)
[2017-10-27] MEDS ORDERED: Pantoprazole 40 mg EC Tab PO SCH (06:00)
--- NOTE | 2017-10-27 06:05 | CP.PCM.PN ---
Subjective - Date & Time of Evaluation Date of Evaluation: 10/27/17 Time of Evaluation: 06:40 - Subjective Subjective: Awake,sitting at side of bed, itchy back/dry, no distress, denies chest pain or shortness of breath Reason for consultation and follow up: cardiac evaluation,coronary artery disease, CHF, NSTEMI, chronic anemia, hyperlipidemia, PE/DVT, COPD Seen and examined by me and Dr. Aquino Objective - Vital Signs/Intake and Output Vital Signs (last 24 hours): Temp Pulse Resp BP Pulse Ox 98.1 F 76 20 101/55 L 98 10/26/17 22:08 10/26/17 22:08 10/26/17 22:08 10/26/17 22:08 10/26/17 22:08 Intake and Output: 10/26/17 10/27/17 18:59 06:59 Intake Total 0 Output Total 0 Balance 0 - Medications Medications: Current Medications Albuterol Sulfate (Albuterol 0.083% Inhal Mela (2.5 Mg/3 Ml) Ud) 2.5 mg IH [id number] PRN PRN Reason: Shortness of Breath Last Admin: 10/25/17 07:38 Dose: 2.5 mg Arformoterol Tartrate (Brovana) 15 mcg IH [id number] [facility] Last Admin: 10/26/17 20:21 Dose: 15 mcg Atorvastatin Calcium (Lipitor) 40 mg PO DIN [facility] Last Admin: 10/26/17 17:56 Dose: Not Given Budesonide (Pulmicort Respules) 1 mg IH [id number] [facility] Last Admin: 10/26/17 20:21 Dose: 1 mg Furosemide (Lasix) 40 mg PO DAILY [facility] Last Admin: 10/26/17 10:01 Dose: 40 mg Sodium Chloride (Sodium Chloride 0.9%) 1,000 mls @ 100 mls/hr IV .Q10H [facility] Last Admin: 10/27/17 05:00 Dose: 100 mls/hr Insulin Human Lispro (Humalog Low) 0 units SC ACHS [facility] PRN Reason: Protocol Last Admin: 10/26/17 21:54 Dose: Not Given Lactic Acid (Lac-Hydrin 12% Lotion (225 G)) 1 gm EXT BID PRN PRN Reason: Dry skin Last Admin: 10/25/17 00:18 Dose: 1 gm Meclizine HCl (Antivert) 12.5 mg PO DAILY PRN PRN Reason: Dizziness Pantoprazole Sodium (Protonix Ec Tab) 40 mg PO 0600 [facility] Polyethylene Glycol (Miralax) 17 gm PO BID [facility] Last Admin: 10/26/17 10:01 Dose: Not Given Potassium Chloride (Klor-Con 10) 10 meq PO BRK [facility] Last Admin: 10/26/17 10:01 Dose: 10 meq Sodium Chloride ([place] Nasal [place]) 0 ml NS DAILY PRN PRN Reason: Nasal congestion Last Admin: 10/25/17 09:27 Dose: 1 spr - Labs Labs: 10/26/17 06:45 10/26/17 06:45 PT 13.0 SECONDS (9.4-12.5) H 10/22/17 10:52 INR 1.13 (0.93-1.08) H 10/22/17 10:52 APTT 28.1 Seconds (25.1-36.5) 10/22/17 10:52 - Constitutional Appears: No Acute Distress - Eye Exam Eye Exam: Normal appearance - ENT Exam ENT Exam: Mucous Membranes Moist - Respiratory Exam Respiratory Exam: Decreased Breath Sounds, Clear to Ausculation Bilateral, NORMAL BREATHING PATTERN - Cardiovascular Exam Cardiovascular Exam: +S1, +S2 - GI/Abdominal Exam GI & Abdominal Exam: Soft, Normal Bowel Sounds - Extremities Exam Extremities Exam: Normal Capillary Refill - Neurological Exam Neurological Exam: Alert, Awake, Oriented x3 - Psychiatric Exam Psychiatric exam: Normal Affect, Normal Mood - Skin Skin Exam: Intact, Normal Color, Warm Assessment and Plan - Assessment and Plan (Free Text) Assessment: A 87 year old female who came in to the ER due to low hemoglobin (4.9) from PMD' s office. History of COPD, DM, hyperlipidemia, DVT/PE (2017), Coronary artery disease, congestive heart failure, NSTEMI, Chronic anemia, CKD,former smoker. EGD done Schatzki ring, hiatal hernia and rectal mass. Plan: Post EGD/Colonoscopy yesterday, Schatzki ring, hiatal hernia and rectal mass. Stable hemoglobin post transfusion No evidence of myocardial infarction Stable cardiac status Iron deficiency, iron supplements Continue current treatment continue current medications Will follow up Plan and treatment discussed with Dr. Aquino
[2017-10-27 07:13] LABS: BASO # 0.02 K/mm3 (0.0-2.0); BASO % 0.3 % (0.0-3.0); EOS # 0.3 (0.0-0.7); EOS % 4.1 % (1.5-5.0); GRAN # 4.9 (1.4-6.5); GRAN % 64.2 % (50.0-68.0); HEMOGLOBIN 8.9 g/dL (12.0-16.0); LYMPH # 1.9 (1.2-3.4); LYMPH % 24.4 % (22.0-35.0); MEAN CELL VOLUME 75.8 fl (80.0-105.0); MEAN PLATELET VOLUME 9.8 fl (7.0-11.0); MONO # 0.5 (0.1-0.6); RBC 4.05 10^6/uL (3.5-6.1); RED CELL DISTRIBUTION WIDTH 21.6 % (11.5-14.5); WHITE BLOOD COUNT 7.6 10^3/ul (4.5-11.0)
[2017-10-27 07:36] LABS: ALB/GLOB RATIO 1.1 (1.1-1.8); ALBUMIN 3.6 g/dL (3.0-4.8); CALCIUM 9.7 mg/dL (8.4-10.5)
[2017-10-27] MEDS: Budesonide 0.5 mg/2 ml Inhal Susp UD IH SCH (07:59)
[2017-10-27] MEDS: Arformoterol 15 mcg/2 ml Inh Sol IH SCH (07:59)
[2017-10-27] MEDS: Insulin Lispro (humaLOG) LOW Coverage SC SCH ×2 (08:00→12:00)
[2017-10-27 08:14] VITALS: PULSE 89; RESP 19; TEMP 97.8; O2SAT 97
[2017-10-27] MEDS: POLYETHYLENE GLYCOL 3350 17 GM/Dose PACKET PO SCH (08:59)
[2017-10-27] MEDS: Potassium Chloride 10 mEq ER Tab PO SCH (09:04)
[2017-10-27 09:07] VITALS: BP 116/60
--- NOTE | 2017-10-27 11:23 | CP.PCM.PN ---
<Cassidy Walters - Last Filed: 10/27/17 18:24> Subjective - Date & Time of Evaluation Date of Evaluation: 10/27/17 Time of Evaluation: 10:00 - Subjective Subjective: PGY-[address] Membreno's service Patient seen and examined at bedside. No acute distress. Patient denies any and , n/v, diarrhea or constipation. No overt bleeding reported. She is tolerating diet. Patient is anxious about biopsy results. No other complaints at this time. Objective - Vital Signs/Intake and Output Vital Signs (last 24 hours): Temp Pulse Resp BP Pulse Ox 97.8 F 89 19 116/60 97 10/27/17 08:14 10/27/17 08:14 10/27/17 08:14 10/27/17 08:59 10/27/17 08:14 Intake and Output: 10/27/17 10/27/17 06:59 18:59 Intake Total 1200 Output Total 0 Balance 1200 - Medications Medications: Current Medications Albuterol Sulfate (Albuterol 0.083% Inhal Mela (2.5 Mg/3 Ml) Ud) 2.5 mg IH [id number] PRN PRN Reason: Shortness of Breath Last Admin: 10/25/17 07:38 Dose: 2.5 mg Arformoterol Tartrate (Brovana) 15 mcg IH [id number] [facility] Last Admin: 10/27/17 07:59 Dose: 15 mcg Atorvastatin Calcium (Lipitor) 40 mg PO DIN [facility] Last Admin: 10/26/17 17:56 Dose: Not Given Budesonide (Pulmicort Respules) 1 mg IH [id number] [facility] Last Admin: 10/27/17 07:59 Dose: 1 mg Furosemide (Lasix) 40 mg PO DAILY [facility] Last Admin: 10/27/17 08:59 Dose: 40 mg Sodium Chloride (Sodium Chloride 0.9%) 1,000 mls @ 100 mls/hr IV .Q10H [facility] Last Admin: 10/27/17 05:00 Dose: 100 mls/hr Insulin Human Lispro (Humalog Low) 0 units SC ACHS [facility] PRN Reason: Protocol Last Admin: 10/27/17 08:00 Dose: Not Given Lactic Acid (Lac-Hydrin 12% Lotion (225 G)) 1 gm EXT BID PRN PRN Reason: Dry skin Last Admin: 10/25/17 00:18 Dose: 1 gm Meclizine HCl (Antivert) 12.5 mg PO DAILY PRN PRN Reason: Dizziness Pantoprazole Sodium (Protonix Ec Tab) 40 mg PO 0600 [facility] Last Admin: 10/27/17 06:15 Dose: 40 mg Polyethylene Glycol (Miralax) 17 gm PO BID [facility] Last Admin: 10/27/17 08:59 Dose: 17 gm Potassium Chloride (Klor-Con 10) 10 meq PO BRK [facility] Last Admin: 10/27/17 09:04 Dose: 10 meq Sodium Chloride ([place] Nasal [place]) 0 ml NS DAILY PRN PRN Reason: Nasal congestion Last Admin: 10/25/17 09:27 Dose: 1 spr - Labs Labs: 10/27/17 06:45 10/27/17 06:45 PT 13.0 SECONDS (9.4-12.5) H 10/22/17 10:52 INR 1.13 (0.93-1.08) H 10/22/17 10:52 APTT 28.1 Seconds (25.1-36.5) 10/22/17 10:52 - Constitutional Appears: Well, No Acute Distress - Head Exam Head Exam: ATRAUMATIC, NORMOCEPHALIC - Eye Exam Eye Exam: EOMI, Normal appearance - ENT Exam ENT Exam: Mucous Membranes Moist - Respiratory Exam Respiratory Exam: Clear to Ausculation Bilateral, NORMAL BREATHING PATTERN. absent: Decreased Breath Sounds, Rales, Rhonchi, Wheezes, Respiratory Distress - Cardiovascular Exam Cardiovascular Exam: REGULAR RHYTHM, +S1, +S2. absent: Bradycardia, Tachycardia , Murmur - GI/Abdominal Exam GI & Abdominal Exam: Soft, Normal Bowel Sounds. absent: Distended, Firm, Tenderness - Extremities Exam Extremities Exam: Normal Inspection. absent: Pedal Edema, Tenderness - Neurological Exam Neurological Exam: Alert, Awake, Oriented x3 - Skin Skin Exam: Dry, Intact, Normal Color, Warm Assessment and Plan - Assessment and Plan (Free Text) Assessment: 87 yo female with PMH of DVT, PE, COPD, DM, CAD, dyslipedemia presented with severe anemia, hgb of 4.9, s/p pRBC transfusion. Patient had EGD, colonoscopy with biopsy Plan: - patient was on asa and eliquis upon admission, currently discontinued - s/p transfusion 3 units pRBC - PET scan showed irregularity of the rectal wall - EGD and colonscopy showed mass, biopsy was taken - consider CT of the chest to r/o possible mets case reviewed and discussed with Dr. Membreno <Devendra Membreno V - Last Filed: 10/28/17 00:17> Objective - Vital Signs/Intake and Output Vital Signs (last 24 hours): Temp Pulse Resp BP Pulse Ox 97.8 F 89 19 116/60 97 10/27/17 08:14 10/27/17 08:14 10/27/17 08:14 10/27/17 08:59 10/27/17 08:14 - Labs Labs: 10/27/17 06:45 10/27/17 06:45 PT 13.0 SECONDS (9.4-12.5) H 10/22/17 10:52 INR 1.13 (0.93-1.08) H 10/22/17 10:52 APTT 28.1 Seconds (25.1-36.5) 10/22/17 10:52 Attending/Attestation - Attestation I have personally seen and examined this patient.: Yes I have fully participated in the care of the patient.: Yes I have reviewed all pertinent clinical information, including history, physical exam and plan: Yes Notes (Text): This is an addendum to GI progress report dictated by the Ship Cleaner.The patient was seen and examined earlier. Medical records, lab studies, imagings were reviewed. Last 24 hours events reviewed. Agreed with the above treatment plan as outlined in Ship Cleaner 's notes the with the addition of the following 10/28/17 00:17
--- NOTE | 2017-10-27 12:22 | CP.PCM.DIS ---
<Cyndi Ford - Last Filed: 10/27/17 14:33> Provider - Provider Date of Admission: 10/22/17 11:24 Attending physician: Lina López MD Primary care physician: Anibal West MD Consults[facility] Time Spent in preparation of Discharge (in minutes): 35 Hospital Course - Lab Results Lab Results: Most Recent Lab Values WBC 7.6 10^3/ul (4.5-11.0) D 10/27/17 06:45 RBC 4.05 10^6/uL (3.5-6.1) 10/27/17 06:45 Hgb 8.9 g/dL (12.0-16.0) L 10/27/17 06:45 Hct 30.7 % (36.0-48.0) L 10/27/17 06:45 MCV 75.8 fl (80.0-105.0) L 10/27/17 06:45 MCH 22.0 pg (25.0-35.0) L 10/27/17 06:45 MCHC 29.0 g/dl (31.0-37.0) L 10/27/17 06:45 RDW 21.6 % (11.5-14.5) H 10/27/17 06:45 Plt Count 227 10^3/uL (120.0-450.0) 10/27/17 06:45 MPV 9.8 fl (7.0-11.0) 10/27/17 06:45 Gran % 64.2 % (50.0-68.0) 10/27/17 06:45 Lymph % (Auto) 24.4 % (22.0-35.0) 10/27/17 06:45 [place] % (Auto) 7.0 % (1.0-6.0) H 10/27/17 06:45 Eos % (Auto) 4.1 % (1.5-5.0) 10/27/17 06:45 Baso % (Auto) 0.3 % (0.0-3.0) 10/27/17 06:45 Gran # 4.90 (1.4-6.5) 10/27/17 06:45 Lymph # (Auto) 1.9 (1.2-3.4) 10/27/17 06:45 [place] # (Auto) 0.5 (0.1-0.6) 10/27/17 06:45 Eos # (Auto) 0.3 (0.0-0.7) 10/27/17 06:45 Baso # (Auto) 0.02 K/mm3 (0.0-2.0) 10/27/17 06:45 Retic Count 1.25 % (0.5-1.5) 10/22/17 12:14 PT 13.0 SECONDS (9.4-12.5) H 10/22/17 10:52 INR 1.13 (0.93-1.08) H 10/22/17 10:52 APTT 28.1 Seconds (25.1-36.5) 10/22/17 10:52 Sodium 143 mmol/L (132-148) 10/27/17 06:45 Potassium 4.3 mmol/L (3.6-5.0) 10/27/17 06:45 Chloride 102 mmol/L (98-107) 10/27/17 06:45 Carbon Dioxide 31 mmol/L (21-33) 10/27/17 06:45 Anion Gap 14 (10-20) 10/27/17 06:45 BUN 20 mg/dL (7-21) 10/27/17 06:45 Creatinine 1.4 mg/dl (0.7-1.2) H 10/27/17 06:45 Est GFR ( Amer) 43 10/27/17 06:45 Est GFR (Non-Af Amer) 35 10/27/17 06:45 POC Glucose (mg/dL) 123 mg/dL (65-110) H 10/27/17 11:14 Random Glucose 101 mg/dL (70-110) 10/27/17 06:45 Hemoglobin A1c 6.8 % (4.2-6.5) H 10/23/17 15:00 Calcium 9.7 mg/dL (8.4-10.5) 10/27/17 06:45 Phosphorus 3.7 mg/dL (2.5-4.5) 10/27/17 06:45 Magnesium 1.7 mg/dL (1.7-2.2) 10/27/17 06:45 Iron 15 ug/dL (45-180) L 10/22/17 12:14 TIBC 487 ug/dL (265-497) 10/22/17 12:14 % Saturation 3 % (20-55) L 10/22/17 12:14 Ferritin 5.4 ng/mL 10/22/17 12:14 Total Bilirubin 0.8 mg/dL (0.2-1.3) 10/27/17 06:45 AST 49 U/L (14-36) H D 10/27/17 06:45 ALT 26 U/L (7-56) 10/27/17 06:45 Alkaline Phosphatase 74 U/L (38-126) 10/27/17 06:45 Troponin I < 0.01 ng/mL D 10/22/17 12:14 NT-Pro-B Natriuret Pep 1650 pg/mL (0-450) H 10/22/17 12:14 Total Protein 6.8 g/dL (5.8-8.3) 10/27/17 06:45 Albumin 3.6 g/dL (3.0-4.8) 10/27/17 06:45 Globulin 3.2 gm/dL 10/27/17 06:45 Albumin/Globulin Ratio 1.1 (1.1-1.8) 10/27/17 06:45 Vitamin B12 387 pg/mL (239-931) 10/22/17 12:14 Folate > 20.0 ng/mL 10/22/17 12:14 Urine Color Light yellow (YELLOW) 10/23/17 09:15 Urine Appearance Slight-cloudy (CLEAR) 10/23/17 09:15 Urine pH 6.0 (4.7-8.0) 10/23/17 09:15 Ur Specific [place] 1.010 (1.005-1.035) 10/23/17 09:15 Urine Protein Negative mg/dL (<30 mg/dL) 10/23/17 09:15 Urine Glucose (UA) Negative mg/dL (NEGATIVE) 10/23/17 09:15 Urine Ketones Negative mg/dL (NEGATIVE) 10/23/17 09:15 Urine Blood Negative (NEGATIVE) 10/23/17 09:15 Urine Nitrate Positive (NEGATIVE) H 10/23/17 09:15 Urine Bilirubin Negative (NEGATIVE) 10/23/17 09:15 Urine Urobilinogen 0.2 E.U./dL (<1 E.U./dL) 10/23/17 09:15 Ur Leukocyte Esterase Trace [place]/uL (NEGATIVE) H 10/23/17 09:15 Urine RBC Negative /hpf (0-2) 10/23/17 09:15 Urine WBC 1 - 3 /hpf (0-6) 10/23/17 09:15 Ur Epithelial Cells 0 - 2 /hpf (0-5) 10/23/17 09:15 Urine Bacteria Few (NEG) 10/23/17 09:15 Stool Occult Blood Positive (NEGATIVE) H 10/25/17 00:30 Blood Type AB POSITIVE 10/22/17 10:52 Blood Type Confirm AB POSITIVE 10/22/17 11:44 Antibody Screen Negative 10/22/17 10:52 Crossmatch See Detail 10/22/17 10:52 BBK History Checked No verified bt 10/22/17 10:52 - Hospital Course Hospital Course: 87F w/PMH sig COPD, hx DM, HLD, hx DVT/PE (2016), CAD, CHF, NSTEMI, Chronic anemia, CKD for admitted for severe anemia (Hgb 4.9). Pt seen/evaluted by PMD yesterday with blood work taken. On day of admission, pt was called and instructed to report to ED for severe anemia. Pt admits to changes in vision when she turns too quickly, SOB, pruritis around EKG leads Denies syncope, near syncope, weakness, dizziness, hematuria, hematochezia, hematemesis, using more than 1 pillow to sleep at night, abdominal pain, headache, vision changes, changes in bowel or bladder habits. Pt admitted to tele, continued on home medications, and transfused pRBC until Hgb 8-9. FOB positive. Started on iron supplementation. Seen/evaluated by cardiology- no evidence of [place], continued on cardiac medications. Pt seen/ evaluated by GI- taken for EGD & colonoscopy with findings of Schtazki ring, hiatal hernia and rectal mass- biopsy sent to pathology for analysis. Pt with deconditioning, needs further physical therapy in TCU prior to d/c home. Diagnoses Severe anemia Rectal mass- pending biopsy results COPD on home O2 Hyperlipidemia CAD DM Vertigo, hx of falls - Date & Time of H&P Date of H&P: 10/22/17 Time of H&P: 13:16 Discharge Exam - Head Exam Head Exam: ATRAUMATIC, NORMAL INSPECTION, NORMOCEPHALIC - Eye Exam Eye Exam: EOMI, Normal appearance - ENT Exam ENT Exam: Mucous Membranes Moist, Normal Exam - Neck Exam Neck exam: Full Rom, Normal Inspection - Respiratory Exam Respiratory Exam: Clear to PA & Lateral, NORMAL BREATHING PATTERN, UNREMARKABLE - Cardiovascular Exam Cardiovascular Exam: REGULAR RHYTHM, +S1, +S2 - GI/Abdominal Exam GI & Abdominal Exam: Normal Bowel Sounds, Soft, Unremarkable. absent: Firm, Guarding, Tenderness - Extremities Exam Extremities exam: normal inspection - Neurological Exam Neurological exam: Alert, CN II-XII Intact, Oriented x3 - Psychiatric Exam Psychiatric exam: Normal Affect, Normal Mood - Skin Skin Exam: Dry, Intact, Normal Color, Warm Discharge Plan - Follow Up Plan Condition: STABLE Disposition: TRANSF TO SNF Instructions: Anemia of Chronic Disease (DC) Additional Instructions: Please continue all medications as ordered. No Eliquis as per cardiology. Referrals: Anibal West MD [Primary Care Provider] - <Lina López - Last Filed: 10/27/17 16:10> Provider - Provider Date of Admission: 10/22/17 11:24 Attending physician: Lina López MD Primary care physician: Anibal eWst MD Hospital Course - Lab Results Lab Results: Most Recent Lab Values WBC 7.6 10^3/ul (4.5-11.0) D 10/27/17 06:45 RBC 4.05 10^6/uL (3.5-6.1) 10/27/17 06:45 Hgb 8.9 g/dL (12.0-16.0) L 10/27/17 06:45 Hct 30.7 % (36.0-48.0) L 10/27/17 06:45 MCV 75.8 fl (80.0-105.0) L 10/27/17 06:45 MCH 22.0 pg (25.0-35.0) L 10/27/17 06:45 MCHC 29.0 g/dl (31.0-37.0) L 10/27/17 06:45 RDW 21.6 % (11.5-14.5) H 10/27/17 06:45 Plt Count 227 10^3/uL (120.0-450.0) 10/27/17 06:45 MPV 9.8 fl (7.0-11.0) 10/27/17 06:45 Gran % 64.2 % (50.0-68.0) 10/27/17 06:45 Lymph % (Auto) 24.4 % (22.0-35.0) 10/27/17 06:45 [place] % (Auto) 7.0 % (1.0-6.0) H 10/27/17 06:45 Eos % (Auto) 4.1 % (1.5-5.0) 10/27/17 06:45 Baso % (Auto) 0.3 % (0.0-3.0) 10/27/17 06:45 Gran # 4.90 (1.4-6.5) 10/27/17 06:45 Lymph # (Auto) 1.9 (1.2-3.4) 10/27/17 06:45 [place] # (Auto) 0.5 (0.1-0.6) 10/27/17 06:45 Eos # (Auto) 0.3 (0.0-0.7) 10/27/17 06:45 Baso # (Auto) 0.02 K/mm3 (0.0-2.0) 10/27/17 06:45 Retic Count 1.25 % (0.5-1.5) 10/22/17 12:14 PT 13.0 SECONDS (9.4-12.5) H 10/22/17 10:52 INR 1.13 (0.93-1.08) H 10/22/17 10:52 APTT 28.1 Seconds (25.1-36.5) 10/22/17 10:52 Sodium 143 mmol/L (132-148) 10/27/17 06:45 Potassium 4.3 mmol/L (3.6-5.0) 10/27/17 06:45 Chloride 102 mmol/L (98-107) 10/27/17 06:45 Carbon Dioxide 31 mmol/L (21-33) 10/27/17 06:45 Anion Gap 14 (10-20) 10/27/17 06:45 BUN 20 mg/dL (7-21) 10/27/17 06:45 Creatinine 1.4 mg/dl (0.7-1.2) H 10/27/17 06:45 Est GFR ( Amer) 43 10/27/17 06:45 Est GFR (Non-Af Amer) 35 10/27/17 06:45 POC Glucose (mg/dL) 123 mg/dL (65-110) H 10/27/17 11:14 Random Glucose 101 mg/dL (70-110) 10/27/17 06:45 Hemoglobin A1c 6.8 % (4.2-6.5) H 10/23/17 15:00 Calcium 9.7 mg/dL (8.4-10.5) 10/27/17 06:45 Phosphorus 3.7 mg/dL (2.5-4.5) 10/27/17 06:45 Magnesium 1.7 mg/dL (1.7-2.2) 10/27/17 06:45 Iron 15 ug/dL (45-180) L 10/22/17 12:14 TIBC 487 ug/dL (265-497) 10/22/17 12:14 % Saturation 3 % (20-55) L 10/22/17 12:14 Ferritin 5.4 ng/mL 10/22/17 12:14 Total Bilirubin 0.8 mg/dL (0.2-1.3) 10/27/17 06:45 AST 49 U/L (14-36) H D 10/27/17 06:45 ALT 26 U/L (7-56) 10/27/17 06:45 Alkaline Phosphatase 74 U/L (38-126) 10/27/17 06:45 Troponin I < 0.01 ng/mL D 10/22/17 12:14 NT-Pro-B Natriuret Pep 1650 pg/mL (0-450) H 10/22/17 12:14 Total Protein 6.8 g/dL (5.8-8.3) 10/27/17 06:45 Albumin 3.6 g/dL (3.0-4.8) 10/27/17 06:45 Globulin 3.2 gm/dL 10/27/17 06:45 Albumin/Globulin Ratio 1.1 (1.1-1.8) 10/27/17 06:45 Vitamin B12 387 pg/mL (239-931) 10/22/17 12:14 Folate > 20.0 ng/mL 10/22/17 12:14 Urine Color Light yellow (YELLOW) 10/23/17 09:15 Urine Appearance Slight-cloudy (CLEAR) 10/23/17 09:15 Urine pH 6.0 (4.7-8.0) 10/23/17 09:15 Ur Specific [place] 1.010 (1.005-1.035) 10/23/17 09:15 Urine Protein Negative mg/dL (<30 mg/dL) 10/23/17 09:15 Urine Glucose (UA) Negative mg/dL (NEGATIVE) 10/23/17 09:15 Urine Ketones Negative mg/dL (NEGATIVE) 10/23/17 09:15 Urine Blood Negative (NEGATIVE) 10/23/17 09:15 Urine Nitrate Positive (NEGATIVE) H 10/23/17 09:15 Urine Bilirubin Negative (NEGATIVE) 10/23/17 09:15 Urine Urobilinogen 0.2 E.U./dL (<1 E.U./dL) 10/23/17 09:15 Ur Leukocyte Esterase Trace [place]/uL (NEGATIVE) H 10/23/17 09:15 Urine RBC Negative /hpf (0-2) 10/23/17 09:15 Urine WBC 1 - 3 /hpf (0-6) 10/23/17 09:15 Ur Epithelial Cells 0 - 2 /hpf (0-5) 10/23/17 09:15 Urine Bacteria Few (NEG) 10/23/17 09:15 Stool Occult Blood Positive (NEGATIVE) H 10/25/17 00:30 Blood Type AB POSITIVE 10/22/17 10:52 Blood Type Confirm AB POSITIVE 10/22/17 11:44 Antibody Screen Negative 10/22/17 10:52 Crossmatch See Detail 10/22/17 10:52 BBK History Checked No verified bt 10/22/17 10:52 Attending/Attestation - Attestation I have personally seen and examined this patient.: Yes I have fully participated in the care of the patient.: Yes I have reviewed all pertinent clinical information, including history, physical exam and plan: Yes Notes (Text): 10/27/17 16:08 Attending note: Patient seen and examined with resident. Patient is a 87 year old female with past medical history of COPD, diastolic CHF , DVT, and diabetes who presented with severe anemia, hemoglobin 4.9. Her hemoglobin has improved now after 3 units of prbc transfusion. repeat Hemoglobin is 8.9. CT abd/pelvis showed stool, rectal wall thickening and diverticulosis. GI evaluation appreciated. patient had EGD/colonoscopy yesterday. Showed a rectal mass. Biopsy done. Results pending. Case discussed with cardiology in detail. Eliquis will be discontinued. Patient has CKD which is stable. cr is 1.3. patient can be transferred to TCU. upon discharge the patient will follow-up with PMD dr. West. diagnosis; Anemia rectal mass COPD Diabetes
--- NOTE | 2017-10-27 15:25 | PN ---
DATE: 10/27/2017 Addendum to the initial progress note dictated by nurse practitioner, Gladys Avila. REASON FOR ADDENDUM: The patient is off Eliquis. The patient has a history of DVT and PE in 11/2016, admitted with severely decreased hemoglobin of 4.9. Since it is almost a year, we will not resume Eliquis and continue rest of the medication except Eliquis. Continue gentle Lasix, continue atorvastatin and monitor H and H. If it remains remains stable, patient okay to be discharged as per GI evaluation and followup. Alvina Aquino MD
--- NOTE | 2017-10-29 07:47 | PQF GENQUE ---
This form is a permanent part of the medical record DR. MCCALLUM, As per pathology biopsy result-"Rectal Adenocarcinoma". Please document in the chart if you agree. Clarification of your documentation is requested to better reflect the severity of illness and intensity of treatment of your patient. Indicators present [] Specify: [] [] Specify: [] [] Specify: [] [] Specify: [] Location in the medical record that reflects the above clinical findings: [] Treatment Provided: [] PHYSICIAN'S RESPONSE Based on your medical judgment of the clinical indicators outlined above please clarify the following: [] Practitioner response [] If unable to determine, please check the box, sign and date. Present On Admission (POA) Indicator: [x] Present at the time of admission [] Not present at the time of admission [] Clinically Undetermined Patient was admitted for anemia. Colonoscopy found a rectal mass. Biopsy showed adenocarcinoma. New diagnosis. Treatment not started yet. In responding to this query, please exercise your independent professional judgment. The fact that a question is asked does not imply that any particular answer is desired or expected. Thank you for your clarification on this documentation. If you have any questions please call:[ ] * Thank you, [X ] GRICELDA sr. social media & mobile manager JELLY
== END 2017-10-27 14:37 | DRG 375 ==
LOC: ED 10:02 → ERH 11:24 → 2RNO 17:23 → 5RSO 10-25 12:34
PROVIDERS: ADMIT Internal Medicine; ATTEND Internal Medicine
PROC: 30233N1 Transfusion of Nonautologous Red Blood Cells into Peripheral Vein, Percutaneous Approach (ICD-10-PCS; 2017-10-22)
PROC: 3E0F7GC Introduction of Other Therapeutic Substance into Respiratory Tract, Via Natural or Artificial Opening (ICD-10-PCS; 2017-10-22)
PROC: 0DBP8ZX Excision of Rectum, Via Natural or Artificial Opening Endoscopic, Diagnostic (ICD-10-PCS; principal; 2017-10-26 15:26)
PROC: 0DJ08ZZ Inspection of Upper Intestinal Tract, Via Natural or Artificial Opening Endoscopic (ICD-10-PCS; 2017-10-26 15:26)
DX: C20 Malignant neoplasm of rectum (principal); I13.0 Hypertensive heart and chronic kidney disease with heart failure and stage 1 through stage 4 chronic kidney disease, or unspecified chronic kidney disease; I50.32 Chronic diastolic (congestive) heart failure; N17.9 Acute kidney failure, unspecified; D50.9 Iron deficiency anemia, unspecified; J44.9 Chronic obstructive pulmonary disease, unspecified; I25.10 Atherosclerotic heart disease of native coronary artery without angina pectoris; E78.5 Hyperlipidemia, unspecified; N18.9 Chronic kidney disease, unspecified; E11.22 Type 2 diabetes mellitus with diabetic chronic kidney disease; K44.9 Diaphragmatic hernia without obstruction or gangrene; K22.2 Esophageal obstruction; Z79.01 Long term (current) use of anticoagulants; I25.2 Old myocardial infarction; Z99.81 Dependence on supplemental oxygen; Z91.81 History of falling; Z86.718 Personal history of other venous thrombosis and embolism; Z86.711 Personal history of pulmonary embolism; Z87.891 Personal history of nicotine dependence

== ENCOUNTER 2017-10-27 14:04 | Inpatient (IN) | payer MEDICARE, OTHER ==
[2017-10-27 15:16] VITALS: BMI 36.7
[2017-10-27] MEDS ORDERED: Albuterol 0.083% Inhal Sol (2.5 mg/3 mL) UD INH PRN (15:51)
[2017-10-27] MEDS: Insulin Lispro (humaLOG) LOW Coverage SC SCH ×2 (17:02→22:41)
[2017-10-27] MEDS: Sodium Chloride 0.9% 1,000 ML IV SCH (17:07)
[2017-10-27] MEDS: POLYETHYLENE GLYCOL 3350 17 GM/Dose PACKET PO SCH (17:08)
[2017-10-27] MEDS: Arformoterol 15 mcg/2 ml Inh Sol IH SCH (19:21)
[2017-10-27] MEDS: Budesonide 0.5 mg/2 ml Inhal Susp UD IH SCH (19:21)
[2017-10-27] MEDS ORDERED: Pneumococcal 23-Valent Vaccine IM ONE (20:14)
[2017-10-28] MEDS: Sodium Chloride 0.9% 1,000 ML IV SCH ×2 (02:00→12:33)
[2017-10-28] MEDS: Pantoprazole 40 mg EC Tab PO SCH (05:57)
[2017-10-28] MEDS: Insulin Lispro (humaLOG) LOW Coverage SC SCH ×4 (06:38→22:04)
[2017-10-28] MEDS: Budesonide 0.5 mg/2 ml Inhal Susp UD IH SCH ×2 (07:15→21:12)
[2017-10-28] MEDS: Arformoterol 15 mcg/2 ml Inh Sol IH SCH ×2 (07:15→21:12)
[2017-10-28] MEDS: Potassium Chloride 10 mEq ER Tab PO SCH (08:09)
--- NOTE | 2017-10-28 09:14 | CP.PCM.HP ---
<Cyndi Ford - Last Filed: 10/28/17 12:41> History of Present Illness - History of Present Illness History of Present Illness: IM H & P for Dr. Sahil Ford, PGY-1 Pt S & E at bedside at 0720 87F w/PMH sig COPD, hx DM, HLD, hx DVT/PE (2017), CAD, CHF, NSTEMI, Chronic anemia, CKD for admitted to TCU s/p hospital admission for severe anemia (Hgb 4.9). On day of hospital admission, pt was called by PMD and instructed to report to ED for severe anemia. Pt admitted to tele, continued on home medications, and transfused pRBC until Hgb 8-9. FOB positive. Started on iron supplementation. Seen/evaluated by cardiology- no evidence of [place], continued on cardiac medications. Pt seen/evaluated by GI- taken for EGD & colonoscopy with findings of Schtazki ring, hiatal hernia and rectal mass- biopsy sent to pathology for analysis. Pt with deconditioning, admitted to TCU for further physical therapy prior to d/c home. Pt currently only w/complaint of left neck pain due to hard pillows. Denies N & V, F & C, SOB, chest pain, abdominal pain. Tolerating diet. Moving bowels- soft, non formed. No blood noted. No other complaints. PMH: COPD on Proair and Advair & Home O2 (2L), hx DM, last A1c 6, not currently on Metformin, HLD, hx DVT/PE on Eliquis, Hx NSTEMI on Eliquis, vertigo on meclizine, chronic anemia (hgb 10 average), hypovitaminosis D (on Vitamin D, Magnesium), reflux on Omeprazole, CHITO on CKD PSH: Denies All: NKDA SH: Admits to tobacco use hx (quit in 20 yrs ago, 2ppd x 50 yrs), rare ETOH use , denies illicit drug use PMD: [place] Present on Admission - Present on Admission Any Indicators Present on Admission: No History of DVT/PE: No History of Uncontrolled Diabetes: No Urinary Catheter: No Decubitus Ulcer Present: No Review of Systems - Review of Systems All systems: reviewed and no additional remarkable complaints except - Constitutional Constitutional: absent: Chills, Fever - EENT Ears: Dizziness (chronic) Nose/Mouth/Throat: Neck Pain (left sided after sleeping) - Cardiovascular Cardiovascular: absent: Chest Pain - Gastrointestinal Gastrointestinal: absent: Abdominal Pain, Nausea, Vomiting - Genitourinary Genitourinary: absent: Change in Urinary Stream, Difficulty Urinating - Musculoskeletal Musculoskeletal: Neck Pain - Integumentary Integumentary: absent: Rash - Neurological Neurological: Dizziness (chronic) - Psychiatric Psychiatric: absent: Change in Appetite Past Patient History - Infectious Disease Hx of Infectious Diseases: None - Tetanus Immunizations Tetanus Immunization: Unknown - Past Medical History & Family History Past Medical History?: Yes - Past Social History Smoking Status: Former Smoker - CARDIAC Hx Congestive Heart Failure: Yes Hx Hypercholesterolemia: Yes - PULMONARY Hx Chronic Obstructive Pulmonary Disease (COPD): Yes - NEUROLOGICAL Hx Neurological Disorder: No - HEENT Hx HEENT Problems: No - RENAL Hx Chronic Kidney Disease: No - ENDOCRINE/METABOLIC Hx Diabetes Mellitus Type 2: Yes - HEMATOLOGICAL/ONCOLOGICAL Hx Blood Transfusions: No Hx Blood Transfusion Reaction: No - INTEGUMENTARY Hx Dermatological Problems: No - MUSCULOSKELETAL/RHEUMATOLOGICAL Hx Falls: Yes - GASTROINTESTINAL Hx Gastrointestinal Disorders: No - GENITOURINARY/GYNECOLOGICAL Hx Genitourinary Disorders: Yes (UTI) Hx Reproductive Disorders: No - PSYCHIATRIC Hx Psychophysiologic Disorder: No Hx Substance Use: No - SURGICAL HISTORY Hx Surgeries: Yes (rhinoplasty,BUNIONECTOMY BILATERAL TOES.) - ANESTHESIA Hx Anesthesia Reactions: No Hx Malignant Hyperthermia: No Meds Allergies/Adverse Reactions: Allergies Allergy/AdvReac Type Severity Reaction Status Date / Time No Known Allergies Allergy Verified 10/27/17 20:02 Physical Exam - Constitutional Appears: Non-toxic, No Acute Distress - Head Exam Head Exam: ATRAUMATIC, NORMAL INSPECTION, NORMOCEPHALIC - Eye Exam Eye Exam: EOMI, Normal appearance - ENT Exam ENT Exam: Mucous Membranes Moist, Normal Exam - Neck Exam Neck exam: Positive for: Tenderness (left sided, noticable tightness of muscles) - Respiratory Exam Respiratory Exam: Clear to Auscultation Bilateral, NORMAL BREATHING PATTERN - Cardiovascular Exam Cardiovascular Exam: REGULAR RHYTHM, +S1, +S2 - GI/Abdominal Exam GI & Abdominal Exam: Normal Bowel Sounds, Soft. absent: Distended, Tenderness - Extremities Exam Extremities exam: Positive for: normal inspection. Negative for: tenderness - Back Exam Back exam: NORMAL INSPECTION - Neurological Exam Neurological exam: Alert, CN II-XII Intact, Oriented x3 - Psychiatric Exam Psychiatric exam: Normal Affect, Normal Mood - Skin Skin Exam: Dry, Intact, Normal Color, Warm Results - Vital Signs Recent Vital Signs: Last Vital Signs Temp 98 F 10/27/17 20:03 Pulse 72 10/27/17 20:03 Resp 18 10/27/17 20:03 BP 128/69 10/28/17 05:58 Pulse Ox - Labs Labs: Laboratory Results - last 24 hr 10/27/17 10/28/17 21:34 04:14 POC Glucose (mg/dL) 121 H 98 Assessment & Plan - Assessment and Plan (Free Text) Assessment: 87F w/PMH sig for COPD, Asthma, DM, HLD, hx DVT/PE, CHF, admitted to TCU for deconditioning after hospitalization for severe anemia. Plan: Severe anemia- resolving Monitor for bleeding FU bx from rectal mass Lasix 40 IV daily. Started Feosol Miralax Hypokalemia KCl 20mEq daily Hx of COPD: on home O2 Maintain O2 sat>92% Brovana Pulmicort [place] nasal spray Hx of HLD/CAD: Lipitor Lasix IV daily Hx DM: Accabram ISS LOW Vertigo Fall risk protocol Meclizine PRN Hx of DVT/PE: Per Cards- no need for further Eliquis Neck pain Tylenol PRN Heating pad to area Neck stretches Skin care Ammonium lactate Monitor for skin break down GI/DVT ppx SCDs Contraindications to VTE ppx due to recent severe anemia Protonix Dispo TCU PT/OT CCHO diet DW attending Liliana, PGY-1 - Date & Time Date: 10/28/17 Time: 09:19 Decision To Admit - Pt Status Changed To: Hospital Disposition Of: Inpatient Admission - Admit Certification Admit to Inpatient:: After my assessment, the patient will require hospitalization for at least two midnights. This is because of the severity of symptoms shown, intensity of services needed, and/or the medical risk in this patient being treated as an outpatient. - . Bed Request Type: [facility] Admitting Physician: Lina López <Lina López - Last Filed: 10/29/17 17:54> Results - Vital Signs Recent Vital Signs: Last Vital Signs Temp 98.7 F 10/29/17 16:00 Pulse 77 10/29/17 16:11 Resp 18 10/29/17 16:00 BP 110/54 L 10/29/17 16:00 Pulse Ox 97 10/29/17 16:11 - Labs Result Diagrams: 10/29/17 06:50 10/29/17 06:50 Labs: Laboratory Results - last 24 hr 10/28/17 10/29/17 10/29/17 21:40 05:16 06:50 WBC 5.9 D RBC 4.04 Hgb 8.9 L Hct 31.0 L MCV 76.7 L MCH 22.0 L MCHC 28.7 L RDW 21.0 H Plt Count 189 MPV 9.2 Gran % 56.7 Lymph % (Auto) 30.7 [place] % (Auto) 7.6 H Eos % (Auto) 4.7 Baso % (Auto) 0.3 Gran # 3.34 Lymph # (Auto) 1.8 [place] # (Auto) 0.5 Eos # (Auto) 0.3 Baso # (Auto) 0.02 Sodium Potassium Chloride Carbon Dioxide Anion Gap BUN Creatinine Est GFR ( Amer) Est GFR (Non-Af Amer) POC Glucose (mg/dL) 160 H 77 Random Glucose Calcium Phosphorus Magnesium Total Bilirubin AST ALT Alkaline Phosphatase Total Protein Albumin Globulin Albumin/Globulin Ratio 10/29/17 06:50 WBC RBC Hgb Hct MCV MCH MCHC RDW Plt Count MPV Gran % Lymph % (Auto) [place] % (Auto) Eos % (Auto) Baso % (Auto) Gran # Lymph # (Auto) [place] # (Auto) Eos # (Auto) Baso # (Auto) Sodium 143 Potassium 4.7 Chloride 102 Carbon Dioxide 31 Anion Gap 15 BUN 23 H Creatinine 1.2 Est GFR ( Amer) 51 Est GFR (Non-Af Amer) 42 POC Glucose (mg/dL) Random Glucose 102 Calcium 10.0 Phosphorus 3.6 Magnesium 1.4 L Total Bilirubin 0.4 AST 27 ALT 24 Alkaline Phosphatase 72 Total Protein 6.9 Albumin 3.6 Globulin 3.3 Albumin/Globulin Ratio 1.1 Attending/Attestation - Attestation I have personally seen and examined this patient.: Yes I have fully participated in the care of the patient.: Yes I have reviewed all pertinent clinical information: Yes Notes (Text): Attending note: Patient seen and examined with resident in TCU. Patient is a 87 year old female with past medical history of COPD, diastolic CHF , DVT, and diabetes who presented with severe anemia, hemoglobin 4.9. Her hemoglobin has improved now after 3 units of prbc transfusion. repeat Hemoglobin is 8.9. CT abd/pelvis showed stool, rectal wall thickening and diverticulosis. GI evaluation appreciated. patient had EGD/colonoscopy yesterday. Showed a rectal mass. Biopsy done. Results pending. Case discussed with cardiology in detail. Eliquis will be discontinued. Patient has CKD which is stable. cr is 1.3. Continue physical therapy. upon discharge the patient will follow-up with PMD dr. West.
[2017-10-28] MEDS: POLYETHYLENE GLYCOL 3350 17 GM/Dose PACKET PO SCH ×2 (09:46→17:01)
[2017-10-28] MEDS: Ferrous Sulfate 300 mg/5 mL Liq UD PO SCH ×3 (09:47→17:01)
--- NOTE | 2017-10-28 11:48 | CP.PCM.CON ---
History of Present Illness - History of Present Illness History of Present Illness: Sitting at side of bed, awake, denies chest pain, denies shortness of breath Reason for consultation: Continuity of care to TCU, coronary artery disease, congestive heart failure,NSTEMI, severe anemia, COPD Brief history of present illness: An 87 year old female who came in to the ER due to low hemoglobin (4.9) severe anemia,History of COPD, coronary artery disease,diabetes mellitus, hyperlipidemia, DVT/PE (2017), CHF, NSTEMI, chronic anemia, CKD. 3 units of PRBC was given and repeat Hemoglobin was 8.9.Pt seen/ evaluated by GI- taken for EGD & colonoscopy with findings of Schtazki ring, hiatal hernia and rectal mass- biopsy sent to pathology for analysis. Transferred to TCU for reconditioning and cardiology continuing care and follow up. Seen and examined by me and Dr. Aquino Review of Systems - Constitutional Constitutional: As Per HPI - Cardiovascular Additional comments: denies chest pain, denies shortness of breath - Respiratory Additional comments: denies dyspnea - Gastrointestinal Additional comments: denies nausea/vomiting - Genitourinary Additional comments: continent - Musculoskeletal Additional comments: walks with cane/walker Past Patient History - Infectious Disease Hx of Infectious Diseases: None - Tetanus Immunizations Tetanus Immunization: Unknown - Past Medical History & Family History Past Medical History?: Yes - Past Social History Smoking Status: Former Smoker - CARDIAC Hx Congestive Heart Failure: Yes Hx Hypercholesterolemia: Yes - PULMONARY Hx Chronic Obstructive Pulmonary Disease (COPD): Yes - NEUROLOGICAL Hx Neurological Disorder: No - HEENT Hx HEENT Problems: No - RENAL Hx Chronic Kidney Disease: No - ENDOCRINE/METABOLIC Hx Diabetes Mellitus Type 2: Yes - HEMATOLOGICAL/ONCOLOGICAL Hx Blood Transfusions: No Hx Blood Transfusion Reaction: No - INTEGUMENTARY Hx Dermatological Problems: No - MUSCULOSKELETAL/RHEUMATOLOGICAL Hx Falls: Yes - GASTROINTESTINAL Hx Gastrointestinal Disorders: No - GENITOURINARY/GYNECOLOGICAL Hx Genitourinary Disorders: Yes (UTI) Hx Reproductive Disorders: No - PSYCHIATRIC Hx Psychophysiologic Disorder: No Hx Substance Use: No - SURGICAL HISTORY Hx Surgeries: Yes (rhinoplasty,BUNIONECTOMY BILATERAL TOES.) - ANESTHESIA Hx Anesthesia Reactions: No Hx Malignant Hyperthermia: No Meds Allergies/Adverse Reactions: Allergies Allergy/AdvReac Type Severity Reaction Status Date / Time No Known Allergies Allergy Verified 10/27/17 20:02 - Medications Medications: Current Medications Acetaminophen (Tylenol 325mg Tab) 325 mg PO Q4H PRN PRN Reason: Pain, moderate (4-7) Albuterol Sulfate (Albuterol 0.083% Inhal Mela (2.5 Mg/3 Ml) Ud) 2.5 mg INH [id number] PRN; Protocol PRN Reason: Shortness of Breath Arformoterol Tartrate (Brovana) 15 mcg IH [id number] DEQUAN PRN Reason: Protocol Last Admin: 10/28/17 07:15 Dose: 15 mcg Atorvastatin Calcium (Lipitor) 40 mg PO DIN DEQUAN PRN Reason: Protocol Last Admin: 10/27/17 17:07 Dose: 40 mg Budesonide (Pulmicort Respules) 1 mg IH [id number] DEQUAN PRN Reason: Protocol Last Admin: 10/28/17 07:15 Dose: 1 mg Ferrous Sulfate (Feosol Liq) 300 mg PO TID DEQUAN Last Admin: 10/28/17 09:47 Dose: 300 mg Furosemide (Lasix) 40 mg PO 0600 DEQUAN PRN Reason: Protocol Last Admin: 10/28/17 05:58 Dose: 40 mg Sodium Chloride (Sodium Chloride 0.9%) 1,000 mls @ 100 mls/hr IV .Q10H DEQUAN PRN Reason: Protocol Last Admin: 10/28/17 02:00 Dose: 100 mls/hr Insulin Human Lispro (Humalog Low) 0 units SC ACHS DEQUAN PRN Reason: Protocol Last Admin: 10/28/17 11:25 Dose: Not Given Lactic Acid (Lac-Hydrin 12% Lotion (225 G)) 0 gm EXT BID PRN; Protocol PRN Reason: Dry skin Meclizine HCl (Antivert) 12.5 mg PO DAILY PRN; Protocol PRN Reason: Dizziness Pantoprazole Sodium (Protonix Ec Tab) 40 mg PO 0600 DEQUAN PRN Reason: Protocol Last Admin: 10/28/17 05:57 Dose: 40 mg Polyethylene Glycol (Miralax) 17 gm PO BID DEQUAN PRN Reason: Protocol Last Admin: 10/28/17 09:46 Dose: 17 gm Potassium Chloride (Klor-Con 10) 10 meq PO 0800 DEQUAN PRN Reason: Protocol Last Admin: 10/28/17 08:09 Dose: 10 meq Sodium Chloride ([place] Nasal [place]) 0 ml NS DAILY PRN; Protocol PRN Reason: Nasal congestion Physical Exam - Constitutional Appears: No Acute Distress - Head Exam Head Exam: NORMOCEPHALIC - Eye Exam Eye Exam: Normal appearance - ENT Exam ENT Exam: Mucous Membranes Moist - Respiratory Exam Respiratory Exam: Clear to Auscultation Bilateral, NORMAL BREATHING PATTERN - Cardiovascular Exam Cardiovascular Exam: +S1, +S2 - GI/Abdominal Exam GI & Abdominal Exam: Normal Bowel Sounds, Soft - Exam Additional comments: continent - Extremities Exam Extremities exam: Positive for: normal capillary refill Additional comments: walks with cane/walker - Neurological Exam Neurological exam: Alert, Oriented x3 - Psychiatric Exam Psychiatric exam: Normal Affect, Normal Mood - Skin Skin Exam: Intact, Normal Color, Warm Results - Vital Signs Recent Vital Signs: Last Vital Signs Temp 97.8 F 10/28/17 10:00 Pulse 84 10/28/17 10:00 Resp 20 10/28/17 10:00 BP 128/69 10/28/17 10:00 Pulse Ox - Labs Labs: Laboratory Results - last 24 hr 10/27/17 10/28/17 10/28/17 21:34 04:14 11:10 POC Glucose (mg/dL) 121 H 98 116 H Assessment & Plan - Assessment and Plan (Free Text) Assessment: An 87 year old female who came in to the ER due to low hemoglobin (4.9) severe anemia,History of COPD, coronary artery disease,diabetes mellitus, hyperlipidemia, DVT/PE (2016), CHF, NSTEMI, chronic anemia, CKD. 3 units of PRBC was given and repeat Hemoglobin was 8.9.Pt seen/evaluated by GI- taken for EGD & colonoscopy with findings of Schtazki ring, hiatal hernia and rectal mass- biopsy sent to pathology for analysis. Cardiology seen/evaluated in telemetry, work up done and no evidence of OK. Transferred to TCU for reconditioning and cardiology continuing care and follow up. Plan: Cardiac status stable Physical therapy Walks with cane and walker On Lipitor 40 mg daily, Lasix 40 mg daily,Potassium 10 meq daily Heart rate and blood pressure stable Continue current treatment Continue current medications Anxious to go home Will follow up Plan and treatment discussed with Dr. Aquino - Date & Time Date: 10/28/17 Time: 06:55
--- NOTE | 2017-10-28 17:26 | CP.PCM.PN ---
Subjective - Date & Time of Evaluation Date of Evaluation: 10/28/17 Time of Evaluation: 10:45 - Subjective Subjective: Seen and examined at the bedside via today, chart review. Patient with no new complaints. No acute overnight events reported. Objective - Vital Signs/Intake and Output Vital Signs (last 24 hours): Temp Pulse Resp BP Pulse Ox 97.8 F 83 20 111/57 L 98 10/28/17 16:00 10/28/17 16:00 10/28/17 16:00 10/28/17 16:00 10/28/17 16:00 - Medications Medications: Current Medications Acetaminophen (Tylenol 325mg Tab) 325 mg PO Q4H PRN PRN Reason: Pain, moderate (4-7) Albuterol Sulfate (Albuterol 0.083% Inhal Mela (2.5 Mg/3 Ml) Ud) 2.5 mg INH [id number] PRN; Protocol PRN Reason: Shortness of Breath Arformoterol Tartrate (Brovana) 15 mcg IH [id number] DEQUAN PRN Reason: Protocol Last Admin: 10/28/17 07:15 Dose: 15 mcg Atorvastatin Calcium (Lipitor) 40 mg PO DIN DEQUAN PRN Reason: Protocol Last Admin: 10/28/17 17:01 Dose: 40 mg Budesonide (Pulmicort Respules) 1 mg IH [id number] DEQUAN PRN Reason: Protocol Last Admin: 10/28/17 07:15 Dose: 1 mg Ferrous Sulfate (Feosol Liq) 300 mg PO TID DEQUAN Last Admin: 10/28/17 17:01 Dose: 300 mg Furosemide (Lasix) 40 mg PO 0600 DEQUAN PRN Reason: Protocol Last Admin: 10/28/17 05:58 Dose: 40 mg Insulin Human Lispro (Humalog Low) 0 units SC ACHS DEQUAN PRN Reason: Protocol Last Admin: 10/28/17 16:39 Dose: Not Given Lactic Acid (Lac-Hydrin 12% Lotion (225 G)) 0 gm EXT BID PRN; Protocol PRN Reason: Dry skin Meclizine HCl (Antivert) 12.5 mg PO DAILY PRN; Protocol PRN Reason: Dizziness Pantoprazole Sodium (Protonix Ec Tab) 40 mg PO 0600 DEQUAN PRN Reason: Protocol Last Admin: 10/28/17 05:57 Dose: 40 mg Polyethylene Glycol (Miralax) 17 gm PO BID DEQUAN PRN Reason: Protocol Last Admin: 10/28/17 17:01 Dose: 17 gm Potassium Chloride (Klor-Con 10) 10 meq PO 0800 DEQUAN PRN Reason: Protocol Last Admin: 10/28/17 08:09 Dose: 10 meq Sodium Chloride ([place] Nasal [place]) 0 ml NS DAILY PRN; Protocol PRN Reason: Nasal congestion - Constitutional Appears: No Acute Distress - Eye Exam Eye Exam: Normal appearance. absent: Scleral icterus - ENT Exam ENT Exam: Mucous Membranes Moist - Respiratory Exam Respiratory Exam: NORMAL BREATHING PATTERN. absent: Respiratory Distress - Cardiovascular Exam Cardiovascular Exam: +S1, +S2 - GI/Abdominal Exam GI & Abdominal Exam: Soft, Normal Bowel Sounds. absent: Guarding, Tenderness, Rebound - Extremities Exam Extremities Exam: absent: Calf Tenderness - Neurological Exam Neurological Exam: Alert, Awake, Oriented x3 Assessment and Plan - Assessment and Plan (Free Text) Assessment: Assessment: Severe anemia, status post packed RBC transfusion Status post EGD/colonoscopy found rectal lesion, status post biopsy Coronary artery disease, history of DVT/PE COPD 87 yo female with PMH of DVT, PE, COPD, DM, CAD, dyslipedemia presented with severe anemia, hgb of 4.9, s/p pRBC transfusion. Patient had EGD, colonoscopy with biopsy Plan: Monitor H&H and transfuse as necessary Follow-up: Colon biopsy Discussed with medical team regarding CT scan of the chest rule out possible metastasis History of PET scan showed irregularity of rectal wall Diet as tolerated On PPI started on iron supplement Continue MiraLAX Seen and discussed with Dr. Membreno.
--- NOTE | 2017-10-29 05:43 | CP.PCM.PN ---
Subjective - Date & Time of Evaluation Date of Evaluation: 10/29/17 Time of Evaluation: 06:35 - Subjective Subjective: Sitting on the commode, awake, denies chest pain, denies shortness of breath Reason for consultation: Continuity of care to TCU, coronary artery disease, congestive heart failure, NSTEMI, severe anemia, COPD,hyperlipidemia, diabetes mellitus, DVT/PE Seen and examined by me and Dr. Aquino Objective - Vital Signs/Intake and Output Vital Signs (last 24 hours): Temp Pulse Resp BP Pulse Ox 97.8 F 83 20 111/57 L 98 10/28/17 16:00 10/28/17 16:00 10/28/17 16:00 10/28/17 16:00 10/28/17 16:00 - Medications Medications: Current Medications Acetaminophen (Tylenol 325mg Tab) 325 mg PO Q4H PRN PRN Reason: Pain, moderate (4-7) Albuterol Sulfate (Albuterol 0.083% Inhal Mela (2.5 Mg/3 Ml) Ud) 2.5 mg INH [id number] PRN; Protocol PRN Reason: Shortness of Breath Arformoterol Tartrate (Brovana) 15 mcg IH [id number] DEQUAN PRN Reason: Protocol Last Admin: 10/28/17 21:12 Dose: 15 mcg Atorvastatin Calcium (Lipitor) 40 mg PO DIN DEQUAN PRN Reason: Protocol Last Admin: 10/28/17 17:01 Dose: 40 mg Budesonide (Pulmicort Respules) 1 mg IH [id number] DEQUAN PRN Reason: Protocol Last Admin: 10/28/17 21:12 Dose: 1 mg Ferrous Sulfate (Feosol Liq) 300 mg PO TID [facility] Last Admin: 10/28/17 17:01 Dose: 300 mg Furosemide (Lasix) 40 mg PO 0600 DEQUAN PRN Reason: Protocol Last Admin: 10/28/17 05:58 Dose: 40 mg Insulin Human Lispro (Humalog Low) 0 units SC ACHS DEQUAN PRN Reason: Protocol Last Admin: 10/28/17 22:04 Dose: Not Given Lactic Acid (Lac-Hydrin 12% Lotion (225 G)) 0 gm EXT BID PRN; Protocol PRN Reason: Dry skin Meclizine HCl (Antivert) 12.5 mg PO DAILY PRN; Protocol PRN Reason: Dizziness Pantoprazole Sodium (Protonix Ec Tab) 40 mg PO 0600 DEQUAN PRN Reason: Protocol Last Admin: 10/28/17 05:57 Dose: 40 mg Polyethylene Glycol (Miralax) 17 gm PO BID DEQUAN PRN Reason: Protocol Last Admin: 10/28/17 17:01 Dose: 17 gm Potassium Chloride (Klor-Con 10) 10 meq PO 0800 DEQUAN PRN Reason: Protocol Last Admin: 10/28/17 08:09 Dose: 10 meq Sodium Chloride ([place] Nasal [place]) 0 ml NS DAILY PRN; Protocol PRN Reason: Nasal congestion - Constitutional Appears: No Acute Distress - Head Exam Head Exam: NORMOCEPHALIC - Eye Exam Eye Exam: Normal appearance - ENT Exam ENT Exam: Mucous Membranes Moist - Respiratory Exam Respiratory Exam: Clear to Ausculation Bilateral, NORMAL BREATHING PATTERN - Cardiovascular Exam Cardiovascular Exam: +S1, +S2 - GI/Abdominal Exam GI & Abdominal Exam: Soft, Normal Bowel Sounds - Extremities Exam Extremities Exam: Normal Capillary Refill - Neurological Exam Neurological Exam: Alert, Awake, Oriented x3 - Psychiatric Exam Psychiatric exam: Normal Affect, Normal Mood - Skin Skin Exam: Intact, Normal Color, Warm Assessment and Plan - Assessment and Plan (Free Text) Assessment: An 87 year old female who came in to the ER due to low hemoglobin (4.9) severe anemia,History of COPD, coronary artery disease,diabetes mellitus, hyperlipidemia, DVT/PE (2017), CHF, NSTEMI, chronic anemia, CKD. 3 units of PRBC was given and repeat Hemoglobin was 8.9.Pt seen/evaluated by GI- taken for EGD & colonoscopy with findings of Schtazki ring, hiatal hernia and rectal mass- biopsy sent to pathology for analysis. Cardiology seen/evaluated in telemetry, work up done and no evidence of OK. Transferred to TCU for reconditioning and cardiology continuing care and follow up. Plan: Physical therapy in progress Walks with cane and walker, able to walk hallway yesterday and claimed she did well with no problems On Lipitor 40 mg daily, Lasix 40 mg daily,Potassium 10 meq daily Heart rate and blood pressure stable Continue current treatment Continue current medications Discharge planning Will follow up Plan and treatment discussed with Dr. Aquino
[2017-10-29] MEDS: Pantoprazole 40 mg EC Tab PO SCH (05:55)
[2017-10-29] MEDS: Insulin Lispro (humaLOG) LOW Coverage SC SCH ×4 (06:31→21:28)
[2017-10-29 07:12] LABS: BASO # 0.02 K/mm3 (0.0-2.0); BASO % 0.3 % (0.0-3.0); EOS # 0.3 (0.0-0.7); EOS % 4.7 % (1.5-5.0); GRAN # 3.34 (1.4-6.5); GRAN % 56.7 % (50.0-68.0); HEMOGLOBIN 8.9 g/dL (12.0-16.0); LYMPH # 1.8 (1.2-3.4); LYMPH % 30.7 % (22.0-35.0); MEAN CELL VOLUME 76.7 fl (80.0-105.0); MEAN CORPUSCULAR HGB CONC 28.7 g/dl (31.0-37.0); MEAN PLATELET VOLUME 9.2 fl (7.0-11.0); MONO # 0.5 (0.1-0.6); MONO % 7.6 % (1.0-6.0); RBC 4.04 10^6/uL (3.5-6.1); WHITE BLOOD COUNT 5.9 10^3/ul (4.5-11.0)
[2017-10-29 07:44] LABS: ALB/GLOB RATIO 1.1 (1.1-1.8); ALBUMIN 3.6 g/dL (3.0-4.8)
--- NOTE | 2017-10-29 08:02 | CON ---
DATE: 10/28/2017 Addendum to initial consult dictated by Nurse Practitioner, Gladys Avila. REASON FOR ADDENDUM: Resident asked the question whether the patient should be continued on Eliquis. The patient has a history of PE in 11/2016. Also has an inferior vena cava filter (IVC filter) was placed. At this time patient came with severely decreased hemoglobin because of the GI bleed. In view of history of GI bleed, risk of rebleed is much more, and more than a year for pulmonary embolism and also the patient's IVC, so we will hold it off for now. We will hold the anticoagulation now because the patient is 87 years old, and I believe it to be more dangerous. I discussed with the patient. We will repeat the CBC in the morning. We will get CBC, CMP, calcium and mag phosphate in the morning with the baseline while the patient is in CCU. Further recommendation depending on the hospital course. We will follow with you. Alvina Aquino MD
[2017-10-29] MEDS: Arformoterol 15 mcg/2 ml Inh Sol IH SCH ×2 (08:11→21:39)
[2017-10-29] MEDS: Budesonide 0.5 mg/2 ml Inhal Susp UD IH SCH ×2 (08:11→21:39)
[2017-10-29] MEDS ORDERED: Magnesium Sulfate 2 GM in Sodium Chloride 0.9% 100 ML IVPB ONE (09:23)
[2017-10-29] MEDS: Potassium Chloride 10 mEq ER Tab PO SCH (09:49)
[2017-10-29] MEDS: Ferrous Sulfate 300 mg/5 mL Liq UD PO SCH ×3 (09:49→17:28)
[2017-10-29] MEDS: POLYETHYLENE GLYCOL 3350 17 GM/Dose PACKET PO SCH ×2 (09:50→17:29)
[2017-10-29] MEDS: Magnesium Oxide 400 mg Tab UD PO SCH ×3 (10:29→17:29)
--- NOTE | 2017-10-29 15:15 | CP.PCM.CON ---
History of Present Illness - History of Present Illness History of Present Illness: General surgery consult for Dr. Tyson Consulted for: rectal adenocarcinoma Patient is an 87F with multiple chronic medical problems who was admitted for severe anemia and was discovered to have a rectal mass on CT of the abdomen and pelvis. Patient underwent colonoscopy and biopsy came back as adenocarcinoma of the rectum. Patient states that she has had chronic constipation she describes as having solid "pellet sized" BM's for several days and then a large amount of liquid stool. Patient also admits to 50 pound weight loss over the past year with no apparent cause. Patient denies any nausea, vomiting, fevers, chills, abdominal pain, back pain, or any other symptoms. PMH: COPD, DVT/PE on eliquis, DM, HLD, CKD, CAD PSH: foot abscess debridement, hand abscess debridement, IVC filter placement ALL: NKDA Social: 40 years 2PPD smoking, quit 20 years ago. social ETOH, no drugs Review of Systems - Review of Systems All systems: reviewed and no additional remarkable complaints except (as per HPI ) Past Patient History - Infectious Disease Hx of Infectious Diseases: None - Tetanus Immunizations Tetanus Immunization: Unknown - Past Medical History & Family History Past Medical History?: Yes - Past Social History Smoking Status: Former Smoker Alcohol: Social Drugs: Denies - CARDIAC Hx Cardiac Disorders: Yes Hx Congestive Heart Failure: Yes Hx Hypercholesterolemia: Yes - PULMONARY Hx Chronic Obstructive Pulmonary Disease (COPD): Yes - NEUROLOGICAL Hx Neurological Disorder: No - HEENT Hx HEENT Problems: No - RENAL Hx Chronic Kidney Disease: No - ENDOCRINE/METABOLIC Hx Diabetes Mellitus Type 2: Yes - HEMATOLOGICAL/ONCOLOGICAL Hx Blood Transfusions: No Hx Blood Transfusion Reaction: No - INTEGUMENTARY Hx Dermatological Problems: No - MUSCULOSKELETAL/RHEUMATOLOGICAL Hx Falls: Yes - GASTROINTESTINAL Hx Gastrointestinal Disorders: No - GENITOURINARY/GYNECOLOGICAL Hx Genitourinary Disorders: Yes (UTI) Hx Reproductive Disorders: No - PSYCHIATRIC Hx Psychophysiologic Disorder: No Hx Substance Use: No - SURGICAL HISTORY Hx Surgeries: Yes (rhinoplasty,BUNIONECTOMY BILATERAL TOES.) - ANESTHESIA Hx Anesthesia Reactions: No Hx Malignant Hyperthermia: No Meds Allergies/Adverse Reactions: Allergies Allergy/AdvReac Type Severity Reaction Status Date / Time No Known Allergies Allergy Verified 10/27/17 20:02 - Medications Medications: Current Medications Acetaminophen (Tylenol 325mg Tab) 325 mg PO Q4H PRN PRN Reason: Pain, moderate (4-7) Albuterol Sulfate (Albuterol 0.083% Inhal Mela (2.5 Mg/3 Ml) Ud) 2.5 mg INH [id number] PRN; Protocol PRN Reason: Shortness of Breath Arformoterol Tartrate (Brovana) 15 mcg IH [id number] DEQUAN PRN Reason: Protocol Last Admin: 10/29/17 08:11 Dose: 15 mcg Atorvastatin Calcium (Lipitor) 40 mg PO DIN [facility] PRN Reason: Protocol Last Admin: 10/28/17 17:01 Dose: 40 mg Budesonide (Pulmicort Respules) 1 mg IH [id number] DEQUAN PRN Reason: Protocol Last Admin: 10/29/17 08:11 Dose: 1 mg Ferrous Sulfate (Feosol Liq) 300 mg PO TID [facility] Last Admin: 10/29/17 13:03 Dose: 300 mg Furosemide (Lasix) 40 mg PO 0600 [facility] PRN Reason: Protocol Last Admin: 10/29/17 05:54 Dose: 40 mg Insulin Human Lispro (Humalog Low) 0 units SC ACHS [facility] PRN Reason: Protocol Last Admin: 10/29/17 11:32 Dose: Not Given Lactic Acid (Lac-Hydrin 12% Lotion (225 G)) 0 gm EXT BID PRN; Protocol PRN Reason: Dry skin Magnesium Oxide (Mag-Ox) 400 mg PO TID [facility] Stop: 10/30/17 23:59 Last Admin: 10/29/17 13:03 Dose: 400 mg Meclizine HCl (Antivert) 12.5 mg PO DAILY PRN; Protocol PRN Reason: Dizziness Pantoprazole Sodium (Protonix Ec Tab) 40 mg PO 0600 [facility] PRN Reason: Protocol Last Admin: 10/29/17 05:55 Dose: 40 mg Polyethylene Glycol (Miralax) 17 gm PO BID DEQUAN PRN Reason: Protocol Last Admin: 10/29/17 09:50 Dose: 17 gm Potassium Chloride (Klor-Con 10) 10 meq PO 0800 [facility] PRN Reason: Protocol Last Admin: 10/29/17 09:49 Dose: 10 meq Sodium Chloride ([place] Nasal [place]) 0 ml NS DAILY PRN; Protocol PRN Reason: Nasal congestion Physical Exam - Constitutional Appears: Well, Non-toxic, No Acute Distress - Head Exam Head Exam: ATRAUMATIC, NORMOCEPHALIC - Eye Exam Eye Exam: Normal appearance. absent: Conjunctival injection, Scleral icterus - ENT Exam ENT Exam: Mucous Membranes Moist, Normal Oropharynx - Respiratory Exam Respiratory Exam: NORMAL BREATHING PATTERN. absent: Accessory Muscle Use, Respiratory Distress - Cardiovascular Exam Cardiovascular Exam: RRR - GI/Abdominal Exam GI & Abdominal Exam: Soft. absent: Distended, Tenderness - Rectal Exam Rectal Exam: Hemorrhoids Additional comments: rough, solid mass on the posterior rectum felt at the tip of the finger-- approximately 6-7cm from anus, streak of blood in the midst of liquid light brown stool - Extremities Exam Extremities exam: Positive for: pedal pulses present. Negative for: calf tenderness, pedal edema - Neurological Exam Neurological exam: Alert, Oriented x3 - Psychiatric Exam Psychiatric exam: Normal Affect, Normal Mood - Skin Skin Exam: Dry, Intact, Normal Color, Warm Results - Vital Signs Recent Vital Signs: Last Vital Signs Temp 97.8 F 10/28/17 16:00 Pulse 83 10/28/17 16:00 Resp 20 10/28/17 16:00 BP 122/77 10/29/17 05:54 Pulse Ox 98 10/28/17 16:00 - Labs Result Diagrams: 10/29/17 06:50 10/29/17 06:50 Labs: Laboratory Results - last 24 hr 10/28/17 10/28/17 10/29/17 16:23 21:40 05:16 WBC RBC Hgb Hct MCV MCH MCHC RDW Plt Count MPV Gran % Lymph % (Auto) [place] % (Auto) Eos % (Auto) Baso % (Auto) Gran # Lymph # (Auto) [place] # (Auto) Eos # (Auto) Baso # (Auto) Sodium Potassium Chloride Carbon Dioxide Anion Gap BUN Creatinine Est GFR ( Amer) Est GFR (Non-Af Amer) POC Glucose (mg/dL) 100 160 H 77 Random Glucose Calcium Phosphorus Magnesium Total Bilirubin AST ALT Alkaline Phosphatase Total Protein Albumin Globulin Albumin/Globulin Ratio 10/29/17 10/29/17 06:50 06:50 WBC 5.9 D RBC 4.04 Hgb 8.9 L Hct 31.0 L MCV 76.7 L MCH 22.0 L MCHC 28.7 L RDW 21.0 H Plt Count 189 MPV 9.2 Gran % 56.7 Lymph % (Auto) 30.7 [place] % (Auto) 7.6 H Eos % (Auto) 4.7 Baso % (Auto) 0.3 Gran # 3.34 Lymph # (Auto) 1.8 [place] # (Auto) 0.5 Eos # (Auto) 0.3 Baso # (Auto) 0.02 Sodium 143 Potassium 4.7 Chloride 102 Carbon Dioxide 31 Anion Gap 15 BUN 23 H Creatinine 1.2 Est GFR ( Amer) 51 Est GFR (Non-Af Amer) 42 POC Glucose (mg/dL) Random Glucose 102 Calcium 10.0 Phosphorus 3.6 Magnesium 1.4 L Total Bilirubin 0.4 AST 27 ALT 24 Alkaline Phosphatase 72 Total Protein 6.9 Albumin 3.6 Globulin 3.3 Albumin/Globulin Ratio 1.1 - Imaging and Cardiology CT scan - abdomen Status: Image reviewed by me, Report reviewed by me Assessment & Plan - Assessment and Plan (Free Text) Assessment: 87F with rectal adenocarcinoma, non-obstructing Plan: Recommend CT of the chest to r/o mets Continue trending CBC and CMP Follow up with oncology for planning for chemotherapy or radiation and coordination Patient may benefit from surgical excision of the mass--not an emergent process at this time because patient is not fully obstructed Continue diet as tolerated Stool softeners Patient needs cardiac and pulmonary optimization prior to any procedure Discussed with primary Seen and discussed with DR. Jah Saha, PGY2
--- NOTE | 2017-10-29 19:56 | CON ---
DATE: 10/29/2017 HISTORY OF PRESENT ILLNESS: In short, the patient is an 87-year-old female. The patient has history of diabetes, dyslipidemia, DVT, coronary artery disease, CHF, NSTEMI, chronic anemia, chronic kidney disease. The patient is currently in Transitional Care Unit, status post hospital admission for severe anemia, hemoglobin 4.9. On admission, the patient was newly diagnosed with colorectal cancer. Psych consult was called for evaluation of possible depressive symptoms. The patient was seen and examined today in the Transitional Care Unit. The patient presented to be alert and oriented, very pleasant. The patient does not appear to be depressed, but mildly upset over her medical diagnosis. The patient denied that she feels overwhelmed. The patient denied that she feels hopeless or helpless. The patient wants to get treatment. The patient would like to know what prognoses are. The patient reported that she has multiple losses in her life, majority of her relatives . She has a nephew who is close to her and who seems to be supportive. The patient reports that she never tried to kill herself and never been evaluated by psychiatrist in the past. The patient reported that she feels okay and she does not feel that her depressive symptoms are out of proportion to her losses in her life and that diagnosis at present moment. The patient reported that she has poor sleep at times, but the patient does not want to take any medications at present moment. The patient is not psychotic. The patient denied hearing voices, seeing things. The patient denied paranoid ideation. The patient does not look to be psychotic. Vital signs seems to be stable. Labs reviewed. Most recent was from today. Hemoglobin 8.9, hematocrit 31. The patient's BUN is 23. MENTAL STATUS EXAMINATION: The patient presented to be alert and oriented, pleasant, cooperative. Good eye contact. Personal hygiene is good. ADLs are fair. Speech was normal rate, tone, quality and quantity. Mood described, I think I am okay, I think I have rights to be upset at times. The patient's affect was reactive, mood congruent. Thought process seems to be coherent and goal directed. Thought content, the patient denied visual, auditory or tactile hallucinations. The patient denied hearing voices or seeing things. The patient does not present to be psychotic. Insight and judgment fair. Impulses are well controlled. IMPRESSION: Most likely, the patient has adjustment disorder with depressed mood. Rule out mood disorder due to general medical condition. PLAN: The patient does not want to be on any medication. The patient does not want Psychiatry to follow up on her. The patient has future-oriented plans. The patient wants to have surgery and wants to get treatment for her newly diagnosed cancer. The patient denied any thoughts of harming herself or others. The patient wants to get better. The patient pose no imminent danger to self or others. This food writer will sign off from this case. Case was discussed with Dr. López and nursing staff on the TCU unit. Please reconsult as needed. Should you have any questions, give me a call back. Thank you very much for letting me participate in the care of your patient. Trista Patino MD
--- NOTE | 2017-10-30 02:54 | CON ---
DATE: 10/29/2017 REASON FOR CONSULT: Rectal cancer. HISTORY OF PRESENT ILLNESS: Patient is an 87-year-old female with past medical history significant for change in bowel habits for a few months, who presented to the emergency room with complaints of worsening shortness of breath and fatigue where she could not walk a few steps without having difficulty breathing. Upon further evaluation, patient was found to have a large rectal mass and her hemoglobin was low on admission. 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 She was admitted in 05/2017 or 06/2017 and at that point, she had multiple pulmonary emboli diagnosed and was placed on anticoagulation at that point, but she never noted any active bleeding. She has not noted any melena or hematochezia. She did note change in bowel habits with constipation alternating with diarrhea, but no other complaints. She does have some weight loss, but she cannot quantify how much weight she has lost. Denies any nausea, vomiting or diarrhea. No bone pain, no fevers, no chills, no other complaints. MEDICATIONS: As per the MAR include albuterol, Antivert, Brovana, Feosol, Humalog, K-Dhara, Lasix and Lipitor as well as Protonix. ALLERGIES: NO KNOWN DRUG ALLERGIES. SOCIAL HISTORY: Noncontributory. She is not a smoker. No alcohol use, no drug use. She has never and has no children. FAMILY HISTORY: Noncontributory. REVIEW OF SYSTEMS: As per the HPI. PHYSICAL EXAMINATION: VITAL SIGNS: Reveals a temperature of 97.8, pulse of 83, respiratory rate of 20, and a blood pressure of 122/77. GENERAL: The patient is an elderly female, sitting up in bed, in no acute distress. HEENT: Head and neck normocephalic, atraumatic. Eyes: Pupils equal, round and reactive to light and accommodation. Extraocular muscles are intact. There is pallor. No icterus is noted. NECK: Supple with no adenopathy. No JVD. No thyromegaly. LUNGS: Decreased breath sounds bilaterally at the bases secondary to poor effort. CARDIOVASCULAR: S1 and S2 are heard. ABDOMEN: Positive bowel sounds, soft, nontender and nondistended. No organomegaly is palpated. EXTREMITIES: There is trace edema. LABORATORY DATA: Her labs revealed a white count of 5.9, hemoglobin 8.9, hematocrit of 31, MCV of 76.7 and a platelet count of 189. Chemistries are within normal limits. BUN and creatinine are 23 and 1.2 with an estimated GFR of 42. All other electrolytes are within normal limits. CEA was not done. 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 As she is elderly, we will discuss with Surgery regarding possible surgery on this patient. She would benefit from some radiation, possibly neoadjuvantly prior to any surgical intervention. Also discussed with patient that she will need iron in the IV as she has constipation already to combat her anemia. She is agreeable. We will also discuss with the patient's nephew. Thank you for the consult. We will follow. Johnny Meek MD
[2017-10-30] MEDS: Pantoprazole 40 mg EC Tab PO SCH (05:23)
[2017-10-30] MEDS: Insulin Lispro (humaLOG) LOW Coverage SC SCH ×4 (07:30→21:46)
[2017-10-30] MEDS: Budesonide 0.5 mg/2 ml Inhal Susp UD IH SCH ×2 (07:30→20:29)
[2017-10-30] MEDS: Arformoterol 15 mcg/2 ml Inh Sol IH SCH ×2 (07:30→20:29)
[2017-10-30] MEDS: Potassium Chloride 10 mEq ER Tab PO SCH (08:29)
[2017-10-30] MEDS: Ammonium Lactate 12% Lotion (225 g) EXT PRN (08:30)
--- NOTE | 2017-10-30 08:58 | CP.PCM.PN ---
Subjective - Date & Time of Evaluation Date of Evaluation: 10/30/17 Time of Evaluation: 07:10 - Subjective Subjective: Patient seen and examined at bedside. No adverse events overnight. Patient continues to have small bowel movements, denies any nausea, vomiting, abdominal pain, fevers or chills. Objective - Vital Signs/Intake and Output Vital Signs (last 24 hours): Temp Pulse Resp BP Pulse Ox 98.7 F 77 18 107/59 L 97 10/29/17 16:00 10/29/17 16:11 10/29/17 16:00 10/30/17 05:23 10/29/17 16:11 - Medications Medications: Current Medications Acetaminophen (Tylenol 325mg Tab) 325 mg PO Q4H PRN PRN Reason: Pain, moderate (4-7) Last Admin: 10/30/17 00:14 Dose: 325 mg Albuterol Sulfate (Albuterol 0.083% Inhal Mela (2.5 Mg/3 Ml) Ud) 2.5 mg INH [id number] PRN; Protocol PRN Reason: Shortness of Breath Arformoterol Tartrate (Brovana) 15 mcg IH [id number] DEQUAN PRN Reason: Protocol Last Admin: 10/30/17 07:30 Dose: 15 mcg Atorvastatin Calcium (Lipitor) 40 mg PO DIN DEQUAN PRN Reason: Protocol Last Admin: 10/29/17 17:28 Dose: 40 mg Budesonide (Pulmicort Respules) 1 mg IH [id number] DEQUAN PRN Reason: Protocol Last Admin: 10/30/17 07:30 Dose: 1 mg Ferrous Sulfate (Feosol Liq) 300 mg PO TID [facility] Last Admin: 10/29/17 17:28 Dose: 300 mg Furosemide (Lasix) 40 mg PO 0600 DEQUAN PRN Reason: Protocol Last Admin: 10/30/17 05:23 Dose: 40 mg Insulin Human Lispro (Humalog Low) 0 units SC ACHS DEQUAN PRN Reason: Protocol Last Admin: 10/30/17 07:30 Dose: Not Given Lactic Acid (Lac-Hydrin 12% Lotion (225 G)) 0 gm EXT BID PRN; Protocol PRN Reason: Dry skin Last Admin: 10/30/17 08:30 Dose: 1 applic Magnesium Oxide (Mag-Ox) 400 mg PO TID [facility] Stop: 10/30/17 23:59 Last Admin: 10/29/17 17:29 Dose: 400 mg Meclizine HCl (Antivert) 12.5 mg PO DAILY PRN; Protocol PRN Reason: Dizziness Pantoprazole Sodium (Protonix Ec Tab) 40 mg PO 0600 [facility] PRN Reason: Protocol Last Admin: 10/30/17 05:23 Dose: 40 mg Polyethylene Glycol (Miralax) 17 gm PO BID DEQUAN PRN Reason: Protocol Last Admin: 10/29/17 17:29 Dose: 17 gm Potassium Chloride (Klor-Con 10) 10 meq PO 0800 [facility] PRN Reason: Protocol Last Admin: 10/30/17 08:29 Dose: 10 meq Sodium Chloride ([place]att Nasal [place]) 0 ml NS DAILY PRN; Protocol PRN Reason: Nasal congestion - Labs Labs: 10/29/17 06:50 10/29/17 06:50 - Constitutional Appears: Well, Non-toxic, No Acute Distress - Head Exam Head Exam: ATRAUMATIC, NORMOCEPHALIC - Eye Exam Eye Exam: Normal appearance. absent: Conjunctival injection, Scleral icterus - ENT Exam ENT Exam: Mucous Membranes Moist, Normal Oropharynx - Respiratory Exam Respiratory Exam: NORMAL BREATHING PATTERN. absent: Accessory Muscle Use, Respiratory Distress - Cardiovascular Exam Cardiovascular Exam: RRR - GI/Abdominal Exam GI & Abdominal Exam: Soft. absent: Distended, Tenderness - Extremities Exam Extremities Exam: absent: Calf Tenderness, Pedal Edema, Tenderness - Neurological Exam Neurological Exam: Alert, Awake, Oriented x3 - Psychiatric Exam Psychiatric exam: Normal Affect, Normal Mood - Skin Skin Exam: Dry, Intact, Normal Color, Warm Assessment and Plan - Assessment and Plan (Free Text) Assessment: 87F with non-obstructing rectal adenocarcinoma Plan: Follow up with oncology and GI for further planning--patient may benefit from pre-operative chemotherapy and radiation Recommend CT chest for work up of metastasis--discussed with primary Trend cbc Stool softeners PRN pain and nausea medication Patient will need cardiac and pulmonary risk assessmen/optimization recommendations prior to OR Discussed with Dr. Tyson, who will provide any further recommendations Kathleen Saha, PGY2
[2017-10-30] MEDS: Ferrous Sulfate 300 mg/5 mL Liq UD PO SCH ×3 (09:22→17:14)
[2017-10-30] MEDS: Magnesium Oxide 400 mg Tab UD PO SCH ×3 (09:23→17:14)
[2017-10-30] MEDS: POLYETHYLENE GLYCOL 3350 17 GM/Dose PACKET PO SCH ×2 (09:23→17:14)
--- NOTE | 2017-10-30 17:46 | CP.PCM.PN ---
<Ancelmo Kern - Last Filed: 10/30/17 19:39> Subjective - Date & Time of Evaluation Date of Evaluation: 10/30/17 Time of Evaluation: 08:00 - Subjective Subjective: PGY1 Medicine Note for Dr. López Patient seen and examined at bedside this morning. No acute events over night. Patient is resting comfortably in her chair. "I feel great." Patient told that she cancer yesterday. 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 She has no complaints at this time. Denies fevers, chills, nausea, vomiting, diarrhea, constipation, chest pain, sob, palpitations, headaches or changes in vision. Objective - Vital Signs/Intake and Output Vital Signs (last 24 hours): Temp Pulse Resp BP Pulse Ox 98.7 F 77 18 107/59 L 97 10/29/17 16:00 10/29/17 16:11 10/29/17 16:00 10/30/17 05:23 10/29/17 16:11 - Medications Medications: Current Medications Acetaminophen (Tylenol 325mg Tab) 325 mg PO Q4H PRN PRN Reason: Pain, moderate (4-7) Last Admin: 10/30/17 00:14 Dose: 325 mg Albuterol Sulfate (Albuterol 0.083% Inhal Mela (2.5 Mg/3 Ml) Ud) 2.5 mg INH [id number] PRN; Protocol PRN Reason: Shortness of Breath Arformoterol Tartrate (Brovana) 15 mcg IH [id number] DEQUAN PRN Reason: Protocol Last Admin: 10/30/17 07:30 Dose: 15 mcg Atorvastatin Calcium (Lipitor) 40 mg PO DIN DEQUAN PRN Reason: Protocol Last Admin: 10/30/17 17:14 Dose: 40 mg Budesonide (Pulmicort Respules) 1 mg IH [id number] DEQUAN PRN Reason: Protocol Last Admin: 10/30/17 07:30 Dose: 1 mg Ferrous Sulfate (Feosol Liq) 300 mg PO TID [facility] Last Admin: 10/30/17 17:14 Dose: 300 mg Furosemide (Lasix) 40 mg PO 0600 [facility] PRN Reason: Protocol Last Admin: 10/30/17 05:23 Dose: 40 mg Insulin Human Lispro (Humalog Low) 0 units SC ACHS DEQUAN PRN Reason: Protocol Last Admin: 10/30/17 16:55 Dose: Not Given Lactic Acid (Lac-Hydrin 12% Lotion (225 G)) 0 gm EXT BID PRN; Protocol PRN Reason: Dry skin Last Admin: 10/30/17 08:30 Dose: 1 applic Magnesium Oxide (Mag-Ox) 400 mg PO TID [facility] Stop: 10/30/17 23:59 Last Admin: 10/30/17 17:14 Dose: 400 mg Meclizine HCl (Antivert) 12.5 mg PO DAILY PRN; Protocol PRN Reason: Dizziness Pantoprazole Sodium (Protonix Ec Tab) 40 mg PO 0600 [facility] PRN Reason: Protocol Last Admin: 10/30/17 05:23 Dose: 40 mg Polyethylene Glycol (Miralax) 17 gm PO BID DEQU[facility] PRN Reason: Protocol Last Admin: 10/30/17 17:14 Dose: 17 gm Potassium Chloride (Klor-Con 10) 10 meq PO 0800 [facility] PRN Reason: Protocol Last Admin: 10/30/17 08:29 Dose: 10 meq Sodium Chloride (Pender Nasal [place]) 0 ml NS DAILY PRN; Protocol PRN Reason: Nasal congestion - Labs Labs: 10/29/17 06:50 10/29/17 06:50 - Constitutional Appears: Non-toxic, No Acute Distress - Head Exam Head Exam: ATRAUMATIC, NORMOCEPHALIC - Eye Exam Eye Exam: EOMI, Normal appearance - ENT Exam ENT Exam: Mucous Membranes Moist - Neck Exam Neck Exam: Tenderness (left sided, tight muscles). absent: Lymphadenopathy - Respiratory Exam Respiratory Exam: Clear to Ausculation Bilateral, NORMAL BREATHING PATTERN. absent: Accessory Muscle Use, Rhonchi, Wheezes, Respiratory Distress - Cardiovascular Exam Cardiovascular Exam: REGULAR RHYTHM, +S1, +S2 - GI/Abdominal Exam GI & Abdominal Exam: Soft, Normal Bowel Sounds. absent: Distended, Firm, Guarding, Rigid, Tenderness - Extremities Exam Extremities Exam: absent: Calf Tenderness, Pedal Edema - Neurological Exam Neurological Exam: Alert, Awake, Oriented x3 - Psychiatric Exam Psychiatric exam: Normal Affect, Normal Mood - Skin Skin Exam: Dry, Warm Assessment and Plan - Assessment and Plan (Free Text) Assessment: 87F w/PMH sig for COPD, Asthma, DM, HLD, hx DVT/PE, CHF, admitted to TCU for deconditioning after hospitalization for severe anemia. 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 Meek - will need to follow up with Dr. Meek for further treatment planning GI consulted, Dr. Membreno Psych consulted, Dr. Patino - Patient states she has accepted the disease and ready to fight. She is upset but not depressed and does not need a psychiatrist. General Surgery consulted, Dr. Tyson - Per surg note, Patient may benefit from surgical excision of the mass--not an emergent process at this time because patient is not fully obstructed Recommend chest CT to eval for mets. - CT abd pelvis shows asymmetrical rectal wall thickening, adherent stool vs invasive lesion? recommends colonoscopy. diverticulosis. - s/p biopsy of rectal mass - Path shows Adenocarcinoma - Stool Occult positive - echo 11/2016 shows normal EF. Grade III diastolic dysfunction - CHF - Lasix 40 PO daily - Iron studies show iron deficiency anemia - Ferrous Sulfate 300 mg PO TID Hx of COPD: - on home O2 - Budesonide 1 mg IH q12h - Albuterol 0.083% 2.5mg INH q6h prn - Brovana 15 mcg IH q12h Hx of HLD/CAD: - Cardio consulted, Dr. Adorno - help appreciated - lipitor - BNP elevated at 1650 - previous visit - elevated in 6000s Hx DM: - Acchuchecks - a1c 6.8 - iss LOW - BG 90s -100s Vertigo: - Fall risk protocol - Meclizine PRN GI/DVT ppx SCDs Contraindications to VTE ppx 2/2 severe anemia/scheduled egd/cscopy Protonix DISPO: Dr. López had discussion with patient yesterday about her diagnosis of rectal adenocarcinoma. Patient broke down and cried initially. She stated that she did not want to . She wanted her nephew called and updated about her diagnosis. He was contacted and stated that he works alot and currently has his own medical problems. He said he will not really be able to help his aunt and requested that office of aging to be contacted. Patient was informed that her nephew will not be able to help her very much due to his current health situation. She states she understands. She still wants to fight everything. She was informed that most of her work up will be done as an outpatient. She understands will follow up will all of her doctors once she is discharged, hopefully wednesday. Case discussed with Dr. Rene Kern PGY1 <Lina López - Last Filed: 10/31/17 09:58> Objective - Vital Signs/Intake and Output Vital Signs (last 24 hours): Temp Pulse Resp BP Pulse Ox 98.7 F 77 18 95/43 L 97 10/29/17 16:00 10/29/17 16:11 10/29/17 16:00 10/31/17 05:29 10/29/17 16:11 - Medications Medications: Current Medications Acetaminophen (Tylenol 325mg Tab) 325 mg PO Q4H PRN PRN Reason: Pain, moderate (4-7) Last Admin: 10/30/17 00:14 Dose: 325 mg Albuterol Sulfate (Albuterol 0.083% Inhal Mela (2.5 Mg/3 Ml) Ud) 2.5 mg INH [id number] PRN; Protocol PRN Reason: Shortness of Breath Arformoterol Tartrate (Brovana) 15 mcg IH [id number] DEQUAN PRN Reason: Protocol Last Admin: 10/31/17 07:23 Dose: 15 mcg Atorvastatin Calcium (Lipitor) 40 mg PO DIN DEQUAN PRN Reason: Protocol Last Admin: 10/30/17 17:14 Dose: 40 mg Budesonide (Pulmicort Respules) 1 mg IH [id number] DEQUAN PRN Reason: Protocol Last Admin: 10/31/17 07:23 Dose: 1 mg Ferrous Sulfate (Feosol Liq) 300 mg PO TID DEQU[facility] Last Admin: 10/31/17 09:16 Dose: 300 mg Furosemide (Lasix) 40 mg PO 0600 [facility] PRN Reason: Protocol Last Admin: 10/31/17 05:29 Dose: Not Given Insulin Human Lispro (Humalog Low) 0 units SC ACHS DEQUAN PRN Reason: Protocol Last Admin: 10/31/17 06:37 Dose: Not Given Lactic Acid (Lac-Hydrin 12% Lotion (225 G)) 0 gm EXT BID PRN; Protocol PRN Reason: Dry skin Last Admin: 10/31/17 09:17 Dose: 1 applic Meclizine HCl (Antivert) 12.5 mg PO DAILY PRN; Protocol PRN Reason: Dizziness Pantoprazole Sodium (Protonix Ec Tab) 40 mg PO 0600 DEQUAN PRN Reason: Protocol Last Admin: 10/31/17 05:29 Dose: 40 mg Polyethylene Glycol (Miralax) 17 gm PO BID DEQUAN PRN Reason: Protocol Last Admin: 10/31/17 09:16 Dose: 17 gm Potassium Chloride (Klor-Con 10) 10 meq PO 0800 [facility] PRN Reason: Protocol Last Admin: 10/31/17 08:31 Dose: 10 meq Sodium Chloride (Pender Nasal [place]) 0 ml NS DAILY PRN; Protocol PRN Reason: Nasal congestion - Labs Labs: 10/29/17 06:50 10/29/17 06:50 Attending/Attestation - Attestation I have personally seen and examined this patient.: Yes I have fully participated in the care of the patient.: Yes I have reviewed all pertinent clinical information, including history, physical exam and plan: Yes Notes (Text): 10/31/17 09:50 Attending note: Patient seen and examined with resident in TCU. Patient is a 87 year old female with past medical history of COPD, diastolic CHF , DVT, and diabetes who presented with severe anemia, hemoglobin 4.9. Her hemoglobin has improved now after 3 units of prbc transfusion. repeat Hemoglobin is 8.9. Adenocarcinoma of the rectum. Oncology evaluation appreciated. Need CT chest and further work up as outpatient. Surgery evaluation appreciated. We will get radiation oncology evaluation tomorrow. Eliquis discontinued. Oncology and hematology aware and agreed. Psychiatric evaluation appreciated. Patient denies any depression. Case discussed with patient's nephew Jovanni boswellshonna [phone] in detail. Continue physical therapy. Possible discharge tomorrow. Needs drug abuse social worker evaluation before discharge. Case discussed with PMD in detail yesterday. upon discharge the patient will follow-up with PMD dr. West.
[2017-10-31] MEDS: Pantoprazole 40 mg EC Tab PO SCH (05:29)
[2017-10-31] MEDS: Insulin Lispro (humaLOG) LOW Coverage SC SCH ×4 (06:37→22:00)
[2017-10-31] MEDS: Arformoterol 15 mcg/2 ml Inh Sol IH SCH ×2 (07:23→20:07)
[2017-10-31] MEDS: Budesonide 0.5 mg/2 ml Inhal Susp UD IH SCH ×2 (07:23→20:07)
[2017-10-31] MEDS: Potassium Chloride 10 mEq ER Tab PO SCH (08:31)
[2017-10-31] MEDS: Ferrous Sulfate 300 mg/5 mL Liq UD PO SCH ×3 (09:16→18:13)
[2017-10-31] MEDS: POLYETHYLENE GLYCOL 3350 17 GM/Dose PACKET PO SCH ×2 (09:16→18:13)
[2017-10-31] MEDS: Ammonium Lactate 12% Lotion (225 g) EXT PRN (09:17)
--- NOTE | 2017-10-31 10:28 | CP.PCM.PN ---
Subjective - Date & Time of Evaluation Date of Evaluation: 10/31/17 Time of Evaluation: 07:45 - Subjective Subjective: Surgery progress note. Dr. Tyson Pt seen and examined at bedside. No N/V/D. No Abdominal pain. No F/C. Has been having regular bowel movements. No new complaints. Objective - Vital Signs/Intake and Output Vital Signs (last 24 hours): Temp Pulse Resp BP Pulse Ox 98.7 F 77 18 95/43 L 97 10/29/17 16:00 10/29/17 16:11 10/29/17 16:00 10/31/17 05:29 10/29/17 16:11 - Medications Medications: Current Medications Acetaminophen (Tylenol 325mg Tab) 325 mg PO Q4H PRN PRN Reason: Pain, moderate (4-7) Last Admin: 10/30/17 00:14 Dose: 325 mg Albuterol Sulfate (Albuterol 0.083% Inhal Mela (2.5 Mg/3 Ml) Ud) 2.5 mg INH [id number] PRN; Protocol PRN Reason: Shortness of Breath Arformoterol Tartrate (Brovana) 15 mcg IH [id number] DEQUAN PRN Reason: Protocol Last Admin: 10/31/17 07:23 Dose: 15 mcg Atorvastatin Calcium (Lipitor) 40 mg PO DIN DEQUAN PRN Reason: Protocol Last Admin: 10/30/17 17:14 Dose: 40 mg Budesonide (Pulmicort Respules) 1 mg IH [id number] DEQUAN PRN Reason: Protocol Last Admin: 10/31/17 07:23 Dose: 1 mg Ferrous Sulfate (Feosol Liq) 300 mg PO TID DEQUAN Last Admin: 10/31/17 09:16 Dose: 300 mg Furosemide (Lasix) 40 mg PO 0600 [facility] PRN Reason: Protocol Last Admin: 10/31/17 05:29 Dose: Not Given Insulin Human Lispro (Humalog Low) 0 units SC ACHS DEQUAN PRN Reason: Protocol Last Admin: 10/31/17 06:37 Dose: Not Given Lactic Acid (Lac-Hydrin 12% Lotion (225 G)) 0 gm EXT BID PRN; Protocol PRN Reason: Dry skin Last Admin: 10/31/17 09:17 Dose: 1 applic Meclizine HCl (Antivert) 12.5 mg PO DAILY PRN; Protocol PRN Reason: Dizziness Pantoprazole Sodium (Protonix Ec Tab) 40 mg PO 0600 DE[facility] PRN Reason: Protocol Last Admin: 10/31/17 05:29 Dose: 40 mg Polyethylene Glycol (Miralax) 17 gm PO BID DEQUAN PRN Reason: Protocol Last Admin: 10/31/17 09:16 Dose: 17 gm Potassium Chloride (Klor-Con 10) 10 meq PO 0800 [facility] PRN Reason: Protocol Last Admin: 10/31/17 08:31 Dose: 10 meq Sodium Chloride ([place] Nasal [place]) 0 ml NS DAILY PRN; Protocol PRN Reason: Nasal congestion - Labs Labs: 10/29/17 06:50 10/29/17 06:50 - Constitutional Appears: Well, Non-toxic, No Acute Distress - Head Exam Head Exam: ATRAUMATIC, NORMAL INSPECTION, NORMOCEPHALIC - Eye Exam Eye Exam: EOMI - ENT Exam ENT Exam: Mucous Membranes Moist - Respiratory Exam Respiratory Exam: NORMAL BREATHING PATTERN. absent: Accessory Muscle Use, Respiratory Distress - GI/Abdominal Exam GI & Abdominal Exam: Soft. absent: Distended, Firm, Guarding, Rigid, Tenderness , Rebound - Extremities Exam Extremities Exam: Normal Inspection. absent: Calf Tenderness - Neurological Exam Neurological Exam: Alert, Awake, Oriented x3 - Skin Skin Exam: Dry, Intact, Normal Color, Warm Assessment and Plan - Assessment and Plan (Free Text) Assessment: 87yo F with rectal mass, non-obstructive Plan: - Recommend CT chest for metastatic workup - continue stool softeners - f/u oncology recs - Patient may follow up with Dr. Tyson as outpatient after completing Oncology work-up for elective resection. Call for appointment Further recs as per Dr. Jah Jose PGY1 surgery pager: [phone]
[2017-11-01] MEDS: Pantoprazole 40 mg EC Tab PO SCH (05:43)
[2017-11-01] MEDS: Insulin Lispro (humaLOG) LOW Coverage SC SCH ×4 (06:32→22:03)
[2017-11-01 07:24] LABS: BASO # 0.02 K/mm3 (0.0-2.0); BASO % 0.4 % (0.0-3.0); EOS # 0.2 (0.0-0.7); EOS % 4.1 % (1.5-5.0); GRAN # 3.17 (1.4-6.5); GRAN % 56.5 % (50.0-68.0); HEMOGLOBIN 8.3 g/dL (12.0-16.0); LYMPH # 1.8 (1.2-3.4); LYMPH % 31.2 % (22.0-35.0); MEAN CELL VOLUME 76.5 fl (80.0-105.0); MEAN CORPUSCULAR HEMOGLOBIN 22.2 pg (25.0-35.0); MONO # 0.4 (0.1-0.6); MONO % 7.8 % (1.0-6.0); RBC 3.74 10^6/uL (3.5-6.1); RED CELL DISTRIBUTION WIDTH 21.6 % (11.5-14.5); WHITE BLOOD COUNT 5.6 10^3/ul (4.5-11.0)
[2017-11-01] MEDS: Arformoterol 15 mcg/2 ml Inh Sol IH SCH ×2 (07:27→21:00)
--- NOTE | 2017-11-01 07:28 | CP.PCM.PN ---
Subjective - Date & Time of Evaluation Date of Evaluation: 11/01/17 Time of Evaluation: 06:35 - Subjective Subjective: Awake, denies chest pain, denies shortness of breath, ready to go home Reason for consultation: Continuity of care to TCU, coronary artery disease, congestive heart failure, NSTEMI, severe anemia, COPD,hyperlipidemia, diabetes mellitus, DVT/PE, reconditioning. Seen and examined by me and Dr. Aquino Objective - Vital Signs/Intake and Output Vital Signs (last 24 hours): Temp Pulse Resp BP Pulse Ox 97.5 F L 68 18 97/59 L 100 10/31/17 16:00 10/31/17 16:00 10/31/17 16:00 11/01/17 05:43 10/31/17 16:00 - Medications Medications: Current Medications Acetaminophen (Tylenol 325mg Tab) 325 mg PO Q4H PRN PRN Reason: Pain, moderate (4-7) Last Admin: 10/30/17 00:14 Dose: 325 mg Albuterol Sulfate (Albuterol 0.083% Inhal Mela (2.5 Mg/3 Ml) Ud) 2.5 mg INH [id number] PRN; Protocol PRN Reason: Shortness of Breath Arformoterol Tartrate (Brovana) 15 mcg IH [id number] PRN Reason: Protocol Last Admin: 10/31/17 20:07 Dose: 15 mcg Atorvastatin Calcium (Lipitor) 40 mg PO DIN DEQUAN PRN Reason: Protocol Last Admin: 10/31/17 18:13 Dose: 40 mg Budesonide (Pulmicort Respules) 1 mg IH [id number] DEQUAN PRN Reason: Protocol Last Admin: 10/31/17 20:07 Dose: 1 mg Ferrous Sulfate (Feosol Liq) 300 mg PO TID DEQUAN Last Admin: 10/31/17 18:13 Dose: 300 mg Furosemide (Lasix) 40 mg PO 0600 DEQUAN PRN Reason: Protocol Last Admin: 11/01/17 05:43 Dose: Not Given Insulin Human Lispro (Humalog Low) 0 units SC ACHS DEQUAN PRN Reason: Protocol Last Admin: 11/01/17 06:32 Dose: Not Given Lactic Acid (Lac-Hydrin 12% Lotion (225 G)) 0 gm EXT BID PRN; Protocol PRN Reason: Dry skin Last Admin: 10/31/17 09:17 Dose: 1 applic Meclizine HCl (Antivert) 12.5 mg PO DAILY PRN; Protocol PRN Reason: Dizziness Pantoprazole Sodium (Protonix Ec Tab) 40 mg PO 0600 DEQUAN PRN Reason: Protocol Last Admin: 11/01/17 05:43 Dose: 40 mg Polyethylene Glycol (Miralax) 17 gm PO BID DEQUNA PRN Reason: Protocol Last Admin: 10/31/17 18:13 Dose: Not Given Potassium Chloride (Klor-Con 10) 10 meq PO 0800 DEQUAN PRN Reason: Protocol Last Admin: 10/31/17 08:31 Dose: 10 meq Sodium Chloride ([place] Nasal [place]) 0 ml NS DAILY PRN; Protocol PRN Reason: Nasal congestion - Labs Labs: 11/01/17 07:00 10/29/17 06:50 - Constitutional Appears: No Acute Distress - Head Exam Head Exam: NORMOCEPHALIC - Eye Exam Eye Exam: Normal appearance - ENT Exam ENT Exam: Mucous Membranes Moist - Respiratory Exam Respiratory Exam: Clear to Ausculation Bilateral, NORMAL BREATHING PATTERN - Cardiovascular Exam Cardiovascular Exam: +S1, +S2 - GI/Abdominal Exam GI & Abdominal Exam: Soft, Normal Bowel Sounds - Extremities Exam Extremities Exam: Normal Capillary Refill Additional comments: walks with walker and cane - Neurological Exam Neurological Exam: Alert, Awake, Oriented x3 - Psychiatric Exam Psychiatric exam: Normal Affect, Normal Mood - Skin Skin Exam: Intact, Normal Color, Warm Assessment and Plan - Assessment and Plan (Free Text) Assessment: An 87 year old female who came in to the ER due to low hemoglobin (4.9) severe anemia,History of COPD, coronary artery disease,diabetes mellitus, hyperlipidemia, DVT/PE (2017), CHF, NSTEMI, chronic anemia, CKD. 3 units of PRBC was given and repeat Hemoglobin was 8.9.Pt seen/evaluated by GI- taken for EGD & colonoscopy with findings of Schtazki ring, hiatal hernia and rectal mass- biopsy sent to pathology for analysis. Cardiology seen/evaluated in telemetry, work up done and no evidence of TN. Transferred to TCU for reconditioning and cardiology continuing care and follow up. 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 Aquino
[2017-11-01] MEDS: Potassium Chloride 10 mEq ER Tab PO SCH (07:48)
--- NOTE | 2017-11-01 08:25 | CP.PCM.PN ---
<Chris López - Last Filed: 11/02/17 11:33> Subjective - Date & Time of Evaluation Date of Evaluation: 11/01/17 Time of Evaluation: 06:00 - Subjective Subjective: Patient seen and evaluated bedside. No acute issues overnight. Patient states she is feeling well. Denies any chest pain, shortness of breath, fever, abdominal pain, chills, nausea or any other complaints at this time. Objective - Vital Signs/Intake and Output Vital Signs (last 24 hours): Temp Pulse Resp BP Pulse Ox 97.5 F L 68 18 97/59 L 100 10/31/17 16:00 10/31/17 16:00 10/31/17 16:00 11/01/17 05:43 10/31/17 16:00 - Medications Medications: Current Medications Acetaminophen (Tylenol 325mg Tab) 325 mg PO Q4H PRN PRN Reason: Pain, moderate (4-7) Last Admin: 10/30/17 00:14 Dose: 325 mg Albuterol Sulfate (Albuterol 0.083% Inhal Mela (2.5 Mg/3 Ml) Ud) 2.5 mg INH [id number] PRN; Protocol PRN Reason: Shortness of Breath Last Admin: 11/01/17 07:28 Dose: 2.5 mg Arformoterol Tartrate (Brovana) 15 mcg IH [id number] DEQUAN PRN Reason: Protocol Last Admin: 11/01/17 07:27 Dose: 15 mcg Atorvastatin Calcium (Lipitor) 40 mg PO DIN DEQUAN PRN Reason: Protocol Last Admin: 10/31/17 18:13 Dose: 40 mg Budesonide (Pulmicort Respules) 1 mg IH [id number] DEQUAN PRN Reason: Protocol Last Admin: 10/31/17 20:07 Dose: 1 mg Ferrous Sulfate (Feosol Liq) 300 mg PO TID DEQUAN Last Admin: 10/31/17 18:13 Dose: 300 mg Furosemide (Lasix) 40 mg PO 0600 DEQUAN PRN Reason: Protocol Last Admin: 11/01/17 05:43 Dose: Not Given Insulin Human Lispro (Humalog Low) 0 units SC ACHS DEQUAN PRN Reason: Protocol Last Admin: 11/01/17 06:32 Dose: Not Given Lactic Acid (Lac-Hydrin 12% Lotion (225 G)) 0 gm EXT BID PRN; Protocol PRN Reason: Dry skin Last Admin: 10/31/17 09:17 Dose: 1 applic Meclizine HCl (Antivert) 12.5 mg PO DAILY PRN; Protocol PRN Reason: Dizziness Pantoprazole Sodium (Protonix Ec Tab) 40 mg PO 0600 DEQUAN PRN Reason: Protocol Last Admin: 11/01/17 05:43 Dose: 40 mg Polyethylene Glycol (Miralax) 17 gm PO BID DEQUAN PRN Reason: Protocol Last Admin: 10/31/17 18:13 Dose: Not Given Potassium Chloride (Klor-Con 10) 10 meq PO 0800 DEQUAN PRN Reason: Protocol Last Admin: 11/01/17 07:48 Dose: 10 meq Sodium Chloride ([place] Nasal Remlap) 0 ml NS DAILY PRN; Protocol PRN Reason: Nasal congestion - Labs Labs: 11/01/17 07:00 10/29/17 06:50 - Constitutional Appears: Non-toxic, No Acute Distress - Head Exam Head Exam: ATRAUMATIC, NORMAL INSPECTION, NORMOCEPHALIC - Eye Exam Eye Exam: Normal appearance - ENT Exam ENT Exam: Mucous Membranes Moist - Respiratory Exam Respiratory Exam: Clear to Ausculation Bilateral, NORMAL BREATHING PATTERN - Cardiovascular Exam Cardiovascular Exam: REGULAR RHYTHM, +S1, +S2 - Neurological Exam Neurological Exam: Alert, Awake, Oriented x3 Assessment and Plan - Assessment and Plan (Free Text) Assessment: 87F w/PMH sig for COPD, Asthma, DM, HLD, hx DVT/PE, CHF, admitted to TCU for deconditioning after hospitalization for severe anemia. 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 Meek - will need to follow up with Dr. Meek for further treatment planning GI consulted, Dr. Membreno Psych consulted, Dr. Patino - Patient states she has accepted the disease and ready to fight. She is upset but not depressed and does not need a psychiatrist. General Surgery consulted, Dr. Tyson - Per surg note, Patient may benefit from surgical excision of the mass--not an emergent process at this time because patient is not fully obstructed Recommend chest CT to eval for mets. - CT abd pelvis shows asymmetrical rectal wall thickening, adherent stool vs invasive lesion? recommends colonoscopy. diverticulosis. - s/p biopsy of rectal mass - Path shows Adenocarcinoma - Stool Occult positive - echo 11/2016 shows normal EF. Grade III diastolic dysfunction - CHF - Lasix 40 PO daily - Iron studies show iron deficiency anemia - Ferrous Sulfate 300 mg PO TID -Elisa Bryant comcachorroulted, radiation oncology, follow recs Hx of COPD: - on home O2 - Budesonide 1 mg IH q12h - Albuterol 0.083% 2.5mg INH q6h prn - Brovana 15 mcg IH q12h Hx of HLD/CAD: - Cardio consulted, Dr. Adorno - help appreciated - lipitor Hx DM: - Acchuchecks - a1c 6.8 - iss LOW Vertigo: - Fall risk protocol - Meclizine PRN GI/DVT ppx SCDs Contraindications to VTE ppx 2/2 severe anemia/scheduled egd/cscopy Protonix <Haylie Moore - Last Filed: 11/02/17 12:26> Objective - Vital Signs/Intake and Output Vital Signs (last 24 hours): Temp Pulse Resp BP Pulse Ox 98.5 F 71 20 103/59 L 93 L 11/02/17 11:29 11/02/17 11:29 11/02/17 11:29 11/02/17 11:29 11/02/17 11:29 - Medications Medications: Current Medications Acetaminophen (Tylenol 325mg Tab) 325 mg PO Q4H PRN PRN Reason: Pain, moderate (4-7) Last Admin: 10/30/17 00:14 Dose: 325 mg Albuterol Sulfate (Albuterol 0.083% Inhal Mela (2.5 Mg/3 Ml) Ud) 2.5 mg INH [id number] PRN; Protocol PRN Reason: Shortness of Breath Last Admin: 11/01/17 07:28 Dose: 2.5 mg Arformoterol Tartrate (Brovana) 15 mcg IH [id number] DEQUAN PRN Reason: Protocol Last Admin: 11/02/17 07:53 Dose: 15 mcg Atorvastatin Calcium (Lipitor) 40 mg PO DIN DEQUAN PRN Reason: Protocol Last Admin: 11/01/17 17:12 Dose: 40 mg Budesonide (Pulmicort Respules) 1 mg IH [id number] DEQUAN PRN Reason: Protocol Last Admin: 11/02/17 07:53 Dose: 1 mg Ferrous Sulfate (Feosol Liq) 300 mg PO TID [facility] Last Admin: 11/02/17 10:55 Dose: 300 mg Furosemide (Lasix) 40 mg PO 0600 DEQUAN PRN Reason: Protocol Last Admin: 11/02/17 06:39 Dose: 40 mg Insulin Human Lispro (Humalog Low) 0 units SC ACHS DEQUAN PRN Reason: Protocol Last Admin: 11/02/17 11:37 Dose: Not Given Lactic Acid (Lac-Hydrin 12% Lotion (225 G)) 0 gm EXT BID PRN; Protocol PRN Reason: Dry skin Last Admin: 10/31/17 09:17 Dose: 1 applic Meclizine HCl (Antivert) 12.5 mg PO DAILY PRN; Protocol PRN Reason: Dizziness Pantoprazole Sodium (Protonix Ec Tab) 40 mg PO 0600 DEQUAN PRN Reason: Protocol Last Admin: 11/02/17 06:40 Dose: 40 mg Polyethylene Glycol (Miralax) 17 gm PO BID DEQUAN PRN Reason: Protocol Last Admin: 11/02/17 10:56 Dose: Not Given Potassium Chloride (Klor-Con 10) 10 meq PO 0800 DEQUAN PRN Reason: Protocol Last Admin: 11/02/17 08:59 Dose: 10 meq Sodium Chloride ([place] Nasal Remlap) 0 ml NS DAILY PRN; Protocol PRN Reason: Nasal congestion - Labs Labs: 11/01/17 07:00 10/29/17 06:50 Attending/Attestation - Attestation I have personally seen and examined this patient.: Yes I have fully participated in the care of the patient.: Yes I have reviewed all pertinent clinical information, including history, physical exam and plan: Yes Notes (Text): 11/01/17 87 year old female with past medical history of COPD, diastolic CHF, DVT and diabetes who presented with severe anemia requiring prbc transfusions. Workup revealed adenocarcinoma of the rectum. She is being followed by GI, surgery and hematology/oncology. Radiation/oncology evaluation also was requested. Patient is currently in TCU for physical therapy rehabilitation. She reports is feeling better and anticipating discharge possibly today or tomorrow. Haylie Moore MD Hospitalist.
[2017-11-01] MEDS: Ferrous Sulfate 300 mg/5 mL Liq UD PO SCH ×3 (09:58→17:12)
[2017-11-01] MEDS: POLYETHYLENE GLYCOL 3350 17 GM/Dose PACKET PO SCH ×2 (09:58→17:12)
--- NOTE | 2017-11-01 11:03 | CP.PCM.DIS ---
Provider - Provider Date of Admission: 10/27/17 14:04 Attending physician: Haylie Moore MD Primary care physician: Anibal West MD [facility] Course - Lab Results Lab Results: Most Recent Lab Values WBC 5.6 10^3/ul (4.5-11.0) 11/01/17 07:00 RBC 3.74 10^6/uL (3.5-6.1) 11/01/17 07:00 Hgb 8.3 g/dL (12.0-16.0) L 11/01/17 07:00 Hct 28.6 % (36.0-48.0) L 11/01/17 07:00 MCV 76.5 fl (80.0-105.0) L 11/01/17 07:00 MCH 22.2 pg (25.0-35.0) L 11/01/17 07:00 MCHC 29.0 g/dl (31.0-37.0) L 11/01/17 07:00 RDW 21.6 % (11.5-14.5) H 11/01/17 07:00 Plt Count 196 10^3/uL (120.0-450.0) 11/01/17 07:00 MPV 10.0 fl (7.0-11.0) 11/01/17 07:00 Gran % 56.5 % (50.0-68.0) 11/01/17 07:00 Lymph % (Auto) 31.2 % (22.0-35.0) 11/01/17 07:00 [place] % (Auto) 7.8 % (1.0-6.0) H 11/01/17 07:00 Eos % (Auto) 4.1 % (1.5-5.0) 11/01/17 07:00 Baso % (Auto) 0.4 % (0.0-3.0) 11/01/17 07:00 Gran # 3.17 (1.4-6.5) 11/01/17 07:00 Lymph # (Auto) 1.8 (1.2-3.4) 11/01/17 07:00 [place] # (Auto) 0.4 (0.1-0.6) 11/01/17 07:00 Eos # (Auto) 0.2 (0.0-0.7) 11/01/17 07:00 Baso # (Auto) 0.02 K/mm3 (0.0-2.0) 11/01/17 07:00 Sodium 143 mmol/L (132-148) 10/29/17 06:50 Potassium 4.7 mmol/L (3.6-5.0) 10/29/17 06:50 Chloride 102 mmol/L (98-107) 10/29/17 06:50 Carbon Dioxide 31 mmol/L (21-33) 10/29/17 06:50 Anion Gap 15 (10-20) 10/29/17 06:50 BUN 23 mg/dL (7-21) H 10/29/17 06:50 Creatinine 1.2 mg/dl (0.7-1.2) 10/29/17 06:50 Est GFR ( Amer) 51 10/29/17 06:50 Est GFR (Non-Af Amer) 42 10/29/17 06:50 POC Glucose (mg/dL) 124 mg/dL (65-110) H 10/31/17 10:23 Random Glucose 102 mg/dL (70-110) 10/29/17 06:50 Calcium 10.0 mg/dL (8.4-10.5) 10/29/17 06:50 Phosphorus 3.6 mg/dL (2.5-4.5) 10/29/17 06:50 Magnesium 1.4 mg/dL (1.7-2.2) L 10/29/17 06:50 Total Bilirubin 0.4 mg/dL (0.2-1.3) 10/29/17 06:50 AST 27 U/L (14-36) 10/29/17 06:50 ALT 24 U/L (7-56) 10/29/17 06:50 Alkaline Phosphatase 72 U/L (38-126) 10/29/17 06:50 Total Protein 6.9 g/dL (5.8-8.3) 10/29/17 06:50 Albumin 3.6 g/dL (3.0-4.8) 10/29/17 06:50 Globulin 3.3 gm/dL 10/29/17 06:50 Albumin/Globulin Ratio 1.1 (1.1-1.8) 05/18/18 06:50 Discharge Exam - Head Exam Head Exam: NORMOCEPHALIC Discharge Plan - Follow Up Plan Condition: GOOD Disposition: HOME/ ROUTINE Instructions: Heart Failure, Adult (DC), Anemia of Chronic Disease (DC), Bloody Stools, Adult (DC), Colon and Rectal Cancer (DC) Additional Instructions: 1. Follow up with Dr. West, primary care doctor, in 1 week after discharge for the following: - Medical clearance for surgery, chemo, and radiation - Cardiac risk assessmen/optimization recommendations prior to surgery - Pulmonary risk assessmen/optimization recommendations prior to surgery 2. Follow up with Dr. Meek, Oncologist, for iron infusion and chemotherapy planning 3. Follow up with Dr. Tyson, surgeon, for surgery planning 4. Follow up with Dr. Membreno, GI doctor, in 2-4 weeks. Referrals: Johnny Meek MD [Staff Provider] - David Tyson MD [Staff Provider] - Anibal West MD [Primary Care Provider] -
--- NOTE | 2017-11-01 12:26 | CP.PCM.CON ---
History of Present Illness - History of Present Illness History of Present Illness: Ms Berg is a 87 year old female with a newly diagnosed rectal cancer. She states for the past month she has been on oxygen due to her worsening shortness of breath. She had a routine doctors visit with her PCP, and was immediately sent to the ED by her PCP for low H/H. Of note, she had been suffering with black, loose stool for many months. She would have occasional episodes of bowel incontinence. She had been refusing a colonoscopy. On admission, she had CT of the abdomen and pelvis on October 22, 2017 which revealed asymmetric thickening of the rectal wall with renal and gallbladder calculi. She had a colonoscopy and endoscopy. A biopsy of the rectal mass on October 27, 2017 was positive for moderately differentiated adenocarcinoma. She is referred to us for Review of Systems - Respiratory Respiratory: Dyspnea, Dyspnea on Exertion - Gastrointestinal Gastrointestinal: Loose Stools, Melena Past Patient History - Infectious Disease Hx of Infectious Diseases: None - Tetanus Immunizations Tetanus Immunization: Unknown - Past Medical History & Family History Past Medical History?: Yes - Past Social History Smoking Status: Former Smoker Alcohol: Social Drugs: Denies Home Situation {Lives}: Alone - CARDIAC Hx Cardiac Disorders: Yes Hx Congestive Heart Failure: Yes Hx Hypercholesterolemia: Yes - PULMONARY Hx Chronic Obstructive Pulmonary Disease (COPD): Yes - NEUROLOGICAL Hx Neurological Disorder: No - HEENT Hx HEENT Problems: No - RENAL Hx Chronic Kidney Disease: No - ENDOCRINE/METABOLIC Hx Diabetes Mellitus Type 2: Yes - HEMATOLOGICAL/ONCOLOGICAL Hx Blood Transfusions: No Hx Blood Transfusion Reaction: No - INTEGUMENTARY Hx Dermatological Problems: No - MUSCULOSKELETAL/RHEUMATOLOGICAL Hx Falls: Yes - GASTROINTESTINAL Hx Gastrointestinal Disorders: No - GENITOURINARY/GYNECOLOGICAL Hx Genitourinary Disorders: Yes (UTI) Hx Reproductive Disorders: No - PSYCHIATRIC Hx Psychophysiologic Disorder: No Hx Substance Use: No - SURGICAL HISTORY Hx Surgeries: Yes (rhinoplasty,BUNIONECTOMY BILATERAL TOES.) - ANESTHESIA Hx Anesthesia Reactions: No Hx Malignant Hyperthermia: No Meds Allergies/Adverse Reactions: Allergies Allergy/AdvReac Type Severity Reaction Status Date / Time No Known Allergies Allergy Verified 10/27/17 20:02 - Medications Medications: Current Medications Acetaminophen (Tylenol 325mg Tab) 325 mg PO Q4H PRN PRN Reason: Pain, moderate (4-7) Last Admin: 10/30/17 00:14 Dose: 325 mg Albuterol Sulfate (Albuterol 0.083% Inhal Mela (2.5 Mg/3 Ml) Ud) 2.5 mg INH [id number] PRN; Protocol PRN Reason: Shortness of Breath Last Admin: 11/01/17 07:28 Dose: 2.5 mg Arformoterol Tartrate (Brovana) 15 mcg IH [id number] DEQUAN PRN Reason: Protocol Last Admin: 11/01/17 07:27 Dose: 15 mcg Atorvastatin Calcium (Lipitor) 40 mg PO DIN DEQUAN PRN Reason: Protocol Last Admin: 10/31/17 18:13 Dose: 40 mg Budesonide (Pulmicort Respules) 1 mg IH [id number] DEQUAN PRN Reason: Protocol Last Admin: 10/31/17 20:07 Dose: 1 mg Ferrous Sulfate (Feosol Liq) 300 mg PO TID [facility] Last Admin: 11/01/17 09:58 Dose: 300 mg Furosemide (Lasix) 40 mg PO 0600 DEQUAN PRN Reason: Protocol Last Admin: 11/01/17 05:43 Dose: Not Given Insulin Human Lispro (Humalog Low) 0 units SC ACHS [facility] PRN Reason: Protocol Last Admin: 11/01/17 12:07 Dose: Not Given Lactic Acid (Lac-Hydrin 12% Lotion (225 G)) 0 gm EXT BID PRN; Protocol PRN Reason: Dry skin Last Admin: 10/31/17 09:17 Dose: 1 applic Meclizine HCl (Antivert) 12.5 mg PO DAILY PRN; Protocol PRN Reason: Dizziness Pantoprazole Sodium (Protonix Ec Tab) 40 mg PO 0600 [facility] PRN Reason: Protocol Last Admin: 11/01/17 05:43 Dose: 40 mg Polyethylene Glycol (Miralax) 17 gm PO BID DEQUAN PRN Reason: Protocol Last Admin: 11/01/17 09:58 Dose: 17 gm Potassium Chloride (Klor-Con 10) 10 meq PO 0800 DEQUAN PRN Reason: Protocol Last Admin: 11/01/17 07:48 Dose: 10 meq Sodium Chloride ([place] Nasal [place]) 0 ml NS DAILY PRN; Protocol PRN Reason: Nasal congestion Physical Exam - Head Exam Head Exam: NORMAL INSPECTION - Eye Exam Eye Exam: EOMI - Respiratory Exam Respiratory Exam: Clear to Auscultation Bilateral - Cardiovascular Exam Cardiovascular Exam: REGULAR RHYTHM - GI/Abdominal Exam GI & Abdominal Exam: Normal Bowel Sounds - Neurological Exam Neurological exam: CN II-XII Intact, Oriented x3 Results - Vital Signs Recent Vital Signs: Last Vital Signs Temp 97.5 F L 10/31/17 16:00 Pulse 68 10/31/17 16:00 Resp 18 10/31/17 16:00 BP 97/59 L 11/01/17 05:43 Pulse Ox 100 10/31/17 16:00 - Labs Result Diagrams: 11/01/17 07:00 10/29/17 06:50 Labs: Laboratory Results - last 24 hr 10/30/17 10/31/17 10/31/17 21:22 06:10 10:23 WBC RBC Hgb Hct MCV MCH MCHC RDW Plt Count MPV Gran % Lymph % (Auto) [place] % (Auto) Eos % (Auto) Baso % (Auto) Gran # Lymph # (Auto) [place] # (Auto) Eos # (Auto) Baso # (Auto) POC Glucose (mg/dL) 112 H 93 124 H 10/31/17 11/01/17 11/01/17 21:46 05:24 07:00 WBC 5.6 RBC 3.74 Hgb 8.3 L Hct 28.6 L MCV 76.5 L MCH 22.2 L MCHC 29.0 L RDW 21.6 H Plt Count 196 MPV 10.0 Gran % 56.5 Lymph % (Auto) 31.2 [place] % (Auto) 7.8 H Eos % (Auto) 4.1 Baso % (Auto) 0.4 Gran # 3.17 Lymph # (Auto) 1.8 [place] # (Auto) 0.4 Eos # (Auto) 0.2 Baso # (Auto) 0.02 POC Glucose (mg/dL) 119 H 106 Assessment & Plan - Assessment and Plan (Free Text) Assessment: Ms Berg is a 87 year old female with a newly diagnosed adenocarcinoma of the rectum. She needs to complete a staging workup including ideally an EUS/MRI of the pelvis for staging of the primary tumor. She will need a PET scan as an outpatient for staging purposes. We would concur that she would benefit from radiation therapy. She is being seen by medical oncology as well as surgery regarding her case as well. Typically for locally advanced rectal cancers, she would get chemoradiation followed by surgery. We spoke to her and her friend briefly about the radiation therapy. We will arrange for her PET as an outpatient. We will finalize her plan after the medical oncologist and surgeon have had the opportunity to review her case as well.
[2017-11-01] MEDS: Budesonide 0.5 mg/2 ml Inhal Susp UD IH SCH (21:00)
--- NOTE | 2017-11-02 05:58 | CP.PCM.PN ---
Subjective - Date & Time of Evaluation Date of Evaluation: 11/02/17 Time of Evaluation: 06:30 - Subjective Subjective: Sleeping but easily awaken, lying in bed, no distress Reason for consultation: Continuity of care to TCU, coronary artery disease, congestive heart failure, NSTEMI, severe anemia, COPD,hyperlipidemia, diabetes mellitus, DVT/PE, reconditioning. Seen and examined by me and Dr. Aquino Objective - Vital Signs/Intake and Output Vital Signs (last 24 hours): Temp Pulse Resp BP Pulse Ox 97.5 F L 68 18 97/59 L 100 10/31/17 16:00 10/31/17 16:00 10/31/17 16:00 11/01/17 05:43 10/31/17 16:00 - Medications Medications: Current Medications Acetaminophen (Tylenol 325mg Tab) 325 mg PO Q4H PRN PRN Reason: Pain, moderate (4-7) Last Admin: 10/30/17 00:14 Dose: 325 mg Albuterol Sulfate (Albuterol 0.083% Inhal Mela (2.5 Mg/3 Ml) Ud) 2.5 mg INH [id number] PRN; Protocol PRN Reason: Shortness of Breath Last Admin: 11/01/17 07:28 Dose: 2.5 mg Arformoterol Tartrate (Brovana) 15 mcg IH [id number] DEQUAN PRN Reason: Protocol Last Admin: 11/01/17 21:00 Dose: 15 mcg Atorvastatin Calcium (Lipitor) 40 mg PO DIN DEQUAN PRN Reason: Protocol Last Admin: 11/01/17 17:12 Dose: 40 mg Budesonide (Pulmicort Respules) 1 mg IH [id number] DEQUAN PRN Reason: Protocol Last Admin: 11/01/17 21:00 Dose: 1 mg Ferrous Sulfate (Feosol Liq) 300 mg PO TID DEQUAN Last Admin: 11/01/17 17:12 Dose: 300 mg Furosemide (Lasix) 40 mg PO 0600 DEQUAN PRN Reason: Protocol Last Admin: 11/01/17 05:43 Dose: Not Given Insulin Human Lispro (Humalog Low) 0 units SC ACHS DEQUAN PRN Reason: Protocol Last Admin: 11/01/17 22:03 Dose: Not Given Lactic Acid (Lac-Hydrin 12% Lotion (225 G)) 0 gm EXT BID PRN; Protocol PRN Reason: Dry skin Last Admin: 10/31/17 09:17 Dose: 1 applic Meclizine HCl (Antivert) 12.5 mg PO DAILY PRN; Protocol PRN Reason: Dizziness Pantoprazole Sodium (Protonix Ec Tab) 40 mg PO 0600 DEQUAN PRN Reason: Protocol Last Admin: 11/01/17 05:43 Dose: 40 mg Polyethylene Glycol (Miralax) 17 gm PO BID DEQUAN PRN Reason: Protocol Last Admin: 11/01/17 17:12 Dose: 17 gm Potassium Chloride (Klor-Con 10) 10 meq PO 0800 DEQUAN PRN Reason: Protocol Last Admin: 11/01/17 07:48 Dose: 10 meq Sodium Chloride ([place] Nasal [place]) 0 ml NS DAILY PRN; Protocol PRN Reason: Nasal congestion - Labs Labs: 11/01/17 07:00 10/29/17 06:50 - Constitutional Appears: No Acute Distress - Head Exam Head Exam: NORMOCEPHALIC - Eye Exam Eye Exam: Normal appearance - ENT Exam ENT Exam: Mucous Membranes Moist - Respiratory Exam Respiratory Exam: Clear to Ausculation Bilateral, NORMAL BREATHING PATTERN - Cardiovascular Exam Cardiovascular Exam: +S1, +S2 - GI/Abdominal Exam GI & Abdominal Exam: Soft, Normal Bowel Sounds - Exam Additional comments: bedside commode - Extremities Exam Extremities Exam: Full ROM, Normal Capillary Refill Additional comments: use cane and walker to walk - Neurological Exam Neurological Exam: Alert, Awake, Oriented x3 - Psychiatric Exam Psychiatric exam: Normal Affect, Normal Mood - Skin Skin Exam: Intact, Normal Color, Warm Assessment and Plan - Assessment and Plan (Free Text) Assessment: An 87 year old female who came in to the ER due to low hemoglobin (4.9) severe anemia,History of COPD, coronary artery disease,diabetes mellitus, hyperlipidemia, DVT/PE (2017), CHF, NSTEMI, chronic anemia, CKD. 3 units of PRBC was given and repeat Hemoglobin was 8.9.Pt seen/evaluated by GI- taken for EGD & colonoscopy with findings of Schtazki ring, hiatal hernia and rectal mass- biopsy sent to pathology for analysis. Cardiology seen/evaluated in telemetry, work up done and no evidence of PA. Transferred to TCU for reconditioning and cardiology continuing care and follow up.Newly diagnosed rectal adenocarcinoma. 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 Aquino
[2017-11-02] MEDS: Insulin Lispro (humaLOG) LOW Coverage SC SCH ×2 (06:39→11:37)
[2017-11-02] MEDS: Pantoprazole 40 mg EC Tab PO SCH (06:40)
[2017-11-02] MEDS: Arformoterol 15 mcg/2 ml Inh Sol IH SCH (07:53)
[2017-11-02] MEDS: Budesonide 0.5 mg/2 ml Inhal Susp UD IH SCH (07:53)
[2017-11-02] MEDS: Potassium Chloride 10 mEq ER Tab PO SCH (08:59)
[2017-11-02] MEDS: Ferrous Sulfate 300 mg/5 mL Liq UD PO SCH (10:55)
[2017-11-02] MEDS: POLYETHYLENE GLYCOL 3350 17 GM/Dose PACKET PO SCH (10:56)
[2017-11-02 11:30] VITALS: BP 103/59; PULSE 71; RESP 20; TEMP 98.5; O2SAT 93
--- NOTE | 2017-11-02 11:51 | CP.PCM.DIS ---
Provider - Provider Date of Admission: 10/27/17 14:04 Attending physician: Haylie Moore MD Primary care physician: Anibal West MD [facility] Course - Lab Results Lab Results: Most Recent Lab Values WBC 5.6 10^3/ul (4.5-11.0) 11/01/17 07:00 RBC 3.74 10^6/uL (3.5-6.1) 11/01/17 07:00 Hgb 8.3 g/dL (12.0-16.0) L 11/01/17 07:00 Hct 28.6 % (36.0-48.0) L 11/01/17 07:00 MCV 76.5 fl (80.0-105.0) L 11/01/17 07:00 MCH 22.2 pg (25.0-35.0) L 11/01/17 07:00 MCHC 29.0 g/dl (31.0-37.0) L 11/01/17 07:00 RDW 21.6 % (11.5-14.5) H 11/01/17 07:00 Plt Count 196 10^3/uL (120.0-450.0) 11/01/17 07:00 MPV 10.0 fl (7.0-11.0) 11/01/17 07:00 Gran % 56.5 % (50.0-68.0) 11/01/17 07:00 Lymph % (Auto) 31.2 % (22.0-35.0) 11/01/17 07:00 Ritchie % (Auto) 7.8 % (1.0-6.0) H 11/01/17 07:00 Eos % (Auto) 4.1 % (1.5-5.0) 11/01/17 07:00 Baso % (Auto) 0.4 % (0.0-3.0) 11/01/17 07:00 Gran # 3.17 (1.4-6.5) 11/01/17 07:00 Lymph # (Auto) 1.8 (1.2-3.4) 11/01/17 07:00 Ritchie # (Auto) 0.4 (0.1-0.6) 11/01/17 07:00 Eos # (Auto) 0.2 (0.0-0.7) 11/01/17 07:00 Baso # (Auto) 0.02 K/mm3 (0.0-2.0) 11/01/17 07:00 Sodium 143 mmol/L (132-148) 10/29/17 06:50 Potassium 4.7 mmol/L (3.6-5.0) 10/29/17 06:50 Chloride 102 mmol/L (98-107) 10/29/17 06:50 Carbon Dioxide 31 mmol/L (21-33) 10/29/17 06:50 Anion Gap 15 (10-20) 10/29/17 06:50 BUN 23 mg/dL (7-21) H 10/29/17 06:50 Creatinine 1.2 mg/dl (0.7-1.2) 10/29/17 06:50 Est GFR ( Amer) 51 10/29/17 06:50 Est GFR (Non-Af Amer) 42 10/29/17 06:50 POC Glucose (mg/dL) 86 mg/dL (65-110) 11/02/17 11:03 Random Glucose 102 mg/dL (70-110) 10/29/17 06:50 Calcium 10.0 mg/dL (8.4-10.5) 10/29/17 06:50 Phosphorus 3.6 mg/dL (2.5-4.5) 10/29/17 06:50 Magnesium 1.4 mg/dL (1.7-2.2) L 10/29/17 06:50 Total Bilirubin 0.4 mg/dL (0.2-1.3) 10/29/17 06:50 AST 27 U/L (14-36) 10/29/17 06:50 ALT 24 U/L (7-56) 10/29/17 06:50 Alkaline Phosphatase 72 U/L (38-126) 10/29/17 06:50 Total Protein 6.9 g/dL (5.8-8.3) 10/29/17 06:50 Albumin 3.6 g/dL (3.0-4.8) 10/29/17 06:50 Globulin 3.3 gm/dL 10/29/17 06:50 Albumin/Globulin Ratio 1.1 (1.1-1.8) 10/29/17 06:50 Discharge Exam - Head Exam Head Exam: ATRAUMATIC, NORMAL INSPECTION, NORMOCEPHALIC Discharge Plan - Discharge Medications Prescriptions: Albuterol 0.083% [Albuterol 0.083% Inhal Mela (2.5 mg/3 ml) UD] 2.5 mg IH [id number] PRN #50 neb PRN Reason: Shortness Of Breath Ammonium Lactate 12% [Lac-Hydrin 12% Lotion (225 g)] 1 gm EXT BID PRN #1 bottle PRN Reason: Dry Skin Arformoterol [Brovana] 15 mcg IH [id number] #20 neb Budesonide [Pulmicort Respules] 1 mg IH [id number] #30 neb Ferrous Sulfate [Feosol Liq] 300 mg PO TID #50 udc Furosemide [Lasix] 40 mg PO DAILY #30 tab Pantoprazole [Protonix EC Tab] 40 mg PO 0600 #30 ect Polyethylene Glycol 3350 [Miralax] 17 gm PO BID #60 packet Rosuvastatin Calcium [Crestor] 20 mg PO HS #30 tab - Follow Up Plan Condition: GOOD Disposition: HOME/ ROUTINE Instructions: Heart Failure, Adult (DC), Anemia of Chronic Disease (DC), Bloody Stools, Adult (DC), Colon and Rectal Cancer (DC) Additional Instructions: 1. Get CT chest with IV contrast done. - Call [facility] to make the appointment. - . 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 - Make sure to drink plenty of fluid the day before and the day of the imaging. 2. Follow up with Dr. West, primary care doctor, in 1 week after discharge for the followin[address] [place] [address]. [place], - Medical clearance for surgery, chemo, and radiation - Cardiac risk assessment/optimization recommendations prior to surgery - Pulmonary risk assessment/optimization recommendations prior to surgery - To Primary care doctor: Please note that we discontinue metoprolol and metformin. Patient blood pressure was well controlled on lasix and her blood glucose was controlled during her stay at [facility]. Please re-assess need to re- start metoprolol and metformin 3. Follow up with Dr. Meek, Oncologist, for (1) iron infusion, (2) Possible MRI of pelvis for staging, and (3) chemotherapy planning - Call Oncologist to possibly arrange transportation - [facility]. [address], [place] [address] - 4. Follow up with Dr. Tyson, surgeon, for surgery planning in about 3 week : - [address] [address] - 5. Follow up with Dr. Membreno, GI doctor, in 1- 2 weeks for possible endoscopic ultrasound for staging. - [address], [place], [place] - 6. Follow up with Dr. Elisa Bryant, Radiation oncologist for (1) PET scan, (2) radiation. - Call radiation oncologist to possibly arrange transportation - [facility] Radiation Oncology Department - [address] [place] [address] - 7. Follow up with Dr. Aquino in 1-2 weeks - [address], [place] [address] - [facility] Cardiology - Referrals: Alvina Aquino MD [Staff Provider] - 1 Week Elisa Bryant MD [Staff Provider] - 1 Week Johnny Meek MD [Staff Provider] - 1 Week David Tyson MD [Staff Provider] - 3 Week Anibal West MD [Primary Care Provider] - 1 Week Devendra Membreno MD [Medical Doctor] - 2 Week
--- NOTE | 2017-11-02 11:51 | CP.PCM.PN ---
Subjective - Date & Time of Evaluation Date of Evaluation: 11/02/17 Time of Evaluation: 10:30 - Subjective Subjective: PGY-[address] Membreno's service Patient was seen and examined at bedside in TCU. Patient states that feels well , and she will be going to be discharged later this afternoon. Patient denies abd pain, overt bleeding, n/v, diarrhea. Objective - Vital Signs/Intake and Output Vital Signs (last 24 hours): Temp Pulse Resp BP Pulse Ox 98.5 F 71 20 103/59 L 93 L 11/02/17 11:29 11/02/17 11:29 11/02/17 11:29 11/02/17 11:29 11/02/17 11:29 - Medications Medications: Current Medications Acetaminophen (Tylenol 325mg Tab) 325 mg PO Q4H PRN PRN Reason: Pain, moderate (4-7) Last Admin: 10/30/17 00:14 Dose: 325 mg Albuterol Sulfate (Albuterol 0.083% Inhal Mela (2.5 Mg/3 Ml) Ud) 2.5 mg INH [id number] PRN; Protocol PRN Reason: Shortness of Breath Last Admin: 11/01/17 07:28 Dose: 2.5 mg Arformoterol Tartrate (Brovana) 15 mcg IH [id number] DEQUAN PRN Reason: Protocol Last Admin: 11/02/17 07:53 Dose: 15 mcg Atorvastatin Calcium (Lipitor) 40 mg PO DIN DEQUAN PRN Reason: Protocol Last Admin: 11/01/17 17:12 Dose: 40 mg Budesonide (Pulmicort Respules) 1 mg IH [id number] DEQUAN PRN Reason: Protocol Last Admin: 11/02/17 07:53 Dose: 1 mg Ferrous Sulfate (Feosol Liq) 300 mg PO TID DEQUAN Last Admin: 11/02/17 10:55 Dose: 300 mg Furosemide (Lasix) 40 mg PO 0600 DEQUAN PRN Reason: Protocol Last Admin: 11/02/17 06:39 Dose: 40 mg Insulin Human Lispro (Humalog Low) 0 units SC ACHS DEQUAN PRN Reason: Protocol Last Admin: 11/02/17 11:37 Dose: Not Given Lactic Acid (Lac-Hydrin 12% Lotion (225 G)) 0 gm EXT BID PRN; Protocol PRN Reason: Dry skin Last Admin: 10/31/17 09:17 Dose: 1 applic Meclizine HCl (Antivert) 12.5 mg PO DAILY PRN; Protocol PRN Reason: Dizziness Pantoprazole Sodium (Protonix Ec Tab) 40 mg PO 0600 DEQUAN PRN Reason: Protocol Last Admin: 11/02/17 06:40 Dose: 40 mg Polyethylene Glycol (Miralax) 17 gm PO BID DEQUAN PRN Reason: Protocol Last Admin: 11/02/17 10:56 Dose: Not Given Potassium Chloride (Klor-Con 10) 10 meq PO 0800 DEQUAN PRN Reason: Protocol Last Admin: 11/02/17 08:59 Dose: 10 meq Sodium Chloride ([place] Nasal [place]) 0 ml NS DAILY PRN; Protocol PRN Reason: Nasal congestion - Labs Labs: 11/01/17 07:00 10/29/17 06:50 - Constitutional Appears: Well, No Acute Distress - Eye Exam Eye Exam: EOMI, Normal appearance - ENT Exam ENT Exam: Mucous Membranes Moist - Respiratory Exam Respiratory Exam: Clear to Ausculation Bilateral, NORMAL BREATHING PATTERN. absent: Chest Wall Tenderness, Decreased Breath Sounds, Rales, Rhonchi, Wheezes , Respiratory Distress - Cardiovascular Exam Cardiovascular Exam: REGULAR RHYTHM, +S1, +S2. absent: Bradycardia, Tachycardia , Murmur - GI/Abdominal Exam GI & Abdominal Exam: Soft, Normal Bowel Sounds. absent: Distended, Firm, Guarding, Tenderness - Extremities Exam Extremities Exam: Normal Inspection. absent: Pedal Edema, Tenderness - Neurological Exam Neurological Exam: Alert, Awake, Oriented x3 - Skin Skin Exam: Dry, Intact, Normal Color, Warm Assessment and Plan - Assessment and Plan (Free Text) Assessment: 87 yo female with PMH of DVT, PE, COPD, DM, CAD, dyslipedemia presented with severe anemia, hgb of 4.9, s/p pRBC transfusion. Severe anemia, status post packed RBC transfusion Status post EGD/colonoscopy found rectal lesion, status post biopsy Coronary artery disease, history of DVT/PE COPD Plan: H&H stable, continue to monitor for overt bleeding rectal biopsy showed adenocarcinoma, moderately differentiated Discussed with medical team regarding CT scan of the chest outpatient rule out possible metastasis History of PET scan showed irregularity of rectal wall Diet as tolerated On PPI started on iron supplement Continue MiraLAX for constipation Seen and discussed with Dr. Membreno.
--- NOTE | 2017-11-02 12:00 | CP.PCM.PN ---
Subjective - Date & Time of Evaluation Date of Evaluation: 11/02/17 Time of Evaluation: 07:05 - Subjective Subjective: PGY1 Medicine Note for Dr. López Patient seen and examined this morning at bedside. No acute events overnight. Patient is repeating all questions/statements that are spoken to him and not forming any statements himself. He is observed speaking on the phone with no one on the other end. He is unable to respond appropriately to any questions. He is tolerating a PO diet, with assistance with feeding. ROS unattainable 2/2 mental status. Objective - Vital Signs/Intake and Output Vital Signs (last 24 hours): Temp Pulse Resp BP Pulse Ox 98.5 F 71 20 103/59 L 93 L 11/02/17 11:29 11/02/17 11:29 11/02/17 11:29 11/02/17 11:29 11/02/17 11:29 - Medications Medications: Current Medications Acetaminophen (Tylenol 325mg Tab) 325 mg PO Q4H PRN PRN Reason: Pain, moderate (4-7) Last Admin: 10/30/17 00:14 Dose: 325 mg Albuterol Sulfate (Albuterol 0.083% Inhal Mela (2.5 Mg/3 Ml) Ud) 2.5 mg INH [id number] PRN; Protocol PRN Reason: Shortness of Breath Last Admin: 11/01/17 07:28 Dose: 2.5 mg Arformoterol Tartrate (Brovana) 15 mcg IH [id number] DEQUAN PRN Reason: Protocol Last Admin: 11/02/17 07:53 Dose: 15 mcg Atorvastatin Calcium (Lipitor) 40 mg PO DIN DEQUAN PRN Reason: Protocol Last Admin: 11/01/17 17:12 Dose: 40 mg Budesonide (Pulmicort Respules) 1 mg IH [id number] DEQUAN PRN Reason: Protocol Last Admin: 11/02/17 07:53 Dose: 1 mg Ferrous Sulfate (Feosol Liq) 300 mg PO TID DEQUAN Last Admin: 11/02/17 10:55 Dose: 300 mg Furosemide (Lasix) 40 mg PO 0600 DEQUAN PRN Reason: Protocol Last Admin: 11/02/17 06:39 Dose: 40 mg Insulin Human Lispro (Humalog Low) 0 units SC ACHS DEQUAN PRN Reason: Protocol Last Admin: 11/02/17 11:37 Dose: Not Given Lactic Acid (Lac-Hydrin 12% Lotion (225 G)) 0 gm EXT BID PRN; Protocol PRN Reason: Dry skin Last Admin: 10/31/17 09:17 Dose: 1 applic Meclizine HCl (Antivert) 12.5 mg PO DAILY PRN; Protocol PRN Reason: Dizziness Pantoprazole Sodium (Protonix Ec Tab) 40 mg PO 0600 DEQUAN PRN Reason: Protocol Last Admin: 11/02/17 06:40 Dose: 40 mg Polyethylene Glycol (Miralax) 17 gm PO BID DEQUAN PRN Reason: Protocol Last Admin: 11/02/17 10:56 Dose: Not Given Potassium Chloride (Klor-Con 10) 10 meq PO 0800 DEQUAN PRN Reason: Protocol Last Admin: 11/02/17 08:59 Dose: 10 meq Sodium Chloride ([place] Nasal [place]) 0 ml NS DAILY PRN; Protocol PRN Reason: Nasal congestion - Labs Labs: 11/01/17 07:00 10/29/17 06:50 - Constitutional Appears: Non-toxic, No Acute Distress - Head Exam Head Exam: ATRAUMATIC, NORMOCEPHALIC - Eye Exam Eye Exam: EOMI, Normal appearance - ENT Exam ENT Exam: Mucous Membranes Moist - Neck Exam Neck Exam: absent: Lymphadenopathy - Respiratory Exam Respiratory Exam: Clear to Ausculation Bilateral, NORMAL BREATHING PATTERN. absent: Accessory Muscle Use, Rales, Rhonchi, Wheezes, Respiratory Distress - Cardiovascular Exam Cardiovascular Exam: REGULAR RHYTHM, +S1, +S2 - GI/Abdominal Exam GI & Abdominal Exam: Soft, Normal Bowel Sounds. absent: Distended, Firm, Guarding, Rigid, Tenderness - Extremities Exam Extremities Exam: absent: Calf Tenderness, Pedal Edema - Neurological Exam Neurological Exam: Alert, Awake, CN II-XII Intact, Oriented x3 Additional comments: He is able follow commands, squeeze left/right hand. Does not move either his left or right leg with command but right leg was moved spontaneously. speech is mostly comprehensible - echolalia no facial droop. - Skin Skin Exam: Dry, Warm Assessment and Plan - Assessment and Plan (Free Text) Assessment: 84 year old male, with a PMH hypertension, CAD, vertigo, atrial flutter, AAA, nephrolithiasis, GERD, fall, presents for AMS - found to have acute right frontal lobe infarct.
== END 2017-11-02 13:20 | disposition home health service (06) | DRG 375 ==
LOC: TRCU 14:04
PROVIDERS: ADMIT Internal Medicine; ATTEND Internal Medicine
PROC: F07Z9FZ Gait Training/Functional Ambulation Treatment using Assistive, Adaptive, Supportive or Protective Equipment (ICD-10-PCS; principal; 2017-10-29)
PROC: F07Z8ZZ Transfer Training Treatment (ICD-10-PCS; 2017-10-29)
PROC: F07L6YZ Therapeutic Exercise Treatment of Musculoskeletal System - Lower Back / Lower Extremity using Other Equipment (ICD-10-PCS; 2017-10-29)
PROC: F08Z1FZ Dressing Techniques Treatment using Assistive, Adaptive, Supportive or Protective Equipment (ICD-10-PCS; 2017-10-29)
PROC: F08Z2FZ Grooming/Personal Hygiene Treatment using Assistive, Adaptive, Supportive or Protective Equipment (ICD-10-PCS; 2017-11-01)
DX: C20 Malignant neoplasm of rectum (principal); I13.0 Hypertensive heart and chronic kidney disease with heart failure and stage 1 through stage 4 chronic kidney disease, or unspecified chronic kidney disease; I50.30 Unspecified diastolic (congestive) heart failure; D63.0 Anemia in neoplastic disease; E11.22 Type 2 diabetes mellitus with diabetic chronic kidney disease; N18.9 Chronic kidney disease, unspecified; J44.9 Chronic obstructive pulmonary disease, unspecified; K22.2 Esophageal obstruction; K80.20 Calculus of gallbladder without cholecystitis without obstruction; F43.21 Adjustment disorder with depressed mood; E78.5 Hyperlipidemia, unspecified; E78.00 Pure hypercholesterolemia, unspecified; I25.10 Atherosclerotic heart disease of native coronary artery without angina pectoris; K44.9 Diaphragmatic hernia without obstruction or gangrene; E55.9 Vitamin D deficiency, unspecified; D50.9 Iron deficiency anemia, unspecified; K21.9 Gastro-esophageal reflux disease without esophagitis; R42 Dizziness and giddiness; K59.09 Other constipation; I25.2 Old myocardial infarction; Z86.711 Personal history of pulmonary embolism; Z87.891 Personal history of nicotine dependence; Z79.01 Long term (current) use of anticoagulants; Z86.718 Personal history of other venous thrombosis and embolism; Z79.84 Long term (current) use of oral hypoglycemic drugs; Z99.81 Dependence on supplemental oxygen